=== PATIENT | female | born 1960 ===

== ENCOUNTER 2017-12-07 10:01 | Inpatient (IN) | payer MEDICARE, MEDICAID ==
[~2017-12-07 10:01] MED LIST: D5W IV ONE; HEPARIN IV ONE
--- NOTE | 2017-12-07 10:10 | C.PDOC ---
History Of Present Illness 57 y/o female with history of ESRD on dialysis brought to ED by EMS status post cardiac arrest. As per EMS patient was on the phone with daughter and told her to call 911because she did not feel well. When EMS arrived patient was unresponsive had 3 rounds of Epi and 1 bicarb and calcium. HPI limited secondary to patient's condition upon arrival pt bradycardic Time Seen by Provider: 12/07/17 10:06 Chief Complaint (Nursing): Cardiac Arrest History Per: Patient Reason For Code Blue: Unresponsive Circumstances: Brought To ED By EMS Arrest Witnessed By: Family, By-stander, Nurse Past Medical History Reviewed: Historical Data, Nursing Documentation, Vital Signs Vital Signs: Last Vital Signs Temp 97.9 F 12/09/17 18:00 Pulse 77 12/09/17 18:02 Resp 13 12/09/17 18:02 BP 146/63 12/09/17 18:30 Pulse Ox 99 12/09/17 18:02 - Medical History PMH: No Chronic Diseases Surgical History: No Surg Hx Family History: States: No Known Family Hx Review Of Systems Review Of Systems: ROS cannot be obtained secondary to pt's inabilty to answer questions. ED Course And Treatment - Laboratory Results Result Diagrams: 12/09/17 06:06 12/09/17 06:07 ECG: Interpreted By Me, Viewed By Me ECG Rhythm: Atrial Fibrillation Rate From EC (BPM) Medical Decision Making Medical Decision Making: s/p cardiac arrest with stemi on ems ekg. upon arrival ems ekg shows anterior stemi with reciprocal changes. pt philip in er. atropine given. code heart activated as per dr addison. transcutaneous pacing intiated. accepted hospitalist. all labs pending Disposition - Disposition Disposition: HOSPITALIZED Disposition Time: 04:00 Condition: CRITICAL - Clinical Impression Clinical Impression: Cardiac arrest, Bradycardia - Scribe Statement The provider has reviewed the documentation as recorded by the Mele Ramirez All medical record entries made by the Mele were at my direction and personally dictated by me. I have reviewed the chart and agree that the record accurately reflects my personal performance of the history, physical exam, medical decision making, and the department course for this patient. I have also personally directed, reviewed, and agree with the discharge instructions and disposition.
[2017-12-07] MEDS ORDERED: Heparin25000 units/250ml 1/2NS 25,000 UNITS/250 ML BAG IV ONE (10:20)
[2017-12-07] MEDS ORDERED: Lidocaine 2% MPF (5 ml) Inj ONE (10:26)
[2017-12-07] MEDS ORDERED: Propofol 10 mg/ml 1,000 MG/100 ML VIAL ONE (10:27)
[2017-12-07] MEDS: Propofol 10 mg/ml 1,000 MG/100 ML VIAL IV PRN (10:30)
[2017-12-07] MEDS ORDERED: Iodixanol 320 MG/ML 200 ML BOTTLE IV ONE (10:30)
[2017-12-07 10:39] LABS: BASO # 0.1 K/uL (0.0-0.2); BASO % 0.6 % (0.0-2.0); EOS # 0.2 K/uL (0.0-0.7); EOS % 1.2 % (0.0-4.0); HEMOGLOBIN 11.8 g/dL (11.0-16.0); LYMPH # 5.9 K/uL (1.0-4.3); LYMPH % 37.5 % (20.0-40.0); MEAN CELL VOLUME 93.6 fL (81.0-99.0); MEAN CORPUSCULAR HEMOGLOBIN 30.6 pg (27.0-31.0); MEAN CORPUSCULAR HGB CONC 32.7 g/dL (33.0-37.0); MEAN PLATELET VOLUME 8.2 fL (7.2-11.7); MONO # 0.8 K/uL (0.0-0.8); NEUT # 8.7 K/uL (1.8-7.0); NEUT % 55.7 % (50.0-75.0); RBC 3.84 Mil/uL (3.80-5.20); RED CELL DISTRIBUTION WIDTH 13.9 % (11.5-14.5); WHITE BLOOD COUNT 15.6 K/uL (4.8-10.8)
[2017-12-07] MEDS ORDERED: Phenylephrine 10 mg/ml Inj ONE (10:42)
--- NOTE | 2017-12-07 10:57 | RAD ---
Date of service: 12/07/2017 HISTORY: ng COMPARISON: Chest radiograph performed approximately 20 minutes prior. FINDINGS: LUNGS: No active pulmonary disease. PLEURA: No significant pleural effusion identified, no pneumothorax apparent. CARDIOVASCULAR: Atherosclerotic aortic calcifications. Cardiomediastinal silhouette stably enlarged. OSSEOUS STRUCTURES: Unchanged. VISUALIZED UPPER ABDOMEN: Normal. OTHER FINDINGS: New enteric tube with tip in the stomach Endotracheal tube, unchanged. Overlying pacer pads. IMPRESSION: New enteric tube in satisfactory position. No other significant interval change.
--- NOTE | 2017-12-07 10:58 | RAD ---
Date of service: 12/07/2017 PROCEDURE: CHEST RADIOGRAPH, 1 VIEW HISTORY: chest pain COMPARISON: None available. FINDINGS: LUNGS: Clear. PLEURA: No pneumothorax or pleural fluid seen. CARDIOVASCULAR: Atherosclerotic aortic calcifications. Cardiomediastinal silhouette stably enlarged. OSSEOUS STRUCTURES: Degenerative changes. VISUALIZED UPPER ABDOMEN: Normal. OTHER FINDINGS: Endotracheal tube with tip just above the clavicular heads. Overlying pacer pads. IMPRESSION: Endotracheal tube in satisfactory position. No focal consolidation, pleural effusion or demonstrated pneumothorax.
[2017-12-07 11:08] LABS: ACETAMINOPHEN < 10.0 ug/mL (10.0-30.0); SALICYLATE < 1.0 mg/dL 1
[2017-12-07 11:18] LABS: ALB/GLOB RATIO 1.4 (1.0-2.1); ALBUMIN 3.9 g/dL (3.5-5.0); ALT/SGPT 483 U/L (9-52); AST/SGOT 726 U/L (14-36); BLOOD UREA NITROGEN 63 mg/dL (7-17); CALCIUM 13.5 mg/dl (8.6-10.4); GFR AFRICAN-AMERICAN 6; GFR NON-AFRICAN AMERICAN 5; LIPASE 248 U/L (23-300)
[2017-12-07 11:39] LABS: B-TYPE NATRIURETIC PEPTIDE 56900 pg/mL (0-900)
[2017-12-07] MEDS ORDERED: Sodium Chloride 0.9% 1,000 ML IV SCH (12:00)
[2017-12-07] MEDS ORDERED: Heparin25000 units/250ml 1/2NS 25,000 UNITS/250 ML BAG IV PRN (12:57)
--- NOTE | 2017-12-07 13:05 | RAD ---
Date of service: 12/07/2017 HISTORY: resp distress COMPARISON: Chest radiograph performed approximately 2 hours prior. FINDINGS: LUNGS: Pulmonary vascular congestion. PLEURA: No significant pleural effusion identified, no pneumothorax apparent. CARDIOVASCULAR: Atherosclerotic aortic calcifications. Cardiomediastinal silhouette stably enlarged. OSSEOUS STRUCTURES: Unchanged. VISUALIZED UPPER ABDOMEN: Right upper quadrant surgical clips. OTHER FINDINGS: Endotracheal and enteric tubes, unchanged. Overlying pacer pads. IMPRESSION: Stable tubes and lines. No significant interval change.
[2017-12-07] MEDS ORDERED: (Novolin R) Insulin Human Regular 100 units/ml vial SC ONE (14:33)
[2017-12-07] MEDS ORDERED: Vancomycin 1 gm/NS 200 ml 1 GM/200 ML BAG IVPB STA (14:35)
--- NOTE | 2017-12-07 14:43 | CP.PCM.PN ---
<Jd Hardy - Last Filed: 12/07/17 13:51> Subjective - Date & Time of Evaluation Date of Evaluation: 12/07/17 Time of Evaluation: 10:20 - Subjective Subjective: House Doctor Note, Li Pascual called at 10:18AM. Patient is a 57 year old female with medical history significant for end stage renal disease on HD T//Mon, Diabetes, Hypertension, who was brought to the ED by ambulance as Li Pascual. As per patient's daughter, Malika who was present in the ED, she received a phone call from her younger sister saying that she had been on the phone with their mother who was not feeling well and then suddenly stopped talking. Daughter reports patient was alone at home. Daughter called 911, estimated time of call to 911 was 9:06AM. Per report, EMS found patient unresponsive, gave 3 rounds of Epi and 1 bicarb and calcium. Patient was intubated in the field and intra-osseous line was placed in left humerus. NG tube was placed in the ED and patient was given Atropine 1mg, aspirin 325mg, Brilinta 180mg, ativan 2mg. Heparin bolus 5000u given and heparin drip was started. Patient sedated with Propofol drip. Patient was brought to cardiac catheterization lab with Dr. Ríos. Dopamine drip was started in botany laboratory assistant. Patient had normal coronaries and normal ejection fraction. Patient likely with symptomatic bradycardia. Patient currently being paced at 100bpm. Patient in ICU for further care. Additional history provided by patient's daughter Malika Farrell who was present in the ED. Daughter reports patient had event in 09/2017 where she was weak, collapsed, and became unresponsive. Patient was treated at [facility] at that time and diagnosed with pneumonia. She was hospitalized for four days. PMHx: ESRD on HD T//Mon for the past 6 years, DM, HTN, legally blind, unspecified cancer 2 years ago, treated with chemotherapy, currently on remission OutPt Nephro: Dr. Askew Home Meds: [phone][facility] levemir 12-20 u BID Gabapentin 100mg BID nifedipine 60mg two tabs daily (not taken today 12/07/17) Diltiazem 180mg PO daily Combigan eye drops b/l daily PSHx: total hysterectomy, cholecystectomy, left arm AV fistula Fam Hx: brother and sister with diabetes, mother with heart failure. Social Hx: Denies tobacco, alcohol, drugs. Formerly worked at a [employer] business. Objective - Vital Signs/Intake and Output Vital Signs (last 24 hours): Temp Pulse Resp BP Pulse Ox 96.1 F L 70 14 121/64 100 12/07/17 10:30 12/07/17 10:55 12/07/17 10:55 12/07/17 10:55 12/07/17 10:55 - Medications Medications: Current Medications Albuterol/Ipratropium (Duoneb 3 Mg/0.5 Mg (3 Ml) Ud) 3 ml INH RQ4 [facility] Famotidine (Pepcid) 20 mg PO DAILY [facility] Heparin Sodium (Porcine) (Heparin) 5,000 units SC Q8 [facility] Sodium Chloride (Sodium Chloride 0.9%) 1,000 mls @ 50 mls/hr IV .Q20H [facility] Heparin Sodium/Sodium Chloride (Heparin 63721 Units/250ml 1/2 Normal Saline) 25 ,000 units in 250 mls @ 6.6 mls/hr IV .Q24H PRN; Protocol; 12 UNITS/KG/HR PRN Reason: PROTOCOL Last Admin: 12/07/17 10:23 Dose: 12 units/kg/hr, 6.6 mls/hr - Labs Labs: 12/07/17 10:33 12/07/17 10:33 <Henry Faith - Last Filed: 12/08/17 20:18> Objective - Vital Signs/Intake and Output Vital Signs (last 24 hours): Temp Pulse Resp BP Pulse Ox 99.4 F 82 19 106/55 L 98 12/08/17 18:05 12/08/17 19:04 12/08/17 19:04 12/08/17 19:40 12/08/17 19:04 Intake and Output: 12/08/17 12/09/17 18:59 06:59 Intake Total 2028.7 14.3 Output Total 50 50 Balance 1978.7 -35.7 - Medications Medications: Current Medications Acetaminophen (Tylenol 325mg Tab) 650 mg PO Q6 PRN PRN Reason: Fever >100.4 F Albuterol/Ipratropium (Duoneb 3 Mg/0.5 Mg (3 Ml) Ud) 3 ml INH RQ4 [facility] Last Admin: 12/08/17 19:44 Dose: 3 ml Aspirin (Aspirin Chewable) 81 mg PO DAILY [facility] Last Admin: 12/08/17 17:52 Dose: 81 mg Heparin Sodium (Porcine) (Heparin) 5,000 units SC Q8 [facility] Last Admin: 12/08/17 14:21 Dose: Not Given Propofol (Diprivan) 1,000 mg in 100 mls @ 1.65 mls/hr IV .Q24H PRN; Protocol; 5 MCG/KG/MIN PRN Reason: TITRATE PER MD ORDER Last Titration: 12/08/17 16:59 Dose: 20 mcg/kg/min, 6.6 mls/hr Piperacillin Sod/Tazobactam (Sod 2.25 gm/ Sodium Chloride) 100 mls @ 200 mls/ hr IVPB Q8H [facility] PRN Reason: Protocol Last Admin: 12/08/17 12:03 Dose: 200 mls/hr Norepinephrine Bitartrate 8 mg (/ Dextrose) 258 mls @ 7.74 mls/hr IV .Q24H PRN ; Protocol; 4 MCG/MIN PRN Reason: TITRATE PER MD ORDER Last Titration: 12/08/17 11:39 Dose: 4 mcg/min, 7.74 mls/hr Vancomycin/Sodium Chloride (Vancomycin 1 Gm/Ns 200 Ml) 1 gm in 200 mls @ 133.333 mls/hr IVPB ONCE ONE PRN Reason: Protocol Stop: 12/08/17 21:29 Insulin Glargine (Lantus) 10 unit SC DAILY [facility] Last Admin: 12/08/17 13:15 Dose: 10 u Insulin Human Regular (Novolin R) 0 unit SC Q6H [facility] PRN Reason: Protocol Last Admin: 12/08/17 17:53 Dose: 4 u Midodrine (Proamatine) 5 mg PO TID [facility] Last Admin: 12/08/17 17:52 Dose: 5 mg Pantoprazole Sodium (Protonix Inj) 40 mg IVP DAILY [facility] Last Admin: 12/08/17 09:30 Dose: 40 mg - Labs Labs: 12/08/17 06:32 12/08/17 06:32 PT 12.6 SECONDS (9.7-12.2) H 12/08/17 06:32 INR 1.2 12/08/17 06:32 APTT 29 SECONDS (21-34) 12/08/17 10:56 Attending/Attestation - Attestation I have personally seen and examined this patient.: No I have fully participated in the care of the patient.: No I have reviewed all pertinent clinical information, including history, physical exam and plan: No Notes (Text): 12/08/17 20:17 Please note that this patient was in the cardiac botany laboratory assistant at the time patient was placed under my service. She was then transferred to service of Dr. Stanley. I never saw this patient. Henry Faith D.O.
[2017-12-07] MEDS: DOPamine 400mg/250ml D5W 400 MG/250 ML BAG IV PRN (15:00)
[2017-12-07] MEDS ORDERED: Piperacillin/Tazobact 2.25 GM in Sodium Chloride 100 ML IVPB SCH (15:00)
[2017-12-07 15:32] LABS: ARTERIAL BLOOD GAS HCO3 20.5 mmol/L (21-28); ARTERIAL BLOOD GAS O2 SAT 99.1 % (95-98); ARTERIAL BLOOD GAS PCO2 43 mm/Hg (35-45); ARTERIAL BLOOD GAS PH 7.29 (7.35-7.45); ARTERIAL BLOOD GAS PO2 175 mm/Hg (80-100)
[2017-12-07 15:34] LABS: ARTERIAL BLOOD GAS FIO2 100 %
--- NOTE | 2017-12-07 15:50 | CP.PCM.CON ---
History of Present Illness - History of Present Illness History of Present Illness: Nephrology Consultation Note Assessment: critical Cardiac arrest, acute respi failure Hyperkalemia, lactic acidosis Diabetic chronic Kidney Disease (E11.22) Hypertensive Chronic Kidney Disease (I12.0) End stage renal disease (N18.6) dependence on hemodialysis (Z99.2) (TTS) via AVF Anemia (D64.9), Hyperphosphatemia (E83.39), Secondary Hyperparathyroidism (E21.1 ), HTN (I12.0) ? Hypercalcemia due to IV given during ACLS (outpt Ca 9.1 PTH 453 recently) Hx of ovarian cancer s/p chemo, in remission for last 2 years Plan: Will plan for next HD today per TTS schedule. Continue with Nephrovite 1 tab/ day. PRBC as needed for anemia. not on NEIDA with HD last Hb 11.6 check phos level. resume non-calcium binders such as renvela once pt on diet BP control Glycemic control, Dialysis consistent diet Further work up/management as per primary team Dose meds/antibiotics (if needed) for ESRD status. Avoid fleets enema/magnesium based laxatives. cardiology following Thanks for allowing me to participate in care of your patient. will follow with you. Please call if any Qs. had d/w family and team Dr Shahab Bunn Office: [phone] Chief Complaint; cardiac arrest reason for consult: ESRD HPI: Pt is a 57 F with hx of ESRD on hemodialysis (TTS) via AVF @ [facility] for last 7 years, chronic anemia, hyperphosphatemia, secondary hyperparathyroidism, Diabetes Mellitus, hypertension, ovarian cancer s/p chemo, in remission for last 2 years found to be unresponsive at home, pt s/p ACLS and intubated/sedated, now in ICU pt unable to provide much hx daughter bedside says pt was fine 1 day ago except mild cough. no other concerns or complaints reported. pt is non smoker/no etoh/no drugs. last HD monday ROS: intubated and sedated. unable to obtain any hx from pt Physical Examination: General Appearance: orally intubated and mechanically ventilated, not in distress Vitals reviewed and noted as below Head; Atraumatic, normocephalic ENT: deferred as pt intubated EYES: Rt pupil dilated and non-reacting. left eye blind Neck; supple no lymphadenopathy, no thyromegaly or bruit Lungs: normal respiratory rate/effort. Breath sounds bilateral clear anteriorly. has TV pacer Heart: Normal rate. s1s2 normal. No rub or gallop. Extremities: no edema. No varicose veins. Neurological: Patient is sedated Skin: Warm and dry. Normal turgor. No rash. Palpitation: Normal elasticity for age Abdomen: Abdomen is soft. Bowel sounds +. There is no abdominal tenderness, no guarding/rigidity or organomegaly Psych: deferred MSK: no joint tenderness or swelling. Digits and nails normal, no deformity : kidney or bladder not palpable Access: AVF Labs/imaging reviewed. Past medical history, past surgical history, family history, social history, allergy reviewed and noted as below Family Hx: no hx of CKD. Non contributory Past Patient History - Past Social History Smoking Status: Never Smoked - RENAL Hx Chronic Kidney Disease: Yes Hx Dialysis: Yes Type of Dialysis Access: LEFT LOWER ARM Date of Last Dialysis Treatment: 12/05/17 - ENDOCRINE/METABOLIC Hx Endocrine Disorders: Yes Hx Diabetes Mellitus Type 1: Yes - PSYCHIATRIC Hx Substance Use: No Meds Allergies/Adverse Reactions: Allergies Allergy/AdvReac Type Severity Reaction Status Date / Time No Known Allergies Allergy Verified 12/07/17 14:23 - Medications Medications: Current Medications Acetaminophen (Tylenol 325mg Tab) 650 mg PO Q6 PRN PRN Reason: Fever >100.4 F Albuterol/Ipratropium (Duoneb 3 Mg/0.5 Mg (3 Ml) Ud) 3 ml INH RQ4 [facility] Heparin Sodium (Porcine) (Heparin) 5,000 units SC Q8 [facility] Last Admin: 12/07/17 15:40 Dose: 5,000 units Propofol (Diprivan) 1,000 mg in 100 mls @ 1.65 mls/hr IV .Q24H PRN; Protocol; 5 MCG/KG/MIN PRN Reason: TITRATE PER MD ORDER Last Admin: 12/07/17 10:30 Dose: 5 mcg/kg/min, 1.65 mls/hr Dopamine HCl/Dextrose (Dopamine 400mg/250ml D5w) 400 mg in 250 mls @ 4.125 mls/ hr IV .Q24H PRN; Protocol; 2 MCG/KG/MIN PRN Reason: TITRATE PER MD ORDER Piperacillin Sod/Tazobactam (Sod 2.25 gm/ Sodium Chloride) 100 mls @ 200 mls/ hr IVPB Q8H [facility] PRN Reason: Protocol Vancomycin/Sodium Chloride (Vancomycin 1 Gm/Ns 200 Ml) 1 gm in 200 mls @ 133.333 mls/hr IVPB STAT STA PRN Reason: Protocol Stop: 12/07/17 16:04 Insulin Human Regular (Novolin R) 0 unit SC ACHS [facility] PRN Reason: Protocol Pantoprazole Sodium (Protonix Inj) 40 mg IVP DAILY [facility] Results - Vital Signs Recent Vital Signs: Last Vital Signs Temp 96.7 F L 12/07/17 12:32 Pulse 81 12/07/17 13:45 Resp 12 12/07/17 13:45 BP 111/49 L 12/07/17 13:45 Pulse Ox 100 12/07/17 10:55 - Labs Result Diagrams: 12/07/17 10:33 12/07/17 10:33 Labs: Laboratory Results - last 24 hr 12/07/17 12/07/17 12/07/17 10:07 10:10 10:33 WBC 15.6 H RBC 3.84 Hgb 11.8 Hct 36.0 MCV 93.6 MCH 30.6 MCHC 32.7 L RDW 13.9 Plt Count 167 MPV 8.2 Neut % (Auto) 55.7 Lymph % (Auto) 37.5 Creek % (Auto) 5.0 Eos % (Auto) 1.2 Baso % (Auto) 0.6 Neut # (Auto) 8.7 H Lymph # (Auto) 5.9 H Creek # (Auto) 0.8 Eos # (Auto) 0.2 Baso # (Auto) 0.1 Puncture Site A-line pCO2 43 pO2 175 H HCO3 20.5 L ABG pH 7.29 L ABG Total CO2 22.0 ABG O2 Saturation 99.1 H ABG Base Excess -5.7 L Mateo Test Na A-a O2 Difference 484.0 Respiratory Index 2.8 FiO2 100 Sodium Potassium Chloride Carbon Dioxide Anion Gap BUN Creatinine Est GFR ( Amer) Est GFR (Non-Af Amer) POC Glucose (mg/dL) 379 H Random Glucose Lactic Acid Calcium Total Bilirubin AST ALT Alkaline Phosphatase Total Creatine Kinase Troponin I NT-Pro-B Natriuret Pep Total Protein Albumin Globulin Albumin/Globulin Ratio Lipase TSH 3rd Generation Salicylates Acetaminophen Alcohol, Quantitative 12/07/17 12/07/17 12/07/17 10:33 10:33 11:20 WBC RBC Hgb Hct MCV MCH MCHC RDW Plt Count MPV Neut % (Auto) Lymph % (Auto) Creek % (Auto) Eos % (Auto) Baso % (Auto) Neut # (Auto) Lymph # (Auto) Creek # (Auto) Eos # (Auto) Baso # (Auto) Puncture Site pCO2 pO2 HCO3 ABG pH ABG Total CO2 ABG O2 Saturation ABG Base Excess Mateo Test A-a O2 Difference Respiratory Index FiO2 Sodium 142 Potassium 5.5 H Chloride 100 Carbon Dioxide 15 L Anion Gap 33 H BUN 63 H Creatinine 7.9 H* Est GFR ( Amer) 6 Est GFR (Non-Af Amer) 5 POC Glucose (mg/dL) Random Glucose 334 H Lactic Acid 7.6 H* Calcium 13.5 H* Total Bilirubin 0.9 AST 726 H ALT 483 H Alkaline Phosphatase 145 H Total Creatine Kinase 72 Troponin I 0.0190 NT-Pro-B Natriuret Pep 07614 H Total Protein 6.8 Albumin 3.9 Globulin 2.9 Albumin/Globulin Ratio 1.4 Lipase 248 TSH 3rd Generation Salicylates < 1.0 Acetaminophen < 10.0 L Alcohol, Quantitative < 10 12/07/17 12/07/17 11:31 13:34 WBC RBC Hgb Hct MCV MCH MCHC RDW Plt Count MPV Neut % (Auto) Lymph % (Auto) Creek % (Auto) Eos % (Auto) Baso % (Auto) Neut # (Auto) Lymph # (Auto) Creek # (Auto) Eos # (Auto) Baso # (Auto) Puncture Site pCO2 pO2 HCO3 ABG pH ABG Total CO2 ABG O2 Saturation ABG Base Excess Mateo Test A-a O2 Difference Respiratory Index FiO2 Sodium Potassium Chloride Carbon Dioxide Anion Gap BUN Creatinine Est GFR ( Amer) Est GFR (Non-Af Amer) POC Glucose (mg/dL) 358 H Random Glucose Lactic Acid Calcium Total Bilirubin AST ALT Alkaline Phosphatase Total Creatine Kinase Troponin I NT-Pro-B Natriuret Pep Total Protein Albumin Globulin Albumin/Globulin Ratio Lipase TSH 3rd Generation 4.97 H Salicylates Acetaminophen Alcohol, Quantitative
[2017-12-07] MEDS ORDERED: (Novolin R) Insulin Human Regular 100 units/ml vial SC SCH (16:30)
[2017-12-07 16:33] LABS: ABG ALLEN TEST POS; ARTERIAL BLOOD GAS HCO3 23.7 mmol/L (21-28); ARTERIAL BLOOD GAS O2 SAT 97.2 % (95-98); ARTERIAL BLOOD GAS PCO2 41 mm/Hg (35-45); ARTERIAL BLOOD GAS PH 7.37 (7.35-7.45); ARTERIAL BLOOD GAS PO2 88 mm/Hg (80-100)
[2017-12-07] MEDS: Albuterol-Ipratrop 3 mg / 0.5 (3 ml) UD INH SCH ×2 (16:45→19:45)
--- NOTE | 2017-12-07 17:17 | CT ---
Date of service: 12/07/2017 PROCEDURE: CT HEAD WITHOUT CONTRAST. HISTORY: r/o CVA COMPARISON: None available. TECHNIQUE: Axial computed tomography images were obtained through the head/brain without intravenous contrast. Radiation dose: Total exam DLP = 1088.6 mGy-cm. This CT exam was performed using one or more of the following dose reduction techniques: Automated exposure control, adjustment of the mA and/or kV according to patient size, and/or use of iterative reconstruction technique. FINDINGS: HEMORRHAGE: No intracranial hemorrhage. BRAIN: No mass effect or edema. No atrophy or chronic microvascular ischemic changes. VENTRICLES: Unremarkable. No hydrocephalus. CALVARIUM: Unremarkable. PARANASAL SINUSES: Mild pansinus mucosal thickening. MASTOID AIR CELLS: Unremarkable as visualized. No inflammatory changes. OTHER FINDINGS: None. IMPRESSION: No acute intracranial pathology. Mild pansinusitis.
--- NOTE | 2017-12-07 17:25 | CP.PCM.CON ---
<MoranLay - Last Filed: 12/07/17 19:06> History of Present Illness - History of Present Illness History of Present Illness: 57 yo F w/ PMHx DM, HTN, diabetic neuropathy, ESDR (HD T/Th/Sat) ovarian ca s/p surgical resection and chemo, brought to ED by EMT after pt became dysphasic on phone with daughter followed by a presumed LOC. EMT reported to ED nursing staff ACLS was protocol initiated and pt was in PEA at scene, 2 rounds of epi were administered before ROSC; however pt remained philip in the 30s. A third epi, 3g CaGluc, 1 amp bicarb were administered on scene with no change in HR. Left humoral IO started, and pt intubated before arrival to ED. ED course included NGT and crocker insertion, ASA, atropine 1mg, Brillinta 180mg, ativan 2mg , heparin 5000U IVP, heparin drip, and propofol drip. Code Heart was also called in ED. Pt taken to cardiac cath with Dr. Ríos where dopamine drip started and trans venous pacing @100 was initiated; cath was neg for any occlusion/obstruction per Dr. Ríos. Pt admitted to ICU for management of symptomatic bradycardia and leaukocytosis. ROS unobtainable as pt is intubated. Review of Systems - Review of Systems Systems not reviewed;Unavailable: Intubated Past Patient History - Past Social History Smoking Status: Never Smoked - RENAL Hx Chronic Kidney Disease: Yes Hx Dialysis: Yes Type of Dialysis Access: LEFT LOWER ARM Date of Last Dialysis Treatment: 12/05/17 - ENDOCRINE/METABOLIC Hx Endocrine Disorders: Yes Hx Diabetes Mellitus Type 1: Yes - PSYCHIATRIC Hx Substance Use: No Meds Allergies/Adverse Reactions: Allergies Allergy/AdvReac Type Severity Reaction Status Date / Time No Known Allergies Allergy Verified 12/07/17 14:23 - Medications Medications: Current Medications Acetaminophen (Tylenol 325mg Tab) 650 mg PO Q6 PRN PRN Reason: Fever >100.4 F Albuterol/Ipratropium (Duoneb 3 Mg/0.5 Mg (3 Ml) Ud) 3 ml INH RQ4 [facility] Heparin Sodium (Porcine) (Heparin) 5,000 units SC Q8 [facility] Last Admin: 12/07/17 15:40 Dose: 5,000 units Propofol (Diprivan) 1,000 mg in 100 mls @ 1.65 mls/hr IV .Q24H PRN; Protocol; 5 MCG/KG/MIN PRN Reason: TITRATE PER MD ORDER Last Admin: 12/07/17 10:30 Dose: 5 mcg/kg/min, 1.65 mls/hr Dopamine HCl/Dextrose (Dopamine 400mg/250ml D5w) 400 mg in 250 mls @ 4.125 mls/ hr IV .Q24H PRN; Protocol; 2 MCG/KG/MIN PRN Reason: TITRATE PER MD ORDER Piperacillin Sod/Tazobactam (Sod 2.25 gm/ Sodium Chloride) 100 mls @ 200 mls/ hr IVPB Q8H [facility] PRN Reason: Protocol Insulin Human Regular (Novolin R) 0 unit SC ACHS [facility] PRN Reason: Protocol Pantoprazole Sodium (Protonix Inj) 40 mg IVP DAILY [facility] Physical Exam - Constitutional Appears: Other (sedated) - Head Exam Head Exam: ATRAUMATIC, NORMAL INSPECTION, NORMOCEPHALIC - Respiratory Exam Respiratory Exam: Clear to Auscultation Bilateral (intubated). absent: Accessory Muscle Use - Cardiovascular Exam Cardiovascular Exam: REGULAR RHYTHM. absent: Bradycardia, Systolic Murmur - GI/Abdominal Exam GI & Abdominal Exam: Normal Bowel Sounds, Soft - Extremities Exam Extremities exam: Positive for: normal capillary refill. Negative for: pedal edema - Neurological Exam Neurological exam: Altered (sedated) Results - Vital Signs Recent Vital Signs: Last Vital Signs Temp 96.7 F L 12/07/17 12:32 Pulse 81 12/07/17 13:45 Resp 12 12/07/17 13:45 BP 111/49 L 12/07/17 13:45 Pulse Ox 100 12/07/17 10:55 - Labs Result Diagrams: 12/07/17 18:27 12/07/17 18:27 Labs: Laboratory Results - last 24 hr 12/07/17 12/07/17 12/07/17 10:07 10:10 10:33 WBC 15.6 H RBC 3.84 Hgb 11.8 Hct 36.0 MCV 93.6 MCH 30.6 MCHC 32.7 L RDW 13.9 Plt Count 167 MPV 8.2 Neut % (Auto) 55.7 Lymph % (Auto) 37.5 [place] % (Auto) 5.0 Eos % (Auto) 1.2 Baso % (Auto) 0.6 Neut # (Auto) 8.7 H Lymph # (Auto) 5.9 H [place] # (Auto) 0.8 Eos # (Auto) 0.2 Baso # (Auto) 0.1 Puncture Site A-line pCO2 43 pO2 175 H HCO3 20.5 L ABG pH 7.29 L ABG Total CO2 22.0 ABG O2 Saturation 99.1 H ABG Base Excess -5.7 L [place] Test Na A-a O2 Difference 484.0 Respiratory Index 2.8 FiO2 100 Sodium Potassium Chloride Carbon Dioxide Anion Gap BUN Creatinine Est GFR ( Amer) Est GFR (Non-Af Amer) POC Glucose (mg/dL) 379 H Random Glucose Lactic Acid Calcium Total Bilirubin AST ALT Alkaline Phosphatase Total Creatine Kinase Troponin I NT-Pro-B Natriuret Pep Total Protein Albumin Globulin Albumin/Globulin Ratio Lipase TSH 3rd Generation Salicylates Acetaminophen Alcohol, Quantitative 12/07/17 12/07/17 12/07/17 10:33 10:33 11:20 WBC RBC Hgb Hct MCV MCH MCHC RDW Plt Count MPV Neut % (Auto) Lymph % (Auto) [place] % (Auto) Eos % (Auto) Baso % (Auto) Neut # (Auto) Lymph # (Auto) [place] # (Auto) Eos # (Auto) Baso # (Auto) Puncture Site pCO2 pO2 HCO3 ABG pH ABG Total CO2 ABG O2 Saturation ABG Base Excess [place] Test A-a O2 Difference Respiratory Index FiO2 Sodium 142 Potassium 5.5 H Chloride 100 Carbon Dioxide 15 L Anion Gap 33 H BUN 63 H Creatinine 7.9 H* Est GFR ( Amer) 6 Est GFR (Non-Af Amer) 5 POC Glucose (mg/dL) Random Glucose 334 H Lactic Acid 7.6 H* Calcium 13.5 H* Total Bilirubin 0.9 AST 726 H ALT 483 H Alkaline Phosphatase 145 H Total Creatine Kinase 72 Troponin I 0.0190 NT-Pro-B Natriuret Pep 67018 H Total Protein 6.8 Albumin 3.9 Globulin 2.9 Albumin/Globulin Ratio 1.4 Lipase 248 TSH 3rd Generation Salicylates < 1.0 Acetaminophen < 10.0 L Alcohol, Quantitative < 10 12/07/17 12/07/17 11:31 13:34 WBC RBC Hgb Hct MCV MCH MCHC RDW Plt Count MPV Neut % (Auto) Lymph % (Auto) [place] % (Auto) Eos % (Auto) Baso % (Auto) Neut # (Auto) Lymph # (Auto) [place] # (Auto) Eos # (Auto) Baso # (Auto) Puncture Site pCO2 pO2 HCO3 ABG pH ABG Total CO2 ABG O2 Saturation ABG Base Excess [place] Test A-a O2 Difference Respiratory Index FiO2 Sodium Potassium Chloride Carbon Dioxide Anion Gap BUN Creatinine Est GFR ( Amer) Est GFR (Non-Af Amer) POC Glucose (mg/dL) 358 H Random Glucose Lactic Acid Calcium Total Bilirubin AST ALT Alkaline Phosphatase Total Creatine Kinase Troponin I NT-Pro-B Natriuret Pep Total Protein Albumin Globulin Albumin/Globulin Ratio Lipase TSH 3rd Generation 4.97 H Salicylates Acetaminophen Alcohol, Quantitative Assessment & Plan - Assessment and Plan (Free Text) Assessment: 57 yo F w/ PMHx DM, HTN, diabetic neuropathy, ESDR (HD T//Mon) ovarian ca s/p surgical resection and chemo, brought to ED by EMT after an unwitnessed LOC likely 2/2 to a presumed cardiac arrest vs. symptomatic bradycardia, w/ ACLS protocol initiated on field. 1. LOC 2/2 to symptomatic bradycardia vs. cardiac arrest vs. CVA -cardiac cath negative -TVP @ 100 -dopamine, w/ goal SBP >110 -low dose propofol -cardio consult Dr. Ríos, per cardio since cath was neg, no need to iniate DAPT or AC -head CT neg for acute pathology -EP consult Dr. Travis -hold home cardiac meds nifedipine ER 60mg BID and diltiazem ER 180mg likely cause of symptomatic bradycardia -f/u echo -f/u lipid panel, TSH free T4, UDS, A1C -GSC 4 -vent support until stable 2. Shock 2/2 sepsis vs cardiogenic -WBC 15.6 -lactate 7.6 -initial trop 0.019, trending up to 0.304, f/u RYANN -pBNP 56,900 -repeat ABG shock -Pt to receive vanc and zosyn post HD -f/u [place] cx -tylenol PRN fevers 3. ESRD on HD T//Mon -Bun/Cr upon admission 63/7.9 -pt to be dialyzed today via left UE fistula -nephro consult Dr. Bunn -renal med dosing 4. DM -ISS -accuchecks -hypoglycemic protocol Ppx -heparin 5000U sc -protonix 40mg <DimitryfLino M - Last Filed: 12/07/17 19:17> Meds - Medications Medications: Current Medications Acetaminophen (Tylenol 325mg Tab) 650 mg PO Q6 PRN PRN Reason: Fever >100.4 F Albuterol/Ipratropium (Duoneb 3 Mg/0.5 Mg (3 Ml) Ud) 3 ml INH RQ4 [facility] Heparin Sodium (Porcine) (Heparin) 5,000 units SC Q8 [facility] Last Admin: 12/07/17 15:40 Dose: 5,000 units Propofol (Diprivan) 1,000 mg in 100 mls @ 1.65 mls/hr IV .Q24H PRN; Protocol; 5 MCG/KG/MIN PRN Reason: TITRATE PER MD ORDER Last Titration: 12/07/17 14:00 Dose: 20 mcg/kg/min, 6.6 mls/hr Dopamine HCl/Dextrose (Dopamine 400mg/250ml D5w) 400 mg in 250 mls @ 4.125 mls/ hr IV .Q24H PRN; Protocol; 2 MCG/KG/MIN PRN Reason: TITRATE PER MD ORDER Last Titration: 12/07/17 18:00 Dose: 15 mcg/kg/min, 30.938 mls/hr Piperacillin Sod/Tazobactam (Sod 2.25 gm/ Sodium Chloride) 100 mls @ 200 mls/ hr IVPB Q8H [facility] PRN Reason: Protocol Insulin Human Regular (Novolin R) 0 unit SC ACHS [facility] PRN Reason: Protocol Last Admin: 12/07/17 19:02 Dose: 4 u Pantoprazole Sodium (Protonix Inj) 40 mg IVP DAILY [facility] Results - Vital Signs Recent Vital Signs: Last Vital Signs Temp 94.4 F L 12/07/17 18:10 Pulse 81 12/07/17 19:00 Resp 12 12/07/17 19:00 BP 106/54 L 12/07/17 19:10 Pulse Ox 97 12/07/17 18:10 - Labs Result Diagrams: 12/07/17 18:27 12/07/17 18:27 Labs: Laboratory Results - last 24 hr 12/07/17 12/07/17 12/07/17 10:07 10:10 10:33 WBC 15.6 H RBC 3.84 Hgb 11.8 Hct 36.0 MCV 93.6 MCH 30.6 MCHC 32.7 L RDW 13.9 Plt Count 167 MPV 8.2 Neut % (Auto) 55.7 Lymph % (Auto) 37.5 [place] % (Auto) 5.0 Eos % (Auto) 1.2 Baso % (Auto) 0.6 Neut # (Auto) 8.7 H Lymph # (Auto) 5.9 H [place] # (Auto) 0.8 Eos # (Auto) 0.2 Baso # (Auto) 0.1 Puncture Site A-line pCO2 43 pO2 175 H HCO3 20.5 L ABG pH 7.29 L ABG Total CO2 22.0 ABG O2 Saturation 99.1 H ABG Base Excess -5.7 L [place] Test Na ABG Potassium A-a O2 Difference 484.0 Respiratory Index 2.8 Glucose Lactate Vent Mode Mechanical Rate FiO2 100 Tidal Volume PEEP Crit Value Called To Crit Value Called By Crit Value Read Back Blood Gas Notified Time Sodium Potassium Chloride Carbon Dioxide Anion Gap BUN Creatinine Est GFR ( Amer) Est GFR (Non-Af Amer) POC Glucose (mg/dL) 379 H Random Glucose Lactic Acid Calcium Phosphorus Magnesium Total Bilirubin AST ALT Alkaline Phosphatase Total Creatine Kinase Troponin I NT-Pro-B Natriuret Pep Total Protein Albumin Globulin Albumin/Globulin Ratio Lipase TSH 3rd Generation Arterial Blood Potassium Salicylates Acetaminophen Alcohol, Quantitative 12/07/17 12/07/17 12/07/17 10:33 10:33 11:20 WBC RBC Hgb Hct MCV MCH MCHC RDW Plt Count MPV Neut % (Auto) Lymph % (Auto) [place] % (Auto) Eos % (Auto) Baso % (Auto) Neut # (Auto) Lymph # (Auto) [place] # (Auto) Eos # (Auto) Baso # (Auto) Puncture Site pCO2 pO2 HCO3 ABG pH ABG Total CO2 ABG O2 Saturation ABG Base Excess [place] Test ABG Potassium A-a O2 Difference Respiratory Index Glucose Lactate Vent Mode Mechanical Rate FiO2 Tidal Volume PEEP Crit Value Called To Crit Value Called By Crit Value Read Back Blood Gas Notified Time Sodium 142 Potassium 5.5 H Chloride 100 Carbon Dioxide 15 L Anion Gap 33 H BUN 63 H Creatinine 7.9 H* Est GFR ( Amer) 6 Est GFR (Non-Af Amer) 5 POC Glucose (mg/dL) Random Glucose 334 H Lactic Acid 7.6 H* Calcium 13.5 H* Phosphorus Magnesium Total Bilirubin 0.9 AST 726 H ALT 483 H Alkaline Phosphatase 145 H Total Creatine Kinase 72 Troponin I 0.0190 NT-Pro-B Natriuret Pep 54262 H Total Protein 6.8 Albumin 3.9 Globulin 2.9 Albumin/Globulin Ratio 1.4 Lipase 248 TSH 3rd Generation Arterial Blood Potassium Salicylates < 1.0 Acetaminophen < 10.0 L Alcohol, Quantitative < 10 12/07/17 12/07/17 12/07/17 11:31 13:34 16:25 WBC RBC Hgb Hct MCV MCH MCHC RDW Plt Count MPV Neut % (Auto) Lymph % (Auto) [place] % (Auto) Eos % (Auto) Baso % (Auto) Neut # (Auto) Lymph # (Auto) [place] # (Auto) Eos # (Auto) Baso # (Auto) Puncture Site R a pCO2 41 pO2 88 HCO3 23.7 ABG pH 7.37 ABG Total CO2 25.0 ABG O2 Saturation 97.2 ABG Base Excess -1.5 [place] Test Pos ABG Potassium 6.8 H* A-a O2 Difference 574.0 Respiratory Index 6.5 Glucose 447 H* Lactate 1.5 Vent Mode Prvc Mechanical Rate 12 FiO2 100.0 Tidal Volume 500 PEEP 5 Crit Value Called To Dr nam Crit Value Called By [facility] Crit Value Read Back Y Blood Gas Notified Time 1633 Sodium 133.0 Potassium Chloride 100.0 Carbon Dioxide Anion Gap BUN Creatinine Est GFR ( Amer) Est GFR (Non-Af Amer) POC Glucose (mg/dL) 358 H Random Glucose Lactic Acid Calcium Phosphorus Magnesium Total Bilirubin AST ALT Alkaline Phosphatase Total Creatine Kinase Troponin I NT-Pro-B Natriuret Pep Total Protein Albumin Globulin Albumin/Globulin Ratio Lipase TSH 3rd Generation 4.97 H Arterial Blood Potassium 6.8 H* Salicylates Acetaminophen Alcohol, Quantitative 12/07/17 12/07/17 12/07/17 16:38 18:27 18:27 WBC 18.4 H RBC 4.08 Hgb 12.2 Hct 36.7 MCV 89.9 D MCH 29.9 MCHC 33.2 RDW 14.2 Plt Count 223 MPV 8.1 Neut % (Auto) 82.5 H Lymph % (Auto) 8.4 L [place] % (Auto) 8.8 Eos % (Auto) 0.1 Baso % (Auto) 0.2 Neut # (Auto) 15.2 H Lymph # (Auto) 1.6 [place] # (Auto) 1.6 H Eos # (Auto) 0.0 Baso # (Auto) 0.0 Puncture Site pCO2 pO2 HCO3 ABG pH ABG Total CO2 ABG O2 Saturation ABG Base Excess [place] Test ABG Potassium A-a O2 Difference Respiratory Index Glucose Lactate Vent Mode Mechanical Rate FiO2 Tidal Volume PEEP Crit Value Called To Crit Value Called By Crit Value Read Back Blood Gas Notified Time Sodium 137 Potassium 6.4 H* Chloride 95 L Carbon Dioxide 25 Anion Gap 23 H BUN 77 H Creatinine 8.1 H* Est GFR ( Amer) 6 Est GFR (Non-Af Amer) 5 POC Glucose (mg/dL) Random Glucose 425 H* D Lactic Acid Calcium 12.4 H Phosphorus 7.0 H Magnesium 2.4 H Total Bilirubin 1.3 AST > 750 H ALT 695 H D Alkaline Phosphatase 204 H D Total Creatine Kinase Troponin I 0.3040 H* NT-Pro-B Natriuret Pep Total Protein 7.2 Albumin 4.2 Globulin 3.0 Albumin/Globulin Ratio 1.4 Lipase TSH 3rd Generation Arterial Blood Potassium Salicylates Acetaminophen Alcohol, Quantitative 12/07/17 18:35 WBC RBC Hgb Hct MCV MCH MCHC RDW Plt Count MPV Neut % (Auto) Lymph % (Auto) [place] % (Auto) Eos % (Auto) Baso % (Auto) Neut # (Auto) Lymph # (Auto) [place] # (Auto) Eos # (Auto) Baso # (Auto) Puncture Site pCO2 pO2 HCO3 ABG pH ABG Total CO2 ABG O2 Saturation ABG Base Excess [place] Test ABG Potassium A-a O2 Difference Respiratory Index Glucose Lactate Vent Mode Mechanical Rate FiO2 Tidal Volume PEEP Crit Value Called To Crit Value Called By Crit Value Read Back Blood Gas Notified Time Sodium Potassium Chloride Carbon Dioxide Anion Gap BUN Creatinine Est GFR ( Amer) Est GFR (Non-Af Amer) POC Glucose (mg/dL) 301 H Random Glucose Lactic Acid Calcium Phosphorus Magnesium Total Bilirubin AST ALT Alkaline Phosphatase Total Creatine Kinase Troponin I NT-Pro-B Natriuret Pep Total Protein Albumin Globulin Albumin/Globulin Ratio Lipase TSH 3rd Generation Arterial Blood Potassium Salicylates Acetaminophen Alcohol, Quantitative Attending/Attestation - Attestation I have personally seen and examined this patient.: Yes I have fully participated in the care of the patient.: Yes I have reviewed all pertinent clinical information: Yes Notes (Text): 12/07/17 19:17 Today: November The Patient was seen and examined at the bedside, Medical records reviewed, and management issues were discussed and formulated with the house staff. I have reviewed all the relevant clinical, laboratory, hemodynamic, radiographic data and medications Events reviewed Pain issues, skin care, head of the bed elevation, glycemic control were addressed. Agree with above resident's assessment and treatment plans of care as transcribed in Dr. Moran's note.
[2017-12-07 18:31] LABS: BASO % 0.2 % (0.0-2.0); EOS % 0.1 % (0.0-4.0); HEMOGLOBIN 12.2 g/dL (11.0-16.0); LYMPH # 1.6 K/uL (1.0-4.3); LYMPH % 8.4 % (20.0-40.0); MEAN CORPUSCULAR HEMOGLOBIN 29.9 pg (27.0-31.0); MEAN CORPUSCULAR HGB CONC 33.2 g/dL (33.0-37.0); MEAN PLATELET VOLUME 8.1 fL (7.2-11.7); MONO # 1.6 K/uL (0.0-0.8); MONO % 8.8 % (0.0-10.0); NEUT # 15.2 K/uL (1.8-7.0); NEUT % 82.5 % (50.0-75.0); PLATELET COUNT 223 K/uL (130-400); RBC 4.08 Mil/uL (3.80-5.20); RED CELL DISTRIBUTION WIDTH 14.2 % (11.5-14.5); WHITE BLOOD COUNT 18.4 K/uL (4.8-10.8)
[2017-12-07 18:33] LABS: MEAN CELL VOLUME 89.9 fL (81.0-99.0)
[2017-12-07 18:53] LABS: ALB/GLOB RATIO 1.4 (1.0-2.1); ALBUMIN 4.2 g/dL (3.5-5.0); ALT/SGPT 695 U/L (9-52); AST/SGOT > 750 U/L (14-36); BLOOD UREA NITROGEN 77 mg/dL (7-17); CALCIUM 12.4 mg/dl (8.6-10.4); GFR AFRICAN-AMERICAN 6; GFR NON-AFRICAN AMERICAN 5
[2017-12-07 20:45] LABS: LYMPHOCYTE 10 % (20-40); MONOCYTE 7 % (0-10); MYELOCYTE 1 % (0-0); NEUTROPHIL 82 % (50-75); PLATELET ESTIMATE NORMAL (NORMAL); TOTAL CELLS COUNTED 100
--- NOTE | 2017-12-07 23:52 | CP.PCM.CON ---
History of Present Illness - History of Present Illness History of Present Illness: Patient s/p Cardiac arrest and Cardiac Cath Normal coronaries and normal EF s/p TVP Sepsis? Hypotesion For PPM tomorrow Past Patient History - Past Medical History & Family History Past Medical History?: Yes - Past Social History Smoking Status: Never Smoked - CARDIAC Hx Hypertension: Yes - PULMONARY Hx Respiratory Disorders: No - NEUROLOGICAL Hx Neurological Disorder: No - HEENT Hx Blind: Yes - RENAL Hx Chronic Kidney Disease: Yes Hx Dialysis: Yes Type of Dialysis Access: LEFT LOWER ARM Date of Last Dialysis Treatment: 12/05/17 - ENDOCRINE/METABOLIC Hx Endocrine Disorders: Yes Hx Diabetes Mellitus Type 1: Yes - HEMATOLOGICAL/ONCOLOGICAL Hx Blood Disorders: No - INTEGUMENTARY Hx Dermatological Problems: No - MUSCULOSKELETAL/RHEUMATOLOGICAL Hx Falls: No - GASTROINTESTINAL Hx Gastrointestinal Disorders: No - GENITOURINARY/GYNECOLOGICAL Hx Ovarian Cancer: Yes - PSYCHIATRIC Hx Substance Use: No - SURGICAL HISTORY Hx Cataract Extraction: Yes Hx Hysterectomy: Yes - ANESTHESIA Hx Anesthesia: Yes Hx Anesthesia Reactions: No Meds Allergies/Adverse Reactions: Allergies Allergy/AdvReac Type Severity Reaction Status Date / Time No Known Allergies Allergy Verified 12/07/17 14:23 - Medications Medications: Current Medications Acetaminophen (Tylenol 325mg Tab) 650 mg PO Q6 PRN PRN Reason: Fever >100.4 F Albuterol/Ipratropium (Duoneb 3 Mg/0.5 Mg (3 Ml) Ud) 3 ml INH RQ4 [facility] Last Admin: 12/07/17 19:45 Dose: 3 ml Heparin Sodium (Porcine) (Heparin) 5,000 units SC Q8 [facility] Last Admin: 12/07/17 23:00 Dose: 5,000 units Propofol (Diprivan) 1,000 mg in 100 mls @ 1.65 mls/hr IV .Q24H PRN; Protocol; 5 MCG/KG/MIN PRN Reason: TITRATE PER MD ORDER Last Titration: 12/07/17 14:00 Dose: 20 mcg/kg/min, 6.6 mls/hr Dopamine HCl/Dextrose (Dopamine 400mg/250ml D5w) 400 mg in 250 mls @ 4.125 mls/ hr IV .Q24H PRN; Protocol; 2 MCG/KG/MIN PRN Reason: TITRATE PER MD ORDER Last Titration: 12/07/17 22:00 Dose: 12 mcg/kg/min, 24.75 mls/hr Piperacillin Sod/Tazobactam (Sod 2.25 gm/ Sodium Chloride) 100 mls @ 200 mls/ hr IVPB Q8H [facility] PRN Reason: Protocol Insulin Human Regular (Novolin R) 0 unit SC Q6H [facility] PRN Reason: Protocol Pantoprazole Sodium (Protonix Inj) 40 mg IVP DAILY [facility] Results - Vital Signs Recent Vital Signs: Last Vital Signs Temp 97.4 F L 12/07/17 21:10 Pulse 82 12/07/17 23:03 Resp 12 12/07/17 23:03 BP 107/48 L 12/07/17 23:03 Pulse Ox 100 12/07/17 23:03 - Labs Result Diagrams: 12/07/17 18:27 12/07/17 18:27 Labs: Laboratory Results - last 24 hr 12/07/17 12/07/17 12/07/17 10:07 10:10 10:33 WBC 15.6 H RBC 3.84 Hgb 11.8 Hct 36.0 MCV 93.6 MCH 30.6 MCHC 32.7 L RDW 13.9 Plt Count 167 MPV 8.2 Neut % (Auto) 55.7 Lymph % (Auto) 37.5 Kay % (Auto) 5.0 Eos % (Auto) 1.2 Baso % (Auto) 0.6 Neut # (Auto) 8.7 H Lymph # (Auto) 5.9 H Kay # (Auto) 0.8 Eos # (Auto) 0.2 Baso # (Auto) 0.1 Neutrophils % (Manual) Lymphocytes % (Manual) Monocytes % (Manual) Myelocytes % Platelet Estimate Puncture Site A-line pCO2 43 pO2 175 H HCO3 20.5 L ABG pH 7.29 L ABG Total CO2 22.0 ABG O2 Saturation 99.1 H ABG Base Excess -5.7 L [place] Test Na ABG Potassium A-a O2 Difference 484.0 Respiratory Index 2.8 Glucose Lactate Vent Mode Mechanical Rate FiO2 100 Tidal Volume PEEP Crit Value Called To Crit Value Called By Crit Value Read Back Blood Gas Notified Time Sodium Potassium Chloride Carbon Dioxide Anion Gap BUN Creatinine Est GFR ( Amer) Est GFR (Non-Af Amer) POC Glucose (mg/dL) 379 H Random Glucose Lactic Acid Calcium Phosphorus Magnesium Total Bilirubin AST ALT Alkaline Phosphatase Total Creatine Kinase Troponin I NT-Pro-B Natriuret Pep Total Protein Albumin Globulin Albumin/Globulin Ratio Lipase TSH 3rd Generation Arterial Blood Potassium Salicylates Acetaminophen Alcohol, Quantitative 12/07/17 12/07/17 12/07/17 10:33 10:33 11:20 WBC RBC Hgb Hct MCV MCH MCHC RDW Plt Count MPV Neut % (Auto) Lymph % (Auto) Kay % (Auto) Eos % (Auto) Baso % (Auto) Neut # (Auto) Lymph # (Auto) Kay # (Auto) Eos # (Auto) Baso # (Auto) Neutrophils % (Manual) Lymphocytes % (Manual) Monocytes % (Manual) Myelocytes % Platelet Estimate Puncture Site pCO2 pO2 HCO3 ABG pH ABG Total CO2 ABG O2 Saturation ABG Base Excess [place] Test ABG Potassium A-a O2 Difference Respiratory Index Glucose Lactate Vent Mode Mechanical Rate FiO2 Tidal Volume PEEP Crit Value Called To Crit Value Called By Crit Value Read Back Blood Gas Notified Time Sodium 142 Potassium 5.5 H Chloride 100 Carbon Dioxide 15 L Anion Gap 33 H BUN 63 H Creatinine 7.9 H* Est GFR ( Amer) 6 Est GFR (Non-Af Amer) 5 POC Glucose (mg/dL) Random Glucose 334 H Lactic Acid 7.6 H* Calcium 13.5 H* Phosphorus Magnesium Total Bilirubin 0.9 AST 726 H ALT 483 H Alkaline Phosphatase 145 H Total Creatine Kinase 72 Troponin I 0.0190 NT-Pro-B Natriuret Pep 94794 H Total Protein 6.8 Albumin 3.9 Globulin 2.9 Albumin/Globulin Ratio 1.4 Lipase 248 TSH 3rd Generation Arterial Blood Potassium Salicylates < 1.0 Acetaminophen < 10.0 L Alcohol, Quantitative < 10 12/07/17 12/07/17 12/07/17 11:31 13:34 16:25 WBC RBC Hgb Hct MCV MCH MCHC RDW Plt Count MPV Neut % (Auto) Lymph % (Auto) Kay % (Auto) Eos % (Auto) Baso % (Auto) Neut # (Auto) Lymph # (Auto) Kay # (Auto) Eos # (Auto) Baso # (Auto) Neutrophils % (Manual) Lymphocytes % (Manual) Monocytes % (Manual) Myelocytes % Platelet Estimate Puncture Site R a pCO2 41 pO2 88 HCO3 23.7 ABG pH 7.37 ABG Total CO2 25.0 ABG O2 Saturation 97.2 ABG Base Excess -1.5 [place] Test Pos ABG Potassium 6.8 H* A-a O2 Difference 574.0 Respiratory Index 6.5 Glucose 447 H* Lactate 1.5 Vent Mode Prvc Mechanical Rate 12 FiO2 100.0 Tidal Volume 500 PEEP 5 Crit Value Called To Dr nam Crit Value Called By [facility] Crit Value Read Back Y Blood Gas Notified Time 1633 Sodium 133.0 Potassium Chloride 100.0 Carbon Dioxide Anion Gap BUN Creatinine Est GFR ( Amer) Est GFR (Non-Af Amer) POC Glucose (mg/dL) 358 H Random Glucose Lactic Acid Calcium Phosphorus Magnesium Total Bilirubin AST ALT Alkaline Phosphatase Total Creatine Kinase Troponin I NT-Pro-B Natriuret Pep Total Protein Albumin Globulin Albumin/Globulin Ratio Lipase TSH 3rd Generation 4.97 H Arterial Blood Potassium 6.8 H* Salicylates Acetaminophen Alcohol, Quantitative 12/07/17 12/07/17 12/07/17 16:38 18:27 18:27 WBC 18.4 H RBC 4.08 Hgb 12.2 Hct 36.7 MCV 89.9 D MCH 29.9 MCHC 33.2 RDW 14.2 Plt Count 223 MPV 8.1 Neut % (Auto) 82.5 H Lymph % (Auto) 8.4 L Kay % (Auto) 8.8 Eos % (Auto) 0.1 Baso % (Auto) 0.2 Neut # (Auto) 15.2 H Lymph # (Auto) 1.6 Kay # (Auto) 1.6 H Eos # (Auto) 0.0 Baso # (Auto) 0.0 Neutrophils % (Manual) 82 H Lymphocytes % (Manual) 10 L Monocytes % (Manual) 7 Myelocytes % 1 H Platelet Estimate Normal Puncture Site pCO2 pO2 HCO3 ABG pH ABG Total CO2 ABG O2 Saturation ABG Base Excess [place] Test ABG Potassium A-a O2 Difference Respiratory Index Glucose Lactate Vent Mode Mechanical Rate FiO2 Tidal Volume PEEP Crit Value Called To Crit Value Called By Crit Value Read Back Blood Gas Notified Time Sodium 137 Potassium 6.4 H* Chloride 95 L Carbon Dioxide 25 Anion Gap 23 H BUN 77 H Creatinine 8.1 H* Est GFR ( Amer) 6 Est GFR (Non-Af Amer) 5 POC Glucose (mg/dL) Random Glucose 425 H* D Lactic Acid Calcium 12.4 H Phosphorus 7.0 H Magnesium 2.4 H Total Bilirubin 1.3 AST > 750 H ALT 695 H D Alkaline Phosphatase 204 H D Total Creatine Kinase Troponin I 0.3040 H* NT-Pro-B Natriuret Pep Total Protein 7.2 Albumin 4.2 Globulin 3.0 Albumin/Globulin Ratio 1.4 Lipase TSH 3rd Generation Arterial Blood Potassium Salicylates Acetaminophen Alcohol, Quantitative 12/07/17 12/07/17 18:35 23:34 WBC RBC Hgb Hct MCV MCH MCHC RDW Plt Count MPV Neut % (Auto) Lymph % (Auto) Kay % (Auto) Eos % (Auto) Baso % (Auto) Neut # (Auto) Lymph # (Auto) Kay # (Auto) Eos # (Auto) Baso # (Auto) Neutrophils % (Manual) Lymphocytes % (Manual) Monocytes % (Manual) Myelocytes % Platelet Estimate Puncture Site pCO2 pO2 HCO3 ABG pH ABG Total CO2 ABG O2 Saturation ABG Base Excess [place] Test ABG Potassium A-a O2 Difference Respiratory Index Glucose Lactate Vent Mode Mechanical Rate FiO2 Tidal Volume PEEP Crit Value Called To Crit Value Called By Crit Value Read Back Blood Gas Notified Time Sodium Potassium Chloride Carbon Dioxide Anion Gap BUN Creatinine Est GFR ( Amer) Est GFR (Non-Af Amer) POC Glucose (mg/dL) 301 H 136 H Random Glucose Lactic Acid Calcium Phosphorus Magnesium Total Bilirubin AST ALT Alkaline Phosphatase Total Creatine Kinase Troponin I NT-Pro-B Natriuret Pep Total Protein Albumin Globulin Albumin/Globulin Ratio Lipase TSH 3rd Generation Arterial Blood Potassium Salicylates Acetaminophen Alcohol, Quantitative
[2017-12-08] MEDS: Albuterol-Ipratrop 3 mg / 0.5 (3 ml) UD INH SCH ×6 (00:55→19:44)
[2017-12-08] MEDS: DOPamine 400mg/250ml D5W 400 MG/250 ML BAG IV PRN ×2 (03:05→15:40)
[2017-12-08] MEDS: Piperacillin/Tazobact 2.25 GM in Sodium Chloride 100 ML IVPB SCH ×3 (03:05→20:24)
[2017-12-08 05:50] LABS: ABG ALLEN TEST POS; ARTERIAL BLOOD GAS HCO3 30.2 mmol/L (21-28); ARTERIAL BLOOD GAS HEMOGLOBIN 11.5 g/dL (11.7-17.4); ARTERIAL BLOOD GAS O2 SAT 98.5 % (95-98); ARTERIAL BLOOD GAS PCO2 38 mm/Hg (35-45); ARTERIAL BLOOD GAS PH 7.51 (7.35-7.45); ARTERIAL BLOOD GAS PO2 247 mm/Hg (80-100); ARTERIAL BLOOD GAS TCO2 31.5 mmol/L (22-28)
[2017-12-08] MEDS: (Novolin R) Insulin Human Regular 100 units/ml vial SC SCH ×4 (06:20→17:53)
--- NOTE | 2017-12-08 06:39 | HP ---
HISTORY OF PRESENT ILLNESS: Ms. Fernandes is a 57-year-old female with history of renal failure, chief complaint cardiac arrest. The patient came to the ER, advised ICU. The patient is sedated. The patient is on ventilator. The patient has hypertension and has history of chronic renal failure, on dialysis. PHYSICAL EXAMINATION: GENERAL: The patient is sedated, on ventilator. VITAL SIGNS: Temperature 98, pulse is 100, blood pressure 110/70. HEENT: Within normal limits. NECK: Supple. CHEST: Symmetrical. HEART: Regular. ABDOMEN: Soft. EXTREMITIES: No edema. ASSESSMENT AND PLAN: The patient has a cardiac arrest. The patient support, ICU, monitoring, scheduled for Cardiac Catheterization. Kobi Stanley MD
[2017-12-08 06:40] LABS: BASO % 0.2 % (0.0-2.0); EOS % 0.1 % (0.0-4.0); HEMOGLOBIN 12.5 g/dL (11.0-16.0); LYMPH # 1.5 K/uL (1.0-4.3); LYMPH % 10.1 % (20.0-40.0); MEAN CELL VOLUME 89.4 fL (81.0-99.0); MEAN CORPUSCULAR HEMOGLOBIN 30.2 pg (27.0-31.0); MEAN CORPUSCULAR HGB CONC 33.8 g/dL (33.0-37.0); MEAN PLATELET VOLUME 7.8 fL (7.2-11.7); MONO # 1.2 K/uL (0.0-0.8); MONO % 8.1 % (0.0-10.0); NEUT # 11.9 K/uL (1.8-7.0); NEUT % 81.5 % (50.0-75.0); RBC 4.12 Mil/uL (3.80-5.20); RED CELL DISTRIBUTION WIDTH 14.3 % (11.5-14.5); WHITE BLOOD COUNT 14.6 K/uL (4.8-10.8)
[2017-12-08 06:47] LABS: INR 1.2; PROTHROMBIN TIME 12.6 SECONDS (9.7-12.2)
[2017-12-08 07:11] LABS: ALB/GLOB RATIO 1.5 (1.0-2.1); ALBUMIN 4.2 g/dL (3.5-5.0); CALCIUM 9.9 mg/dl (8.6-10.4)
--- NOTE | 2017-12-08 09:17 | CP.PCM.PCO ---
Assessment & Plan - Assessment and Plan (Free Text) Assessment: pt is a 57 yo f ho dm, htn, renal failure sp cardiac arrest/ pea with ROSC. Pt is currently on dopamine drip and receiving trans venous pacing. Pt received HD yesterday and is currently hyperkalemic. Please optimize electrolytes prior to surgical procedure. If emergent, will proceed with ppm. Otherwise, please document medical optimization. thank you .
[2017-12-08] MEDS: Propofol 10 mg/ml 1,000 MG/100 ML VIAL IV PRN ×2 (09:31)
--- NOTE | 2017-12-08 09:58 | RAD ---
Date of service: 12/08/2017 HISTORY: intubated COMPARISON: 12/07/2017. FINDINGS: Endotracheal tube terminates 1.7 cm proximal to the ifrah. The nasogastric tube terminates in the stomach. LUNGS: The lungs are well inflated and clear. There is interval significant improved aeration in both lungs. There is subsegmental atelectasis in the right lower lobe. PLEURA: No significant pleural effusion identified, no pneumothorax apparent. CARDIOVASCULAR: There is mild cardiomegaly. OSSEOUS STRUCTURES: No significant abnormalities. VISUALIZED UPPER ABDOMEN: Normal. OTHER FINDINGS: None. IMPRESSION: Interval improved aeration in both lungs with subsegmental atelectasis in the right lower lobe. Persistent cardiomegaly. Stable position of endotracheal tube.
[2017-12-08] MEDS ORDERED: Dextrose 50% SYRINGE Inj (50 ml) IV STA (10:00)
[2017-12-08] MEDS ORDERED: Sodium Chloride 0.9% 1,000 ML IV ONE (10:00)
[2017-12-08] MEDS ORDERED: Calcium Chloride 1000 mg/10 ml Syringe IV ONE ×2 (10:00→13:52)
--- NOTE | 2017-12-08 10:29 | PCM.PROC ---
Procedures Attestation:: I certify that I have explained the specified Operation(s) or Procedure(s), risks, benefits and reasonable alternatives to the Patient and/or other person responsible. The opportunity was given to ask questions and all questions answered - Arterial Line Right Radial Aseptic technique was employed throughout the procedure: Full sterile barriers ( mask, hair cover, sterile gown, sterile gloves), Chloraprep Antiseptic: 30 second prep for IJ or SC sites Time Out Performed: Yes Pt. placed on Pulse Ox Monitor: Yes Central Line Prep: Chlorhexidine-Alcohol Combination Ultrasound Used for Placement: No Gauge (Size): 20 gauge Technique Used: Direct Puncture Technique Secured by: Suture Post procedure dressing: Gauze, Clear vapor permeable, Chlorhexidine disc ( Biopatch) Patient Tolerated Procedure: well Immediate Complications: none Additional Comments: there was a medial peripheral line placed which was removed However despite 4 mites of bleeding peripheral line removal site continued bleeding, ptt pending
--- NOTE | 2017-12-08 11:48 | CARD ---
APPROVED REPORT Date of service: 12/07/2017 EKG Measurement Heart [id number] <Conclusion> Atrial fibrillation with slow ventricular response Left axis deviation Nonspecific ST and T wave abnormality Abnormal ECG
--- NOTE | 2017-12-08 11:48 | CARD ---
APPROVED REPORT Date of service: 12/07/2017 EKG Measurement Heart [id number] <Conclusion> Ventricular-paced rhythm Abnormal ECG
[2017-12-08] MEDS: (Lantus) Insulin Glargine, Recombinant SC SCH (13:15)
--- NOTE | 2017-12-08 13:38 | PCM.PROC ---
Procedures Attestation:: I certify that I have explained the specified Operation(s) or Procedure(s), risks, benefits and reasonable alternatives to the Patient and/or other person responsible. The opportunity was given to ask questions and all questions answered - Central Line Placement Left Internal Jugular Triple Lumen Catheter Aseptic technique was employed throughout the procedure: Hand Hygiene done prior to procedure, Full sterile barriers (mask, hair cover, sterile gown, sterile gloves), Full body sterile drape, Chloraprep Antiseptic: 30 second prep for IJ or SC sites Pt. Placed on Pulse Ox Monitor: Yes Central Line Prep: Chlorhexidine-Alcohol Combination Local Anesthesia Used: Lidocaine 1% Ultrasound Used for Placement: Yes Central Line Lumen Inserted: triple Post Procedure: Sutured in Place, Good Blood Return, All Ports Aspirated, Flushed, Capped, Sterile Dressing Applied Secured by: Suture Post procedure dressing: Clear vapor permeable, Chlorhexidine disc (Biopatch) Post Procedure X-Ray: Yes Patient Tolerated Procedure: Well, No Complications Immediate Complications: None
--- NOTE | 2017-12-08 13:51 | CP.CCUPN ---
<Lay Moran - Last Filed: 12/08/17 14:43> CCU Subjective - Physician Review Subjective (Free Text): 57 yo F w/ PMHx DM, HTN, diabetic neuropathy, ESDR (HD T/Th/Sat) ovarian ca s/p surgical resection and chemo, brought to ED by EMT for cardiac arrest, code heart called in ED. EMT reports patient was in PEA and ACLS protocol was initiated. ROSC was obtained, trans venous pacing at 100, patient to go for pacemaker today with Dr. Travis. Pt currently has a radial A line(12/08), and a L IJ TLC(12/08). HD scheduled for today after pacemaker placement. CCU Objective - Vital Signs / Intake & Output Vital Signs (Last 4 hours): Vital Signs Temp Pulse Resp BP Pulse Ox 12/08/17 13:04 82 13 139/67 97 12/08/17 13:00 82 13 98 12/08/17 12:48 82 15 120/74 100 12/08/17 12:45 83 11 L 99 12/08/17 12:33 82 12 137/69 99 12/08/17 12:30 82 13 99 12/08/17 12:18 82 14 130/67 99 12/08/17 12:15 82 14 98 12/08/17 12:03 82 15 110/68 100 12/08/17 12:00 99.8 F H 82 12 100 12/08/17 11:48 82 15 120/62 99 12/08/17 11:45 82 16 100 12/08/17 11:33 82 13 122/57 L 99 12/08/17 11:30 82 14 99 12/08/17 11:18 82 17 115/51 L 100 12/08/17 11:15 82 16 100 12/08/17 11:03 83 16 117/54 L 100 12/08/17 11:00 82 16 100 12/08/17 10:48 82 13 102/81 100 12/08/17 10:45 82 17 100 12/08/17 10:34 81 16 132/45 L 100 12/08/17 10:30 82 17 100 12/08/17 10:16 82 21 133/35 L 100 12/08/17 10:15 82 23 100 12/08/17 10:10 82 23 140/69 100 12/08/17 10:05 85 30 H 58/31 L 96 12/08/17 10:00 82 28 H 98 12/08/17 09:52 82 14 63/35 L 96 12/08/17 09:46 82 27 H 54/30 L 97 12/08/17 09:45 87 14 98 Intake and Output (Last 8hrs): Intake & Output 12/07/17 12/08/17 12/08/17 22:59 06:59 14:59 Intake Total 498.7 485.1 1451.0 Output Total 200 200 0 Balance 298.7 285.1 1451.0 Weight 121 lb 4.068 oz 119 lb 14.903 oz Intake: IV 160 240 193 Intake, IV Amount 338.7 245.1 1258.0 Left Shoulder 285.9 142.3 138.2 Intraosseous Right Hand 52.8 52.8 1119.8 Right Wrist 50 Oral 0 0 Output: Drainage 200 200 NGT 200 200 Urine 0 0 0 Urethral (Tucker) 0 0 0 Stool 0 Other: # Bowel Movements 0 - Physical Exam Physical Exam Limitations: Positive for: Altered Mental Status Head: Positive for: Atraumatic, Normocephalic Conjunctiva: Positive for: Normal (left opthal) Nose (Internal): Positive for: No Active Bleeding Neck: Positive for: Other (left IJ) Respiratory/Chest: Positive for: Good Air Exchange. Negative for: Respiratory Distress, Wheezes Cardiovascular: Positive for: Regular Rate and Rhythm. Negative for: Murmurs, Tachycardic, Bradycardic Abdomen: Positive for: Normal Bowel Sounds. Negative for: Distention Upper Extremity: Negative for: Cyanosis, Edema, NORMAL PULSES (pulses faint) Lower Extremity: Negative for: Edema, Erythema Neurological: Negative for: GCS=15 Skin: Positive for: Warm Psychiatric: Negative for: Alert - Medications Active Medications: Active Medications Generic Name Dose Route Start Last Admin Trade Name Freq PRN Reason Stop Dose Admin Acetaminophen 650 mg 12/07/17 13:40 Tylenol 325mg Tab PO Q6 PRN Fever >100.4 F Albuterol/Ipratropium 3 ml 12/07/17 16:00 12/08/17 12:52 Duoneb 3 Mg/0.5 Mg (3 Ml) Ud INH Not Given RQ4 ISACC Heparin Sodium (Porcine) 5,000 units 12/07/17 14:00 12/08/17 06:20 Heparin SC 5,000 units Q8 ISACC Administration Propofol 1,000 mg in 100 mls @ 1.65 mls/hr 12/07/17 14:30 12/08/17 09:31 Diprivan IV 0 mcg/kg/min .Q24H PRN 0 mls/hr TITRATE PER MD ORDER Titration Protocol 5 MCG/KG/MIN Dopamine HCl/Dextrose 400 mg in 250 mls @ 4.125 mls/hr 12/07/17 13:57 10:00 Dopamine 400mg/250ml D5w IV 20 mcg/kg/min .Q24H PRN 41.25 mls/hr TITRATE PER MD ORDER Titration Protocol 2 MCG/KG/MIN Piperacillin Sod/Tazobactam 100 mls @ 200 mls/hr 12/08/17 04:00 12/08/17 12: 03 Sod 2.25 gm/ Sodium Chloride IVPB 200 mls/hr Q8H ISACC Administration Protocol Norepinephrine Bitartrate 8 mg 258 mls @ 7.74 mls/hr 12/08/17 10:03 12/08/17 11:39 / Dextrose IV 4 mcg/min .Q24H PRN 7.74 mls/hr TITRATE PER MD ORDER Titration Protocol 4 MCG/MIN Insulin Glargine 10 unit 12/08/17 12:30 Lantus SC DAILY [facility] Insulin Human Regular 0 unit 12/08/17 00:00 12/08/17 12:00 Novolin R SC 3 u Q6H [facility] Administration Protocol Midodrine 5 mg 12/08/17 10:00 12/08/17 09:28 Proamatine PO Not Given TID [facility] Pantoprazole Sodium 40 mg 12/08/17 10:00 12/08/17 09:30 Protonix Inj IVP 40 mg DAILY [facility] Administration - Patient Studies Lab Studies: Microbiology Studies 12/07/17 Unknown Gram Stain - Final Sputum Lab Studies 12/08/17 12/08/17 12/08/17 Range/Units 11:48 10:56 10:02 WBC (4.8-10.8) K/uL RBC (3.80-5.20) Mil/uL Hgb (11.0-16.0) g/dL Hct (34.0-47.0) % MCV (81.0-99.0) fL MCH (27.0-31.0) pg MCHC (33.0-37.0) g/dL RDW (11.5-14.5) % Plt Count (130-400) K/uL MPV (7.2-11.7) fL Neut % (Auto) (50.0-75.0) % Lymph % (Auto) (20.0-40.0) % Mora % (Auto) (0.0-10.0) % Eos % (Auto) (0.0-4.0) % Baso % (Auto) (0.0-2.0) % Neut # (Auto) (1.8-7.0) K/uL Lymph # (Auto) (1.0-4.3) K/uL Mora # (Auto) (0.0-0.8) K/uL Eos # (Auto) (0.0-0.7) K/uL Baso # (Auto) (0.0-0.2) K/uL Neutrophils % (Manual) (50-75) % Lymphocytes % (Manual) (20-40) % Monocytes % (Manual) (0-10) % Myelocytes % (0-0) % Platelet Estimate (NORMAL) PT (9.7-12.2) SECONDS INR APTT 29 (21-34) SECONDS Puncture Site pCO2 (35-45) mm/Hg pO2 (80-100) mm/Hg HCO3 (21-28) mmol/L ABG pH (7.35-7.45) ABG Total CO2 (22-28) mmol/L ABG O2 Saturation (95-98) % ABG Base Excess (-2.0-3.0) mmol/L ABG Hemoglobin (11.7-17.4) g/dL ABG Carboxyhemoglobin (0.5-1.5) % POC ABG HHb (Measured) (0.0-5.0) % ABG Methemoglobin (0.0-3.0) % Mateo Test ABG Potassium (3.6-5.2) mmol/L A-a O2 Difference mm/Hg Respiratory Index Hgb O2 Saturation (95.0-98.0) % Sodium (132-148) mmol/l Chloride (98-107) mmol/L Glucose (65-105) mg/dl Lactate (0.7-2.1) mmol/L Vent Mode Mechanical Rate FiO2 % Tidal Volume PEEP Crit Value Called To Crit Value Called By Crit Value Read Back Blood Gas Notified Time Potassium (3.6-5.2) mmol/L Carbon Dioxide (22-30) mmol/L Anion Gap (10-20) BUN (7-17) mg/dL Creatinine (0.7-1.2) mg/dL Est GFR ( Amer) Est GFR (Non-Af Amer) POC Glucose (mg/dL) 298 H (65-110) mg/dL Random Glucose (65-105) mg/dL Hemoglobin A1c (4.2-6.5) % Calcium (8.6-10.4) mg/dl Phosphorus (2.5-4.5) mg/dL Magnesium (1.6-2.3) mg/dL Total Bilirubin (0.2-1.3) mg/dL AST (14-36) U/L ALT (9-52) U/L Alkaline Phosphatase (38-126) U/L Troponin I (0.00-0.120) ng/mL Total Protein (6.3-8.3) g/dL Albumin (3.5-5.0) g/dL Globulin (2.2-3.9) gm/dL Albumin/Globulin Ratio (1.0-2.1) Triglycerides (0-149) mg/dL Cholesterol (0-199) mg/dL LDL Cholesterol Direct (0-129) mg/dL HDL Cholesterol (30-70) mg/dL Free T4 (0.78-2.19) ng/dL Arterial Blood Potassium (3.6-5.2) mmol/L Random Vancomycin 6.2 ug/mL 12/08/17 12/08/17 12/08/17 Range/Units 06:32 06:32 06:32 WBC (4.8-10.8) K/uL RBC (3.80-5.20) Mil/uL Hgb (11.0-16.0) g/dL Hct (34.0-47.0) % MCV (81.0-99.0) fL MCH (27.0-31.0) pg MCHC (33.0-37.0) g/dL RDW (11.5-14.5) % Plt Count (130-400) K/uL MPV (7.2-11.7) fL Neut % (Auto) (50.0-75.0) % Lymph % (Auto) (20.0-40.0) % Mora % (Auto) (0.0-10.0) % Eos % (Auto) (0.0-4.0) % Baso % (Auto) (0.0-2.0) % Neut # (Auto) (1.8-7.0) K/uL Lymph # (Auto) (1.0-4.3) K/uL Mora # (Auto) (0.0-0.8) K/uL Eos # (Auto) (0.0-0.7) K/uL Baso # (Auto) (0.0-0.2) K/uL Neutrophils % (Manual) (50-75) % Lymphocytes % (Manual) (20-40) % Monocytes % (Manual) (0-10) % Myelocytes % (0-0) % Platelet Estimate (NORMAL) PT (9.7-12.2) SECONDS INR APTT (21-34) SECONDS Puncture Site pCO2 (35-45) mm/Hg pO2 (80-100) mm/Hg HCO3 (21-28) mmol/L ABG pH (7.35-7.45) ABG Total CO2 (22-28) mmol/L ABG O2 Saturation (95-98) % ABG Base Excess (-2.0-3.0) mmol/L ABG Hemoglobin (11.7-17.4) g/dL ABG Carboxyhemoglobin (0.5-1.5) % POC ABG HHb (Measured) (0.0-5.0) % ABG Methemoglobin (0.0-3.0) % Mateo Test ABG Potassium (3.6-5.2) mmol/L A-a O2 Difference mm/Hg Respiratory Index Hgb O2 Saturation (95.0-98.0) % Sodium 136 (132-148) mmol/l Chloride 92 L (98-107) mmol/L Glucose (65-105) mg/dl Lactate (0.7-2.1) mmol/L Vent Mode Mechanical Rate FiO2 % Tidal Volume PEEP Crit Value Called To Crit Value Called By Crit Value Read Back Blood Gas Notified Time Potassium 5.7 H (3.6-5.2) mmol/L Carbon Dioxide 29 (22-30) mmol/L Anion Gap 21 H (10-20) BUN 38 H (7-17) mg/dL Creatinine 4.7 H (0.7-1.2) mg/dL Est GFR ( Amer) 12 Est GFR (Non-Af Amer) 10 POC Glucose (mg/dL) (65-110) mg/dL Random Glucose 211 H (65-105) mg/dL Hemoglobin A1c 7.2 H (4.2-6.5) % Calcium 9.9 (8.6-10.4) mg/dl Phosphorus 4.0 (2.5-4.5) mg/dL Magnesium 1.9 (1.6-2.3) mg/dL Total Bilirubin 1.1 (0.2-1.3) mg/dL AST 461 H D (14-36) U/L ALT 552 H D (9-52) U/L Alkaline Phosphatase 168 H (38-126) U/L Troponin I (0.00-0.120) ng/mL Total Protein 7.2 (6.3-8.3) g/dL Albumin 4.2 (3.5-5.0) g/dL Globulin 2.9 (2.2-3.9) gm/dL Albumin/Globulin Ratio 1.5 (1.0-2.1) Triglycerides 679 H (0-149) mg/dL Cholesterol 125 (0-199) mg/dL LDL Cholesterol Direct 35 (0-129) mg/dL HDL Cholesterol 26 L (30-70) mg/dL Free T4 1.90 (0.78-2.19) ng/dL Arterial Blood Potassium (3.6-5.2) mmol/L Random Vancomycin ug/mL 12/08/17 12/08/17 12/08/17 Range/Units 06:32 06:32 06:18 WBC 14.6 H (4.8-10.8) K/uL RBC 4.12 (3.80-5.20) Mil/uL Hgb 12.5 (11.0-16.0) g/dL Hct 36.8 (34.0-47.0) % MCV 89.4 (81.0-99.0) fL MCH 30.2 (27.0-31.0) pg MCHC 33.8 (33.0-37.0) g/dL RDW 14.3 (11.5-14.5) % Plt Count 203 (130-400) K/uL MPV 7.8 (7.2-11.7) fL Neut % (Auto) 81.5 H (50.0-75.0) % Lymph % (Auto) 10.1 L (20.0-40.0) % Mora % (Auto) 8.1 (0.0-10.0) % Eos % (Auto) 0.1 (0.0-4.0) % Baso % (Auto) 0.2 (0.0-2.0) % Neut # (Auto) 11.9 H (1.8-7.0) K/uL Lymph # (Auto) 1.5 (1.0-4.3) K/uL Mora # (Auto) 1.2 H (0.0-0.8) K/uL Eos # (Auto) 0.0 (0.0-0.7) K/uL Baso # (Auto) 0.0 (0.0-0.2) K/uL Neutrophils % (Manual) (50-75) % Lymphocytes % (Manual) (20-40) % Monocytes % (Manual) (0-10) % Myelocytes % (0-0) % Platelet Estimate (NORMAL) PT 12.6 H (9.7-12.2) SECONDS INR 1.2 APTT 26 (21-34) SECONDS Puncture Site pCO2 (35-45) mm/Hg pO2 (80-100) mm/Hg HCO3 (21-28) mmol/L ABG pH (7.35-7.45) ABG Total CO2 (22-28) mmol/L ABG O2 Saturation (95-98) % ABG Base Excess (-2.0-3.0) mmol/L ABG Hemoglobin (11.7-17.4) g/dL ABG Carboxyhemoglobin (0.5-1.5) % POC ABG HHb (Measured) (0.0-5.0) % ABG Methemoglobin (0.0-3.0) % Mateo Test ABG Potassium (3.6-5.2) mmol/L A-a O2 Difference mm/Hg Respiratory Index Hgb O2 Saturation (95.0-98.0) % Sodium (132-148) mmol/l Chloride (98-107) mmol/L Glucose (65-105) mg/dl Lactate (0.7-2.1) mmol/L Vent Mode Mechanical Rate FiO2 % Tidal Volume PEEP Crit Value Called To Crit Value Called By Crit Value Read Back Blood Gas Notified Time Potassium (3.6-5.2) mmol/L Carbon Dioxide (22-30) mmol/L Anion Gap (10-20) BUN (7-17) mg/dL Creatinine (0.7-1.2) mg/dL Est GFR ( Amer) Est GFR (Non-Af Amer) POC Glucose (mg/dL) 225 H (65-110) mg/dL Random Glucose (65-105) mg/dL Hemoglobin A1c (4.2-6.5) % Calcium (8.6-10.4) mg/dl Phosphorus (2.5-4.5) mg/dL Magnesium (1.6-2.3) mg/dL Total Bilirubin (0.2-1.3) mg/dL AST (14-36) U/L ALT (9-52) U/L Alkaline Phosphatase (38-126) U/L Troponin I (0.00-0.120) ng/mL Total Protein (6.3-8.3) g/dL Albumin (3.5-5.0) g/dL Globulin (2.2-3.9) gm/dL Albumin/Globulin Ratio (1.0-2.1) Triglycerides (0-149) mg/dL Cholesterol (0-199) mg/dL LDL Cholesterol Direct (0-129) mg/dL HDL Cholesterol (30-70) mg/dL Free T4 (0.78-2.19) ng/dL Arterial Blood Potassium (3.6-5.2) mmol/L Random Vancomycin ug/mL 12/08/17 12/07/17 12/07/17 Range/Units 05:15 23:34 18:35 WBC (4.8-10.8) K/uL RBC (3.80-5.20) Mil/uL Hgb (11.0-16.0) g/dL Hct (34.0-47.0) % MCV (81.0-99.0) fL MCH (27.0-31.0) pg MCHC (33.0-37.0) g/dL RDW (11.5-14.5) % Plt Count (130-400) K/uL MPV (7.2-11.7) fL Neut % (Auto) (50.0-75.0) % Lymph % (Auto) (20.0-40.0) % Mora % (Auto) (0.0-10.0) % Eos % (Auto) (0.0-4.0) % Baso % (Auto) (0.0-2.0) % Neut # (Auto) (1.8-7.0) K/uL Lymph # (Auto) (1.0-4.3) K/uL Mora # (Auto) (0.0-0.8) K/uL Eos # (Auto) (0.0-0.7) K/uL Baso # (Auto) (0.0-0.2) K/uL Neutrophils % (Manual) (50-75) % Lymphocytes % (Manual) (20-40) % Monocytes % (Manual) (0-10) % Myelocytes % (0-0) % Platelet Estimate (NORMAL) PT (9.7-12.2) SECONDS INR APTT (21-34) SECONDS Puncture Site Rr pCO2 38 (35-45) mm/Hg pO2 247 H (80-100) mm/Hg HCO3 30.2 H (21-28) mmol/L ABG pH 7.51 H (7.35-7.45) ABG Total CO2 31.5 H (22-28) mmol/L ABG O2 Saturation 98.5 H (95-98) % ABG Base Excess 6.8 H (-2.0-3.0) mmol/L ABG Hemoglobin 11.5 L (11.7-17.4) g/dL ABG Carboxyhemoglobin 0.7 (0.5-1.5) % POC ABG HHb (Measured) 1.5 (0.0-5.0) % ABG Methemoglobin 0.9 (0.0-3.0) % Mateo Test Pos ABG Potassium (3.6-5.2) mmol/L A-a O2 Difference 419.0 mm/Hg Respiratory Index 1.7 Hgb O2 Saturation 97.0 (95.0-98.0) % Sodium (132-148) mmol/l Chloride (98-107) mmol/L Glucose (65-105) mg/dl Lactate (0.7-2.1) mmol/L Vent Mode Prvc Mechanical Rate 12 FiO2 100.0 % Tidal Volume 500 PEEP 5 Crit Value Called To Crit Value Called By Crit Value Read Back Blood Gas Notified Time Potassium (3.6-5.2) mmol/L Carbon Dioxide (22-30) mmol/L Anion Gap (10-20) BUN (7-17) mg/dL Creatinine (0.7-1.2) mg/dL Est GFR ( Amer) Est GFR (Non-Af Amer) POC Glucose (mg/dL) 136 H 301 H (65-110) mg/dL Random Glucose (65-105) mg/dL Hemoglobin A1c (4.2-6.5) % Calcium (8.6-10.4) mg/dl Phosphorus (2.5-4.5) mg/dL Magnesium (1.6-2.3) mg/dL Total Bilirubin (0.2-1.3) mg/dL AST (14-36) U/L ALT (9-52) U/L Alkaline Phosphatase (38-126) U/L Troponin I (0.00-0.120) ng/mL Total Protein (6.3-8.3) g/dL Albumin (3.5-5.0) g/dL Globulin (2.2-3.9) gm/dL Albumin/Globulin Ratio (1.0-2.1) Triglycerides (0-149) mg/dL Cholesterol (0-199) mg/dL LDL Cholesterol Direct (0-129) mg/dL HDL Cholesterol (30-70) mg/dL Free T4 (0.78-2.19) ng/dL Arterial Blood Potassium (3.6-5.2) mmol/L Random Vancomycin ug/mL 12/07/17 12/07/17 12/07/17 Range/Units 18:27 18:27 16:38 WBC 18.4 H (4.8-10.8) K/uL RBC 4.08 (3.80-5.20) Mil/uL Hgb 12.2 (11.0-16.0) g/dL Hct 36.7 (34.0-47.0) % MCV 89.9 D (81.0-99.0) fL MCH 29.9 (27.0-31.0) pg MCHC 33.2 (33.0-37.0) g/dL RDW 14.2 (11.5-14.5) % Plt Count 223 (130-400) K/uL MPV 8.1 (7.2-11.7) fL Neut % (Auto) 82.5 H (50.0-75.0) % Lymph % (Auto) 8.4 L (20.0-40.0) % Mora % (Auto) 8.8 (0.0-10.0) % Eos % (Auto) 0.1 (0.0-4.0) % Baso % (Auto) 0.2 (0.0-2.0) % Neut # (Auto) 15.2 H (1.8-7.0) K/uL Lymph # (Auto) 1.6 (1.0-4.3) K/uL Mora # (Auto) 1.6 H (0.0-0.8) K/uL Eos # (Auto) 0.0 (0.0-0.7) K/uL Baso # (Auto) 0.0 (0.0-0.2) K/uL Neutrophils % (Manual) 82 H (50-75) % Lymphocytes % (Manual) 10 L (20-40) % Monocytes % (Manual) 7 (0-10) % Myelocytes % 1 H (0-0) % Platelet Estimate Normal (NORMAL) PT (9.7-12.2) SECONDS INR APTT (21-34) SECONDS Puncture Site pCO2 (35-45) mm/Hg pO2 (80-100) mm/Hg HCO3 (21-28) mmol/L ABG pH (7.35-7.45) ABG Total CO2 (22-28) mmol/L ABG O2 Saturation (95-98) % ABG Base Excess (-2.0-3.0) mmol/L ABG Hemoglobin (11.7-17.4) g/dL ABG Carboxyhemoglobin (0.5-1.5) % POC ABG HHb (Measured) (0.0-5.0) % ABG Methemoglobin (0.0-3.0) % Mateo Test ABG Potassium (3.6-5.2) mmol/L A-a O2 Difference mm/Hg Respiratory Index Hgb O2 Saturation (95.0-98.0) % Sodium 137 (132-148) mmol/l Chloride 95 L (98-107) mmol/L Glucose (65-105) mg/dl Lactate (0.7-2.1) mmol/L Vent Mode Mechanical Rate FiO2 % Tidal Volume PEEP Crit Value Called To Crit Value Called By Crit Value Read Back Blood Gas Notified Time Potassium 6.4 H* (3.6-5.2) mmol/L Carbon Dioxide 25 (22-30) mmol/L Anion Gap 23 H (10-20) BUN 77 H (7-17) mg/dL Creatinine 8.1 H* (0.7-1.2) mg/dL Est GFR ( Amer) 6 Est GFR (Non-Af Amer) 5 POC Glucose (mg/dL) (65-110) mg/dL Random Glucose 425 H* D (65-105) mg/dL Hemoglobin A1c (4.2-6.5) % Calcium 12.4 H (8.6-10.4) mg/dl Phosphorus 7.0 H (2.5-4.5) mg/dL Magnesium 2.4 H (1.6-2.3) mg/dL Total Bilirubin 1.3 (0.2-1.3) mg/dL AST > 750 H (14-36) U/L ALT 695 H D (9-52) U/L Alkaline Phosphatase 204 H D (38-126) U/L Troponin I 0.3040 H* (0.00-0.120) ng/mL Total Protein 7.2 (6.3-8.3) g/dL Albumin 4.2 (3.5-5.0) g/dL Globulin 3.0 (2.2-3.9) gm/dL Albumin/Globulin Ratio 1.4 (1.0-2.1) Triglycerides (0-149) mg/dL Cholesterol (0-199) mg/dL LDL Cholesterol Direct (0-129) mg/dL HDL Cholesterol (30-70) mg/dL Free T4 (0.78-2.19) ng/dL Arterial Blood Potassium (3.6-5.2) mmol/L Random Vancomycin ug/mL 12/07/17 12/07/17 Range/Units 16:25 10:07 WBC (4.8-10.8) K/uL RBC (3.80-5.20) Mil/uL Hgb (11.0-16.0) g/dL Hct (34.0-47.0) % MCV (81.0-99.0) fL MCH (27.0-31.0) pg MCHC (33.0-37.0) g/dL RDW (11.5-14.5) % Plt Count (130-400) K/uL MPV (7.2-11.7) fL Neut % (Auto) (50.0-75.0) % Lymph % (Auto) (20.0-40.0) % Mora % (Auto) (0.0-10.0) % Eos % (Auto) (0.0-4.0) % Baso % (Auto) (0.0-2.0) % Neut # (Auto) (1.8-7.0) K/uL Lymph # (Auto) (1.0-4.3) K/uL Mora # (Auto) (0.0-0.8) K/uL Eos # (Auto) (0.0-0.7) K/uL Baso # (Auto) (0.0-0.2) K/uL Neutrophils % (Manual) (50-75) % Lymphocytes % (Manual) (20-40) % Monocytes % (Manual) (0-10) % Myelocytes % (0-0) % Platelet Estimate (NORMAL) PT (9.7-12.2) SECONDS INR APTT (21-34) SECONDS Puncture Site R a A-line pCO2 41 43 (35-45) mm/Hg pO2 88 175 H (80-100) mm/Hg HCO3 23.7 20.5 L (21-28) mmol/L ABG pH 7.37 7.29 L (7.35-7.45) ABG Total CO2 25.0 22.0 (22-28) mmol/L ABG O2 Saturation 97.2 99.1 H (95-98) % ABG Base Excess -1.5 -5.7 L (-2.0-3.0) mmol/L ABG Hemoglobin (11.7-17.4) g/dL ABG Carboxyhemoglobin (0.5-1.5) % POC ABG HHb (Measured) (0.0-5.0) % ABG Methemoglobin (0.0-3.0) % [place] Test Pos Na ABG Potassium 6.8 H* (3.6-5.2) mmol/L A-a O2 Difference 574.0 484.0 mm/Hg Respiratory Index 6.5 2.8 Hgb O2 Saturation (95.0-98.0) % Sodium 133.0 (132-148) mmol/l Chloride 100.0 (98-107) mmol/L Glucose 447 H* (65-105) mg/dl Lactate 1.5 (0.7-2.1) mmol/L Vent Mode Prvc Mechanical Rate 12 FiO2 100.0 100 % Tidal Volume 500 PEEP 5 Crit Value Called To Dr nam Crit Value Called By [facility] Crit Value Read Back Y Blood Gas Notified Time 1633 Potassium (3.6-5.2) mmol/L Carbon Dioxide (22-30) mmol/L Anion Gap (10-20) BUN (7-17) mg/dL Creatinine (0.7-1.2) mg/dL Est GFR ( Amer) Est GFR (Non-Af Amer) POC Glucose (mg/dL) (65-110) mg/dL Random Glucose (65-105) mg/dL Hemoglobin A1c (4.2-6.5) % Calcium (8.6-10.4) mg/dl Phosphorus (2.5-4.5) mg/dL Magnesium (1.6-2.3) mg/dL Total Bilirubin (0.2-1.3) mg/dL AST (14-36) U/L ALT (9-52) U/L Alkaline Phosphatase (38-126) U/L Troponin I (0.00-0.120) ng/mL Total Protein (6.3-8.3) g/dL Albumin (3.5-5.0) g/dL Globulin (2.2-3.9) gm/dL Albumin/Globulin Ratio (1.0-2.1) Triglycerides (0-149) mg/dL Cholesterol (0-199) mg/dL LDL Cholesterol Direct (0-129) mg/dL HDL Cholesterol (30-70) mg/dL Free T4 (0.78-2.19) ng/dL Arterial Blood Potassium 6.8 H* (3.6-5.2) mmol/L Random Vancomycin ug/mL Laboratory Results - last 24 hr 12/07/17 12/07/17 12/07/17 10:07 16:25 16:38 WBC RBC Hgb Hct MCV MCH MCHC RDW Plt Count MPV Neut % (Auto) Lymph % (Auto) [place] % (Auto) Eos % (Auto) Baso % (Auto) Neut # (Auto) Lymph # (Auto) Mora # (Auto) Eos # (Auto) Baso # (Auto) Neutrophils % (Manual) Lymphocytes % (Manual) Monocytes % (Manual) Myelocytes % Platelet Estimate PT INR APTT Puncture Site A-line R a pCO2 43 41 pO2 175 H 88 HCO3 20.5 L 23.7 ABG pH 7.29 L 7.37 ABG Total CO2 22.0 25.0 ABG O2 Saturation 99.1 H 97.2 ABG Base Excess -5.7 L -1.5 ABG Hemoglobin ABG Carboxyhemoglobin POC ABG HHb (Measured) ABG Methemoglobin [place] Test Na Pos ABG Potassium 6.8 H* A-a O2 Difference 484.0 574.0 Respiratory Index 2.8 6.5 Hgb O2 Saturation Sodium 133.0 Chloride 100.0 Glucose 447 H* Lactate 1.5 Vent Mode Prvc Mechanical Rate 12 FiO2 100 100.0 Tidal Volume 500 PEEP 5 Crit Value Called To Dr nam Crit Value Called By [facility] Crit Value Read Back Y Blood Gas Notified Time 1633 Potassium Carbon Dioxide Anion Gap BUN Creatinine Est GFR ( Amer) Est GFR (Non-Af Amer) POC Glucose (mg/dL) Random Glucose Hemoglobin A1c Calcium Phosphorus Magnesium Total Bilirubin AST ALT Alkaline Phosphatase Troponin I 0.3040 H* Total Protein Albumin Globulin Albumin/Globulin Ratio Triglycerides Cholesterol LDL Cholesterol Direct HDL Cholesterol Free T4 Arterial Blood Potassium 6.8 H* Random Vancomycin 12/07/17 12/07/17 12/07/17 18:27 18:27 18:35 WBC 18.4 H RBC 4.08 Hgb 12.2 Hct 36.7 MCV 89.9 D MCH 29.9 MCHC 33.2 RDW 14.2 Plt Count 223 MPV 8.1 Neut % (Auto) 82.5 H Lymph % (Auto) 8.4 L [place] % (Auto) 8.8 Eos % (Auto) 0.1 Baso % (Auto) 0.2 Neut # (Auto) 15.2 H Lymph # (Auto) 1.6 Mora # (Auto) 1.6 H Eos # (Auto) 0.0 Baso # (Auto) 0.0 Neutrophils % (Manual) 82 H Lymphocytes % (Manual) 10 L Monocytes % (Manual) 7 Myelocytes % 1 H Platelet Estimate Normal PT INR APTT Puncture Site pCO2 pO2 HCO3 ABG pH ABG Total CO2 ABG O2 Saturation ABG Base Excess ABG Hemoglobin ABG Carboxyhemoglobin POC ABG HHb (Measured) ABG Methemoglobin [place] Test ABG Potassium A-a O2 Difference Respiratory Index Hgb O2 Saturation Sodium 137 Chloride 95 L Glucose Lactate Vent Mode Mechanical Rate FiO2 Tidal Volume PEEP Crit Value Called To Crit Value Called By Crit Value Read Back Blood Gas Notified Time Potassium 6.4 H* Carbon Dioxide 25 Anion Gap 23 H BUN 77 H Creatinine 8.1 H* Est GFR ( Amer) 6 Est GFR (Non-Af Amer) 5 POC Glucose (mg/dL) 301 H Random Glucose 425 H* D Hemoglobin A1c Calcium 12.4 H Phosphorus 7.0 H Magnesium 2.4 H Total Bilirubin 1.3 AST > 750 H ALT 695 H D Alkaline Phosphatase 204 H D Troponin I Total Protein 7.2 Albumin 4.2 Globulin 3.0 Albumin/Globulin Ratio 1.4 Triglycerides Cholesterol LDL Cholesterol Direct HDL Cholesterol Free T4 Arterial Blood Potassium Random Vancomycin 12/07/17 12/08/17 12/08/17 23:34 05:15 06:18 WBC RBC Hgb Hct MCV MCH MCHC RDW Plt Count MPV Neut % (Auto) Lymph % (Auto) Mor[place] % (Auto) Eos % (Auto) Baso % (Auto) Neut # (Auto) Lymph # (Auto) [place] # (Auto) Eos # (Auto) Baso # (Auto) Neutrophils % (Manual) Lymphocytes % (Manual) Monocytes % (Manual) Myelocytes % Platelet Estimate PT INR APTT Puncture Site Rr pCO2 38 pO2 247 H HCO3 30.2 H ABG pH 7.51 H ABG Total CO2 31.5 H ABG O2 Saturation 98.5 H ABG Base Excess 6.8 H ABG Hemoglobin 11.5 L ABG Carboxyhemoglobin 0.7 POC ABG HHb (Measured) 1.5 ABG Methemoglobin 0.9 [place] Test Pos ABG Potassium A-a O2 Difference 419.0 Respiratory Index 1.7 Hgb O2 Saturation 97.0 Sodium Chloride Glucose Lactate Vent Mode Prvc Mechanical Rate 12 FiO2 100.0 Tidal Volume 500 PEEP 5 Crit Value Called To Crit Value Called By Crit Value Read Back Blood Gas Notified Time Potassium Carbon Dioxide Anion Gap BUN Creatinine Est GFR ( Amer) Est GFR (Non-Af Amer) POC Glucose (mg/dL) 136 H 225 H Random Glucose Hemoglobin A1c Calcium Phosphorus Magnesium Total Bilirubin AST ALT Alkaline Phosphatase Troponin I Total Protein Albumin Globulin Albumin/Globulin Ratio Triglycerides Cholesterol LDL Cholesterol Direct HDL Cholesterol Free T4 Arterial Blood Potassium Random Vancomycin 12/08/17 12/08/17 12/08/17 06:32 06:32 06:32 WBC 14.6 H RBC 4.12 Hgb 12.5 Hct 36.8 MCV 89.4 MCH 30.2 MCHC 33.8 RDW 14.3 Plt Count 203 MPV 7.8 Neut % (Auto) 81.5 H Lymph % (Auto) 10.1 L [place] % (Auto) 8.1 Eos % (Auto) 0.1 Baso % (Auto) 0.2 Neut # (Auto) 11.9 H Lymph # (Auto) 1.5 [place] # (Auto) 1.2 H Eos # (Auto) 0.0 Baso # (Auto) 0.0 Neutrophils % (Manual) Lymphocytes % (Manual) Monocytes % (Manual) Myelocytes % Platelet Estimate PT 12.6 H INR 1.2 APTT 26 Puncture Site pCO2 pO2 HCO3 ABG pH ABG Total CO2 ABG O2 Saturation ABG Base Excess ABG Hemoglobin ABG Carboxyhemoglobin POC ABG HHb (Measured) ABG Methemoglobin [place] Test ABG Potassium A-a O2 Difference Respiratory Index Hgb O2 Saturation Sodium 136 Chloride 92 L Glucose Lactate Vent Mode Mechanical Rate FiO2 Tidal Volume PEEP Crit Value Called To Crit Value Called By Crit Value Read Back Blood Gas Notified Time Potassium 5.7 H Carbon Dioxide 29 Anion Gap 21 H BUN 38 H Creatinine 4.7 H Est GFR ( Amer) 12 Est GFR (Non-Af Amer) 10 POC Glucose (mg/dL) Random Glucose 211 H Hemoglobin A1c Calcium 9.9 Phosphorus 4.0 Magnesium 1.9 Total Bilirubin 1.1 AST 461 H D ALT 552 H D Alkaline Phosphatase 168 H Troponin I Total Protein 7.2 Albumin 4.2 Globulin 2.9 Albumin/Globulin Ratio 1.5 Triglycerides 679 H Cholesterol 125 LDL Cholesterol Direct 35 HDL Cholesterol 26 L Free T4 Arterial Blood Potassium Random Vancomycin 12/08/17 12/08/17 12/08/17 06:32 06:32 10:02 WBC RBC Hgb Hct MCV MCH MCHC RDW Plt Count MPV Neut % (Auto) Lymph % (Auto) [place] % (Auto) Eos % (Auto) Baso % (Auto) Neut # (Auto) Lymph # (Auto) [place] # (Auto) Eos # (Auto) Baso # (Auto) Neutrophils % (Manual) Lymphocytes % (Manual) Monocytes % (Manual) Myelocytes % Platelet Estimate PT INR APTT Puncture Site pCO2 pO2 HCO3 ABG pH ABG Total CO2 ABG O2 Saturation ABG Base Excess ABG Hemoglobin ABG Carboxyhemoglobin POC ABG HHb (Measured) ABG Methemoglobin [place] Test ABG Potassium A-a O2 Difference Respiratory Index Hgb O2 Saturation Sodium Chloride Glucose Lactate Vent Mode Mechanical Rate FiO2 Tidal Volume PEEP Crit Value Called To Crit Value Called By Crit Value Read Back Blood Gas Notified Time Potassium Carbon Dioxide Anion Gap BUN Creatinine Est GFR ( Amer) Est GFR (Non-Af Amer) POC Glucose (mg/dL) Random Glucose Hemoglobin A1c 7.2 H Calcium Phosphorus Magnesium Total Bilirubin AST ALT Alkaline Phosphatase Troponin I Total Protein Albumin Globulin Albumin/Globulin Ratio Triglycerides Cholesterol LDL Cholesterol Direct HDL Cholesterol Free T4 1.90 Arterial Blood Potassium Random Vancomycin 6.2 12/08/17 12/08/17 10:56 11:48 WBC RBC Hgb Hct MCV MCH MCHC RDW Plt Count MPV Neut % (Auto) Lymph % (Auto) Mora % (Auto) Eos % (Auto) Baso % (Auto) Neut # (Auto) Lymph # (Auto) Mora # (Auto) Eos # (Auto) Baso # (Auto) Neutrophils % (Manual) Lymphocytes % (Manual) Monocytes % (Manual) Myelocytes % Platelet Estimate PT INR APTT 29 Puncture Site pCO2 pO2 HCO3 ABG pH ABG Total CO2 ABG O2 Saturation ABG Base Excess ABG Hemoglobin ABG Carboxyhemoglobin POC ABG HHb (Measured) ABG Methemoglobin [place] Test ABG Potassium A-a O2 Difference Respiratory Index Hgb O2 Saturation Sodium Chloride Glucose Lactate Vent Mode Mechanical Rate FiO2 Tidal Volume PEEP Crit Value Called To Crit Value Called By Crit Value Read Back Blood Gas Notified Time Potassium Carbon Dioxide Anion Gap BUN Creatinine Est GFR ( Amer) Est GFR (Non-Af Amer) POC Glucose (mg/dL) 298 H Random Glucose Hemoglobin A1c Calcium Phosphorus Magnesium Total Bilirubin AST ALT Alkaline Phosphatase Troponin I Total Protein Albumin Globulin Albumin/Globulin Ratio Triglycerides Cholesterol LDL Cholesterol Direct HDL Cholesterol Free T4 Arterial Blood Potassium Random Vancomycin EKG/Cardiology Studies: Cardiology / EKG Studies 12/07/17 16:00 ELECTROCARDIOGRAM Routine Comment: Mode Of Transportation: Reason For Exam: bradycardi Fingerstick Blood Sugar Results: 298 Review of Systems - Review of Systems Systems not reviewed;Unavailable: Intubated Assessment/Plan - Assessment and Plan (Free Text) Assessment: 57 yo F w/ PMHx DM, HTN, diabetic neuropathy, ESDR (HD T/Th/Sat) ovarian ca s/p surgical resection and chemo, brought to ED by EMT after an unwitnessed LOC likely 2/2 to a presumed cardiac arrest vs. symptomatic bradycardia, w/ ACLS protocol initiated on field. 1. LOC 2/2 to symptomatic bradycardia vs. cardiac arrest vs. CVA -cardiac cath negative -TVP @ 100, going for pacemaker today -dopamine, w/ goal SBP >110 -low dose propofol -cardio consult Dr. Ríos, per cardio since cath was neg, no need to iniate DAPT or AC -head CT neg for acute pathology neg -EP consult Dr. Travis -hold home cardiac meds nifedipine ER 60mg BID and diltiazem ER 180mg likely cause of symptomatic bradycardia -f/u echo -GSC 4 -vent support until stable 2. Shock 2/2 sepsis vs cardiogenic -WBC 14.6 -lactate 7.6-->1.5 -trops neg -pBNP 56,900 -Pt to receive vanc and zosyn post HD -f/u [place] cx -tylenol PRN fevers 3. ESRD on HD T/TH/Sat -Bun/Cr upon admission 63/7.9 -pt to be dialyzed today via left UE fistula -nephro consult Dr. Bunn -renal med dosing 4. DM -ISS -accuchecks -hypoglycemic protocol Ppx -heparin 5000U sc -protonix 40mg <Kelvin Faith M - Last Filed: 12/08/17 18:07> CCU Objective - Vital Signs / Intake & Output Vital Signs (Last 4 hours): Vital Signs Temp Pulse Resp BP BP Pulse Ox 12/08/17 16:18 82 16 139/71 98 12/08/17 16:15 82 12 98 12/08/17 16:03 82 19 139/70 99 12/08/17 16:00 98.2 F 82 21 139/70 100 12/08/17 15:48 82 15 144/71 98 12/08/17 15:45 82 12 98 12/08/17 15:40 82 12 142/72 98 12/08/17 15:33 82 12 142/72 98 12/08/17 15:30 82 12 98 12/08/17 15:18 82 17 144/76 98 12/08/17 15:15 82 14 98 12/08/17 15:03 82 16 150/70 98 12/08/17 15:00 82 16 145/79 98 12/08/17 14:48 82 15 152/78 H 98 12/08/17 14:45 82 14 98 12/08/17 14:33 82 14 146/74 98 12/08/17 14:30 82 14 98 12/08/17 14:18 82 15 151/75 H 98 12/08/17 14:15 82 13 98 12/08/17 14:03 82 15 148/67 98 12/08/17 14:00 82 14 134/74 98 Intake and Output (Last 8hrs): Intake & Output 12/08/17 12/08/17 12/08/17 06:59 14:59 22:59 Intake Total 485.1 1596.3 203.8 Output Total 200 0 0 Balance 285.1 1596.3 203.8 Weight 119 lb 14.903 oz Intake: IV 240 238 155 Intake, IV Amount 245.1 1358.3 48.8 Left Medial Port Internal 42.2 Jugular Left Proximal Port 6.6 Internal Jugular Left Shoulder 142.3 231.9 Intraosseous Right Hand 52.8 1126.4 Right Wrist 50 Oral 0 0 Output: Drainage 200 NGT 200 Urine 0 0 0 Urethral (Tucker) 0 0 0 Other: # Bowel Movements 0 0 - Medications Active Medications: Active Medications Generic Name Dose Route Start Last Admin Trade Name Freq PRN Reason Stop Dose Admin Acetaminophen 650 mg 12/07/17 13:40 Tylenol 325mg Tab PO Q6 PRN Fever >100.4 F Albuterol/Ipratropium 3 ml 12/07/17 16:00 12/08/17 16:30 Duoneb 3 Mg/0.5 Mg (3 Ml) Ud INH 3 ml RQ4 ISACC Administration Aspirin 81 mg 12/08/17 17:00 Aspirin Chewable PO DAILY ISACC Heparin Sodium (Porcine) 5,000 units 12/07/17 14:00 12/08/17 14:21 Heparin SC Not Given Q8 ISACC Propofol 1,000 mg in 100 mls @ 1.65 mls/hr 12/07/17 14:30 12/08/17 16:59 Diprivan IV 20 mcg/kg/min .Q24H PRN 6.6 mls/hr TITRATE PER MD ORDER Titration Protocol 5 MCG/KG/MIN Piperacillin Sod/Tazobactam 100 mls @ 200 mls/hr 12/08/17 04:00 12/08/17 12: 03 Sod 2.25 gm/ Sodium Chloride IVPB 200 mls/hr Q8H SIACC Administration Protocol Norepinephrine Bitartrate 8 mg 258 mls @ 7.74 mls/hr 12/08/17 10:03 12/08/17 11:39 / Dextrose IV 4 mcg/min .Q24H PRN 7.74 mls/hr TITRATE PER MD ORDER Titration Protocol 4 MCG/MIN Vancomycin/Sodium Chloride 1 gm in 200 mls @ 133.333 mls/hr 12/08/17 20:00 Vancomycin 1 Gm/Ns 200 Ml IVPB 12/08/17 21:29 ONCE ONE Protocol Insulin Glargine 10 unit 12/08/17 12:30 12/08/17 13:15 Lantus SC 10 u DAILY ISACC Administration Insulin Human Regular 0 unit 12/08/17 00:00 12/08/17 12:00 Novolin R SC 3 u Q6H ISACC Administration Protocol Midodrine 5 mg 12/08/17 10:00 12/08/17 14:01 Proamatine PO Not Given TID ISACC Pantoprazole Sodium 40 mg 12/08/17 10:00 12/08/17 09:30 Protonix Inj IVP 40 mg DAILY ISACC Administration - Patient Studies Lab Studies: Microbiology Studies 12/07/17 10:25 Blood Culture - Preliminary Blood NO GROWTH AFTER 24 HOURS 12/07/17 10:40 Blood Culture - Preliminary Blood NO GROWTH AFTER 24 HOURS 12/07/17 Unknown Gram Stain - Final Sputum Lab Studies 12/08/17 12/08/17 12/08/17 Range/Units 11:48 10:56 10:02 WBC (4.8-10.8) K/uL RBC (3.80-5.20) Mil/uL Hgb (11.0-16.0) g/dL Hct (34.0-47.0) % MCV (81.0-99.0) fL MCH (27.0-31.0) pg MCHC (33.0-37.0) g/dL RDW (11.5-14.5) % Plt Count (130-400) K/uL MPV (7.2-11.7) fL Neut % (Auto) (50.0-75.0) % Lymph % (Auto) (20.0-40.0) % Mora % (Auto) (0.0-10.0) % Eos % (Auto) (0.0-4.0) % Baso % (Auto) (0.0-2.0) % Neut # (Auto) (1.8-7.0) K/uL Lymph # (Auto) (1.0-4.3) K/uL Mora # (Auto) (0.0-0.8) K/uL Eos # (Auto) (0.0-0.7) K/uL Baso # (Auto) (0.0-0.2) K/uL Neutrophils % (Manual) (50-75) % Lymphocytes % (Manual) (20-40) % Monocytes % (Manual) (0-10) % Myelocytes % (0-0) % Platelet Estimate (NORMAL) PT (9.7-12.2) SECONDS INR APTT 29 (21-34) SECONDS Puncture Site pCO2 (35-45) mm/Hg pO2 (80-100) mm/Hg HCO3 (21-28) mmol/L ABG pH (7.35-7.45) ABG Total CO2 (22-28) mmol/L ABG O2 Saturation (95-98) % ABG Base Excess (-2.0-3.0) mmol/L ABG Hemoglobin (11.7-17.4) g/dL ABG Carboxyhemoglobin (0.5-1.5) % POC ABG HHb (Measured) (0.0-5.0) % ABG Methemoglobin (0.0-3.0) % [place] Test A-a O2 Difference mm/Hg Respiratory Index Hgb O2 Saturation (95.0-98.0) % Vent Mode Mechanical Rate FiO2 % Tidal Volume PEEP Sodium (132-148) mmol/L Potassium (3.6-5.2) mmol/L Chloride (98-107) mmol/L Carbon Dioxide (22-30) mmol/L Anion Gap (10-20) BUN (7-17) mg/dL Creatinine (0.7-1.2) mg/dL Est GFR ( Amer) Est GFR (Non-Af Amer) POC Glucose (mg/dL) 298 H (65-110) mg/dL Random Glucose (65-105) mg/dL Hemoglobin A1c (4.2-6.5) % Calcium (8.6-10.4) mg/dl Phosphorus (2.5-4.5) mg/dL Magnesium (1.6-2.3) mg/dL Total Bilirubin (0.2-1.3) mg/dL AST (14-36) U/L ALT (9-52) U/L Alkaline Phosphatase (38-126) U/L Total Protein (6.3-8.3) g/dL Albumin (3.5-5.0) g/dL Globulin (2.2-3.9) gm/dL Albumin/Globulin Ratio (1.0-2.1) Triglycerides (0-149) mg/dL Cholesterol (0-199) mg/dL LDL Cholesterol Direct (0-129) mg/dL HDL Cholesterol (30-70) mg/dL Free T4 (0.78-2.19) ng/dL Random Vancomycin 6.2 ug/mL 12/08/17 12/08/17 12/08/17 Range/Units 06:32 06:32 06:32 WBC (4.8-10.8) K/uL RBC (3.80-5.20) Mil/uL Hgb (11.0-16.0) g/dL Hct (34.0-47.0) % MCV (81.0-99.0) fL MCH (27.0-31.0) pg MCHC (33.0-37.0) g/dL RDW (11.5-14.5) % Plt Count (130-400) K/uL MPV (7.2-11.7) fL Neut % (Auto) (50.0-75.0) % Lymph % (Auto) (20.0-40.0) % Mora % (Auto) (0.0-10.0) % Eos % (Auto) (0.0-4.0) % Baso % (Auto) (0.0-2.0) % Neut # (Auto) (1.8-7.0) K/uL Lymph # (Auto) (1.0-4.3) K/uL Mora # (Auto) (0.0-0.8) K/uL Eos # (Auto) (0.0-0.7) K/uL Baso # (Auto) (0.0-0.2) K/uL Neutrophils % (Manual) (50-75) % Lymphocytes % (Manual) (20-40) % Monocytes % (Manual) (0-10) % Myelocytes % (0-0) % Platelet Estimate (NORMAL) PT (9.7-12.2) SECONDS INR APTT (21-34) SECONDS Puncture Site pCO2 (35-45) mm/Hg pO2 (80-100) mm/Hg HCO3 (21-28) mmol/L ABG pH (7.35-7.45) ABG Total CO2 (22-28) mmol/L ABG O2 Saturation (95-98) % ABG Base Excess (-2.0-3.0) mmol/L ABG Hemoglobin (11.7-17.4) g/dL ABG Carboxyhemoglobin (0.5-1.5) % POC ABG HHb (Measured) (0.0-5.0) % ABG Methemoglobin (0.0-3.0) % [place] Test A-a O2 Difference mm/Hg Respiratory Index Hgb O2 Saturation (95.0-98.0) % Vent Mode Mechanical Rate FiO2 % Tidal Volume PEEP Sodium 136 (132-148) mmol/L Potassium 5.7 H (3.6-5.2) mmol/L Chloride 92 L (98-107) mmol/L Carbon Dioxide 29 (22-30) mmol/L Anion Gap 21 H (10-20) BUN 38 H (7-17) mg/dL Creatinine 4.7 H (0.7-1.2) mg/dL Est GFR ( Amer) 12 Est GFR (Non-Af Amer) 10 POC Glucose (mg/dL) (65-110) mg/dL Random Glucose 211 H (65-105) mg/dL Hemoglobin A1c 7.2 H (4.2-6.5) % Calcium 9.9 (8.6-10.4) mg/dl Phosphorus 4.0 (2.5-4.5) mg/dL Magnesium 1.9 (1.6-2.3) mg/dL Total Bilirubin 1.1 (0.2-1.3) mg/dL AST 461 H D (14-36) U/L ALT 552 H D (9-52) U/L Alkaline Phosphatase 168 H (38-126) U/L Total Protein 7.2 (6.3-8.3) g/dL Albumin 4.2 (3.5-5.0) g/dL Globulin 2.9 (2.2-3.9) gm/dL Albumin/Globulin Ratio 1.5 (1.0-2.1) Triglycerides 679 H (0-149) mg/dL Cholesterol 125 (0-199) mg/dL LDL Cholesterol Direct 35 (0-129) mg/dL HDL Cholesterol 26 L (30-70) mg/dL Free T4 1.90 (0.78-2.19) ng/dL Random Vancomycin ug/mL 12/08/17 12/08/17 12/08/17 Range/Units 06:32 06:32 06:18 WBC 14.6 H (4.8-10.8) K/uL RBC 4.12 (3.80-5.20) Mil/uL Hgb 12.5 (11.0-16.0) g/dL Hct 36.8 (34.0-47.0) % MCV 89.4 (81.0-99.0) fL MCH 30.2 (27.0-31.0) pg MCHC 33.8 (33.0-37.0) g/dL RDW 14.3 (11.5-14.5) % Plt Count 203 (130-400) K/uL MPV 7.8 (7.2-11.7) fL Neut % (Auto) 81.5 H (50.0-75.0) % Lymph % (Auto) 10.1 L (20.0-40.0) % Mora % (Auto) 8.1 (0.0-10.0) % Eos % (Auto) 0.1 (0.0-4.0) % Baso % (Auto) 0.2 (0.0-2.0) % Neut # (Auto) 11.9 H (1.8-7.0) K/uL Lymph # (Auto) 1.5 (1.0-4.3) K/uL Mora # (Auto) 1.2 H (0.0-0.8) K/uL Eos # (Auto) 0.0 (0.0-0.7) K/uL Baso # (Auto) 0.0 (0.0-0.2) K/uL Neutrophils % (Manual) (50-75) % Lymphocytes % (Manual) (20-40) % Monocytes % (Manual) (0-10) % Myelocytes % (0-0) % Platelet Estimate (NORMAL) PT 12.6 H (9.7-12.2) SECONDS INR 1.2 APTT 26 (21-34) SECONDS Puncture Site pCO2 (35-45) mm/Hg pO2 (80-100) mm/Hg HCO3 (21-28) mmol/L ABG pH (7.35-7.45) ABG Total CO2 (22-28) mmol/L ABG O2 Saturation (95-98) % ABG Base Excess (-2.0-3.0) mmol/L ABG Hemoglobin (11.7-17.4) g/dL ABG Carboxyhemoglobin (0.5-1.5) % POC ABG HHb (Measured) (0.0-5.0) % ABG Methemoglobin (0.0-3.0) % [place] Test A-a O2 Difference mm/Hg Respiratory Index Hgb O2 Saturation (95.0-98.0) % Vent Mode Mechanical Rate FiO2 % Tidal Volume PEEP Sodium (132-148) mmol/L Potassium (3.6-5.2) mmol/L Chloride (98-107) mmol/L Carbon Dioxide (22-30) mmol/L Anion Gap (10-20) BUN (7-17) mg/dL Creatinine (0.7-1.2) mg/dL Est GFR ( Amer) Est GFR (Non-Af Amer) POC Glucose (mg/dL) 225 H (65-110) mg/dL Random Glucose (65-105) mg/dL Hemoglobin A1c (4.2-6.5) % Calcium (8.6-10.4) mg/dl Phosphorus (2.5-4.5) mg/dL Magnesium (1.6-2.3) mg/dL Total Bilirubin (0.2-1.3) mg/dL AST (14-36) U/L ALT (9-52) U/L Alkaline Phosphatase (38-126) U/L Total Protein (6.3-8.3) g/dL Albumin (3.5-5.0) g/dL Globulin (2.2-3.9) gm/dL Albumin/Globulin Ratio (1.0-2.1) Triglycerides (0-149) mg/dL Cholesterol (0-199) mg/dL LDL Cholesterol Direct (0-129) mg/dL HDL Cholesterol (30-70) mg/dL Free T4 (0.78-2.19) ng/dL Random Vancomycin ug/mL 12/08/17 12/07/17 12/07/17 Range/Units 05:15 23:34 18:35 WBC (4.8-10.8) K/uL RBC (3.80-5.20) Mil/uL Hgb (11.0-16.0) g/dL Hct (34.0-47.0) % MCV (81.0-99.0) fL MCH (27.0-31.0) pg MCHC (33.0-37.0) g/dL RDW (11.5-14.5) % Plt Count (130-400) K/uL MPV (7.2-11.7) fL Neut % (Auto) (50.0-75.0) % Lymph % (Auto) (20.0-40.0) % Mora % (Auto) (0.0-10.0) % Eos % (Auto) (0.0-4.0) % Baso % (Auto) (0.0-2.0) % Neut # (Auto) (1.8-7.0) K/uL Lymph # (Auto) (1.0-4.3) K/uL Mora # (Auto) (0.0-0.8) K/uL Eos # (Auto) (0.0-0.7) K/uL Baso # (Auto) (0.0-0.2) K/uL Neutrophils % (Manual) (50-75) % Lymphocytes % (Manual) (20-40) % Monocytes % (Manual) (0-10) % Myelocytes % (0-0) % Platelet Estimate (NORMAL) PT (9.7-12.2) SECONDS INR APTT (21-34) SECONDS Puncture Site Rr pCO2 38 (35-45) mm/Hg pO2 247 H (80-100) mm/Hg HCO3 30.2 H (21-28) mmol/L ABG pH 7.51 H (7.35-7.45) ABG Total CO2 31.5 H (22-28) mmol/L ABG O2 Saturation 98.5 H (95-98) % ABG Base Excess 6.8 H (-2.0-3.0) mmol/L ABG Hemoglobin 11.5 L (11.7-17.4) g/dL ABG Carboxyhemoglobin 0.7 (0.5-1.5) % POC ABG HHb (Measured) 1.5 (0.0-5.0) % ABG Methemoglobin 0.9 (0.0-3.0) % [place] Test Pos A-a O2 Difference 419.0 mm/Hg Respiratory Index 1.7 Hgb O2 Saturation 97.0 (95.0-98.0) % Vent Mode Prvc Mechanical Rate 12 FiO2 100.0 % Tidal Volume 500 PEEP 5 Sodium (132-148) mmol/L Potassium (3.6-5.2) mmol/L Chloride (98-107) mmol/L Carbon Dioxide (22-30) mmol/L Anion Gap (10-20) BUN (7-17) mg/dL Creatinine (0.7-1.2) mg/dL Est GFR ( Amer) Est GFR (Non-Af Amer) POC Glucose (mg/dL) 136 H 301 H (65-110) mg/dL Random Glucose (65-105) mg/dL Hemoglobin A1c (4.2-6.5) % Calcium (8.6-10.4) mg/dl Phosphorus (2.5-4.5) mg/dL Magnesium (1.6-2.3) mg/dL Total Bilirubin (0.2-1.3) mg/dL AST (14-36) U/L ALT (9-52) U/L Alkaline Phosphatase (38-126) U/L Total Protein (6.3-8.3) g/dL Albumin (3.5-5.0) g/dL Globulin (2.2-3.9) gm/dL Albumin/Globulin Ratio (1.0-2.1) Triglycerides (0-149) mg/dL Cholesterol (0-199) mg/dL LDL Cholesterol Direct (0-129) mg/dL HDL Cholesterol (30-70) mg/dL Free T4 (0.78-2.19) ng/dL Random Vancomycin ug/mL 12/07/17 12/07/17 Range/Units 18:27 18:27 WBC 18.4 H (4.8-10.8) K/uL RBC 4.08 (3.80-5.20) Mil/uL Hgb 12.2 (11.0-16.0) g/dL Hct 36.7 (34.0-47.0) % MCV 89.9 D (81.0-99.0) fL MCH 29.9 (27.0-31.0) pg MCHC 33.2 (33.0-37.0) g/dL RDW 14.2 (11.5-14.5) % Plt Count 223 (130-400) K/uL MPV 8.1 (7.2-11.7) fL Neut % (Auto) 82.5 H (50.0-75.0) % Lymph % (Auto) 8.4 L (20.0-40.0) % Mora % (Auto) 8.8 (0.0-10.0) % Eos % (Auto) 0.1 (0.0-4.0) % Baso % (Auto) 0.2 (0.0-2.0) % Neut # (Auto) 15.2 H (1.8-7.0) K/uL Lymph # (Auto) 1.6 (1.0-4.3) K/uL Mora # (Auto) 1.6 H (0.0-0.8) K/uL Eos # (Auto) 0.0 (0.0-0.7) K/uL Baso # (Auto) 0.0 (0.0-0.2) K/uL Neutrophils % (Manual) 82 H (50-75) % Lymphocytes % (Manual) 10 L (20-40) % Monocytes % (Manual) 7 (0-10) % Myelocytes % 1 H (0-0) % Platelet Estimate Normal (NORMAL) PT (9.7-12.2) SECONDS INR APTT (21-34) SECONDS Puncture Site pCO2 (35-45) mm/Hg pO2 (80-100) mm/Hg HCO3 (21-28) mmol/L ABG pH (7.35-7.45) ABG Total CO2 (22-28) mmol/L ABG O2 Saturation (95-98) % ABG Base Excess (-2.0-3.0) mmol/L ABG Hemoglobin (11.7-17.4) g/dL ABG Carboxyhemoglobin (0.5-1.5) % POC ABG HHb (Measured) (0.0-5.0) % ABG Methemoglobin (0.0-3.0) % [place] Test A-a O2 Difference mm/Hg Respiratory Index Hgb O2 Saturation (95.0-98.0) % Vent Mode Mechanical Rate FiO2 % Tidal Volume PEEP Sodium 137 (132-148) mmol/L Potassium 6.4 H* (3.6-5.2) mmol/L Chloride 95 L (98-107) mmol/L Carbon Dioxide 25 (22-30) mmol/L Anion Gap 23 H (10-20) BUN 77 H (7-17) mg/dL Creatinine 8.1 H* (0.7-1.2) mg/dL Est GFR ( Amer) 6 Est GFR (Non-Af Amer) 5 POC Glucose (mg/dL) (65-110) mg/dL Random Glucose 425 H* D (65-105) mg/dL Hemoglobin A1c (4.2-6.5) % Calcium 12.4 H (8.6-10.4) mg/dl Phosphorus 7.0 H (2.5-4.5) mg/dL Magnesium 2.4 H (1.6-2.3) mg/dL Total Bilirubin 1.3 (0.2-1.3) mg/dL AST > 750 H (14-36) U/L ALT 695 H D (9-52) U/L Alkaline Phosphatase 204 H D (38-126) U/L Total Protein 7.2 (6.3-8.3) g/dL Albumin 4.2 (3.5-5.0) g/dL Globulin 3.0 (2.2-3.9) gm/dL Albumin/Globulin Ratio 1.4 (1.0-2.1) Triglycerides (0-149) mg/dL Cholesterol (0-199) mg/dL LDL Cholesterol Direct (0-129) mg/dL HDL Cholesterol (30-70) mg/dL Free T4 (0.78-2.19) ng/dL Random Vancomycin ug/mL Laboratory Results - last 24 hr 12/07/17 12/07/17 12/07/17 18:27 18:27 18:35 WBC 18.4 H RBC 4.08 Hgb 12.2 Hct 36.7 MCV 89.9 D MCH 29.9 MCHC 33.2 RDW 14.2 Plt Count 223 MPV 8.1 Neut % (Auto) 82.5 H Lymph % (Auto) 8.4 L Mora % (Auto) 8.8 Eos % (Auto) 0.1 Baso % (Auto) 0.2 Neut # (Auto) 15.2 H Lymph # (Auto) 1.6 Mora # (Auto) 1.6 H Eos # (Auto) 0.0 Baso # (Auto) 0.0 Neutrophils % (Manual) 82 H Lymphocytes % (Manual) 10 L Monocytes % (Manual) 7 Myelocytes % 1 H Platelet Estimate Normal PT INR APTT Puncture Site pCO2 pO2 HCO3 ABG pH ABG Total CO2 ABG O2 Saturation ABG Base Excess ABG Hemoglobin ABG Carboxyhemoglobin POC ABG HHb (Measured) ABG Methemoglobin [place] Test A-a O2 Difference Respiratory Index Hgb O2 Saturation Vent Mode Mechanical Rate FiO2 Tidal Volume PEEP Sodium 137 Potassium 6.4 H* Chloride 95 L Carbon Dioxide 25 Anion Gap 23 H BUN 77 H Creatinine 8.1 H* Est GFR ( Amer) 6 Est GFR (Non-Af Amer) 5 POC Glucose (mg/dL) 301 H Random Glucose 425 H* D Hemoglobin A1c Calcium 12.4 H Phosphorus 7.0 H Magnesium 2.4 H Total Bilirubin 1.3 AST > 750 H ALT 695 H D Alkaline Phosphatase 204 H D Total Protein 7.2 Albumin 4.2 Globulin 3.0 Albumin/Globulin Ratio 1.4 Triglycerides Cholesterol LDL Cholesterol Direct HDL Cholesterol Free T4 Random Vancomycin 12/07/17 12/08/17 12/08/17 23:34 05:15 06:18 WBC RBC Hgb Hct MCV MCH MCHC RDW Plt Count MPV Neut % (Auto) Lymph % (Auto) Mora % (Auto) Eos % (Auto) Baso % (Auto) Neut # (Auto) Lymph # (Auto) [place]a # (Auto) Eos # (Auto) Baso # (Auto) Neutrophils % (Manual) Lymphocytes % (Manual) Monocytes % (Manual) Myelocytes % Platelet Estimate PT INR APTT Puncture Site Rr pCO2 38 pO2 247 H HCO3 30.2 H ABG pH 7.51 H ABG Total CO2 31.5 H ABG O2 Saturation 98.5 H ABG Base Excess 6.8 H ABG Hemoglobin 11.5 L ABG Carboxyhemoglobin 0.7 POC ABG HHb (Measured) 1.5 ABG Methemoglobin 0.9 [place] Test Pos A-a O2 Difference 419.0 Respiratory Index 1.7 Hgb O2 Saturation 97.0 Vent Mode Prvc Mechanical Rate 12 FiO2 100.0 Tidal Volume 500 PEEP 5 Sodium Potassium Chloride Carbon Dioxide Anion Gap BUN Creatinine Est GFR ( Amer) Est GFR (Non-Af Amer) POC Glucose (mg/dL) 136 H 225 H Random Glucose Hemoglobin A1c Calcium Phosphorus Magnesium Total Bilirubin AST ALT Alkaline Phosphatase Total Protein Albumin Globulin Albumin/Globulin Ratio Triglycerides Cholesterol LDL Cholesterol Direct HDL Cholesterol Free T4 Random Vancomycin 12/08/17 12/08/17 12/08/17 06:32 06:32 06:32 WBC 14.6 H RBC 4.12 Hgb 12.5 Hct 36.8 MCV 89.4 MCH 30.2 MCHC 33.8 RDW 14.3 Plt Count 203 MPV 7.8 Neut % (Auto) 81.5 H Lymph % (Auto) 10.1 L Mora % (Auto) 8.1 Eos % (Auto) 0.1 Baso % (Auto) 0.2 Neut # (Auto) 11.9 H Lymph # (Auto) 1.5 Mora # (Auto) 1.2 H Eos # (Auto) 0.0 Baso # (Auto) 0.0 Neutrophils % (Manual) Lymphocytes % (Manual) Monocytes % (Manual) Myelocytes % Platelet Estimate PT 12.6 H INR 1.2 APTT 26 Puncture Site pCO2 pO2 HCO3 ABG pH ABG Total CO2 ABG O2 Saturation ABG Base Excess ABG Hemoglobin ABG Carboxyhemoglobin POC ABG HHb (Measured) ABG Methemoglobin [place] Test A-a O2 Difference Respiratory Index Hgb O2 Saturation Vent Mode Mechanical Rate FiO2 Tidal Volume PEEP Sodium 136 Potassium 5.7 H Chloride 92 L Carbon Dioxide 29 Anion Gap 21 H BUN 38 H Creatinine 4.7 H Est GFR ( Amer) 12 Est GFR (Non-Af Amer) 10 POC Glucose (mg/dL) Random Glucose 211 H Hemoglobin A1c Calcium 9.9 Phosphorus 4.0 Magnesium 1.9 Total Bilirubin 1.1 AST 461 H D ALT 552 H D Alkaline Phosphatase 168 H Total Protein 7.2 Albumin 4.2 Globulin 2.9 Albumin/Globulin Ratio 1.5 Triglycerides 679 H Cholesterol 125 LDL Cholesterol Direct 35 HDL Cholesterol 26 L Free T4 Random Vancomycin 12/08/17 12/08/17 12/08/17 06:32 06:32 10:02 WBC RBC Hgb Hct MCV MCH MCHC RDW Plt Count MPV Neut % (Auto) Lymph % (Auto) Mora % (Auto) Eos % (Auto) Baso % (Auto) Neut # (Auto) Lymph # (Auto) Mora # (Auto) Eos # (Auto) Baso # (Auto) Neutrophils % (Manual) Lymphocytes % (Manual) Monocytes % (Manual) Myelocytes % Platelet Estimate PT INR APTT Puncture Site pCO2 pO2 HCO3 ABG pH ABG Total CO2 ABG O2 Saturation ABG Base Excess ABG Hemoglobin ABG Carboxyhemoglobin POC ABG HHb (Measured) ABG Methemoglobin [place] Test A-a O2 Difference Respiratory Index Hgb O2 Saturation Vent Mode Mechanical Rate FiO2 Tidal Volume PEEP Sodium Potassium Chloride Carbon Dioxide Anion Gap BUN Creatinine Est GFR ( Amer) Est GFR (Non-Af Amer) POC Glucose (mg/dL) Random Glucose Hemoglobin A1c 7.2 H Calcium Phosphorus Magnesium Total Bilirubin AST ALT Alkaline Phosphatase Total Protein Albumin Globulin Albumin/Globulin Ratio Triglycerides Cholesterol LDL Cholesterol Direct HDL Cholesterol Free T4 1.90 Random Vancomycin 6.2 12/08/17 12/08/17 10:56 11:48 WBC RBC Hgb Hct MCV MCH MCHC RDW Plt Count MPV Neut % (Auto) Lymph % (Auto) Mora % (Auto) Eos % (Auto) Baso % (Auto) Neut # (Auto) Lymph # (Auto) Mora # (Auto) Eos # (Auto) Baso # (Auto) Neutrophils % (Manual) Lymphocytes % (Manual) Monocytes % (Manual) Myelocytes % Platelet Estimate PT INR APTT 29 Puncture Site pCO2 pO2 HCO3 ABG pH ABG Total CO2 ABG O2 Saturation ABG Base Excess ABG Hemoglobin ABG Carboxyhemoglobin POC ABG HHb (Measured) ABG Methemoglobin [place] Test A-a O2 Difference Respiratory Index Hgb O2 Saturation Vent Mode Mechanical Rate FiO2 Tidal Volume PEEP Sodium Potassium Chloride Carbon Dioxide Anion Gap BUN Creatinine Est GFR ( Amer) Est GFR (Non-Af Amer) POC Glucose (mg/dL) 298 H Random Glucose Hemoglobin A1c Calcium Phosphorus Magnesium Total Bilirubin AST ALT Alkaline Phosphatase Total Protein Albumin Globulin Albumin/Globulin Ratio Triglycerides Cholesterol LDL Cholesterol Direct HDL Cholesterol Free T4 Random Vancomycin Assessment/Plan - Assessment and Plan (Free Text) Assessment: Patient admitted to ICU post cardiac arrest with A-sytole currently being supported with ventilator and temporary transcutaneous pcing wire. -Asystole: possible 2nd cardiac arrest (ischemic or hyperpotassemia), HD today, continue transvenous pacing -Shock: combination of septic and cardiogenic: continue pressors to keep MAP >65 , central line placed to change from dopamine to norepi, midodrine started -NSTEMI: (+)trop, will continue asa, no statin (incrase ast.alt), no av harriett lupillo currently being paced, continue pressors to keep MAP >65 -ESRD on HS:continue HD as per renal -sepsis: [place] culture, continue empirical abx, vanco/zosyn, serial lactic, vanco level low, replace with 1 gm vanco -hypoxic respiratory failure: continue ventilation to keep spo2 >92 and pH b/w 7.35-7.45 -Hyperpotassemia: no EKG changes, pushed calcium and glucose + insulin + oral kayexelate -Transministis: 2ns shock, avoid hepatotoxic drugs -contineu dvt/pud ppx - Date & Time Date: 12/08/17 Time: 18:07
--- NOTE | 2017-12-08 14:06 | RAD ---
Date of service: 12/08/2017 PROCEDURE: CHEST RADIOGRAPH, 1 VIEW HISTORY: Central line placement COMPARISON: 12/08/2017. FINDINGS: The endotracheal tube terminates 3.1 cm proximal to the ifrah. The nasogastric tube terminates in the stomach. The left IJV line terminates in the SVC. LUNGS: The lungs are well inflated. There is moderate pulmonary venous congestion. No focal consolidation PLEURA: No pneumothorax or pleural fluid seen. CARDIOVASCULAR: The heart is normal in size. OSSEOUS STRUCTURES: No significant abnormalities. VISUALIZED UPPER ABDOMEN: Normal. OTHER FINDINGS: None. IMPRESSION: No active pulmonary disease. The left IJV line terminates in the SVC.
--- NOTE | 2017-12-08 14:45 | CP.PCM.PN ---
Subjective - Date & Time of Evaluation Date of Evaluation: 12/08/17 Time of Evaluation: 14:43 - Subjective Subjective: Nephrology Consultation Note Assessment: critical Cardiac arrest, acute respi failure Hyperkalemia, lactic acidosis Diabetic chronic Kidney Disease (E11.22) Hypertensive Chronic Kidney Disease (I12.0) End stage renal disease (N18.6) dependence on hemodialysis (Z99.2) (TTS) via AVF Anemia (D64.9), Hyperphosphatemia (E83.39), Secondary Hyperparathyroidism (E21.1 ), HTN (I12.0) ? Hypercalcemia due to IV given during ACLS (outpt Ca 9.1 PTH 453 recently) Hx of ovarian cancer s/p chemo, in remission for last 2 years Plan: Extra HD today in view of hyperkalemia. d/w family about need for strict low K diet. pt on veltassa daily at home. Will plan for next HD tomorrow per TTS schedule. Continue with Nephrovite 1 tab/ day. PRBC as needed for anemia. not on NEIDA with HD last Hb 12.5 last phos level 4.0 resume non-calcium binders such as renvela once pt on diet BP control Glycemic control, Dialysis consistent diet Further work up/management as per primary team Dose meds/antibiotics (if needed) for ESRD status. Avoid fleets enema/magnesium based laxatives. cardiology following pt planned for PPM placement today Thanks for allowing me to participate in care of your patient. will follow with you. Please call if any Qs. had d/w family and team Dr Shahab Bunn Office: [phone] Chief Complaint; cardiac arrest reason for consult: ESRD HPI: Pt is a 57 F with hx of ESRD on hemodialysis (TTS) via AVF @ [facility] for last 7 years, chronic anemia, hyperphosphatemia, secondary hyperparathyroidism, Diabetes Mellitus, hypertension, ovarian cancer s/p chemo, in remission for last 2 years found to be unresponsive at home, pt s/p ACLS and intubated/sedated, now in ICU pt unable to provide much hx daughter bedside says pt was fine 1 day ago except mild cough. no other concerns or complaints reported. pt is non smoker/no etoh/no drugs. last HD monday ROS: intubated and sedated. unable to obtain any hx from pt Physical Examination: General Appearance: orally intubated and mechanically ventilated, not in distress Vitals reviewed and noted as below Head; Atraumatic, normocephalic ENT: deferred as pt intubated EYES: Rt pupil dilated and non-reacting. left eye blind Neck; supple no lymphadenopathy, no thyromegaly or bruit Lungs: normal respiratory rate/effort. Breath sounds bilateral clear anteriorly. has TV pacer Heart: Normal rate. s1s2 normal. No rub or gallop. Extremities: no edema. No varicose veins. Neurological: Patient is sedated Skin: Warm and dry. Normal turgor. No rash. Palpitation: Normal elasticity for age Abdomen: Abdomen is soft. Bowel sounds +. There is no abdominal tenderness, no guarding/rigidity or organomegaly Psych: deferred MSK: no joint tenderness or swelling. Digits and nails normal, no deformity : kidney or bladder not palpable Access: AVF Labs/imaging reviewed. Past medical history, past surgical history, family history, social history, allergy reviewed and noted as below Family Hx: no hx of CKD. Non contributory Objective - Vital Signs/Intake and Output Vital Signs (last 24 hours): Temp Pulse Resp BP Pulse Ox 99.8 F H 82 15 148/67 98 12/08/17 12:00 12/08/17 14:03 12/08/17 14:03 12/08/17 14:03 12/08/17 14:03 Intake and Output: 12/08/17 12/08/17 06:59 18:59 Intake Total 791.3 1590.0 Output Total 400 0 Balance 391.3 1590.0 - Medications Medications: Current Medications Acetaminophen (Tylenol 325mg Tab) 650 mg PO Q6 PRN PRN Reason: Fever >100.4 F Albuterol/Ipratropium (Duoneb 3 Mg/0.5 Mg (3 Ml) Ud) 3 ml INH RQ4 [facility] Last Admin: 12/08/17 12:52 Dose: Not Given Heparin Sodium (Porcine) (Heparin) 5,000 units SC Q8 [facility] Last Admin: 12/08/17 14:21 Dose: Not Given Propofol (Diprivan) 1,000 mg in 100 mls @ 1.65 mls/hr IV .Q24H PRN; Protocol; 5 MCG/KG/MIN PRN Reason: TITRATE PER MD ORDER Last Titration: 12/08/17 12:40 Dose: 10 mcg/kg/min, 3.3 mls/hr Dopamine HCl/Dextrose (Dopamine 400mg/250ml D5w) 400 mg in 250 mls @ 4.125 mls/ hr IV .Q24H PRN; Protocol; 2 MCG/KG/MIN PRN Reason: TITRATE PER MD ORDER Last Titration: 12/08/17 14:20 Dose: 14 mcg/kg/min, 28.875 mls/hr Piperacillin Sod/Tazobactam (Sod 2.25 gm/ Sodium Chloride) 100 mls @ 200 mls/ hr IVPB Q8H [facility] PRN Reason: Protocol Last Admin: 12/08/17 12:03 Dose: 200 mls/hr Norepinephrine Bitartrate 8 mg (/ Dextrose) 258 mls @ 7.74 mls/hr IV .Q24H PRN ; Protocol; 4 MCG/MIN PRN Reason: TITRATE PER MD ORDER Last Titration: 12/08/17 11:39 Dose: 4 mcg/min, 7.74 mls/hr Insulin Glargine (Lantus) 10 unit SC DAILY [facility] Last Admin: 12/08/17 13:15 Dose: 10 u Insulin Human Regular (Novolin R) 0 unit SC Q6H [facility] PRN Reason: Protocol Last Admin: 12/08/17 12:00 Dose: 3 u Midodrine (Proamatine) 5 mg PO TID [facility] Last Admin: 12/08/17 14:01 Dose: Not Given Pantoprazole Sodium (Protonix Inj) 40 mg IVP DAILY [facility] Last Admin: 12/08/17 09:30 Dose: 40 mg - Labs Labs: 12/08/17 06:32 12/08/17 06:32 PT 12.6 SECONDS (9.7-12.2) H 12/08/17 06:32 INR 1.2 12/08/17 06:32 APTT 29 SECONDS (21-34) 12/08/17 10:56
--- NOTE | 2017-12-08 14:45 | CP.PCM.PCO ---
Assessment & Plan - Assessment and Plan (Free Text) Assessment: Pt is a 57 yo f with multiple co-morbities recent code heart/ pea with ROSC. Pt is currently in ICU. This morning pt became unstable with hypotension + loss of pulse. Epi given and dopamine + levophed started. Dr. mcallister was notified. At this time, we will delay placement of PPM until patient is stable. ICU will continue tranvenous pacing.
--- NOTE | 2017-12-08 15:22 | CP.PCM.PN ---
<Judith Armendariz - Last Filed: 12/08/17 15:19> Subjective - Date & Time of Evaluation Date of Evaluation: 12/08/17 Time of Evaluation: 13:00 - Subjective Subjective: PGY2- Progress Note for Dr. Ríos Patient seen and examined at bedside. Patient is intubated and on transvenous pacing. Patient to get a pacemaker placed today with Dr. Travis. Objective - Vital Signs/Intake and Output Vital Signs (last 24 hours): Temp Pulse Resp BP Pulse Ox 99.8 F H 82 15 148/67 98 12/08/17 12:00 12/08/17 14:03 12/08/17 14:03 12/08/17 14:03 12/08/17 14:03 Intake and Output: 12/08/17 12/08/17 06:59 18:59 Intake Total 791.3 1630.0 Output Total 400 0 Balance 391.3 1630.0 - Medications Medications: Current Medications Acetaminophen (Tylenol 325mg Tab) 650 mg PO Q6 PRN PRN Reason: Fever >100.4 F Albuterol/Ipratropium (Duoneb 3 Mg/0.5 Mg (3 Ml) Ud) 3 ml INH RQ4 [facility] Last Admin: 12/08/17 12:52 Dose: Not Given Heparin Sodium (Porcine) (Heparin) 5,000 units SC Q8 [facility] Last Admin: 12/08/17 14:21 Dose: Not Given Propofol (Diprivan) 1,000 mg in 100 mls @ 1.65 mls/hr IV .Q24H PRN; Protocol; 5 MCG/KG/MIN PRN Reason: TITRATE PER MD ORDER Last Titration: 12/08/17 12:40 Dose: 10 mcg/kg/min, 3.3 mls/hr Dopamine HCl/Dextrose (Dopamine 400mg/250ml D5w) 400 mg in 250 mls @ 4.125 mls/ hr IV .Q24H PRN; Protocol; 2 MCG/KG/MIN PRN Reason: TITRATE PER MD ORDER Last Titration: 12/08/17 15:09 Dose: 10 mcg/kg/min, 20.625 mls/hr Piperacillin Sod/Tazobactam (Sod 2.25 gm/ Sodium Chloride) 100 mls @ 200 mls/ hr IVPB Q8H [facility] PRN Reason: Protocol Last Admin: 12/08/17 12:03 Dose: 200 mls/hr Norepinephrine Bitartrate 8 mg (/ Dextrose) 258 mls @ 7.74 mls/hr IV .Q24H PRN ; Protocol; 4 MCG/MIN PRN Reason: TITRATE PER MD ORDER Last Titration: 12/08/17 11:39 Dose: 4 mcg/min, 7.74 mls/hr Insulin Glargine (Lantus) 10 unit SC DAILY [facility] Last Admin: 12/08/17 13:15 Dose: 10 u Insulin Human Regular (Novolin R) 0 unit SC Q6H [facility] PRN Reason: Protocol Last Admin: 12/08/17 12:00 Dose: 3 u Midodrine (Proamatine) 5 mg PO TID [facility] Last Admin: 12/08/17 14:01 Dose: Not Given Pantoprazole Sodium (Protonix Inj) 40 mg IVP DAILY [facility] Last Admin: 12/08/17 09:30 Dose: 40 mg - Labs Labs: 12/08/17 06:32 12/08/17 06:32 PT 12.6 SECONDS (9.7-12.2) H 12/08/17 06:32 INR 1.2 12/08/17 06:32 APTT 29 SECONDS (21-34) 12/08/17 10:56 - Head Exam Head Exam: ATRAUMATIC, NORMOCEPHALIC - Neck Exam Additional comments: L IJ TLC - Respiratory Exam Additional comments: intubated - Cardiovascular Exam Cardiovascular Exam: REGULAR RHYTHM, RRR (transvenous pacing ), +S1, +S2 - GI/Abdominal Exam GI & Abdominal Exam: Soft, Normal Bowel Sounds. absent: Tenderness - Extremities Exam Extremities Exam: Normal Inspection. absent: Pedal Edema Additional comments: radial A line - Neurological Exam Neurological Exam: absent: Alert, Awake, Oriented x3 - Skin Skin Exam: Intact, Normal Color, Warm Assessment and Plan - Assessment and Plan (Free Text) Assessment: S/P Cardiac Arrest and Cardiac Cath Cardiac cath : normal coronaries and normal EF patient on TVP, to get pacemaker with Dr. Angy Hercules Norepi drip Dopamine drip ESRD for dialysis after pacemaker monitor K+ Discussed with Dr. Ríos <Robert Ríos - Last Filed: 12/09/17 00:33> Objective - Vital Signs/Intake and Output Vital Signs (last 24 hours): Temp Pulse Resp BP Pulse Ox 98.3 F 82 14 99/63 L 97 12/08/17 20:00 12/08/17 23:01 12/08/17 23:01 12/08/17 23:01 12/08/17 23:01 Intake and Output: 12/08/17 12/09/17 18:59 06:59 Intake Total 2028.7 467.4 Output Total 50 50 Balance 1978.7 417.4 - Medications Medications: Current Medications Acetaminophen (Tylenol 325mg Tab) 650 mg PO Q6 PRN PRN Reason: Fever >100.4 F Albuterol/Ipratropium (Duoneb 3 Mg/0.5 Mg (3 Ml) Ud) 3 ml INH RQ4 [facility] Last Admin: 12/08/17 19:44 Dose: 3 ml Aspirin (Aspirin Chewable) 81 mg PO DAILY [facility] Last Admin: 12/08/17 17:52 Dose: 81 mg Heparin Sodium (Porcine) (Heparin) 5,000 units SC Q8 [facility] Last Admin: 12/08/17 14:21 Dose: Not Given Propofol (Diprivan) 1,000 mg in 100 mls @ 1.65 mls/hr IV .Q24H PRN; Protocol; 5 MCG/KG/MIN PRN Reason: TITRATE PER MD ORDER Last Titration: 12/08/17 16:59 Dose: 20 mcg/kg/min, 6.6 mls/hr Piperacillin Sod/Tazobactam (Sod 2.25 gm/ Sodium Chloride) 100 mls @ 200 mls/ hr IVPB Q8H [facility] PRN Reason: Protocol Last Admin: 12/08/17 20:24 Dose: 200 mls/hr Norepinephrine Bitartrate 8 mg (/ Dextrose) 258 mls @ 7.74 mls/hr IV .Q24H PRN ; Protocol; 4 MCG/MIN PRN Reason: TITRATE PER MD ORDER Last Titration: 12/08/17 11:39 Dose: 4 mcg/min, 7.74 mls/hr Insulin Glargine (Lantus) 10 unit SC DAILY [facility] Last Admin: 12/08/17 13:15 Dose: 10 u Insulin Human Regular (Novolin R) 0 unit SC Q6H [facility] PRN Reason: Protocol Last Admin: 07/13/18 17:53 Dose: 4 u Midodrine (Proamatine) 5 mg PO TID [facility] Last Admin: 12/08/17 17:52 Dose: 5 mg Pantoprazole Sodium (Protonix Inj) 40 mg IVP DAILY [facility] Last Admin: 12/08/17 09:30 Dose: 40 mg - Labs Labs: 12/08/17 06:32 12/08/17 06:32 PT 12.6 SECONDS (9.7-12.2) H 12/08/17 06:32 INR 1.2 12/08/17 06:32 APTT 29 SECONDS (21-34) 12/08/17 10:56 Assessment and Plan - Assessment and Plan (Free Text) Assessment: Patient seen and evaluated personally by me Plan of care d/w the medical billing assistant and as documented
[2017-12-08] MEDS ORDERED: Sod Polystyrene Sulf 15 gm/60 ml Susp PO ONE (16:00)
[2017-12-08] MEDS ORDERED: Vancomycin 1 gm/NS 200 ml 1 GM/200 ML BAG IVPB ONE (20:00)
[2017-12-09] MEDS: (Novolin R) Insulin Human Regular 100 units/ml vial SC SCH ×4 (00:22→18:36)
[2017-12-09] MEDS: Albuterol-Ipratrop 3 mg / 0.5 (3 ml) UD INH SCH ×5 (00:57→16:27)
[2017-12-09] MEDS: Propofol 10 mg/ml 1,000 MG/100 ML VIAL IV PRN ×4 (01:14→23:30)
[2017-12-09] MEDS: Piperacillin/Tazobact 2.25 GM in Sodium Chloride 100 ML IVPB SCH ×2 (03:58→11:30)
[2017-12-09 05:54] LABS: ARTERIAL BLOOD GAS HCO3 30.2 mmol/L (21-28); ARTERIAL BLOOD GAS HEMOGLOBIN 9.6 g/dL (11.7-17.4); ARTERIAL BLOOD GAS O2 SAT 96.1 % (95-98); ARTERIAL BLOOD GAS PCO2 38 mm/Hg (35-45); ARTERIAL BLOOD GAS PH 7.51 (7.35-7.45); ARTERIAL BLOOD GAS PO2 70 mm/Hg (80-100); ARTERIAL BLOOD GAS TCO2 31.5 mmol/L (22-28)
[2017-12-09 06:16] LABS: BASO % 0.3 % (0.0-2.0); EOS % 0.4 % (0.0-4.0); LYMPH # 1.8 K/uL (1.0-4.3); LYMPH % 14.1 % (20.0-40.0); MEAN CELL VOLUME 89.3 fL (81.0-99.0); MEAN CORPUSCULAR HEMOGLOBIN 30.4 pg (27.0-31.0); MEAN CORPUSCULAR HGB CONC 34.1 g/dL (33.0-37.0); MEAN PLATELET VOLUME 8.2 fL (7.2-11.7); MONO # 1.1 K/uL (0.0-0.8); MONO % 8.8 % (0.0-10.0); NEUT # 9.6 K/uL (1.8-7.0); NEUT % 76.4 % (50.0-75.0); RBC 3.22 Mil/uL (3.80-5.20); RED CELL DISTRIBUTION WIDTH 14.3 % (11.5-14.5); WHITE BLOOD COUNT 12.6 K/uL (4.8-10.8)
[2017-12-09 06:26] LABS: HEMOGLOBIN 9.8 g/dL (11.0-16.0)
[2017-12-09 06:41] LABS: ALB/GLOB RATIO 1.1 (1.0-2.1); CALCIUM 8.1 mg/dl (8.6-10.4)
--- NOTE | 2017-12-09 09:56 | RAD ---
Chest x-ray single frontal view History: Intubated. Comparison: 12/08/2017 Findings: Lines and tubes in stable position. Moderate venous congestion. Right hilar prominence. Consolidative changes noted within the right infrahilar region extending to the right lower lung zone with a somewhat nodular configuration. Clinical correlation. Calcification at the aortic knob. Tortuous aorta. Mild cardiomegaly. Degenerative changes in the spine. Surgical clips in the right upper abdomen. Impression: Lines and tubes in stable position. Moderate venous congestion. Right hilar prominence. Consolidative changes noted within the right infrahilar region extending to the right lower lung zone with a somewhat nodular configuration. Clinical correlation. Calcification at the aortic knob. Tortuous aorta. Mild cardiomegaly. Degenerative changes in the spine. Surgical clips in the right upper abdomen.
[2017-12-09] MEDS: (Lantus) Insulin Glargine, Recombinant SC SCH (10:28)
[2017-12-09] MEDS ORDERED: Meropenem 1 GM in Sodium Chloride 0.9% 100 ML IVPB ONE (13:30)
--- NOTE | 2017-12-09 14:01 | CP.PCM.PN ---
Subjective - Date & Time of Evaluation Date of Evaluation: 12/09/17 Time of Evaluation: 13:53 - Subjective Subjective: EP consult/progress note Remains intubated Sedated Fevers Responds appropriately per nurse Spontaneous sinus rhythm Pacemaker site benign Telemetry reviewed Labs reviewed Bradyarrhythmic "cardiac arrest" with resolution; no obvious reversible trigger (vagal/electrolytes/hypoxemia); given underlying conduction abnormalities would assume an intrinsic conduction abnormality; There was no documentation or a setting for a ventricular tachyarrhythmia; a permanent pacemaker is a reasonable consideration; however would await stability and absence of fevers hemodynamic instability (now resolved) In the interim would discontinue pacing leads and sheath if rhythm remains stable x 24 hours Objective - Vital Signs/Intake and Output Vital Signs (last 24 hours): Temp Pulse Resp BP Pulse Ox 99.2 F 75 12 132/49 L 99 12/09/17 12:00 12/09/17 12:01 12/09/17 12:01 12/09/17 12:01 12/09/17 12:01 Intake and Output: 12/09/17 12/09/17 06:59 18:59 Intake Total 697.0 464.6 Output Total 50 Balance 647.0 464.6 - Medications Medications: Current Medications Acetaminophen (Tylenol 325mg Tab) 650 mg PO Q6 PRN PRN Reason: Fever >100.4 F Last Admin: 12/09/17 08:03 Dose: 650 mg Albuterol/Ipratropium (Duoneb 3 Mg/0.5 Mg (3 Ml) Ud) 3 ml INH RQ4 [facility] Last Admin: 12/09/17 03:35 Dose: 3 ml Aspirin (Aspirin Chewable) 81 mg PO DAILY [facility] Last Admin: 12/09/17 10:29 Dose: 81 mg Heparin Sodium (Porcine) (Heparin) 5,000 units SC Q8 [facility] Last Admin: 12/09/17 13:05 Dose: 5,000 units Propofol (Diprivan) 1,000 mg in 100 mls @ 1.65 mls/hr IV .Q24H PRN; Protocol; 5 MCG/KG/MIN PRN Reason: TITRATE PER MD ORDER Last Admin: 12/09/17 07:57 Dose: 20 mcg/kg/min, 6.6 mls/hr Meropenem 1 gm/ Sodium (Chloride) 100 mls @ 100 mls/hr IVPB ONCE ONE PRN Reason: Protocol Stop: 12/09/17 14:29 Last Admin: 12/09/17 13:51 Dose: 100 mls/hr Meropenem 500 mg/ Sodium (Chloride) 100 mls @ 100 mls/hr IVPB Q8H [facility] PRN Reason: Protocol Vancomycin/Sodium Chloride (Vancomycin 1 Gm/Ns 200 Ml) 1 gm in 200 mls @ 133.333 mls/hr IVPB ONCE ONE PRN Reason: Protocol Stop: 12/09/17 21:29 Insulin Glargine (Lantus) 10 unit SC DAILY [facility] Last Admin: 12/09/17 10:28 Dose: 10 u Insulin Human Regular (Novolin R) 0 unit SC Q6H [facility] PRN Reason: Protocol Last Admin: 12/09/17 12:50 Dose: 2 u Pantoprazole Sodium (Protonix Inj) 40 mg IVP DAILY [facility] Last Admin: 12/09/17 10:28 Dose: 40 mg - Labs Labs: 12/09/17 06:06 12/09/17 06:07 PT 12.6 SECONDS (9.7-12.2) H 12/08/17 06:32 INR 1.2 12/08/17 06:32 APTT 29 SECONDS (21-34) 12/08/17 10:56
[2017-12-09] MEDS ORDERED: Vancomycin 1 gm/NS 200 ml 1 GM/200 ML BAG IVPB ONE ×2 (14:30→20:00)
--- NOTE | 2017-12-09 18:46 | CP.PCM.PN ---
Subjective - Date & Time of Evaluation Date of Evaluation: 12/09/17 Time of Evaluation: 18:44 - Subjective Subjective: Nephrology Consultation Note Assessment: critical Cardiac arrest, acute respi failure Hyperkalemia, lactic acidosis Diabetic chronic Kidney Disease (E11.22) Hypertensive Chronic Kidney Disease (I12.0) End stage renal disease (N18.6) dependence on hemodialysis (Z99.2) (TTS) via AVF Anemia (D64.9), Hyperphosphatemia (E83.39), Secondary Hyperparathyroidism (E21.1 ), HTN (I12.0) ? Hypercalcemia due to IV given during ACLS (outpt Ca 9.1 PTH 453 recently) Hx of ovarian cancer s/p chemo, in remission for last 2 years hypokalemia Plan: continue HD TTS Continue with Nephrovite 1 tab/day. hgb stable Glycemic control, Dialysis consistent diet hd on 3.5 k bath today, asked rn to check bmp 1 hour post hd to make sure K stable Physical Examination: General Appearance: orally intubated and mechanically ventilated, not in distress Vitals reviewed and noted as below Head; Atraumatic, normocephalic ENT: deferred as pt intubated EYES: Rt pupil dilated and non-reacting. left eye blind Neck; supple no lymphadenopathy, no thyromegaly or bruit Lungs: normal respiratory rate/effort. Breath sounds bilateral clear anteriorly. has TV pacer Heart: Normal rate. s1s2 normal. No rub or gallop. Extremities: no edema. No varicose veins. Neurological: Patient is sedated Skin: Warm and dry. Normal turgor. No rash. Palpitation: Normal elasticity for age Abdomen: Abdomen is soft. Bowel sounds +. There is no abdominal tenderness, no guarding/rigidity or organomegaly Psych: deferred MSK: no joint tenderness or swelling. Digits and nails normal, no deformity : kidney or bladder not palpable Access: AVF Labs/imaging reviewed. Past medical history, past surgical history, family history, social history, allergy reviewed and noted as below Family Hx: no hx of CKD. Non contributory Objective - Vital Signs/Intake and Output Vital Signs (last 24 hours): Temp Pulse Resp BP Pulse Ox 97.9 F 77 13 146/63 99 12/09/17 18:00 12/09/17 18:02 12/09/17 18:02 12/09/17 18:30 12/09/17 18:02 Intake and Output: 12/09/17 12/09/17 06:59 18:59 Intake Total 697.0 1115.6 Output Total 50 Balance 647.0 1115.6 - Medications Medications: Current Medications Acetaminophen (Tylenol 325mg Tab) 650 mg PO Q6 PRN PRN Reason: Fever >100.4 F Last Admin: 12/09/17 08:03 Dose: 650 mg Albuterol/Ipratropium (Duoneb 3 Mg/0.5 Mg (3 Ml) Ud) 3 ml INH RQ4 [facility] Last Admin: 12/09/17 16:27 Dose: 3 ml Aspirin (Aspirin Chewable) 81 mg PO DAILY [facility] Last Admin: 12/09/17 10:29 Dose: 81 mg Heparin Sodium (Porcine) (Heparin) 5,000 units SC Q8 [facility] Last Admin: 12/09/17 13:05 Dose: 5,000 units Propofol (Diprivan) 1,000 mg in 100 mls @ 1.65 mls/hr IV .Q24H PRN; Protocol; 5 MCG/KG/MIN PRN Reason: TITRATE PER MD ORDER Last Admin: 12/09/17 18:37 Dose: 30 mcg/kg/min, 9.9 mls/hr Meropenem 500 mg/ Sodium (Chloride) 100 mls @ 100 mls/hr IVPB Q8H [facility] PRN Reason: Protocol Vancomycin/Sodium Chloride (Vancomycin 1 Gm/Ns 200 Ml) 1 gm in 200 mls @ 133.333 mls/hr IVPB ONCE ONE PRN Reason: Protocol Stop: 12/09/17 21:29 Insulin Glargine (Lantus) 10 unit SC DAILY [facility] Last Admin: 12/09/17 10:28 Dose: 10 u Insulin Human Regular (Novolin R) 0 unit SC Q6H [facility] PRN Reason: Protocol Last Admin: 12/09/17 18:36 Dose: 2 u Pantoprazole Sodium (Protonix Inj) 40 mg IVP DAILY [facility] Last Admin: 12/09/17 10:28 Dose: 40 mg - Labs Labs: 12/09/17 06:06 12/09/17 06:07 PT 12.6 SECONDS (9.7-12.2) H 12/08/17 06:32 INR 1.2 12/08/17 06:32 APTT 29 SECONDS (21-34) 12/08/17 10:56
[2017-12-09] MEDS: Meropenem 500 MG in Sodium Chloride 0.9% 100 ML IVPB SCH (21:22)
--- NOTE | 2017-12-09 22:15 | CP.CCUPN ---
CCU Subjective - Physician Review Events Since Last Encounter (Free Text): 12/09/17 22:14 Patient is morning the transcranial denies pacemaker was turned off. Patient heartbeat is currently having a regular sinus rhythm. Patient is awake and responding. Comfortable. On ventilator. Sedated Vital signs stable. Chest good air entry regular heart sound nontender abdomen Ration receiving currently dialysis. Labs nonspecific. Assessment and recommendation: 57-year-old female end-stage renal disease on dialysis admitted to the cardiac arrest. Complete heart block status. Improved. Currently on ventilator. Will plan to extubate tomorrow possibly CCU Objective - Vital Signs / Intake & Output Vital Signs (Last 4 hours): Vital Signs Temp Pulse Pulse Resp BP BP Pulse Ox 12/09/17 21:00 97.3 F L 70 15 146/63 100 12/09/17 20:30 160/67 H 12/09/17 20:00 152/62 H 12/09/17 19:30 164/67 H 12/09/17 19:18 71 12 155/64 H 100 12/09/17 19:01 72 12 150/66 100 12/09/17 19:00 72 14 172/67 H 100 12/09/17 18:46 73 10 L 144/50 L 100 12/09/17 18:45 144/50 L 12/09/17 18:32 74 12 146/63 100 12/09/17 18:30 146/63 12/09/17 18:16 74 12 159/67 H 99 12/09/17 18:15 159/67 H Intake and Output (Last 8hrs): Intake & Output 12/09/17 12/09/17 12/09/17 06:59 14:59 22:59 Intake Total 255.6 761.0 446.4 Output Total 0 Balance 255.6 761.0 446.4 Weight 117 lb 11.629 oz Intake: IV 40 150 66.9 Intake, IV Amount 115.6 266.0 149.5 Left Distal Port Internal 200 100 Jugular Left Medial Port Internal 18.8 Jugular Left Proximal Port 96.8 66.0 49.5 Internal Jugular Oral 160 60 Tube Feeding 100 185 170 Output: Urine 0 Urine, Voided 0 Stool 0 Other: # Voids Urine, Voided 0 0 # Bowel Movements 0 0 0 - Physical Exam Head: Positive for: Atraumatic, Normocephalic Conjunctiva: Positive for: Normal (left opthal) Nose (Internal): Positive for: No Active Bleeding Neck: Positive for: Other (left IJ) Respiratory/Chest: Positive for: Good Air Exchange. Negative for: Respiratory Distress, Wheezes Cardiovascular: Positive for: Regular Rate and Rhythm. Negative for: Murmurs, Tachycardic, Bradycardic Abdomen: Positive for: Normal Bowel Sounds. Negative for: Distention Upper Extremity: Negative for: Cyanosis, Edema, NORMAL PULSES (pulses faint) Lower Extremity: Negative for: Edema, Erythema Neurological: Negative for: GCS=15 Skin: Positive for: Warm Psychiatric: Negative for: Alert - Medications Active Medications: Active Medications Generic Name Dose Route Start Last Admin Trade Name Freq PRN Reason Stop Dose Admin Acetaminophen 650 mg 12/07/17 13:40 12/09/17 08:03 Tylenol 325mg Tab PO 650 mg Q6 PRN Administration Fever >100.4 F Albuterol/Ipratropium 3 ml 12/07/17 16:00 12/09/17 16:27 Duoneb 3 Mg/0.5 Mg (3 Ml) Ud INH 3 ml RQ4 ISACC Administration Aspirin 81 mg 12/08/17 17:00 12/09/17 10:29 Aspirin Chewable PO 81 mg DAILY [facility] Administration Heparin Sodium (Porcine) 5,000 units 12/07/17 14:00 12/09/17 21:25 Heparin SC 5,000 units Q8 ISACC Administration Propofol 1,000 mg in 100 mls @ 1.65 mls/hr 12/07/17 14:30 12/09/17 20:00 Diprivan IV 60 mcg/kg/min .Q24H PRN 19.8 mls/hr TITRATE PER MD ORDER Titration Protocol 5 MCG/KG/MIN Meropenem 500 mg/ Sodium 100 mls @ 100 mls/hr 12/09/17 22:00 12/09/17 21:22 Chloride IVPB 100 mls/hr Q8H ISACC Administration Protocol Insulin Glargine 10 unit 12/08/17 12:30 12/09/17 10:28 Lantus SC 10 u DAILY ISACC Administration Insulin Human Regular 0 unit 12/10/17 00:00 Novolin R SC Q6H ISACC Protocol Pantoprazole Sodium 40 mg 12/08/17 10:00 12/09/17 10:28 Protonix Inj IVP 40 mg DAILY [facility]ACC Administration - Patient Studies Lab Studies: Microbiology Studies 12/07/17 10:25 Blood Culture - Preliminary Blood NO GROWTH AFTER 48 HOURS 12/07/17 10:40 Blood Culture - Preliminary Blood NO GROWTH AFTER 48 HOURS 12/07/17 Unknown Gram Stain - Final Sputum Sputum Culture - Preliminary Gram Negative Rafael 12/07/17 18:27 MRSA Culture (Admit) - Final Naris MRSA NOT DETECTED Lab Studies 12/09/17 12/09/17 12/09/17 Range/Units 18:11 12:41 10:59 WBC (4.8-10.8) K/uL RBC (3.80-5.20) Mil/uL Hgb (11.0-16.0) g/dL Hct (34.0-47.0) % MCV (81.0-99.0) fL MCH (27.0-31.0) pg MCHC (33.0-37.0) g/dL RDW (11.5-14.5) % Plt Count (130-400) K/uL MPV (7.2-11.7) fL Neut % (Auto) (50.0-75.0) % Lymph % (Auto) (20.0-40.0) % [place] % (Auto) (0.0-10.0) % Eos % (Auto) (0.0-4.0) % Baso % (Auto) (0.0-2.0) % Neut # (Auto) (1.8-7.0) K/uL Lymph # (Auto) (1.0-4.3) K/uL [place] # (Auto) (0.0-0.8) K/uL Eos # (Auto) (0.0-0.7) K/uL Baso # (Auto) (0.0-0.2) K/uL Differential Comment Puncture Site pCO2 (35-45) mm/Hg pO2 (80-100) mm/Hg HCO3 (21-28) mmol/L ABG pH (7.35-7.45) ABG Total CO2 (22-28) mmol/L ABG O2 Saturation (95-98) % ABG Base Excess (-2.0-3.0) mmol/L ABG Hemoglobin (11.7-17.4) g/dL ABG Carboxyhemoglobin (0.5-1.5) % POC ABG HHb (Measured) (0.0-5.0) % ABG Methemoglobin (0.0-3.0) % [place] Test A-a O2 Difference mm/Hg Respiratory Index Hgb O2 Saturation (95.0-98.0) % Vent Mode Mechanical Rate FiO2 % Tidal Volume PEEP Sodium (132-148) mmol/L Potassium (3.6-5.2) mmol/L Chloride (98-107) mmol/L Carbon Dioxide (22-30) mmol/L Anion Gap (10-20) BUN (7-17) mg/dL Creatinine (0.7-1.2) mg/dL Est GFR ( Amer) Est GFR (Non-Af Amer) POC Glucose (mg/dL) 219 H 207 H (65-110) mg/dL Random Glucose (65-105) mg/dL Calcium (8.6-10.4) mg/dl Phosphorus (2.5-4.5) mg/dL Magnesium (1.6-2.3) mg/dL Total Bilirubin (0.2-1.3) mg/dL AST (14-36) U/L ALT (9-52) U/L Alkaline Phosphatase (38-126) U/L Total Protein (6.3-8.3) g/dL Albumin (3.5-5.0) g/dL Globulin (2.2-3.9) gm/dL Albumin/Globulin Ratio (1.0-2.1) Random Vancomycin 24.5 ug/mL 12/09/17 12/09/17 12/09/17 Range/Units 06:07 06:06 05:58 WBC 12.6 H (4.8-10.8) K/uL RBC 3.22 L (3.80-5.20) Mil/uL Hgb 9.8 L D (11.0-16.0) g/dL Hct 28.7 L (34.0-47.0) % MCV 89.3 (81.0-99.0) fL MCH 30.4 (27.0-31.0) pg MCHC 34.1 (33.0-37.0) g/dL RDW 14.3 (11.5-14.5) % Plt Count 128 L D (130-400) K/uL MPV 8.2 (7.2-11.7) fL Neut % (Auto) 76.4 H (50.0-75.0) % Lymph % (Auto) 14.1 L (20.0-40.0) % [place] % (Auto) 8.8 (0.0-10.0) % Eos % (Auto) 0.4 (0.0-4.0) % Baso % (Auto) 0.3 (0.0-2.0) % Neut # (Auto) 9.6 H (1.8-7.0) K/uL Lymph # (Auto) 1.8 (1.0-4.3) K/uL [place] # (Auto) 1.1 H (0.0-0.8) K/uL Eos # (Auto) 0.0 (0.0-0.7) K/uL Baso # (Auto) 0.0 (0.0-0.2) K/uL Differential Comment Puncture Site pCO2 (35-45) mm/Hg pO2 (80-100) mm/Hg HCO3 (21-28) mmol/L ABG pH (7.35-7.45) ABG Total CO2 (22-28) mmol/L ABG O2 Saturation (95-98) % ABG Base Excess (-2.0-3.0) mmol/L ABG Hemoglobin (11.7-17.4) g/dL ABG Carboxyhemoglobin (0.5-1.5) % POC ABG HHb (Measured) (0.0-5.0) % ABG Methemoglobin (0.0-3.0) % [place] Test A-a O2 Difference mm/Hg Respiratory Index Hgb O2 Saturation (95.0-98.0) % Vent Mode Mechanical Rate FiO2 % Tidal Volume PEEP Sodium 136 (132-148) mmol/L Potassium 2.9 L (3.6-5.2) mmol/L Chloride 95 L (98-107) mmol/L Carbon Dioxide 27 (22-30) mmol/L Anion Gap 17 (10-20) BUN 39 H (7-17) mg/dL Creatinine 4.6 H (0.7-1.2) mg/dL Est GFR ( Amer) 12 Est GFR (Non-Af Amer) 10 POC Glucose (mg/dL) 214 H (65-110) mg/dL Random Glucose 210 H (65-105) mg/dL Calcium 8.1 L (8.6-10.4) mg/dl Phosphorus 4.1 (2.5-4.5) mg/dL Magnesium 1.7 (1.6-2.3) mg/dL Total Bilirubin 0.6 (0.2-1.3) mg/dL AST 218 H D (14-36) U/L ALT 398 H D (9-52) U/L Alkaline Phosphatase 138 H (38-126) U/L Total Protein 5.8 L (6.3-8.3) g/dL Albumin 3.0 L D (3.5-5.0) g/dL Globulin 2.7 (2.2-3.9) gm/dL Albumin/Globulin Ratio 1.1 (1.0-2.1) Random Vancomycin ug/mL 12/09/17 12/08/17 12/08/17 Range/Units 05:29 23:32 17:33 WBC (4.8-10.8) K/uL RBC (3.80-5.20) Mil/uL Hgb (11.0-16.0) g/dL Hct (34.0-47.0) % MCV (81.0-99.0) fL MCH (27.0-31.0) pg MCHC (33.0-37.0) g/dL RDW (11.5-14.5) % Plt Count (130-400) K/uL MPV (7.2-11.7) fL Neut % (Auto) (50.0-75.0) % Lymph % (Auto) (20.0-40.0) % [place] % (Auto) (0.0-10.0) % Eos % (Auto) (0.0-4.0) % Baso % (Auto) (0.0-2.0) % Neut # (Auto) (1.8-7.0) K/uL Lymph # (Auto) (1.0-4.3) K/uL [place] # (Auto) (0.0-0.8) K/uL Eos # (Auto) (0.0-0.7) K/uL Baso # (Auto) (0.0-0.2) K/uL Differential Comment Puncture Site R bra pCO2 38 (35-45) mm/Hg pO2 70 L (80-100) mm/Hg HCO3 30.2 H (21-28) mmol/L ABG pH 7.51 H (7.35-7.45) ABG Total CO2 31.5 H (22-28) mmol/L ABG O2 Saturation 96.1 (95-98) % ABG Base Excess 6.8 H (-2.0-3.0) mmol/L ABG Hemoglobin 9.6 L (11.7-17.4) g/dL ABG Carboxyhemoglobin 1.2 (0.5-1.5) % POC ABG HHb (Measured) 3.8 (0.0-5.0) % ABG Methemoglobin 0.6 (0.0-3.0) % [place] Test Na A-a O2 Difference 239.0 mm/Hg Respiratory Index 3.4 Hgb O2 Saturation 94.5 L (95.0-98.0) % Vent Mode Prvc Mechanical Rate 12 FiO2 50.0 % Tidal Volume 500 PEEP 5 Sodium (132-148) mmol/L Potassium (3.6-5.2) mmol/L Chloride (98-107) mmol/L Carbon Dioxide (22-30) mmol/L Anion Gap (10-20) BUN (7-17) mg/dL Creatinine (0.7-1.2) mg/dL Est GFR ( Amer) Est GFR (Non-Af Amer) POC Glucose (mg/dL) 228 H 340 H (65-110) mg/dL Random Glucose (65-105) mg/dL Calcium (8.6-10.4) mg/dl Phosphorus (2.5-4.5) mg/dL Magnesium (1.6-2.3) mg/dL Total Bilirubin (0.2-1.3) mg/dL AST (14-36) U/L ALT (9-52) U/L Alkaline Phosphatase (38-126) U/L Total Protein (6.3-8.3) g/dL Albumin (3.5-5.0) g/dL Globulin (2.2-3.9) gm/dL Albumin/Globulin Ratio (1.0-2.1) Random Vancomycin ug/mL Laboratory Results - last 24 hr 12/08/17 12/08/17 12/09/17 17:33 23:32 05:29 WBC RBC Hgb Hct MCV MCH MCHC RDW Plt Count MPV Neut % (Auto) Lymph % (Auto) [place] % (Auto) Eos % (Auto) Baso % (Auto) Neut # (Auto) Lymph # (Auto) [place] # (Auto) Eos # (Auto) Baso # (Auto) Differential Comment Puncture Site R bra pCO2 38 pO2 70 L HCO3 30.2 H ABG pH 7.51 H ABG Total CO2 31.5 H ABG O2 Saturation 96.1 ABG Base Excess 6.8 H ABG Hemoglobin 9.6 L ABG Carboxyhemoglobin 1.2 POC ABG HHb (Measured) 3.8 ABG Methemoglobin 0.6 [place] Test Na A-a O2 Difference 239.0 Respiratory Index 3.4 Hgb O2 Saturation 94.5 L Vent Mode Prvc Mechanical Rate 12 FiO2 50.0 Tidal Volume 500 PEEP 5 Sodium Potassium Chloride Carbon Dioxide Anion Gap BUN Creatinine Est GFR ( Amer) Est GFR (Non-Af Amer) POC Glucose (mg/dL) 340 H 228 H Random Glucose Calcium Phosphorus Magnesium Total Bilirubin AST ALT Alkaline Phosphatase Total Protein Albumin Globulin Albumin/Globulin Ratio Random Vancomycin 12/09/17 12/09/17 12/09/17 05:58 06:06 06:07 WBC 12.6 H RBC 3.22 L Hgb 9.8 L D Hct 28.7 L MCV 89.3 MCH 30.4 MCHC 34.1 RDW 14.3 Plt Count 128 L D MPV 8.2 Neut % (Auto) 76.4 H Lymph % (Auto) 14.1 L [place] % (Auto) 8.8 Eos % (Auto) 0.4 Baso % (Auto) 0.3 Neut # (Auto) 9.6 H Lymph # (Auto) 1.8 [place] # (Auto) 1.1 H Eos # (Auto) 0.0 Baso # (Auto) 0.0 Differential Comment Puncture Site pCO2 pO2 HCO3 ABG pH ABG Total CO2 ABG O2 Saturation ABG Base Excess ABG Hemoglobin ABG Carboxyhemoglobin POC ABG HHb (Measured) ABG Methemoglobin [place] Test A-a O2 Difference Respiratory Index Hgb O2 Saturation Vent Mode Mechanical Rate FiO2 Tidal Volume PEEP Sodium 136 Potassium 2.9 L Chloride 95 L Carbon Dioxide 27 Anion Gap 17 BUN 39 H Creatinine 4.6 H Est GFR ( Amer) 12 Est GFR (Non-Af Amer) 10 POC Glucose (mg/dL) 214 H Random Glucose 210 H Calcium 8.1 L Phosphorus 4.1 Magnesium 1.7 Total Bilirubin 0.6 AST 218 H D ALT 398 H D Alkaline Phosphatase 138 H Total Protein 5.8 L Albumin 3.0 L D Globulin 2.7 Albumin/Globulin Ratio 1.1 Random Vancomycin 12/09/17 12/09/17 12/09/17 10:59 12:41 18:11 WBC RBC Hgb Hct MCV MCH MCHC RDW Plt Count MPV Neut % (Auto) Lymph % (Auto) [place] % (Auto) Eos % (Auto) Baso % (Auto) Neut # (Auto) Lymph # (Auto) [place] # (Auto) Eos # (Auto) Baso # (Auto) Differential Comment Puncture Site pCO2 pO2 HCO3 ABG pH ABG Total CO2 ABG O2 Saturation ABG Base Excess ABG Hemoglobin ABG Carboxyhemoglobin POC ABG HHb (Measured) ABG Methemoglobin [place] Test A-a O2 Difference Respiratory Index Hgb O2 Saturation Vent Mode Mechanical Rate FiO2 Tidal Volume PEEP Sodium Potassium Chloride Carbon Dioxide Anion Gap BUN Creatinine Est GFR ( Amer) Est GFR (Non-Af Amer) POC Glucose (mg/dL) 207 H 219 H Random Glucose Calcium Phosphorus Magnesium Total Bilirubin AST ALT Alkaline Phosphatase Total Protein Albumin Globulin Albumin/Globulin Ratio Random Vancomycin 24.5 EKG/Cardiology Studies: Cardiology / EKG Studies 12/09/17 06:50 ELECTROCARDIOGRAM Routine Comment: Mode Of Transportation: Reason For Exam: document block improve to sinus 12/09/17 06:51 EKG [ELECTROCARDIOGRAM] Stat Comment: Mode Of Transportation: BED Reason For Exam: sinus tvp off Fingerstick Blood Sugar Results: 219
[2017-12-09 22:19] LABS: CALCIUM 8.5 mg/dl (8.6-10.4)
[2017-12-10] MEDS: Albuterol-Ipratrop 3 mg / 0.5 (3 ml) UD INH SCH ×7 (00:34→23:57)
[2017-12-10] MEDS: (Novolin R) Insulin Human Regular 100 units/ml vial SC SCH ×4 (00:34→18:02)
[2017-12-10] MEDS: Propofol 10 mg/ml 1,000 MG/100 ML VIAL IV PRN ×3 (04:41→19:23)
[2017-12-10] MEDS: Meropenem 500 MG in Sodium Chloride 0.9% 100 ML IVPB SCH ×3 (05:52→21:43)
[2017-12-10 05:58] LABS: BASO # 0.1 K/uL (0.0-0.2); EOS # 0.1 K/uL (0.0-0.7); EOS % 0.5 % (0.0-4.0); HEMOGLOBIN 9.7 g/dL (11.0-16.0); LYMPH # 1.4 K/uL (1.0-4.3); LYMPH % 10.6 % (20.0-40.0); MEAN CELL VOLUME 89.2 fL (81.0-99.0); MEAN CORPUSCULAR HEMOGLOBIN 30.4 pg (27.0-31.0); MEAN CORPUSCULAR HGB CONC 34.1 g/dL (33.0-37.0); MEAN PLATELET VOLUME 8.6 fL (7.2-11.7); NEUT # 10.4 K/uL (1.8-7.0); NEUT % 79.9 % (50.0-75.0); RBC 3.21 Mil/uL (3.80-5.20); RED CELL DISTRIBUTION WIDTH 14.3 % (11.5-14.5)
[2017-12-10 06:21] LABS: ALB/GLOB RATIO 1.2 (1.0-2.1); ALBUMIN 3.2 g/dL (3.5-5.0)
[2017-12-10 06:43] LABS: ABG ALLEN TEST POS; ARTERIAL BLOOD GAS HCO3 29.9 mmol/L (21-28); ARTERIAL BLOOD GAS HEMOGLOBIN 10.5 g/dL (11.7-17.4); ARTERIAL BLOOD GAS O2 SAT 98.7 % (95-98); ARTERIAL BLOOD GAS PCO2 35 mm/Hg (35-45); ARTERIAL BLOOD GAS PH 7.53 (7.35-7.45); ARTERIAL BLOOD GAS PO2 142 mm/Hg (80-100); ARTERIAL BLOOD GAS TCO2 30.3 mmol/L (22-28)
--- NOTE | 2017-12-10 07:04 | CP.PCM.PN ---
Subjective - Date & Time of Evaluation Date of Evaluation: 12/09/17 Time of Evaluation: 12:05 - Subjective Subjective: Patient seen and evaluated Intubated and sedated Patient's resting HR 70s Not using TVP ICD eval by Dr. Ramila NUNES Physical Examination - Head Exam Head Exam: ATRAUMATIC, NORMOCEPHALIC - Neck Exam Additional comments: L IJ TLC - Respiratory Exam Additional comments: intubated - Cardiovascular Exam Cardiovascular Exam: REGULAR RHYTHM, RRR (transvenous pacing ), +S1, +S2 - GI/Abdominal Exam GI & Abdominal Exam: Soft, Normal Bowel Sounds. absent: Tenderness - Extremities Exam Extremities Exam: Normal Inspection. absent: Pedal Edema Additional comments: radial A line - Neurological Exam Neurological Exam: absent: Alert, Awake, Oriented x3 - Skin Skin Exam: Intact, Normal Color, Warm Objective - Vital Signs/Intake and Output Vital Signs (last 24 hours): Temp Pulse Resp BP Pulse Ox 100.6 F H 78 12 169/71 H 100 12/10/17 04:30 12/10/17 03:00 12/10/17 03:00 12/10/17 03:00 12/10/17 03:00 Intake and Output: 12/10/17 12/10/17 06:59 18:59 Intake Total 785.7 Balance 785.7 - Medications Medications: Current Medications Acetaminophen (Tylenol 325mg Tab) 650 mg PO Q6 PRN PRN Reason: Fever >100.4 F Last Admin: 12/10/17 04:30 Dose: 650 mg Albuterol/Ipratropium (Duoneb 3 Mg/0.5 Mg (3 Ml) Ud) 3 ml INH RQ4 ISACC Last Admin: 12/10/17 00:34 Dose: 3 ml Amlodipine Besylate (Norvasc) 10 mg PO DAILY [facility] Aspirin (Aspirin Chewable) 81 mg PO DAILY [facility] Last Admin: 12/09/17 10:29 Dose: 81 mg Heparin Sodium (Porcine) (Heparin) 5,000 units SC Q8 ISACC Last Admin: 12/10/17 05:56 Dose: 5,000 units Propofol (Diprivan) 1,000 mg in 100 mls @ 1.65 mls/hr IV .Q24H PRN; Protocol; 5 MCG/KG/MIN PRN Reason: TITRATE PER MD ORDER Last Admin: 12/10/17 04:41 Dose: 60 mcg/kg/min, 19.8 mls/hr Meropenem 500 mg/ Sodium (Chloride) 100 mls @ 100 mls/hr IVPB Q8H ISACC PRN Reason: Protocol Last Admin: 12/10/17 05:52 Dose: 100 mls/hr Insulin Glargine (Lantus) 10 unit SC DAILY [facility] Last Admin: 12/09/17 10:28 Dose: 10 u Insulin Human Regular (Novolin R) 0 unit SC Q6H ISACC PRN Reason: Protocol Last Admin: 12/10/17 05:56 Dose: 3 units Losartan Potassium (Cozaar) 25 mg PO DAILY [facility]ACC Pantoprazole Sodium (Protonix Inj) 40 mg IVP DAILY [facility] Last Admin: 12/09/17 10:28 Dose: 40 mg - Labs Labs: 12/10/17 05:53 12/10/17 05:54 PT 12.6 SECONDS (9.7-12.2) H 12/08/17 06:32 INR 1.2 12/08/17 06:32 APTT 29 SECONDS (21-34) 12/08/17 10:56 Assessment and Plan - Assessment and Plan (Free Text) Assessment: S/P Cardiac Arrest and Cardiac Cath Cardiac cath : normal coronaries and normal EF patient on TVP, PPM eval by Dr. Mcgrath ESRD On HD monitor K+
--- NOTE | 2017-12-10 08:31 | RAD ---
Chest x-ray single frontal view History: Intubated. Comparison: 12/09/2017 Findings: Lines and tubes in stable position. Mild venous congestion. Consolidative changes in the left mid to lower lung zone and right lung base. Right hilar prominence. Trace left pleural effusion. Bibasilar breast and nipple shadows. Surgical clips in the right upper abdomen. Mild cardiomegaly. Degenerative changes in the spine and shoulders. Impression: Lines and tubes in stable position. Mild venous congestion. Consolidative changes in the left mid to lower lung zone and right lung base. Right hilar prominence. Trace left pleural effusion. Bibasilar breast and nipple shadows. Surgical clips in the right upper abdomen. Mild cardiomegaly.
[2017-12-10] MEDS: (Lantus) Insulin Glargine, Recombinant SC SCH (10:15)
[2017-12-10] MEDS ORDERED: Potassium Chloride 20 mEq/15 ml LIQ UD PO ONE (10:30)
--- NOTE | 2017-12-10 11:11 | CP.PCM.PN ---
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 Hypercalcemia due to IV given during ACLS (outpt Ca 9.1 PTH 453 recently) Hx of ovarian cancer s/p chemo, in remission for last 2 years hypokalemia Plan: continue HD TTS Continue with Nephrovite 1 tab/day. hgb relatively stable monitor h and h, transfusions per primary team Glycemic control, Dialysis consistent diet ordered 20 meq k today Physical Examination: General Appearance: orally intubated and mechanically ventilated, not in distress Vitals reviewed and noted as below Head; Atraumatic, normocephalic ENT: deferred as pt intubated EYES: Rt pupil dilated and non-reacting. left eye blind Neck; supple no lymphadenopathy, no thyromegaly or bruit Lungs: normal respiratory rate/effort. Breath sounds bilateral clear anteriorly. has TV pacer Heart: Normal rate. s1s2 normal. No rub or gallop. Extremities: no edema. No varicose veins. Neurological: Patient is sedated Skin: Warm and dry. Normal turgor. No rash. Palpitation: Normal elasticity for age Abdomen: Abdomen is soft. Bowel sounds +. There is no abdominal tenderness, no guarding/rigidity or organomegaly Psych: deferred MSK: no joint tenderness or swelling. Digits and nails normal, no deformity : kidney or bladder not palpable Access: AVF Labs/imaging reviewed. Past medical history, past surgical history, family history, social history, allergy reviewed and noted as below Family Hx: no hx of CKD. Non contributory Objective - Vital Signs/Intake and Output Vital Signs (last 24 hours): Temp Pulse Resp BP Pulse Ox 100 F H 86 20 165/73 H 98 12/10/17 08:00 12/10/17 10:30 12/10/17 10:30 12/10/17 10:14 12/10/17 10:30 Intake and Output: 12/10/17 12/10/17 06:59 18:59 Intake Total 1350.1 244.7 Output Total 0 0 Balance 1350.1 244.7 - Medications Medications: Current Medications Acetaminophen (Tylenol 325mg Tab) 650 mg PO Q6 PRN PRN Reason: Fever >100.4 F Last Admin: 12/10/17 04:30 Dose: 650 mg Albuterol/Ipratropium (Duoneb 3 Mg/0.5 Mg (3 Ml) Ud) 3 ml INH RQ4 ISACC Last Admin: 12/10/17 07:45 Dose: 3 ml Amlodipine Besylate (Norvasc) 10 mg PO DAILY [facility] Last Admin: 12/10/17 10:15 Dose: 10 mg Aspirin (Aspirin Chewable) 81 mg PO DAILY [facility] Last Admin: 12/10/17 10:15 Dose: 81 mg Heparin Sodium (Porcine) (Heparin) 5,000 units SC Q8 [facility] Last Admin: 12/10/17 05:56 Dose: 5,000 units Propofol (Diprivan) 1,000 mg in 100 mls @ 1.65 mls/hr IV .Q24H PRN; Protocol; 5 MCG/KG/MIN PRN Reason: TITRATE PER MD ORDER Last Titration: 12/10/17 10:00 Dose: 0 mcg/kg/min, 0 mls/hr Meropenem 500 mg/ Sodium (Chloride) 100 mls @ 100 mls/hr IVPB Q8H [facility]ACC PRN Reason: Protocol Last Admin: 12/10/17 05:52 Dose: 100 mls/hr Insulin Glargine (Lantus) 10 unit SC DAILY [facility] Last Admin: 12/10/17 10:15 Dose: 10 u Insulin Human Regular (Novolin R) 0 unit SC Q6H [facility]ACC PRN Reason: Protocol Last Admin: 12/10/17 05:56 Dose: 3 units Losartan Potassium (Cozaar) 25 mg PO DAILY [facility] Last Admin: 12/10/17 10:15 Dose: 25 mg Pantoprazole Sodium (Protonix Inj) 40 mg IVP DAILY [facility] Last Admin: 12/10/17 10:14 Dose: 40 mg - Labs Labs: 12/10/17 05:53 12/10/17 05:54 PT 12.6 SECONDS (9.7-12.2) H 12/08/17 06:32 INR 1.2 12/08/17 06:32 APTT 29 SECONDS (21-34) 12/08/17 10:56
[2017-12-10] MEDS: MethylPREDNISolone 40 mg Vial IVP SCH ×3 (13:53→21:43)
--- NOTE | 2017-12-10 14:06 | CP.PCM.CON ---
History of Present Illness - History of Present Illness History of Present Illness: 57 yo F w/ PMHx DM, HTN, diabetic neuropathy, ESDR (HD T/Th/Mon) ovarian ca s/p surgical resection and chemo, admitted to ICU after cardiac arrest at home- was found in [place] by EMS and intubated in the field [facility] was also called in ED. Pt taken to cardiac cath with Dr. Ríos where dopamine drip started and trans venous pacing @100 was initiated; cath was neg for any occlusion/obstruction per Dr. Ríos. Pt admitted to ICU for management of symptomatic bradycardia and leaukocytosis. Referred for ID eval of possible sepsis and pneumonia IV antibiotics in progress ROS unobtainable PMHx DM, HTN, diabetic neuropathy, ESDR (HD T/Th/Mon) ovarian ca s/p surgical resection and chemo SH - unobtainable FH - DM HTN NKDA Review of Systems - Review of Systems All systems: reviewed and no additional remarkable complaints except - Constitutional Constitutional: As Per HPI - EENT Eyes: absent: As Per HPI, Blind Spots, Blurred Vision, Change in Vision, Decreased Night Vision, Diplopia, Discharge, Dry Eye, Exophthalmos, Floaters, Irritation, Itchy Eyes, Loss of Peripheral Vision, Pain, Photophobia, Requires Corrective Lenses, Sees Flashes, Spots in Vision, Tunnel Vision, Other Visual Disturbances, Loss of Vision, Other Ears: absent: As Per HPI, Decreased Hearing, Ear Discharge, Ear Pain, Tinnitus, Abnormal Hearing, Disequilibrium, Dizziness, Other Nose/Mouth/Throat: absent: As Per HPI, Epistaxis, Nasal Congestion, Nasal Discharge, Nasal Obstruction, Nasal Trauma, Nose Pain, Post Nasal Drip, Sinus Pain, Sinus Pressure, Bleeding Gums, Change in Voice, Dental Pain, Dry Mouth, Dysphagia, Halitosis, Hoarsness, Lip Swelling, Mouth Lesions, Mouth Pain, Odynophagia, Sore Throat, Throat Swelling, Tongue Swelling, Facial Pain, Neck Pain, Neck Mass, Other - Breasts Breasts: absent: As Per HPI, Change in Shape, Mass, Pain, Nipple Discharge, Nipple Inversion, Skin Changes, Swelling, Other - Cardiovascular Cardiovascular: As Per HPI - Respiratory Respiratory: As Per HPI - Gastrointestinal Gastrointestinal: absent: As Per HPI, Abdominal Pain, Belching, Bloating, Change in Bowel Habits, Change in Stool Character, Coffee Ground Emesis, Constipation, Cramping, Diarrhea, Dyspepsia, Dysphagia, Early Satiety, Excessive Flatus, Fecal Incontinence, Heartburn, Hematemesis, Hematochezia, Loose Stools, Melena, Nausea, Odynophagia, Temesmus, Vomiting, Other - Genitourinary Genitourinary: As Per HPI - Reproductive: Female Reproductive:Female: As Per HPI - Menstruation Menstruation: absent: As Per HPI, Amenorrhea, Amenorrhea/ Control, Currently Menstual, Cycle <21 Days, Cycle >35 Days, Cycle Variable, Menses 1-7 Days, Menses >/= 8 Days, Menses Variable, Cycle > 4 Weeks Between, No Menses for 6 Months, Heavy Menses, Light Menses, Normal Menses, Spotting Between Cycles , S/P Hysterectomy, Menopausal, Post Menopausal, Premenarche, Abnormal Vaginal Bleeding, Dysmenorrhea, Other - Musculoskeletal Musculoskeletal: absent: As Per HPI, Abnormal Gait, Arthralgias, Atrophy, Back Pain, Deformity, Joint Swelling, Limited Range of Motion, Loss of Height, Muscle Cramps, Muscle Weakness, Myalgias, Neck Pain, Numbness, Radiating Pain into Limb, Stiffness, Tingling, Other - Integumentary Integumentary: absent: As Per HPI, Acne, Alopecia, Bleeding Lesions, Change in Hair, Change in Nails, Change in Pigmentation, Changing Lesions, Dry Skin, Erythema, Furuncle, Hirsutism, Lesions, New Lesions, Non-Healing Lesions, Photosensitivity, Pruritus, Rash, Skin Pain, Skin Ulcer, Sores, Striae, Swelling , Unusual Bruising, Wounds, Jaundice, Other - Neurological Neurological: As Per HPI - Psychiatric Psychiatric: absent: As Per HPI, Abnormal Sleep Pattern, Anhedonia, Anxiety, Auditory Hallucinations, Behavioral Changes, Change in Appetite, Change in Libido, Confusion, Depression, Difficulty Concentrating, Hallucinations, Homicidal Ideation, Hopelessness, Irritability, Memory Loss, Mood Swings, Panic Attacks, Paranoia, Suicidal Ideation, Visual Hallucinations, Tactile Hallucinations, Other - Endocrine Endocrine: absent: As Per HPI, Change in Body Appearance, Change in Libido, Cold Intolorance, Deepening of Voice, Excessive Sweating, Fatigue, Flushing, Heat Intolorance, Increase in Ring/Shoe/Hat Size, Palpitations, Polydipsia, Polyphagia, Polyuria, Other - Hematologic/Lymphatic Hematologic: absent: As Per HPI, Easy Bleeding, Easy Bruising, Lymphadenopathy, Other Past Patient History - Past Medical History & Family History Past Medical History?: Yes - Past Social History Smoking Status: Never Smoked - CARDIAC Hx Hypertension: Yes - PULMONARY Hx Respiratory Disorders: No - NEUROLOGICAL Hx Neurological Disorder: No - HEENT Hx Blind: Yes - RENAL Hx Chronic Kidney Disease: Yes Hx Dialysis: Yes Type of Dialysis Access: LEFT LOWER ARM Date of Last Dialysis Treatment: 12/05/17 - ENDOCRINE/METABOLIC Hx Endocrine Disorders: Yes Hx Diabetes Mellitus Type 1: Yes - HEMATOLOGICAL/ONCOLOGICAL Hx Blood Disorders: No - INTEGUMENTARY Hx Dermatological Problems: No - MUSCULOSKELETAL/RHEUMATOLOGICAL Hx Falls: No - GASTROINTESTINAL Hx Gastrointestinal Disorders: No - GENITOURINARY/GYNECOLOGICAL Hx Ovarian Cancer: Yes - PSYCHIATRIC Hx Substance Use: No - SURGICAL HISTORY Hx Cataract Extraction: Yes Hx Hysterectomy: Yes - ANESTHESIA Hx Anesthesia: Yes Hx Anesthesia Reactions: No Meds Allergies/Adverse Reactions: Allergies Allergy/AdvReac Type Severity Reaction Status Date / Time No Known Allergies Allergy Verified 12/07/17 14:23 - Medications Medications: Current Medications Acetaminophen (Tylenol 325mg Tab) 650 mg PO Q6 PRN PRN Reason: Fever >100.4 F Last Admin: 12/10/17 04:30 Dose: 650 mg Albuterol/Ipratropium (Duoneb 3 Mg/0.5 Mg (3 Ml) Ud) 3 ml INH RQ4 [facility] Last Admin: 12/10/17 12:05 Dose: 3 ml Amlodipine Besylate (Norvasc) 10 mg PO DAILY [facility] Last Admin: 12/10/17 10:15 Dose: 10 mg Aspirin (Aspirin Chewable) 81 mg PO DAILY [facility] Last Admin: 12/10/17 10:15 Dose: 81 mg Propofol (Diprivan) 1,000 mg in 100 mls @ 1.65 mls/hr IV .Q24H PRN; Protocol; 5 MCG/KG/MIN PRN Reason: TITRATE PER MD ORDER Last Titration: 12/10/17 13:00 Dose: 40 mcg/kg/min, 13.2 mls/hr Meropenem 500 mg/ Sodium (Chloride) 100 mls @ 100 mls/hr IVPB Q8H [facility] PRN Reason: Protocol Last Admin: 12/10/17 13:53 Dose: 100 mls/hr Insulin Glargine (Lantus) 10 unit SC DAILY [facility] Last Admin: 12/10/17 10:15 Dose: 10 u Insulin Human Regular (Novolin R) 0 unit SC Q6H [facility] PRN Reason: Protocol Last Admin: 12/10/17 13:55 Dose: 2 units Losartan Potassium (Cozaar) 25 mg PO DAILY [facility] Last Admin: 12/10/17 10:15 Dose: 25 mg Methylprednisolone (Solu-Medrol) 40 mg IVP Q8 [facility] Stop: 12/11/17 06:01 Last Admin: 12/10/17 13:53 Dose: 40 mg Pantoprazole Sodium (Protonix Inj) 40 mg IVP DAILY [facility] Last Admin: 12/10/17 10:14 Dose: 40 mg Physical Exam - Constitutional Appears: Non-toxic, Chronically Ill - Head Exam Head Exam: ATRAUMATIC, NORMAL INSPECTION, NORMOCEPHALIC - Eye Exam Eye Exam: PERRL. absent: Scleral icterus - ENT Exam ENT Exam: Mucous Membranes Dry, Normal External Ear Exam - Neck Exam Neck exam: Negative for: Lymphadenopathy - Respiratory Exam Respiratory Exam: Decreased Breath Sounds, Rhonchi - Cardiovascular Exam Cardiovascular Exam: REGULAR RHYTHM, +S1, +S2 - GI/Abdominal Exam GI & Abdominal Exam: Diminished Bowel Sounds, Soft. absent: Tenderness - Rectal Exam Rectal Exam: Deferred - Exam Exam: NORMAL INSPECTION - Extremities Exam Extremities exam: Positive for: pedal pulses present. Negative for: calf tenderness, pedal edema, tenderness - Back Exam Back exam: absent: CVA tenderness (L), CVA tenderness (R) - Neurological Exam Neurological exam: Altered - Psychiatric Exam Psychiatric exam: Depressed - Skin Skin Exam: Dry Results - Vital Signs Recent Vital Signs: Last Vital Signs Temp 99.5 F 12/10/17 12:00 Pulse 88 12/10/17 13:30 Resp 12 12/10/17 13:30 BP 173/74 H 12/10/17 13:14 Pulse Ox 100 12/10/17 13:30 - Labs Result Diagrams: 12/10/17 05:53 12/10/17 05:54 Labs: Laboratory Results - last 24 hr 12/09/17 12/09/17 12/09/17 18:11 21:51 23:57 WBC RBC Hgb Hct MCV MCH MCHC RDW Plt Count MPV Neut % (Auto) Lymph % (Auto) [place] % (Auto) Eos % (Auto) Baso % (Auto) Neut # (Auto) Lymph # (Auto) [place] # (Auto) Eos # (Auto) Baso # (Auto) Puncture Site pCO2 pO2 HCO3 ABG pH ABG Total CO2 ABG O2 Saturation ABG Base Excess ABG Hemoglobin ABG Carboxyhemoglobin POC ABG HHb (Measured) ABG Methemoglobin [place] Test A-a O2 Difference Respiratory Index Hgb O2 Saturation Vent Mode Mechanical Rate FiO2 Tidal Volume PEEP Sodium 138 Potassium 3.2 L Chloride 97 L Carbon Dioxide 30 Anion Gap 15 BUN 17 Creatinine 2.4 H Est GFR ( Amer) 25 Est GFR (Non-Af Amer) 21 POC Glucose (mg/dL) 219 H 213 H Random Glucose 156 H Calcium 8.5 L Phosphorus Magnesium Total Bilirubin AST ALT Alkaline Phosphatase Total Protein Albumin Globulin Albumin/Globulin Ratio 12/10/17 12/10/17 12/10/17 05:42 05:53 05:54 WBC 13.0 H RBC 3.21 L Hgb 9.7 L Hct 28.6 L MCV 89.2 MCH 30.4 MCHC 34.1 RDW 14.3 Plt Count 113 L MPV 8.6 Neut % (Auto) 79.9 H Lymph % (Auto) 10.[address] [place] % (Auto) 8.0 Eos % (Auto) 0.5 Baso % (Auto) 1.0 Neut # (Auto) 10.4 H Lymph # (Auto) 1.4 [place] # (Auto) 1.0 H Eos # (Auto) 0.1 Baso # (Auto) 0.1 Puncture Site pCO2 pO2 HCO3 ABG pH ABG Total CO2 ABG O2 Saturation ABG Base Excess ABG Hemoglobin ABG Carboxyhemoglobin POC ABG HHb (Measured) ABG Methemoglobin [place] Test A-a O2 Difference Respiratory Index Hgb O2 Saturation Vent Mode Mechanical Rate FiO2 Tidal Volume PEEP Sodium 137 Potassium 3.2 L Chloride 97 L Carbon Dioxide 30 Anion Gap 14 BUN 26 H Creatinine 3.4 H Est GFR ( Amer) 17 Est GFR (Non-Af Amer) 14 POC Glucose (mg/dL) 256 H Random Glucose 228 H Calcium 8.0 L Phosphorus 2.5 Magnesium 1.8 Total Bilirubin 0.7 AST 210 H ALT 395 H Alkaline Phosphatase 169 H D Total Protein 6.0 L Albumin 3.2 L Globulin 2.7 Albumin/Globulin Ratio 1.2 12/10/17 12/10/17 06:20 11:51 WBC RBC Hgb Hct MCV MCH MCHC RDW Plt Count MPV Neut % (Auto) Lymph % (Auto) [place] % (Auto) Eos % (Auto) Baso % (Auto) Neut # (Auto) Lymph # (Auto) [place] # (Auto) Eos # (Auto) Baso # (Auto) Puncture Site Rradial pCO2 35 pO2 142 H HCO3 29.9 H ABG pH 7.53 H ABG Total CO2 30.3 H ABG O2 Saturation 98.7 H ABG Base Excess 6.3 H ABG Hemoglobin 10.5 L ABG Carboxyhemoglobin 1.0 POC ABG HHb (Measured) 1.3 ABG Methemoglobin 0.8 [place] Test Pos A-a O2 Difference 171.0 Respiratory Index 1.2 Hgb O2 Saturation 97.0 Vent Mode Prvc Mechanical Rate 12 FiO2 50.0 Tidal Volume 500 PEEP 5 Sodium Potassium Chloride Carbon Dioxide Anion Gap BUN Creatinine Est GFR ( Amer) Est GFR (Non-Af Amer) POC Glucose (mg/dL) 203 H Random Glucose Calcium Phosphorus Magnesium Total Bilirubin AST ALT Alkaline Phosphatase Total Protein Albumin Globulin Albumin/Globulin Ratio Assessment & Plan (1) CKD (chronic kidney disease) requiring chronic dialysis Status: Acute (2) Bradycardia Status: Acute (3) Cardiac arrest Status: Acute (4) Pneumonia Status: Acute (5) Respiratory failure requiring intubation Status: Acute - Assessment and Plan (Free Text) Assessment: await ER cultures cont iv antibiotics
[2017-12-10] MEDS ORDERED: Moxifloxacin IV 400mg/250ml NS 400 MG/250 ML BAG IVPB SCH (14:15)
--- NOTE | 2017-12-10 15:39 | CARD ---
APPROVED REPORT Date of service: 12/07/2017 EXAM: Two-dimensional and M-mode echocardiogram with Doppler and color Doppler. Other Information Quality : GoodRhythm : INDICATION Infection:Rule out subacute bacterial endocarditis Status/Post NM Cardiac Arrest 2D DIMENSIONS IVSd1.2 (0.7-1.1cm)LVDd3.4 (3.9-5.9cm) PWd1.4 (0.7-1.1cm)LVDs2.7 (2.5-4.0cm) FS (%) 21.2 %LVEF (%)55.0 (>50%) M-Mode DIMENSIONS Left Atrium (MM)4.65 (2.5-4.0cm)IVSd1.48 (0.7-1.1cm) Aortic Root2.80 (2.2-3.7cm)LVDd3.64 (4.0-5.6cm) Aortic Cusp Exc.1.82 (1.5-2.0cm)PWd1.28 (0.7-1.1cm) FS (%) 17 %LVDs3.03 (2.0-3.8cm) LVEF (%)55 (>50%) Mitral Valve MV E Vyndhxns649.7cm/sMV A Msorxfwj76.1cm/sE/A ratio2.2 TDI E/Lateral E'0.0E/Medial E'0.0 Tricuspid Valve TR Peak [id number]/sTR Peak Gr.[id number] LEFT VENTRICLE The left ventricle is normal size. There is moderate concentric left ventricular hypertrophy. The Ejection Fraction is 50-55%. There is a flattened septum consistent with right ventricle pressure overload. Transmitral Doppler flow pattern is Grade II-pseudonormal filling dynamics. The left atrial pressure is moderately elevated. RIGHT VENTRICLE The right ventricle is normal size. The right ventricle is mildly hypertrophied. The right ventricular systolic function is normal. ATRIA The left atrium is moderately dilated. The right atrium size is normal. The interatrial septum is intact with no evidence for an atrial septal defect. AORTIC VALVE The aortic valve is trileaflet. The aortic valve is mildly sclerotic. No aortic regurgitation is present. MITRAL VALVE Mitral annular calcification is moderate. Mitral regurgitation is mild to moderate. TRICUSPID VALVE The tricuspid valve is normal in structure. There is mild to moderate tricuspid regurgitation. Right ventricular systolic pressure is estimated at 48 mmHg. There is moderate pulmonary hypertension. PULMONIC VALVE The pulmonary valve is normal in structure. There is trace pulmonic valvular regurgitation. GREAT VESSELS The aortic root is normal size. The aortic root displays moderate sclerocalcific changes of the aortic root. ivc is normal size.linear density seen in ivc & ? rv,catheter artifact. PERICARDIAL EFFUSION There is no pericardial effusion. <Conclusion> The left ventricle is normal size. There is moderate concentric left ventricular hypertrophy. The Ejection Fraction is 50-55%. There is a flattened septum consistent with right ventricle pressure overload. Transmitral Doppler flow pattern is Grade II-pseudonormal filling dynamics. The left atrial pressure is moderately elevated. The right ventricle is mildly hypertrophied. The left atrium is moderately dilated. Mitral annular calcification is moderate. Mitral regurgitation is mild to moderate. There is mild to moderate tricuspid regurgitation. Right ventricular systolic pressure is estimated at 48 mmHg. There is moderate pulmonary hypertension. The aortic root is normal size. The aortic root displays moderate sclerocalcific changes of the aortic root. ivc is normal size.linear density seen in ivc & ? rv,catheter artifact. There is no pericardial effusion.
--- NOTE | 2017-12-10 18:37 | CP.CCUPN ---
CCU Subjective - Physician Review Events Since Last Encounter (Free Text): 12/10/17 18:36 Patient today doing well. He she was awake and responding this morning. Attempt at CPAP trial. We are able to extubate, but there was no tracheal cough leak noted. Extubation was on hold. Started on Solu-Medrol. Will continue the at least 4 doses of Solu-Medrol before exhibition tomorrow. She will received hemodialysis tomorrow. Will follow the patient CCU Objective - Vital Signs / Intake & Output Vital Signs (Last 4 hours): Vital Signs Temp Pulse Resp BP Pulse Ox 12/10/17 18:30 76 16 100 12/10/17 18:14 79 16 145/53 L 100 12/10/17 18:00 85 16 100 12/10/17 17:30 82 15 100 12/10/17 17:14 78 12 148/52 L 100 12/10/17 17:00 78 12 100 12/10/17 16:30 80 12 100 12/10/17 16:14 81 12 136/55 L 100 12/10/17 16:00 99.5 F 81 12 100 12/10/17 15:30 78 12 100 12/10/17 15:14 77 12 138/50 L 100 12/10/17 15:00 77 12 100 Intake and Output (Last 8hrs): Intake & Output 12/10/17 12/10/17 12/10/17 06:59 14:59 22:59 Intake Total 781.5 422.9 52.8 Output Total 0 0 Balance 781.5 422.9 52.8 Weight 118 lb 3.2 oz Intake: IV 183.1 110 Intake, IV Amount 258.4 42.9 52.8 Left Distal Port Internal 100 Jugular Left Proximal Port 158.4 42.9 52.8 Internal Jugular Tube Feeding 280 210 Other 60 60 Output: Urine 0 0 Urine, Voided 0 0 Other: # Bowel Movements 1 1 - Physical Exam Head: Positive for: Atraumatic, Normocephalic Conjunctiva: Positive for: Normal (left opthal) Nose (Internal): Positive for: No Active Bleeding Neck: Positive for: Other (left IJ) Respiratory/Chest: Positive for: Good Air Exchange. Negative for: Respiratory Distress, Wheezes Cardiovascular: Positive for: Regular Rate and Rhythm. Negative for: Murmurs, Tachycardic, Bradycardic Abdomen: Positive for: Normal Bowel Sounds. Negative for: Distention Upper Extremity: Negative for: Cyanosis, Edema, NORMAL PULSES (pulses faint) Lower Extremity: Negative for: Edema, Erythema Neurological: Negative for: GCS=15 Skin: Positive for: Warm Psychiatric: Negative for: Alert - Medications Active Medications: Active Medications Generic Name Dose Route Start Last Admin Trade Name Freq PRN Reason Stop Dose Admin Acetaminophen 650 mg 12/07/17 13:40 12/10/17 04:30 Tylenol 325mg Tab PO 650 mg Q6 PRN Administration Fever >100.4 F Albuterol/Ipratropium 3 ml 12/07/17 16:00 12/10/17 16:55 Duoneb 3 Mg/0.5 Mg (3 Ml) Ud INH 3 ml RQ4 [facility] Administration Amlodipine Besylate 10 mg 12/10/17 10:00 12/10/17 10:15 Norvasc PO 10 mg DAILY [facility] Administration Aspirin 81 mg 12/08/17 17:00 12/10/17 10:15 Aspirin Chewable PO 81 mg DAILY [facility] Administration Propofol 1,000 mg in 100 mls @ 1.65 mls/hr 12/07/17 14:30 12/10/17 13:00 Diprivan IV 40 mcg/kg/min .Q24H PRN 13.2 mls/hr TITRATE PER MD ORDER Titration Protocol 5 MCG/KG/MIN Meropenem 500 mg/ Sodium 100 mls @ 100 mls/hr 12/09/17 22:00 12/10/17 13:53 Chloride IVPB 100 mls/hr Q8H [facility] Administration Protocol Vancomycin/Sodium Chloride 1 gm in 200 mls @ 133.333 mls/hr 12/11/17 12:00 Vancomycin 1 Gm/Ns 200 Ml IVPB 12/16/17 12:01 MWF [facility] Protocol Insulin Glargine 10 unit 12/08/17 12:30 12/10/17 10:15 Lantus SC 10 u DAILY [facility] Administration Insulin Human Regular 0 unit 12/10/17 00:00 12/10/17 18:02 Novolin R SC 1 units Q6H [facility] Administration Protocol Losartan Potassium 25 mg 12/10/17 10:00 12/10/17 10:15 Cozaar PO 25 mg DAILY [facility] Administration Methylprednisolone 40 mg 12/10/17 13:15 12/10/17 14:31 Solu-Medrol IVP 12/11/17 06:01 Not Given Q8 [facility] Moxifloxacin HCl 400 mg 12/10/17 16:00 12/10/17 16:59 Avelox PO 400 mg Q24H [facility] Administration Pantoprazole Sodium 40 mg 12/08/17 10:00 12/10/17 10:14 Protonix Inj IVP 40 mg DAILY [facility] Administration - Patient Studies Lab Studies: Microbiology Studies 12/07/17 10:25 Blood Culture - Preliminary Blood NO GROWTH AFTER 3 DAYS 12/07/17 10:40 Blood Culture - Preliminary Blood NO GROWTH AFTER 3 DAYS 12/07/17 Unknown Gram Stain - Final Sputum Sputum Culture - Final Enterobacter Cloacae Ssp Cloac Lab Studies 12/10/17 12/10/17 12/10/17 Range/Units 17:30 11:51 06:20 WBC (4.8-10.8) K/uL RBC (3.80-5.20) Mil/uL Hgb (11.0-16.0) g/dL Hct (34.0-47.0) % MCV (81.0-99.0) fL MCH (27.0-31.0) pg MCHC (33.0-37.0) g/dL RDW (11.5-14.5) % Plt Count (130-400) K/uL MPV (7.2-11.7) fL Neut % (Auto) (50.0-75.0) % Lymph % (Auto) (20.0-40.0) % Orange % (Auto) (0.0-10.0) % Eos % (Auto) (0.0-4.0) % Baso % (Auto) (0.0-2.0) % Neut # (Auto) (1.8-7.0) K/uL Lymph # (Auto) (1.0-4.3) K/uL Orange # (Auto) (0.0-0.8) K/uL Eos # (Auto) (0.0-0.7) K/uL Baso # (Auto) (0.0-0.2) K/uL Puncture Site Rradial pCO2 35 (35-45) mm/Hg pO2 142 H (80-100) mm/Hg HCO3 29.9 H (21-28) mmol/L ABG pH 7.53 H (7.35-7.45) ABG Total CO2 30.3 H (22-28) mmol/L ABG O2 Saturation 98.7 H (95-98) % ABG Base Excess 6.3 H (-2.0-3.0) mmol/L ABG Hemoglobin 10.5 L (11.7-17.4) g/dL ABG Carboxyhemoglobin 1.0 (0.5-1.5) % POC ABG HHb (Measured) 1.3 (0.0-5.0) % ABG Methemoglobin 0.8 (0.0-3.0) % Mateo Test Pos A-a O2 Difference 171.0 mm/Hg Respiratory Index 1.2 Hgb O2 Saturation 97.0 (95.0-98.0) % Vent Mode Prvc Mechanical Rate 12 FiO2 50.0 % Tidal Volume 500 PEEP 5 Sodium (132-148) mmol/L Potassium (3.6-5.2) mmol/L Chloride (98-107) mmol/L Carbon Dioxide (22-30) mmol/L Anion Gap (10-20) BUN (7-17) mg/dL Creatinine (0.7-1.2) mg/dL Est GFR ( Amer) Est GFR (Non-Af Amer) POC Glucose (mg/dL) 185 H 203 H (65-110) mg/dL Random Glucose (65-105) mg/dL Calcium (8.6-10.4) mg/dl Phosphorus (2.5-4.5) mg/dL Magnesium (1.6-2.3) mg/dL Total Bilirubin (0.2-1.3) mg/dL AST (14-36) U/L ALT (9-52) U/L Alkaline Phosphatase (38-126) U/L Total Protein (6.3-8.3) g/dL Albumin (3.5-5.0) g/dL Globulin (2.2-3.9) gm/dL Albumin/Globulin Ratio (1.0-2.1) 12/10/17 12/10/17 12/10/17 Range/Units 05:54 05:53 05:42 WBC 13.0 H (4.8-10.8) K/uL RBC 3.21 L (3.80-5.20) Mil/uL Hgb 9.7 L (11.0-16.0) g/dL Hct 28.6 L (34.0-47.0) % MCV 89.2 (81.0-99.0) fL MCH 30.4 (27.0-31.0) pg MCHC 34.1 (33.0-37.0) g/dL RDW 14.3 (11.5-14.5) % Plt Count 113 L (130-400) K/uL MPV 8.6 (7.2-11.7) fL Neut % (Auto) 79.9 H (50.0-75.0) % Lymph % (Auto) 10.6 L (20.0-40.0) % Orange % (Auto) 8.0 (0.0-10.0) % Eos % (Auto) 0.5 (0.0-4.0) % Baso % (Auto) 1.0 (0.0-2.0) % Neut # (Auto) 10.4 H (1.8-7.0) K/uL Lymph # (Auto) 1.4 (1.0-4.3) K/uL Orange # (Auto) 1.0 H (0.0-0.8) K/uL Eos # (Auto) 0.1 (0.0-0.7) K/uL Baso # (Auto) 0.1 (0.0-0.2) K/uL Puncture Site pCO2 (35-45) mm/Hg pO2 (80-100) mm/Hg HCO3 (21-28) mmol/L ABG pH (7.35-7.45) ABG Total CO2 (22-28) mmol/L ABG O2 Saturation (95-98) % ABG Base Excess (-2.0-3.0) mmol/L ABG Hemoglobin (11.7-17.4) g/dL ABG Carboxyhemoglobin (0.5-1.5) % POC ABG HHb (Measured) (0.0-5.0) % ABG Methemoglobin (0.0-3.0) % Mateo Test A-a O2 Difference mm/Hg Respiratory Index Hgb O2 Saturation (95.0-98.0) % Vent Mode Mechanical Rate FiO2 % Tidal Volume PEEP Sodium 137 (132-148) mmol/L Potassium 3.2 L (3.6-5.2) mmol/L Chloride 97 L (98-107) mmol/L Carbon Dioxide 30 (22-30) mmol/L Anion Gap 14 (10-20) BUN 26 H (7-17) mg/dL Creatinine 3.4 H (0.7-1.2) mg/dL Est GFR ( Amer) 17 Est GFR (Non-Af Amer) 14 POC Glucose (mg/dL) 256 H (65-110) mg/dL Random Glucose 228 H (65-105) mg/dL Calcium 8.0 L (8.6-10.4) mg/dl Phosphorus 2.5 (2.5-4.5) mg/dL Magnesium 1.8 (1.6-2.3) mg/dL Total Bilirubin 0.7 (0.2-1.3) mg/dL AST 210 H (14-36) U/L ALT 395 H (9-52) U/L Alkaline Phosphatase 169 H D (38-126) U/L Total Protein 6.0 L (6.3-8.3) g/dL Albumin 3.2 L (3.5-5.0) g/dL Globulin 2.7 (2.2-3.9) gm/dL Albumin/Globulin Ratio 1.2 (1.0-2.1) 12/09/17 12/09/17 Range/Units 23:57 21:51 WBC (4.8-10.8) K/uL RBC (3.80-5.20) Mil/uL Hgb (11.0-16.0) g/dL Hct (34.0-47.0) % MCV (81.0-99.0) fL MCH (27.0-31.0) pg MCHC (33.0-37.0) g/dL RDW (11.5-14.5) % Plt Count (130-400) K/uL MPV (7.2-11.7) fL Neut % (Auto) (50.0-75.0) % Lymph % (Auto) (20.0-40.0) % Orange % (Auto) (0.0-10.0) % Eos % (Auto) (0.0-4.0) % Baso % (Auto) (0.0-2.0) % Neut # (Auto) (1.8-7.0) K/uL Lymph # (Auto) (1.0-4.3) K/uL Orange # (Auto) (0.0-0.8) K/uL Eos # (Auto) (0.0-0.7) K/uL Baso # (Auto) (0.0-0.2) K/uL Puncture Site pCO2 (35-45) mm/Hg pO2 (80-100) mm/Hg HCO3 (21-28) mmol/L ABG pH (7.35-7.45) ABG Total CO2 (22-28) mmol/L ABG O2 Saturation (95-98) % ABG Base Excess (-2.0-3.0) mmol/L ABG Hemoglobin (11.7-17.4) g/dL ABG Carboxyhemoglobin (0.5-1.5) % POC ABG HHb (Measured) (0.0-5.0) % ABG Methemoglobin (0.0-3.0) % Mateo Test A-a O2 Difference mm/Hg Respiratory Index Hgb O2 Saturation (95.0-98.0) % Vent Mode Mechanical Rate FiO2 % Tidal Volume PEEP Sodium 138 (132-148) mmol/L Potassium 3.2 L (3.6-5.2) mmol/L Chloride 97 L (98-107) mmol/L Carbon Dioxide 30 (22-30) mmol/L Anion Gap 15 (10-20) BUN 17 (7-17) mg/dL Creatinine 2.4 H (0.7-1.2) mg/dL Est GFR ( Amer) 25 Est GFR (Non-Af Amer) 21 POC Glucose (mg/dL) 213 H (65-110) mg/dL Random Glucose 156 H (65-105) mg/dL Calcium 8.5 L (8.6-10.4) mg/dl Phosphorus (2.5-4.5) mg/dL Magnesium (1.6-2.3) mg/dL Total Bilirubin (0.2-1.3) mg/dL AST (14-36) U/L ALT (9-52) U/L Alkaline Phosphatase (38-126) U/L Total Protein (6.3-8.3) g/dL Albumin (3.5-5.0) g/dL Globulin (2.2-3.9) gm/dL Albumin/Globulin Ratio (1.0-2.1) Laboratory Results - last 24 hr 12/09/17 12/09/17 12/10/17 21:51 23:57 05:42 WBC RBC Hgb Hct MCV MCH MCHC RDW Plt Count MPV Neut % (Auto) Lymph % (Auto) Orange % (Auto) Eos % (Auto) Baso % (Auto) Neut # (Auto) Lymph # (Auto) Orange # (Auto) Eos # (Auto) Baso # (Auto) Puncture Site pCO2 pO2 HCO3 ABG pH ABG Total CO2 ABG O2 Saturation ABG Base Excess ABG Hemoglobin ABG Carboxyhemoglobin POC ABG HHb (Measured) ABG Methemoglobin Mateo Test A-a O2 Difference Respiratory Index Hgb O2 Saturation Vent Mode Mechanical Rate FiO2 Tidal Volume PEEP Sodium 138 Potassium 3.2 L Chloride 97 L Carbon Dioxide 30 Anion Gap 15 BUN 17 Creatinine 2.4 H Est GFR ( Amer) 25 Est GFR (Non-Af Amer) 21 POC Glucose (mg/dL) 213 H 256 H Random Glucose 156 H Calcium 8.5 L Phosphorus Magnesium Total Bilirubin AST ALT Alkaline Phosphatase Total Protein Albumin Globulin Albumin/Globulin Ratio 12/10/17 12/10/17 12/10/17 05:53 05:54 06:20 WBC 13.0 H RBC 3.21 L Hgb 9.7 L Hct 28.6 L MCV 89.2 MCH 30.4 MCHC 34.1 RDW 14.3 Plt Count 113 L MPV 8.6 Neut % (Auto) 79.9 H Lymph % (Auto) 10.6 L Orange % (Auto) 8.0 Eos % (Auto) 0.5 Baso % (Auto) 1.0 Neut # (Auto) 10.4 H Lymph # (Auto) 1.4 Orange # (Auto) 1.0 H Eos # (Auto) 0.1 Baso # (Auto) 0.1 Puncture Site Rradial pCO2 35 pO2 142 H HCO3 29.9 H ABG pH 7.53 H ABG Total CO2 30.3 H ABG O2 Saturation 98.7 H ABG Base Excess 6.3 H ABG Hemoglobin 10.5 L ABG Carboxyhemoglobin 1.0 POC ABG HHb (Measured) 1.3 ABG Methemoglobin 0.8 Mateo Test Pos A-a O2 Difference 171.0 Respiratory Index 1.2 Hgb O2 Saturation 97.0 Vent Mode Prvc Mechanical Rate 12 FiO2 50.0 Tidal Volume 500 PEEP 5 Sodium 137 Potassium 3.2 L Chloride 97 L Carbon Dioxide 30 Anion Gap 14 BUN 26 H Creatinine 3.4 H Est GFR ( Amer) 17 Est GFR (Non-Af Amer) 14 POC Glucose (mg/dL) Random Glucose 228 H Calcium 8.0 L Phosphorus 2.5 Magnesium 1.8 Total Bilirubin 0.7 AST 210 H ALT 395 H Alkaline Phosphatase 169 H D Total Protein 6.0 L Albumin 3.2 L Globulin 2.7 Albumin/Globulin Ratio 1.2 12/10/17 12/10/17 11:51 17:30 WBC RBC Hgb Hct MCV MCH MCHC RDW Plt Count MPV Neut % (Auto) Lymph % (Auto) Orange % (Auto) Eos % (Auto) Baso % (Auto) Neut # (Auto) Lymph # (Auto) Orange # (Auto) Eos # (Auto) Baso # (Auto) Puncture Site pCO2 pO2 HCO3 ABG pH ABG Total CO2 ABG O2 Saturation ABG Base Excess ABG Hemoglobin ABG Carboxyhemoglobin POC ABG HHb (Measured) ABG Methemoglobin Mateo Test A-a O2 Difference Respiratory Index Hgb O2 Saturation Vent Mode Mechanical Rate FiO2 Tidal Volume PEEP Sodium Potassium Chloride Carbon Dioxide Anion Gap BUN Creatinine Est GFR ( Amer) Est GFR (Non-Af Amer) POC Glucose (mg/dL) 203 H 185 H Random Glucose Calcium Phosphorus Magnesium Total Bilirubin AST ALT Alkaline Phosphatase Total Protein Albumin Globulin Albumin/Globulin Ratio Fingerstick Blood Sugar Results: 185
--- NOTE | 2017-12-10 23:07 | CP.PCM.PN ---
Subjective - Date & Time of Evaluation Date of Evaluation: 12/10/17 Time of Evaluation: 12:10 - Subjective Subjective: Patient seen and evaluated On Mechanical ventilation No cardiac events noted Stable hemodynamics Objective - Vital Signs/Intake and Output Vital Signs (last 24 hours): Temp Pulse Resp BP Pulse Ox 99.5 F 71 16 142/55 L 100 12/10/17 16:00 12/10/17 22:02 12/10/17 22:02 12/10/17 22:02 12/10/17 22:02 Intake and Output: 12/10/17 12/11/17 18:59 06:59 Intake Total 575.7 337.8 Output Total 0 Balance 575.7 337.8 - Medications Medications: Current Medications Acetaminophen (Tylenol 325mg Tab) 650 mg PO Q6 PRN PRN Reason: Fever >100.4 F Last Admin: 12/10/17 04:30 Dose: 650 mg Albuterol/Ipratropium (Duoneb 3 Mg/0.5 Mg (3 Ml) Ud) 3 ml INH RQ4 [facility] Last Admin: 12/10/17 20:52 Dose: 3 ml Amlodipine Besylate (Norvasc) 10 mg PO DAILY [facility] Last Admin: 12/10/17 10:15 Dose: 10 mg Aspirin (Aspirin Chewable) 81 mg PO DAILY [facility] Last Admin: 12/10/17 10:15 Dose: 81 mg Propofol (Diprivan) 1,000 mg in 100 mls @ 1.65 mls/hr IV .Q24H PRN; Protocol; 5 MCG/KG/MIN PRN Reason: TITRATE PER MD ORDER Last Admin: 12/10/17 19:23 Dose: 40 mcg/kg/min, 13.2 mls/hr Meropenem 500 mg/ Sodium (Chloride) 100 mls @ 100 mls/hr IVPB Q8H [facility] PRN Reason: Protocol Last Admin: 12/10/17 21:43 Dose: 100 mls/hr Vancomycin/Sodium Chloride (Vancomycin 1 Gm/Ns 200 Ml) 1 gm in 200 mls @ 133.333 mls/hr IVPB MWF [facility] PRN Reason: Protocol Stop: 12/16/17 12:01 Insulin Glargine (Lantus) 10 unit SC DAILY [facility] Last Admin: 12/10/17 10:15 Dose: 10 u Insulin Human Regular (Novolin R) 0 unit SC Q6H [facility] PRN Reason: Protocol Last Admin: 12/10/17 18:02 Dose: 1 units Losartan Potassium (Cozaar) 25 mg PO DAILY [facility] Last Admin: 12/10/17 10:15 Dose: 25 mg Methylprednisolone (Solu-Medrol) 40 mg IVP Q8 [facility] Stop: 12/11/17 06:01 Last Admin: 12/10/17 21:43 Dose: 40 mg Moxifloxacin HCl (Avelox) 400 mg PO Q24H [facility] Last Admin: 12/10/17 16:59 Dose: 400 mg Pantoprazole Sodium (Protonix Inj) 40 mg IVP DAILY [facility] Last Admin: 12/10/17 10:14 Dose: 40 mg - Labs Labs: 12/10/17 05:53 12/10/17 05:54 PT 12.6 SECONDS (9.7-12.2) H 12/08/17 06:32 INR 1.2 12/08/17 06:32 APTT 29 SECONDS (21-34) 12/08/17 10:56
--- NOTE | 2017-12-11 00:01 | CARDCATH ---
PROCEDURE DATE: 12/07/2017 PROCEDURES: 1. Left heart catheterization. 2. Coronary angiogram. 3. Transvenous pacemaker placement. REFERRING PHYSICIAN: Kobi Stanley MD PERFORMING PHYSICIAN: Robert Ríos MD CLINICAL INDICATIONS: 1. Cardiac arrest. 2. Bradycardia. 3. Cardiogenic shock and hypotension. 4. Chronic renal failure, on hemodialysis. 5. Respiratory failure. BRIEF CLINICAL HISTORY: Pricila Fernandes is a 57-year-old female with history of renal failure, on hemodialysis, was found unresponsive at home. When the EMS arrived, the patient was severely bradycardic and hypotensive. The patient was in pulseless electrical activity. The patient was given 2 doses of epi, intubated and was brought the patient to [facility] Emergency Room. Due to earlier EKG changes suggestive of acute myocardial infarction, code heart was activated. The patient was rushed to cardiac catheterization lab. After informed consent from the family member, the daughter, the patient was prepped and draped in the usual sterile fashion. Lidocaine 2% was given in the right groin for local anesthesia. The patient was given anticoagulation for cardiac arrest. Due to severe bradycardia, heart rate was in 20s. Emergency transvenous pacemaker placed. A 6-[place] access taken in the right common femoral artery. Left coronary angiogram was done using JL4 6-[place] diagnostic catheter. Right coronary angiogram was done using JR4 6-[place] diagnostic catheter. LV angiogram was done using pigtail catheter. FINDINGS: 1. Left main coronary artery is patent. 2. LAD and diagonal branches are patent. 3. Circumflex and obtuse marginal branches are patent. 4. Right coronary artery is dominant artery, patent. 5. LV ejection fraction is approximately 60%. No wall motion abnormality is noted. EDP is 30. No gradient across the aortic valve. IMPRESSION: 1. Normal coronaries. 2. Normal LV systolic function. 3. The patient presented with severe hypotension and bradycardia. Transvenous pacemaker placed. The patient will be transferred to intensive care unit for further management. Robert Ríos MD
[2017-12-11] MEDS: Propofol 10 mg/ml 1,000 MG/100 ML VIAL IV PRN ×3 (00:37→11:15)
[2017-12-11] MEDS: (Novolin R) Insulin Human Regular 100 units/ml vial SC SCH ×5 (00:37→23:45)
[2017-12-11] MEDS: Albuterol-Ipratrop 3 mg / 0.5 (3 ml) UD INH SCH ×5 (03:24→20:03)
[2017-12-11 04:31] LABS: ARTERIAL BLOOD GAS HCO3 26.9 mmol/L (21-28); ARTERIAL BLOOD GAS O2 SAT 98.6 % (95-98); ARTERIAL BLOOD GAS PCO2 37 mm/Hg (35-45); ARTERIAL BLOOD GAS PH 7.46 (7.35-7.45); ARTERIAL BLOOD GAS PO2 155 mm/Hg (80-100); ARTERIAL BLOOD GAS TCO2 27.4 mmol/L (22-28)
[2017-12-11] MEDS: Meropenem 500 MG in Sodium Chloride 0.9% 100 ML IVPB SCH ×3 (05:12→22:00)
[2017-12-11] MEDS: MethylPREDNISolone 40 mg Vial IVP SCH (05:13)
[2017-12-11 06:35] LABS: BASO % 0.2 % (0.0-2.0); HEMOGLOBIN 9.8 g/dL (11.0-16.0); LYMPH # 0.9 K/uL (1.0-4.3); LYMPH % 8.4 % (20.0-40.0); MEAN CELL VOLUME 90.7 fL (81.0-99.0); MEAN CORPUSCULAR HEMOGLOBIN 30.9 pg (27.0-31.0); MEAN CORPUSCULAR HGB CONC 34.1 g/dL (33.0-37.0); MEAN PLATELET VOLUME 8.9 fL (7.2-11.7); MONO # 0.3 K/uL (0.0-0.8); MONO % 2.7 % (0.0-10.0); NEUT # 9.6 K/uL (1.8-7.0); NEUT % 88.7 % (50.0-75.0); NRBC % 0.1 % (0.0-2.0); PLATELET COUNT 130 K/uL (130-400); RBC 3.18 Mil/uL (3.80-5.20); RED CELL DISTRIBUTION WIDTH 14.4 % (11.5-14.5); WHITE BLOOD COUNT 10.8 K/uL (4.8-10.8)
[2017-12-11 06:45] LABS: ALB/GLOB RATIO 1.2 (1.0-2.1); ALBUMIN 3.7 g/dL (3.5-5.0); CALCIUM 8.3 mg/dl (8.6-10.4)
--- NOTE | 2017-12-11 06:59 | PN ---
DATE: 12/08/2017 SUBJECTIVE: The patient on a ventilator, supportive care, consult cardiology. Kobi Stanley MD
--- NOTE | 2017-12-11 07:00 | PN ---
DATE: 12/10/2017 The patient is on ventilator, supportive care. No change in condition. Continue treatment. Kobi Stanley MD
--- NOTE | 2017-12-11 07:01 | PN ---
DATE: 12/10/2017 The patient is improving. Supportive care as per Cardiology. Kobi Stanley MD
[2017-12-11 08:15] LABS: LYMPHOCYTE 9 % (20-40); MONOCYTE 2 % (0-10); NEUTROPHIL 89 % (50-75); PLATELET ESTIMATE NORMAL (NORMAL); TOTAL CELLS COUNTED 100
[2017-12-11 08:16] LABS: BURR CELLS SLIGHT
[2017-12-11] MEDS: (Lantus) Insulin Glargine, Recombinant SC SCH (09:29)
[2017-12-11] MEDS ORDERED: Epoetin Alfa Dialysis 40000 UNIT/ml Inj IV SCH (10:40)
--- NOTE | 2017-12-11 11:32 | CP.PCM.PN ---
Subjective - Date & Time of Evaluation Date of Evaluation: 12/11/17 Time of Evaluation: 11:26 - Subjective Subjective: Nephrology Consultation Note Assessment: critical Cardiac arrest, acute respi failure Hyperkalemia, lactic acidosis, hypokalemia Diabetic chronic Kidney Disease (E11.22) Hypertensive Chronic Kidney Disease (I12.0) End stage renal disease (N18.6) dependence on hemodialysis (Z99.2) (TTS) via AVF Anemia (D64.9), Hyperphosphatemia (E83.39), Secondary Hyperparathyroidism (E21.1 ), HTN (I12.0) Hypercalcemia likely due to IV given during ACLS (outpt Ca 9.1 PTH 453 recently) Hx of ovarian cancer s/p chemo, in remission for last 2 years RV pressure overload and moderate pulmonary HTN Plan: HAd d/w family about need for strict low K diet. pt on veltassa daily at home. d /c losartan as pt has tendency for hyperkalemia as outpt Will plan for next HD tomorrow per TTS schedule. Continue with Nephrovite 1 tab/ day. PRBC as needed for anemia. started NEIDA with HD last Hb 9.8 last phos level 5.7 resume phos binders once pt on diet BP control Glycemic control, Dialysis consistent diet Further work up/management as per primary team Dose meds/antibiotics (if needed) for ESRD status. Avoid fleets enema/magnesium based laxatives. cardiology following pt planned for PPM placement once stable Thanks for allowing me to participate in care of your patient. will follow with you. Please call if any Qs. had d/w family and team Dr Shahab Bunn Office: [phone] Chief Complaint; cardiac arrest reason for consult: ESRD HPI: Pt is a 57 F with hx of ESRD on hemodialysis (TTS) via AVF @ [facility] for last 7 years, chronic anemia, hyperphosphatemia, secondary hyperparathyroidism, Diabetes Mellitus, hypertension, ovarian cancer s/p chemo, in remission for last 2 years found to be unresponsive at home, pt s/p ACLS and intubated/sedated, now in ICU pt unable to provide much hx daughter bedside says pt was fine 1 day ago except mild cough. no other concerns or complaints reported. pt is non smoker/no etoh/no drugs. last HD monday ROS: intubated and sedated. unable to obtain any hx from pt Physical Examination: General Appearance: orally intubated and mechanically ventilated, not in distress Vitals reviewed and noted as below Head; Atraumatic, normocephalic ENT: deferred as pt intubated EYES: left eye blind Neck; supple no lymphadenopathy, no thyromegaly or bruit Lungs: normal respiratory rate/effort. Breath sounds bilateral clear anteriorly. has TV pacer Heart: Normal rate. s1s2 normal. No rub or gallop. Extremities: no edema. No varicose veins. Neurological: Patient is sedated Skin: Warm and dry. Normal turgor. No rash. Palpitation: Normal elasticity for age Abdomen: Abdomen is soft. Bowel sounds +. There is no abdominal tenderness, no guarding/rigidity or organomegaly Psych: deferred MSK: no joint tenderness or swelling. Digits and nails normal, no deformity : kidney or bladder not palpable Access: AVF Labs/imaging reviewed. Past medical history, past surgical history, family history, social history, allergy reviewed and noted as below Family Hx: no hx of CKD. Non contributory Objective - Vital Signs/Intake and Output Vital Signs (last 24 hours): Temp Pulse Resp BP Pulse Ox 98.4 F 75 20 153/68 H 99 12/11/17 07:55 12/11/17 08:02 12/11/17 08:02 12/11/17 08:02 12/11/17 08:02 Intake and Output: 12/11/17 12/11/17 06:59 18:59 Intake Total 831.6 109.6 Balance 831.6 109.6 - Medications Medications: Current Medications Acetaminophen (Tylenol 325mg Tab) 650 mg PO Q6 PRN PRN Reason: Fever >100.4 F Last Admin: 12/10/17 04:30 Dose: 650 mg Albuterol/Ipratropium (Duoneb 3 Mg/0.5 Mg (3 Ml) Ud) 3 ml INH RQ4 [facility] Last Admin: 12/11/17 07:30 Dose: 3 ml Amlodipine Besylate (Norvasc) 10 mg PO DAILY [facility] Last Admin: 12/11/17 09:29 Dose: 10 mg Aspirin (Aspirin Chewable) 81 mg PO DAILY [facility] Last Admin: 07/16/18 09:29 Dose: 81 mg Epoetin Kasi (Procrit) 4,000 unit IV TTS [facility] Propofol (Diprivan) 1,000 mg in 100 mls @ 1.65 mls/hr IV .Q24H PRN; Protocol; 5 MCG/KG/MIN PRN Reason: TITRATE PER MD ORDER Last Admin: 12/11/17 06:10 Dose: 60 mcg/kg/min, 19.8 mls/hr Meropenem 500 mg/ Sodium (Chloride) 100 mls @ 100 mls/hr IVPB Q8H [facility] PRN Reason: Protocol Last Admin: 12/11/17 05:12 Dose: 100 mls/hr Vancomycin/Sodium Chloride (Vancomycin 1 Gm/Ns 200 Ml) 1 gm in 200 mls @ 133.333 mls/hr IVPB MWF [facility] PRN Reason: Protocol Stop: 12/16/17 12:01 Insulin Glargine (Lantus) 10 unit SC DAILY [facility] Last Admin: 12/11/17 09:29 Dose: 10 u Insulin Human Regular (Novolin R) 0 unit SC Q6H [facility] PRN Reason: Protocol Last Admin: 12/11/17 05:14 Dose: 5 units Moxifloxacin HCl (Avelox) 400 mg PO Q24H [facility] Last Admin: 12/10/17 16:59 Dose: 400 mg Pantoprazole Sodium (Protonix Inj) 40 mg IVP DAILY [facility] Last Admin: 12/11/17 09:29 Dose: 40 mg - Labs Labs: 12/11/17 06:24 12/11/17 06:24 PT 12.6 SECONDS (9.7-12.2) H 12/08/17 06:32 INR 1.2 12/08/17 06:32 APTT 29 SECONDS (21-34) 12/08/17 10:56
--- NOTE | 2017-12-11 11:36 | CP.PCM.PN ---
Subjective - Date & Time of Evaluation Date of Evaluation: 12/11/17 Time of Evaluation: 08:00 - Subjective Subjective: events noted iv rx renewed remains intubated Objective - Vital Signs/Intake and Output Vital Signs (last 24 hours): Temp Pulse Resp BP Pulse Ox 98.4 F 75 20 153/68 H 99 12/11/17 07:55 12/11/17 08:02 12/11/17 08:02 12/11/17 08:02 12/11/17 08:02 Intake and Output: 12/11/17 12/11/17 06:59 18:59 Intake Total 831.6 109.6 Balance 831.6 109.6 - Medications Medications: Current Medications Acetaminophen (Tylenol 325mg Tab) 650 mg PO Q6 PRN PRN Reason: Fever >100.4 F Last Admin: 12/10/17 04:30 Dose: 650 mg Albuterol/Ipratropium (Duoneb 3 Mg/0.5 Mg (3 Ml) Ud) 3 ml INH RQ4 [facility] Last Admin: 12/11/17 07:30 Dose: 3 ml Amlodipine Besylate (Norvasc) 10 mg PO DAILY [facility] Last Admin: 12/11/17 09:29 Dose: 10 mg Aspirin (Aspirin Chewable) 81 mg PO DAILY [facility] Last Admin: 12/11/17 09:29 Dose: 81 mg Epoetin Kasi (Procrit) 4,000 unit IV TTS [facility] Propofol (Diprivan) 1,000 mg in 100 mls @ 1.65 mls/hr IV .Q24H PRN; Protocol; 5 MCG/KG/MIN PRN Reason: TITRATE PER MD ORDER Last Admin: 12/11/17 06:10 Dose: 60 mcg/kg/min, 19.8 mls/hr Meropenem 500 mg/ Sodium (Chloride) 100 mls @ 100 mls/hr IVPB Q8H [facility] PRN Reason: Protocol Last Admin: 12/11/17 05:12 Dose: 100 mls/hr Vancomycin/Sodium Chloride (Vancomycin 1 Gm/Ns 200 Ml) 1 gm in 200 mls @ 133.333 mls/hr IVPB MWF [facility] PRN Reason: Protocol Stop: 12/16/17 12:01 Insulin Glargine (Lantus) 10 unit SC DAILY [facility] Last Admin: 12/11/17 09:29 Dose: 10 u Insulin Human Regular (Novolin R) 0 unit SC Q6H [facility] PRN Reason: Protocol Last Admin: 12/11/17 05:14 Dose: 5 units Moxifloxacin HCl (Avelox) 400 mg PO Q24H [facility] Last Admin: 12/10/17 16:59 Dose: 400 mg Pantoprazole Sodium (Protonix Inj) 40 mg IVP DAILY [facility] Last Admin: 12/11/17 09:29 Dose: 40 mg - Labs Labs: 12/11/17 06:24 12/11/17 06:24 PT 12.6 SECONDS (9.7-12.2) H 12/08/17 06:32 INR 1.2 12/08/17 06:32 APTT 29 SECONDS (21-34) 12/08/17 10:56 - Constitutional Appears: Confused, Chronically Ill - Head Exam Head Exam: NORMOCEPHALIC - Eye Exam Eye Exam: PERRL - ENT Exam ENT Exam: Mucous Membranes Dry - Neck Exam Neck Exam: absent: Lymphadenopathy, Thyromegaly - Respiratory Exam Respiratory Exam: Decreased Breath Sounds - Cardiovascular Exam Cardiovascular Exam: REGULAR RHYTHM - GI/Abdominal Exam GI & Abdominal Exam: Distended - Rectal Exam Rectal Exam: Deferred - Exam Exam: NORMAL INSPECTION - Extremities Exam Extremities Exam: absent: Pedal Edema - Back Exam Back Exam: absent: CVA tenderness (L), CVA tenderness (R) - Neurological Exam Neurological Exam: Altered Assessment and Plan (1) CKD (chronic kidney disease) requiring chronic dialysis Status: Acute (2) Bradycardia Status: Acute (3) Cardiac arrest Status: Acute (4) Pneumonia Status: Acute (5) Respiratory failure requiring intubation Status: Acute - Assessment and Plan (Free Text) Assessment: cultures reviewed antibiotics reordered
[2017-12-11] MEDS ORDERED: Vancomycin 1 gm/NS 200 ml 1 GM/200 ML BAG IVPB SCH (12:00)
[2017-12-11] MEDS ORDERED: (Novolin R) Insulin Human Regular 100 units/ml vial SC SCH (12:11)
--- NOTE | 2017-12-11 12:59 | RAD ---
Date of service: 12/11/2017 HISTORY: intubated COMPARISON: Chest radiograph dated 12/10/2017. FINDINGS: LUNGS: Pulmonary vascular congestion. Patchy left basilar atelectasis versus infiltrate. PLEURA: No significant pleural effusion identified, no pneumothorax apparent. CARDIOVASCULAR: Atherosclerotic aortic calcifications. Cardiomediastinal silhouette stably enlarged. OSSEOUS STRUCTURES: Unchanged. VISUALIZED UPPER ABDOMEN: Normal. OTHER FINDINGS: Endotracheal and enteric tubes, unchanged. Left internal jugular access central venous catheter, unchanged. IMPRESSION: Stable tubes and lines. Patchy left basilar atelectasis versus infiltrate.
[2017-12-11] MEDS ORDERED: MethylPREDNISolone 40 mg Vial IVP STA (13:36)
[2017-12-11] MEDS ORDERED: Racepinephrine 2.25% Inhal Soln 0.5 ML UD INH ONE (13:36)
--- NOTE | 2017-12-11 14:11 | CP.PCM.PN ---
<Judith Armendariz - Last Filed: 12/11/17 15:27> Subjective - Date & Time of Evaluation Date of Evaluation: 12/11/17 Time of Evaluation: 13:00 - Subjective Subjective: PGY2- Progress Note for Dr. Ríos Patient seen and examined at bedside. Patient is intubated and ROS unobtainable. Patient to be extubated today. Objective - Vital Signs/Intake and Output Vital Signs (last 24 hours): Temp Pulse Resp BP Pulse Ox 98.4 F 100 H 12 152/61 H 98 12/11/17 12:00 12/11/17 11:02 12/11/17 11:02 12/11/17 11:02 12/11/17 11:00 Intake and Output: 12/11/17 12/11/17 06:59 18:59 Intake Total 831.6 374.0 Balance 831.6 374.0 - Medications Medications: Current Medications Acetaminophen (Tylenol 325mg Tab) 650 mg PO Q6 PRN PRN Reason: Fever >100.4 F Last Admin: 12/10/17 04:30 Dose: 650 mg Albuterol/Ipratropium (Duoneb 3 Mg/0.5 Mg (3 Ml) Ud) 3 ml INH RQ4 [facility] Last Admin: 12/11/17 07:30 Dose: 3 ml Amlodipine Besylate (Norvasc) 10 mg PO DAILY [facility] Last Admin: 12/11/17 09:29 Dose: 10 mg Aspirin (Aspirin Chewable) 81 mg PO DAILY [facility] Last Admin: 12/11/17 09:29 Dose: 81 mg Epoetin Kasi (Procrit) 4,000 unit IV TTS [facility] Propofol (Diprivan) 1,000 mg in 100 mls @ 1.65 mls/hr IV .Q24H PRN; Protocol; 5 MCG/KG/MIN PRN Reason: TITRATE PER MD ORDER Last Admin: 12/11/17 11:15 Dose: 60 mcg/kg/min, 19.8 mls/hr Meropenem 500 mg/ Sodium (Chloride) 100 mls @ 100 mls/hr IVPB Q8H [facility] PRN Reason: Protocol Last Admin: 12/11/17 13:00 Dose: 100 mls/hr Vancomycin/Sodium Chloride (Vancomycin 1 Gm/Ns 200 Ml) 1 gm in 200 mls @ 133.333 mls/hr IVPB MWF [facility] PRN Reason: Protocol Stop: 12/16/17 12:01 Last Admin: 12/11/17 11:00 Dose: 133.333 mls/hr Insulin Glargine (Lantus) 10 unit SC DAILY [facility] Last Admin: 12/11/17 09:29 Dose: 10 u Insulin Human Regular (Novolin R) 0 unit SC Q6H [facility] PRN Reason: Protocol Moxifloxacin HCl (Avelox) 400 mg PO Q24H [facility] Last Admin: 12/10/17 16:59 Dose: 400 mg Pantoprazole Sodium (Protonix Inj) 40 mg IVP DAILY [facility] Last Admin: 12/11/17 09:29 Dose: 40 mg - Labs Labs: 12/11/17 06:24 12/11/17 06:24 PT 12.6 SECONDS (9.7-12.2) H 12/08/17 06:32 INR 1.2 12/08/17 06:32 APTT 29 SECONDS (21-34) 12/08/17 10:56 - Constitutional Appears: Non-toxic, No Acute Distress - Head Exam Head Exam: ATRAUMATIC, NORMAL INSPECTION, NORMOCEPHALIC - ENT Exam ENT Exam: Mucous Membranes Moist - Respiratory Exam Respiratory Exam: absent: Rales, Rhonchi, Wheezes Additional comments: intubated - Cardiovascular Exam Cardiovascular Exam: REGULAR RHYTHM, RRR, +S1, +S2 - GI/Abdominal Exam GI & Abdominal Exam: Soft, Normal Bowel Sounds. absent: Tenderness - Extremities Exam Extremities Exam: Normal Inspection - Neurological Exam Neurological Exam: Awake. absent: Alert, Oriented x3 Assessment and Plan - Assessment and Plan (Free Text) Assessment: S/P Cardiac Arrest and Cardiac Cath Cardiac cath : normal coronaries and normal EF patient no longer being paced, in NSR as per Dr. Mcgrath, may need pacemaker placed as an outpatient when stable Respiratory Failure intubated, to be extubated today ESRD continue dialysis monitor electrolyte abnormalities Sepsis 2/[address] Hernandez consulted Avelwalt Vanco Discussed with Dr. Ríos <Robert Ríos - Last Filed: 12/12/17 22:52> Objective - Vital Signs/Intake and Output Vital Signs (last 24 hours): Temp Pulse Resp BP Pulse Ox 98.5 F 84 26 H 159/58 H 96 12/12/17 20:00 07/17/18 22:07 12/12/17 22:07 12/12/17 22:07 12/12/17 22:07 Intake and Output: 12/12/17 12/13/17 18:59 06:59 Intake Total 720 0 Output Total 3300 Balance -2580 0 - Medications Medications: Current Medications Acetaminophen (Tylenol 325mg Tab) 650 mg PO Q6 PRN PRN Reason: Fever >100.4 F Last Admin: 12/12/17 19:16 Dose: 650 mg Albuterol/Ipratropium (Duoneb 3 Mg/0.5 Mg (3 Ml) Ud) 3 ml INH RQ4 [facility] Last Admin: 12/12/17 19:49 Dose: 3 ml Amlodipine Besylate (Norvasc) 10 mg PO DAILY [facility] Last Admin: 12/12/17 10:35 Dose: 10 mg Aspirin (Aspirin Chewable) 81 mg PO DAILY [facility] Last Admin: 12/12/17 09:21 Dose: 81 mg Epoetin Kasi (Procrit) 4,000 unit IV TTS [facility] Last Admin: 12/12/17 11:40 Dose: 4,000 unit Hydralazine HCl (Apresoline) 50 mg PO BID [facility] Last Admin: 12/12/17 17:50 Dose: Not Given Vancomycin/Sodium Chloride (Vancomycin 1 Gm/Ns 200 Ml) 1 gm in 200 mls @ 133.333 mls/hr IVPB TTS [facility] PRN Reason: Protocol Stop: 12/17/17 14:01 Last Admin: 12/12/17 14:27 Dose: 133.333 mls/hr Insulin Glargine (Lantus) 10 unit SC DAILY [facility] Last Admin: 12/12/17 10:36 Dose: 10 u Insulin Human Regular (Novolin R) 0 unit SC ACHS [facility] PRN Reason: Protocol Last Admin: 12/12/17 21:45 Dose: Not Given Moxifloxacin HCl (Avelox) 400 mg PO Q24H [facility] Last Admin: 12/12/17 16:17 Dose: 400 mg Pantoprazole Sodium (Protonix Ec Tab) 40 mg PO DAILY [facility] Sevelamer Carbonate (Renvela) 1,600 mg PO TIDCC [facility] Last Admin: 12/12/17 17:21 Dose: 1,600 mg Vitamin B Complex/Vit C/Folic Acid (Nephro-Perry) 1 tab PO 0800 [facility] Zolpidem Tartrate (Ambien) 5 mg PO HS ONE Stop: 12/12/17 22:51 - Labs Labs: 12/12/17 06:17 12/12/17 06:16 PT 12.6 SECONDS (9.7-12.2) H 12/08/17 06:32 INR 1.2 12/08/17 06:32 APTT 29 SECONDS (21-34) 12/08/17 10:56 Assessment and Plan - Assessment and Plan (Free Text) Assessment: Patient seen and evaluated personally by sc Plan of care d/w the medical surgical tech and as documented
--- NOTE | 2017-12-11 17:47 | CP.CCUPN ---
CCU Subjective - Physician Review Subjective (Free Text): 57 yo F w/ PMHx DM, HTN, diabetic neuropathy, ESDR (HD T/Th/Sat) ovarian ca s/p surgical resection and chemo, brought to ED by EMT for cardiac arrest, code heart called in ED. EMT reports patient was in PEA and ACLS protocol was initiated. Pt no longer requiring pacing. Pt extubated (12/11) with no complications. Radial A-line and Right femoral line removed (12/11) 12/11/17 17:42 CCU Objective - Vital Signs / Intake & Output Vital Signs (Last 4 hours): Vital Signs Pulse Resp BP Pulse Ox 12/11/17 15:10 83 18 147/56 L 96 12/11/17 15:02 83 27 H 157/66 H 98 12/11/17 15:00 82 17 98 12/11/17 14:35 80 19 156/60 H 100 12/11/17 14:00 75 15 99 Intake and Output (Last 8hrs): Intake & Output 12/11/17 12/11/17 12/11/17 06:59 14:59 22:59 Intake Total 493.8 583.8 0 Balance 493.8 583.8 0 Intake: IV 200 155 Intake, IV Amount 118.8 218.8 Left Distal Port Internal 100 Jugular Left Proximal Port 118.8 118.8 Internal Jugular Tube Feeding 175 210 0 - Physical Exam Physical Exam Limitations: Positive for: Altered Mental Status Head: Positive for: Atraumatic, Normocephalic Conjunctiva: Positive for: Normal (left opthal) Nose (Internal): Positive for: No Active Bleeding Neck: Positive for: Other (left IJ) Respiratory/Chest: Positive for: Good Air Exchange. Negative for: Respiratory Distress, Wheezes Cardiovascular: Positive for: Regular Rate and Rhythm. Negative for: Murmurs, Tachycardic, Bradycardic Abdomen: Positive for: Normal Bowel Sounds. Negative for: Distention Upper Extremity: Positive for: Normal Inspection, NORMAL PULSES. Negative for: Cyanosis, Edema Lower Extremity: Negative for: Edema, Erythema Neurological: Negative for: GCS=15 Skin: Positive for: Warm - Medications Active Medications: Active Medications Generic Name Dose Route Start Last Admin Trade Name Freq PRN Reason Stop Dose Admin Acetaminophen 650 mg 12/07/17 13:40 12/10/17 04:30 Tylenol 325mg Tab PO 650 mg Q6 PRN Administration Fever >100.4 F Albuterol/Ipratropium 3 ml 12/07/17 16:00 12/11/17 16:39 Duoneb 3 Mg/0.5 Mg (3 Ml) Ud INH 3 ml RQ4 [facility] Administration Amlodipine Besylate 10 mg 12/10/17 10:00 12/11/17 09:29 Norvasc PO 10 mg DAILY [facility] Administration Aspirin 81 mg 12/08/17 17:00 12/11/17 09:29 Aspirin Chewable PO 81 mg DAILY [facility] Administration Epoetin Kasi 4,000 unit 12/12/17 10:00 Procrit IV TTS [facility] Meropenem 500 mg/ Sodium 100 mls @ 100 mls/hr 12/09/17 22:00 12/11/17 13:00 Chloride IVPB 100 mls/hr Q8H [facility] Administration Protocol Vancomycin/Sodium Chloride 1 gm in 200 mls @ 133.333 mls/hr 12/11/17 12:00 11:00 Vancomycin 1 Gm/Ns 200 Ml IVPB 12/16/17 12:01 133.333 mls/hr F [facility] Administration Protocol Insulin Glargine 10 unit 12/08/17 12:30 12/11/17 09:29 Lantus SC 10 u DAILY [facility] Administration Insulin Human Regular 0 unit 12/11/17 18:00 Novolin R SC Q6H [facility] Protocol Moxifloxacin HCl 400 mg 12/10/17 16:00 12/11/17 15:14 Avelox PO Not Given Q24H [facility] Pantoprazole Sodium 40 mg 12/08/17 10:00 12/11/17 09:29 Protonix Inj IVP 40 mg DAILY [facility] Administration - Patient Studies Lab Studies: Microbiology Studies 12/07/17 10:25 Blood Culture - Preliminary Blood NO GROWTH AFTER 4 DAYS 12/07/17 10:40 Blood Culture - Preliminary Blood NO GROWTH AFTER 4 DAYS 12/07/17 Unknown Gram Stain - Final Sputum Sputum Culture - Final Enterobacter Cloacae Ssp Cloac Lab Studies 12/11/17 12/11/17 12/11/17 Range/Units 11:29 06:24 06:24 WBC 10.8 (4.8-10.8) K/uL RBC 3.18 L (3.80-5.20) Mil/uL Hgb 9.8 L (11.0-16.0) g/dL Hct 28.8 L (34.0-47.0) % MCV 90.7 (81.0-99.0) fL MCH 30.9 (27.0-31.0) pg MCHC 34.1 (33.0-37.0) g/dL RDW 14.4 (11.5-14.5) % Plt Count 130 (130-400) K/uL MPV 8.9 (7.2-11.7) fL Neut % (Auto) 88.7 H (50.0-75.0) % Lymph % (Auto) 8.4 L (20.0-40.0) % Alexander % (Auto) 2.7 (0.0-10.0) % Eos % (Auto) 0.0 (0.0-4.0) % Baso % (Auto) 0.2 (0.0-2.0) % Neut # (Auto) 9.6 H (1.8-7.0) K/uL Lymph # (Auto) 0.9 L (1.0-4.3) K/uL Alexander # (Auto) 0.3 (0.0-0.8) K/uL Eos # (Auto) 0.0 (0.0-0.7) K/uL Baso # (Auto) 0.0 (0.0-0.2) K/uL Neutrophils % (Manual) 89 H (50-75) % Lymphocytes % (Manual) 9 L (20-40) % Monocytes % (Manual) 2 (0-10) % Platelet Estimate Normal (NORMAL) [place] Cells Slight Puncture Site pCO2 (35-45) mm/Hg pO2 (80-100) mm/Hg HCO3 (21-28) mmol/L ABG pH (7.35-7.45) ABG Total CO2 (22-28) mmol/L ABG O2 Saturation (95-98) % ABG Base Excess (-2.0-3.0) mmol/L Mateo Test ABG Potassium (3.6-5.2) mmol/L A-a O2 Difference mm/Hg Respiratory Index Sodium 140 (132-148) mmol/l Chloride 98 (98-107) mmol/L Glucose (65-105) mg/dl Lactate (0.7-2.1) mmol/L Vent Mode Mechanical Rate FiO2 % Tidal Volume PEEP Potassium 3.9 (3.6-5.2) mmol/L Carbon Dioxide 26 (22-30) mmol/L Anion Gap 20 (10-20) BUN 52 H (7-17) mg/dL Creatinine 5.2 H (0.7-1.2) mg/dL Est GFR ( Amer) 10 Est GFR (Non-Af Amer) 8 POC Glucose (mg/dL) 450 H* (65-110) mg/dL Random Glucose 343 H (65-105) mg/dL Calcium 8.3 L (8.6-10.4) mg/dl Phosphorus 5.7 H (2.5-4.5) mg/dL Magnesium 2.2 (1.6-2.3) mg/dL Total Bilirubin 0.5 (0.2-1.3) mg/dL AST 128 H D (14-36) U/L ALT 369 H (9-52) U/L Alkaline Phosphatase 203 H D (38-126) U/L Total Protein 6.6 (6.3-8.3) g/dL Albumin 3.7 (3.5-5.0) g/dL Globulin 2.9 (2.2-3.9) gm/dL Albumin/Globulin Ratio 1.2 (1.0-2.1) Arterial Blood Potassium (3.6-5.2) mmol/L 12/11/17 12/11/17 12/10/17 Range/Units 05:04 04:25 23:33 WBC (4.8-10.8) K/uL RBC (3.80-5.20) Mil/uL Hgb (11.0-16.0) g/dL Hct (34.0-47.0) % MCV (81.0-99.0) fL MCH (27.0-31.0) pg MCHC (33.0-37.0) g/dL RDW (11.5-14.5) % Plt Count (130-400) K/uL MPV (7.2-11.7) fL Neut % (Auto) (50.0-75.0) % Lymph % (Auto) (20.0-40.0) % Alexander % (Auto) (0.0-10.0) % Eos % (Auto) (0.0-4.0) % Baso % (Auto) (0.0-2.0) % Neut # (Auto) (1.8-7.0) K/uL Lymph # (Auto) (1.0-4.3) K/uL Alexander # (Auto) (0.0-0.8) K/uL Eos # (Auto) (0.0-0.7) K/uL Baso # (Auto) (0.0-0.2) K/uL Neutrophils % (Manual) (50-75) % Lymphocytes % (Manual) (20-40) % Monocytes % (Manual) (0-10) % Platelet Estimate (NORMAL) [place] Cells Puncture Site Zoey pCO2 37 (35-45) mm/Hg pO2 155 H (80-100) mm/Hg HCO3 26.9 (21-28) mmol/L ABG pH 7.46 H (7.35-7.45) ABG Total CO2 27.4 (22-28) mmol/L ABG O2 Saturation 98.6 H (95-98) % ABG Base Excess 2.5 (-2.0-3.0) mmol/L Mateo Test Na ABG Potassium 3.5 L (3.6-5.2) mmol/L A-a O2 Difference 155.0 mm/Hg Respiratory Index 1.0 Sodium 138.0 (132-148) mmol/l Chloride 102.0 (98-107) mmol/L Glucose 351 H (65-105) mg/dl Lactate 1.1 (0.7-2.1) mmol/L Vent Mode Prvc Mechanical Rate 12 FiO2 50.0 % Tidal Volume 500 PEEP 5 Potassium (3.6-5.2) mmol/L Carbon Dioxide (22-30) mmol/L Anion Gap (10-20) BUN (7-17) mg/dL Creatinine (0.7-1.2) mg/dL Est GFR ( Amer) Est GFR (Non-Af Amer) POC Glucose (mg/dL) 351 H 320 H (65-110) mg/dL Random Glucose (65-105) mg/dL Calcium (8.6-10.4) mg/dl Phosphorus (2.5-4.5) mg/dL Magnesium (1.6-2.3) mg/dL Total Bilirubin (0.2-1.3) mg/dL AST (14-36) U/L ALT (9-52) U/L Alkaline Phosphatase (38-126) U/L Total Protein (6.3-8.3) g/dL Albumin (3.5-5.0) g/dL Globulin (2.2-3.9) gm/dL Albumin/Globulin Ratio (1.0-2.1) Arterial Blood Potassium 3.5 L (3.6-5.2) mmol/L Laboratory Results - last 24 hr 12/10/17 12/11/17 12/11/17 23:33 04:25 05:04 WBC RBC Hgb Hct MCV MCH MCHC RDW Plt Count MPV Neut % (Auto) Lymph % (Auto) Alexander % (Auto) Eos % (Auto) Baso % (Auto) Neut # (Auto) Lymph # (Auto) Alexander # (Auto) Eos # (Auto) Baso # (Auto) Neutrophils % (Manual) Lymphocytes % (Manual) Monocytes % (Manual) Platelet Estimate Aniya Cells Puncture Site Zoey pCO2 37 pO2 155 H HCO3 26.9 ABG pH 7.46 H ABG Total CO2 27.4 ABG O2 Saturation 98.6 H ABG Base Excess 2.5 Mateo Test Na ABG Potassium 3.5 L A-a O2 Difference 155.0 Respiratory Index 1.0 Sodium 138.0 Chloride 102.0 Glucose 351 H Lactate 1.1 Vent Mode Prvc Mechanical Rate 12 FiO2 50.0 Tidal Volume 500 PEEP 5 Potassium Carbon Dioxide Anion Gap BUN Creatinine Est GFR ( Amer) Est GFR (Non-Af Amer) POC Glucose (mg/dL) 320 H 351 H Random Glucose Calcium Phosphorus Magnesium Total Bilirubin AST ALT Alkaline Phosphatase Total Protein Albumin Globulin Albumin/Globulin Ratio Arterial Blood Potassium 3.5 L 12/11/17 12/11/17 12/11/17 06:24 06:24 11:29 WBC 10.8 RBC 3.18 L Hgb 9.8 L Hct 28.8 L MCV 90.7 MCH 30.9 MCHC 34.1 RDW 14.4 Plt Count 130 MPV 8.9 Neut % (Auto) 88.7 H Lymph % (Auto) 8.4 L Alexander % (Auto) 2.7 Eos % (Auto) 0.0 Baso % (Auto) 0.2 Neut # (Auto) 9.6 H Lymph # (Auto) 0.9 L Alexander # (Auto) 0.3 Eos # (Auto) 0.0 Baso # (Auto) 0.0 Neutrophils % (Manual) 89 H Lymphocytes % (Manual) 9 L Monocytes % (Manual) 2 Platelet Estimate Normal [place] Cells Slight Puncture Site pCO2 pO2 HCO3 ABG pH ABG Total CO2 ABG O2 Saturation ABG Base Excess Mateo Test ABG Potassium A-a O2 Difference Respiratory Index Sodium 140 Chloride 98 Glucose Lactate Vent Mode Mechanical Rate FiO2 Tidal Volume PEEP Potassium 3.9 Carbon Dioxide 26 Anion Gap 20 BUN 52 H Creatinine 5.2 H Est GFR ( Amer) 10 Est GFR (Non-Af Amer) 8 POC Glucose (mg/dL) 450 H* Random Glucose 343 H Calcium 8.3 L Phosphorus 5.7 H Magnesium 2.2 Total Bilirubin 0.5 AST 128 H D ALT 369 H Alkaline Phosphatase 203 H D Total Protein 6.6 Albumin 3.7 Globulin 2.9 Albumin/Globulin Ratio 1.2 Arterial Blood Potassium Fingerstick Blood Sugar Results: 185 Review of Systems - Review of Systems Systems not reviewed;Unavailable: Acuity of Condition Assessment/Plan - Assessment and Plan (Free Text) Assessment: 57 yo F admitted to ICU s/p cardiac arrest 1. s/p cardiac arrest -cardiac cath negative -TVP no longer needed -dopamine, w/ goal SBP >110 -low dose propofol -cardio consult Dr. Ríos -head CT neg for acute pathology -EP consult Dr. Mcgrath -hold home cardiac meds nifedipine ER 60mg BID and diltiazem ER 180mg likely cause of symptomatic bradycardia -f/u echo -extubated (12/11) 2. Shock 2/2 sepsis vs cardiogenic -WBC 10.8 -trops neg -pBNP 56,900 on admission -Merrem, moxifloxacin, vanco -f/u [place] cx, sputum + enterobacter clocae -tylenol PRN fevers 3. ESRD on HD T//Mon -Bun/Cr 52/5.2 -pt to be dialyzed today via left UE fistula -nephro consult Dr. Bunn -renal med dosing 4. DM2 -ISS moderate -accuchecks -Lantus 10U -hypoglycemic protocol Ppx -heparin 5000U sc -protonix 40mg
[2017-12-11 19:19] LABS: ABG ALLEN TEST POS; ARTERIAL BLOOD GAS HCO3 25.6 mmol/L (21-28); ARTERIAL BLOOD GAS HEMOGLOBIN 9.7 g/dL (11.7-17.4); ARTERIAL BLOOD GAS PCO2 38 mm/Hg (35-45); ARTERIAL BLOOD GAS PH 7.43 (7.35-7.45); ARTERIAL BLOOD GAS PO2 78 mm/Hg (80-100); ARTERIAL BLOOD GAS TCO2 26.4 mmol/L (22-28)
[2017-12-12] MEDS: Albuterol-Ipratrop 3 mg / 0.5 (3 ml) UD INH SCH ×6 (00:11→19:49)
[2017-12-12] MEDS: Meropenem 500 MG in Sodium Chloride 0.9% 100 ML IVPB SCH (05:05)
[2017-12-12] MEDS: (Novolin R) Insulin Human Regular 100 units/ml vial SC SCH ×4 (05:20→21:45)
[2017-12-12 06:27] LABS: BASO % 0.1 % (0.0-2.0); HEMOGLOBIN 9.1 g/dL (11.0-16.0); LYMPH # 0.9 K/uL (1.0-4.3); LYMPH % 6.3 % (20.0-40.0); MEAN CELL VOLUME 90.5 fL (81.0-99.0); MEAN CORPUSCULAR HEMOGLOBIN 30.5 pg (27.0-31.0); MEAN CORPUSCULAR HGB CONC 33.7 g/dL (33.0-37.0); MEAN PLATELET VOLUME 8.4 fL (7.2-11.7); MONO # 0.8 K/uL (0.0-0.8); MONO % 5.7 % (0.0-10.0); NEUT # 11.9 K/uL (1.8-7.0); NEUT % 87.9 % (50.0-75.0); PLATELET COUNT 148 K/uL (130-400); RBC 2.98 Mil/uL (3.80-5.20); RED CELL DISTRIBUTION WIDTH 14.2 % (11.5-14.5); WHITE BLOOD COUNT 13.6 K/uL (4.8-10.8)
[2017-12-12 06:44] LABS: ALB/GLOB RATIO 1.3 (1.0-2.1); ALBUMIN 3.9 g/dL (3.5-5.0); CALCIUM 8.2 mg/dl (8.6-10.4)
--- NOTE | 2017-12-12 06:54 | CP.CCUPN ---
<MoranLay - Last Filed: 12/12/17 11:43> CCU Subjective - Physician Review Subjective (Free Text): 57 yo F w/ PMHx DM, HTN, diabetic neuropathy, ESDR (HD T/Th/Sat) ovarian ca s/p surgical resection and chemo, brought to ED by EMT for cardiac arrest, ACLS protocol and code heart called. Pt no longer requiring pacing. Pt extubated (12/11) with no complications. Radial A-line and Right femoral line removed (12/11) Pt seen and examined at bedside. Complains of SOB, left anterior chest pain tender, pain with left arm movement. Pt denies headache, diziness, abdominal pain, nausea, diarrhea and has not been able to urinate since crocker removed. 12/11/17 17:42 12/12/17 06:42 CCU Objective - Vital Signs / Intake & Output Vital Signs (Last 4 hours): Vital Signs Temp Pulse Resp BP Pulse Ox 12/12/17 06:06 160/75 H 12/12/17 06:00 84 21 100 12/12/17 05:00 82 23 158/66 H 97 12/12/17 04:01 86 25 H 155/64 H 98 12/12/17 04:00 97.5 F L 12/12/17 03:00 85 22 152/66 H 95 Intake and Output (Last 8hrs): Intake & Output 12/11/17 12/11/17 12/12/17 14:59 22:59 06:59 Intake Total 783.8 160 160 Output Total 0 Balance 783.8 160 160 Weight 119 lb 0.794 oz Intake: IV 155 Intake, IV Amount 418.8 100 100 Left Distal Port Internal 300 Jugular Left Proximal Port 118.8 100 100 Internal Jugular Oral 60 60 Tube Feeding 210 0 Output: Urine 0 Urine, Voided 0 - Physical Exam Head: Positive for: Atraumatic, Normocephalic Conjunctiva: Positive for: Normal (left opthal) Nose (Internal): Positive for: No Active Bleeding Neck: Positive for: Other (left IJ) Respiratory/Chest: Positive for: Good Air Exchange. Negative for: Respiratory Distress, Wheezes Cardiovascular: Positive for: Regular Rate and Rhythm. Negative for: Murmurs, Tachycardic, Bradycardic Abdomen: Positive for: Normal Bowel Sounds. Negative for: Distention Upper Extremity: Positive for: Normal Inspection, NORMAL PULSES. Negative for: Cyanosis, Edema Lower Extremity: Negative for: Edema, Erythema Neurological: Negative for: GCS=15 Skin: Positive for: Warm Psychiatric: Negative for: Alert - Medications Active Medications: Active Medications Generic Name Dose Route Start Last Admin Trade Name Freq PRN Reason Stop Dose Admin Acetaminophen 650 mg 12/07/17 13:40 12/10/17 04:30 Tylenol 325mg Tab PO 650 mg Q6 PRN Administration Fever >100.4 F Albuterol/Ipratropium 3 ml 12/07/17 16:00 12/12/17 03:12 Duoneb 3 Mg/0.5 Mg (3 Ml) Ud INH Not Given RQ4 ISACC Amlodipine Besylate 10 mg 12/10/17 10:00 12/11/17 09:29 Norvasc PO 10 mg DAILY ISACC Administration Aspirin 81 mg 12/08/17 17:00 12/11/17 09:29 Aspirin Chewable PO 81 mg DAILY ISACC Administration Epoetin Kasi 4,000 unit 12/12/17 10:00 Procrit IV TTS ISACC Meropenem 500 mg/ Sodium 100 mls @ 100 mls/hr 12/09/17 22:00 12/12/17 05:05 Chloride IVPB 100 mls/hr Q8H ISACC Administration Protocol Vancomycin/Sodium Chloride 1 gm in 200 mls @ 133.333 mls/hr 12/11/17 12:00 11:00 Vancomycin 1 Gm/Ns 200 Ml IVPB 12/16/17 12:01 133.333 mls/hr MWF ISACC Administration Protocol Insulin Glargine 10 unit 12/08/17 12:30 12/11/17 09:29 Lantus SC 10 u DAILY ISACC Administration Insulin Human Regular 0 unit 12/11/17 18:00 12/12/17 05:20 Novolin R SC 4 u Q6H ISACC Administration Protocol Moxifloxacin HCl 400 mg 12/10/17 16:00 12/11/17 15:14 Avelox PO Not Given Q24H ISACC Pantoprazole Sodium 40 mg 12/08/17 10:00 12/11/17 09:29 Protonix Inj IVP 40 mg DAILY ISACC Administration - Patient Studies Lab Studies: Microbiology Studies 12/07/17 10:25 Blood Culture - Preliminary Blood NO GROWTH AFTER 4 DAYS 12/07/17 10:40 Blood Culture - Preliminary Blood NO GROWTH AFTER 4 DAYS Lab Studies 12/12/17 12/12/17 12/11/17 Range/Units 06:17 05:14 23:29 WBC 13.6 H (4.8-10.8) K/uL RBC 2.98 L (3.80-5.20) Mil/uL Hgb 9.1 L (11.0-16.0) g/dL Hct 27.0 L (34.0-47.0) % MCV 90.5 (81.0-99.0) fL MCH 30.5 (27.0-31.0) pg MCHC 33.7 (33.0-37.0) g/dL RDW 14.2 (11.5-14.5) % Plt Count 148 (130-400) K/uL MPV 8.4 (7.2-11.7) fL Neut % (Auto) 87.9 H (50.0-75.0) % Lymph % (Auto) 6.3 L (20.0-40.0) % Whitley % (Auto) 5.7 (0.0-10.0) % Eos % (Auto) 0.0 (0.0-4.0) % Baso % (Auto) 0.1 (0.0-2.0) % Neut # (Auto) 11.9 H (1.8-7.0) K/uL Lymph # (Auto) 0.9 L (1.0-4.3) K/uL Whitley # (Auto) 0.8 (0.0-0.8) K/uL Eos # (Auto) 0.0 (0.0-0.7) K/uL Baso # (Auto) 0.0 (0.0-0.2) K/uL Neutrophils % (Manual) (50-75) % Lymphocytes % (Manual) (20-40) % Monocytes % (Manual) (0-10) % Platelet Estimate (NORMAL) Aniya Cells Puncture Site pCO2 (35-45) mm/Hg pO2 (80-100) mm/Hg HCO3 (21-28) mmol/L ABG pH (7.35-7.45) ABG Total CO2 (22-28) mmol/L ABG O2 Saturation (95-98) % ABG Base Excess (-2.0-3.0) mmol/L ABG Hemoglobin (11.7-17.4) g/dL ABG Carboxyhemoglobin (0.5-1.5) % POC ABG HHb (Measured) (0.0-5.0) % ABG Methemoglobin (0.0-3.0) % Mateo Test A-a O2 Difference mm/Hg Respiratory Index Hgb O2 Saturation (95.0-98.0) % Liter Flow FiO2 % Sodium (132-148) mmol/L Potassium (3.6-5.2) mmol/L Chloride (98-107) mmol/L Carbon Dioxide (22-30) mmol/L Anion Gap (10-20) BUN (7-17) mg/dL Creatinine (0.7-1.2) mg/dL Est GFR ( Amer) Est GFR (Non-Af Amer) POC Glucose (mg/dL) 284 H 380 H (65-110) mg/dL Random Glucose (65-105) mg/dL Calcium (8.6-10.4) mg/dl Phosphorus (2.5-4.5) mg/dL Magnesium (1.6-2.3) mg/dL Total Bilirubin (0.2-1.3) mg/dL AST (14-36) U/L ALT (9-52) U/L Alkaline Phosphatase (38-126) U/L Total Protein (6.3-8.3) g/dL Albumin (3.5-5.0) g/dL Globulin (2.2-3.9) gm/dL Albumin/Globulin Ratio (1.0-2.1) 12/11/17 12/11/17 12/11/17 Range/Units 19:15 18:01 11:29 WBC (4.8-10.8) K/uL RBC (3.80-5.20) Mil/uL Hgb (11.0-16.0) g/dL Hct (34.0-47.0) % MCV (81.0-99.0) fL MCH (27.0-31.0) pg MCHC (33.0-37.0) g/dL RDW (11.5-14.5) % Plt Count (130-400) K/uL MPV (7.2-11.7) fL Neut % (Auto) (50.0-75.0) % Lymph % (Auto) (20.0-40.0) % Whitley % (Auto) (0.0-10.0) % Eos % (Auto) (0.0-4.0) % Baso % (Auto) (0.0-2.0) % Neut # (Auto) (1.8-7.0) K/uL Lymph # (Auto) (1.0-4.3) K/uL Whitley # (Auto) (0.0-0.8) K/uL Eos # (Auto) (0.0-0.7) K/uL Baso # (Auto) (0.0-0.2) K/uL Neutrophils % (Manual) (50-75) % Lymphocytes % (Manual) (20-40) % Monocytes % (Manual) (0-10) % Platelet Estimate (NORMAL) Aniya Cells Puncture Site Ra pCO2 38 (35-45) mm/Hg pO2 78 L (80-100) mm/Hg HCO3 25.6 (21-28) mmol/L ABG pH 7.43 (7.35-7.45) ABG Total CO2 26.4 (22-28) mmol/L ABG O2 Saturation 97.0 (95-98) % ABG Base Excess 0.9 (-2.0-3.0) mmol/L ABG Hemoglobin 9.7 L (11.7-17.4) g/dL ABG Carboxyhemoglobin 1.1 (0.5-1.5) % POC ABG HHb (Measured) 2.9 (0.0-5.0) % ABG Methemoglobin 1.1 (0.0-3.0) % Mateo Test Pos A-a O2 Difference 160.0 mm/Hg Respiratory Index 2.1 Hgb O2 Saturation 94.9 L (95.0-98.0) % Liter Flow 5.0 FiO2 40.0 % Sodium (132-148) mmol/L Potassium (3.6-5.2) mmol/L Chloride (98-107) mmol/L Carbon Dioxide (22-30) mmol/L Anion Gap (10-20) BUN (7-17) mg/dL Creatinine (0.7-1.2) mg/dL Est GFR ( Amer) Est GFR (Non-Af Amer) POC Glucose (mg/dL) 349 H 450 H* (65-110) mg/dL Random Glucose (65-105) mg/dL Calcium (8.6-10.4) mg/dl Phosphorus (2.5-4.5) mg/dL Magnesium (1.6-2.3) mg/dL Total Bilirubin (0.2-1.3) mg/dL AST (14-36) U/L ALT (9-52) U/L Alkaline Phosphatase (38-126) U/L Total Protein (6.3-8.3) g/dL Albumin (3.5-5.0) g/dL Globulin (2.2-3.9) gm/dL Albumin/Globulin Ratio (1.0-2.1) 12/11/17 12/11/17 Range/Units 06:24 06:24 WBC (4.8-10.8) K/uL RBC (3.80-5.20) Mil/uL Hgb (11.0-16.0) g/dL Hct (34.0-47.0) % MCV (81.0-99.0) fL MCH (27.0-31.0) pg MCHC (33.0-37.0) g/dL RDW (11.5-14.5) % Plt Count (130-400) K/uL MPV (7.2-11.7) fL Neut % (Auto) (50.0-75.0) % Lymph % (Auto) (20.0-40.0) % Whitley % (Auto) (0.0-10.0) % Eos % (Auto) (0.0-4.0) % Baso % (Auto) (0.0-2.0) % Neut # (Auto) (1.8-7.0) K/uL Lymph # (Auto) (1.0-4.3) K/uL Whitley # (Auto) (0.0-0.8) K/uL Eos # (Auto) (0.0-0.7) K/uL Baso # (Auto) (0.0-0.2) K/uL Neutrophils % (Manual) 89 H (50-75) % Lymphocytes % (Manual) 9 L (20-40) % Monocytes % (Manual) 2 (0-10) % Platelet Estimate Normal (NORMAL) Aniya Cells Slight Puncture Site pCO2 (35-45) mm/Hg pO2 (80-100) mm/Hg HCO3 (21-28) mmol/L ABG pH (7.35-7.45) ABG Total CO2 (22-28) mmol/L ABG O2 Saturation (95-98) % ABG Base Excess (-2.0-3.0) mmol/L ABG Hemoglobin (11.7-17.4) g/dL ABG Carboxyhemoglobin (0.5-1.5) % POC ABG HHb (Measured) (0.0-5.0) % ABG Methemoglobin (0.0-3.0) % Mateo Test A-a O2 Difference mm/Hg Respiratory Index Hgb O2 Saturation (95.0-98.0) % Liter Flow FiO2 % Sodium 140 (132-148) mmol/L Potassium 3.9 (3.6-5.2) mmol/L Chloride 98 (98-107) mmol/L Carbon Dioxide 26 (22-30) mmol/L Anion Gap 20 (10-20) BUN 52 H (7-17) mg/dL Creatinine 5.2 H (0.7-1.2) mg/dL Est GFR ( Amer) 10 Est GFR (Non-Af Amer) 8 POC Glucose (mg/dL) (65-110) mg/dL Random Glucose 343 H (65-105) mg/dL Calcium 8.3 L (8.6-10.4) mg/dl Phosphorus 5.7 H (2.5-4.5) mg/dL Magnesium 2.2 (1.6-2.3) mg/dL Total Bilirubin 0.5 (0.2-1.3) mg/dL AST 128 H D (14-36) U/L ALT 369 H (9-52) U/L Alkaline Phosphatase 203 H D (38-126) U/L Total Protein 6.6 (6.3-8.3) g/dL Albumin 3.7 (3.5-5.0) g/dL Globulin 2.9 (2.2-3.9) gm/dL Albumin/Globulin Ratio 1.2 (1.0-2.1) Laboratory Results - last 24 hr 12/11/17 12/11/17 12/11/17 06:24 06:24 11:29 WBC RBC Hgb Hct MCV MCH MCHC RDW Plt Count MPV Neut % (Auto) Lymph % (Auto) Whitley % (Auto) Eos % (Auto) Baso % (Auto) Neut # (Auto) Lymph # (Auto) Whitley # (Auto) Eos # (Auto) Baso # (Auto) Neutrophils % (Manual) 89 H Lymphocytes % (Manual) 9 L Monocytes % (Manual) 2 Platelet Estimate Normal Aniya Cells Slight Puncture Site pCO2 pO2 HCO3 ABG pH ABG Total CO2 ABG O2 Saturation ABG Base Excess ABG Hemoglobin ABG Carboxyhemoglobin POC ABG HHb (Measured) ABG Methemoglobin Mateo Test A-a O2 Difference Respiratory Index Hgb O2 Saturation Liter Flow FiO2 Sodium 140 Potassium 3.9 Chloride 98 Carbon Dioxide 26 Anion Gap 20 BUN 52 H Creatinine 5.2 H Est GFR ( Amer) 10 Est GFR (Non-Af Amer) 8 POC Glucose (mg/dL) 450 H* Random Glucose 343 H Calcium 8.3 L Phosphorus 5.7 H Magnesium 2.2 Total Bilirubin 0.5 AST 128 H D ALT 369 H Alkaline Phosphatase 203 H D Total Protein 6.6 Albumin 3.7 Globulin 2.9 Albumin/Globulin Ratio 1.2 12/11/17 12/11/17 12/11/17 18:01 19:15 23:29 WBC RBC Hgb Hct MCV MCH MCHC RDW Plt Count MPV Neut % (Auto) Lymph % (Auto) Whitley % (Auto) Eos % (Auto) Baso % (Auto) Neut # (Auto) Lymph # (Auto) Whitley # (Auto) Eos # (Auto) Baso # (Auto) Neutrophils % (Manual) Lymphocytes % (Manual) Monocytes % (Manual) Platelet Estimate Aniya Cells Puncture Site Ra pCO2 38 pO2 78 L HCO3 25.6 ABG pH 7.43 ABG Total CO2 26.4 ABG O2 Saturation 97.0 ABG Base Excess 0.9 ABG Hemoglobin 9.7 L ABG Carboxyhemoglobin 1.1 POC ABG HHb (Measured) 2.9 ABG Methemoglobin 1.1 Mateo Test Pos A-a O2 Difference 160.0 Respiratory Index 2.1 Hgb O2 Saturation 94.9 L Liter Flow 5.0 FiO2 40.0 Sodium Potassium Chloride Carbon Dioxide Anion Gap BUN Creatinine Est GFR ( Amer) Est GFR (Non-Af Amer) POC Glucose (mg/dL) 349 H 380 H Random Glucose Calcium Phosphorus Magnesium Total Bilirubin AST ALT Alkaline Phosphatase Total Protein Albumin Globulin Albumin/Globulin Ratio 12/12/17 12/12/17 05:14 06:17 WBC 13.6 H RBC 2.98 L Hgb 9.1 L Hct 27.0 L MCV 90.5 MCH 30.5 MCHC 33.7 RDW 14.2 Plt Count 148 MPV 8.4 Neut % (Auto) 87.9 H Lymph % (Auto) 6.3 L Whitley % (Auto) 5.7 Eos % (Auto) 0.0 Baso % (Auto) 0.1 Neut # (Auto) 11.9 H Lymph # (Auto) 0.9 L Whitley # (Auto) 0.8 Eos # (Auto) 0.0 Baso # (Auto) 0.0 Neutrophils % (Manual) Lymphocytes % (Manual) Monocytes % (Manual) Platelet Estimate Aniya Cells Puncture Site pCO2 pO2 HCO3 ABG pH ABG Total CO2 ABG O2 Saturation ABG Base Excess ABG Hemoglobin ABG Carboxyhemoglobin POC ABG HHb (Measured) ABG Methemoglobin Mateo Test A-a O2 Difference Respiratory Index Hgb O2 Saturation Liter Flow FiO2 Sodium Potassium Chloride Carbon Dioxide Anion Gap BUN Creatinine Est GFR ( Amer) Est GFR (Non-Af Amer) POC Glucose (mg/dL) 284 H Random Glucose Calcium Phosphorus Magnesium Total Bilirubin AST ALT Alkaline Phosphatase Total Protein Albumin Globulin Albumin/Globulin Ratio Fingerstick Blood Sugar Results: 284 Assessment/Plan - Assessment and Plan (Free Text) Assessment: 57 yo F admitted to ICU s/p cardiac arrest 1. s/p cardiac arrest -cardiac cath negative -TVP no longer needed -cardio consult Dr. Ríos -head CT neg for acute pathology -EP consult Dr. Mcgrath -hold home cardiac meds nifedipine ER 60mg BID and diltiazem ER 180mg likely cause of symptomatic bradycardia -extubated (12/11) 2. Shock 2/2 sepsis vs cardiogenic -WBC 13.6 -trops neg -pBNP 56,900 on admission -Merrem, moxifloxacin, vanco -f/u [place] cx, sputum + enterobacter clocae -tylenol PRN fevers 3. ESRD on HD T//Mon -Bun/Cr 90/6.6 -pt to be dialyzed today via left UE fistula -nephro consult Dr. Bunn -Renvela 1600 mg TID, hydralazine 50mg BID, procrit 4000U TTS per Dr. Bunn -renal med dosing 4. DM2 -ISS moderate -accuchecks -Lantus 10U -hypoglycemic protocol Ppx -protonix 40mg <Garrison Santana S - Last Filed: 12/12/17 17:04> CCU Objective - Vital Signs / Intake & Output Vital Signs (Last 4 hours): Vital Signs Temp Pulse Resp BP Pulse Ox 12/12/17 16:00 97.8 F 82 18 100 12/12/17 15:48 83 25 H 141/39 L 100 12/12/17 15:15 84 14 145/43 L 100 12/12/17 15:00 87 20 99 12/12/17 14:00 90 24 100 12/12/17 13:47 91 H 20 161/89 H 100 Intake and Output (Last 8hrs): Intake & Output 12/12/17 12/12/17 12/12/17 06:59 14:59 22:59 Intake Total 160 473 67 Output Total 0 3300 Balance 160 -2827 67 Weight 119 lb 0.794 oz Intake: Intake, IV Amount 100 133 67 Left Proximal Port 100 133 67 Internal Jugular Oral 60 340 Output: Urine 0 Urine, Voided 0 Other 3300 - Medications Active Medications: Active Medications Generic Name Dose Route Start Last Admin Trade Name Freq PRN Reason Stop Dose Admin Acetaminophen 650 mg 12/07/17 13:40 12/10/17 04:30 Tylenol 325mg Tab PO 650 mg Q6 PRN Administration Fever >100.4 F Albuterol/Ipratropium 3 ml 12/07/17 16:00 12/12/17 11:51 Duoneb 3 Mg/0.5 Mg (3 Ml) Ud INH 3 ml RQ4 ISACC Administration Amlodipine Besylate 10 mg 12/10/17 10:00 12/12/17 10:35 Norvasc PO 10 mg DAILY ISACC Administration Aspirin 81 mg 12/08/17 17:00 12/12/17 09:21 Aspirin Chewable PO 81 mg DAILY ISACC Administration Epoetin Kasi 4,000 unit 12/12/17 10:00 12/12/17 11:40 Procrit IV 4,000 unit TTS ISACC Administration Hydralazine HCl 50 mg 12/12/17 11:00 12/12/17 12:45 Apresoline PO 50 mg BID ISACC Administration Vancomycin/Sodium Chloride 1 gm in 200 mls @ 133.333 mls/hr 12/12/17 14:00 14:27 Vancomycin 1 Gm/Ns 200 Ml IVPB 12/17/17 14:01 133.333 mls/hr TTS ISACC Administration Protocol Insulin Glargine 10 unit 12/08/17 12:30 12/12/17 10:36 Lantus SC 10 u DAILY ISACC Administration Insulin Human Regular 0 unit 12/12/17 16:30 12/12/17 16:30 Novolin R SC 4 u ACHS ISACC Administration Protocol Moxifloxacin HCl 400 mg 12/10/17 16:00 12/12/17 16:17 Avelox PO 400 mg Q24H ISACC Administration Pantoprazole Sodium 40 mg 12/13/17 10:00 Protonix Ec Tab PO DAILY ISACC Sevelamer Carbonate 1,600 mg 12/12/17 12:00 12/12/17 12:45 Renvela PO 1,600 mg TIDCC ISACC Administration Vitamin B Complex/Vit C/Folic Acid 1 tab 12/13/17 08:00 Nephro-Perry PO 0800 [facility] - Patient Studies Lab Studies: Microbiology Studies 12/07/17 10:25 Blood Culture - Final Blood NO GROWTH AFTER 5 DAYS 12/07/17 10:40 Blood Culture - Final Blood NO GROWTH AFTER 5 DAYS Gram Stain - Final TEST NOT PERFORMED Lab Studies 12/12/17 12/12/17 12/12/17 Range/Units 16:26 11:31 06:17 WBC 13.6 H (4.8-10.8) K/uL RBC 2.98 L (3.80-5.20) Mil/uL Hgb 9.1 L (11.0-16.0) g/dL Hct 27.0 L (34.0-47.0) % MCV 90.5 (81.0-99.0) fL MCH 30.5 (27.0-31.0) pg MCHC 33.7 (33.0-37.0) g/dL RDW 14.2 (11.5-14.5) % Plt Count 148 (130-400) K/uL MPV 8.4 (7.2-11.7) fL Neut % (Auto) 87.9 H (50.0-75.0) % Lymph % (Auto) 6.3 L (20.0-40.0) % Whitley % (Auto) 5.7 (0.0-10.0) % Eos % (Auto) 0.0 (0.0-4.0) % Baso % (Auto) 0.1 (0.0-2.0) % Neut # (Auto) 11.9 H (1.8-7.0) K/uL Lymph # (Auto) 0.9 L (1.0-4.3) K/uL Whitley # (Auto) 0.8 (0.0-0.8) K/uL Eos # (Auto) 0.0 (0.0-0.7) K/uL Baso # (Auto) 0.0 (0.0-0.2) K/uL Neutrophils % (Manual) 90 H (50-75) % Band Neutrophils % 1 (0-2) % Lymphocytes % (Manual) 6 L (20-40) % Monocytes % (Manual) 3 (0-10) % Platelet Estimate Normal (NORMAL) Plt Clumps, EDTA Giant Platelets Present RBC Morphology Normal Puncture Site pCO2 (35-45) mm/Hg pO2 (80-100) mm/Hg HCO3 (21-28) mmol/L ABG pH (7.35-7.45) ABG Total CO2 (22-28) mmol/L ABG O2 Saturation (95-98) % ABG Base Excess (-2.0-3.0) mmol/L ABG Hemoglobin (11.7-17.4) g/dL ABG Carboxyhemoglobin (0.5-1.5) % POC ABG HHb (Measured) (0.0-5.0) % ABG Methemoglobin (0.0-3.0) % Mateo Test A-a O2 Difference mm/Hg Respiratory Index Hgb O2 Saturation (95.0-98.0) % Liter Flow FiO2 % Sodium (132-148) mmol/L Potassium (3.6-5.2) mmol/L Chloride (98-107) mmol/L Carbon Dioxide (22-30) mmol/L Anion Gap (10-20) BUN (7-17) mg/dL Creatinine (0.7-1.2) mg/dL Est GFR ( Amer) Est GFR (Non-Af Amer) POC Glucose (mg/dL) 285 H 185 H (65-110) mg/dL Random Glucose (65-105) mg/dL Calcium (8.6-10.4) mg/dl Phosphorus (2.5-4.5) mg/dL Magnesium (1.6-2.3) mg/dL Total Bilirubin (0.2-1.3) mg/dL AST (14-36) U/L ALT (9-52) U/L Alkaline Phosphatase (38-126) U/L Total Protein (6.3-8.3) g/dL Albumin (3.5-5.0) g/dL Globulin (2.2-3.9) gm/dL Albumin/Globulin Ratio (1.0-2.1) 12/12/17 12/12/17 12/11/17 Range/Units 06:16 05:14 23:29 WBC (4.8-10.8) K/uL RBC (3.80-5.20) Mil/uL Hgb (11.0-16.0) g/dL Hct (34.0-47.0) % MCV (81.0-99.0) fL MCH (27.0-31.0) pg MCHC (33.0-37.0) g/dL RDW (11.5-14.5) % Plt Count (130-400) K/uL MPV (7.2-11.7) fL Neut % (Auto) (50.0-75.0) % Lymph % (Auto) (20.0-40.0) % Whitley % (Auto) (0.0-10.0) % Eos % (Auto) (0.0-4.0) % Baso % (Auto) (0.0-2.0) % Neut # (Auto) (1.8-7.0) K/uL Lymph # (Auto) (1.0-4.3) K/uL Whitley # (Auto) (0.0-0.8) K/uL Eos # (Auto) (0.0-0.7) K/uL Baso # (Auto) (0.0-0.2) K/uL Neutrophils % (Manual) (50-75) % Band Neutrophils % (0-2) % Lymphocytes % (Manual) (20-40) % Monocytes % (Manual) (0-10) % Platelet Estimate (NORMAL) Plt Clumps, EDTA Giant Platelets RBC Morphology Puncture Site pCO2 (35-45) mm/Hg pO2 (80-100) mm/Hg HCO3 (21-28) mmol/L ABG pH (7.35-7.45) ABG Total CO2 (22-28) mmol/L ABG O2 Saturation (95-98) % ABG Base Excess (-2.0-3.0) mmol/L ABG Hemoglobin (11.7-17.4) g/dL ABG Carboxyhemoglobin (0.5-1.5) % POC ABG HHb (Measured) (0.0-5.0) % ABG Methemoglobin (0.0-3.0) % Mateo Test A-a O2 Difference mm/Hg Respiratory Index Hgb O2 Saturation (95.0-98.0) % Liter Flow FiO2 % Sodium 143 (132-148) mmol/L Potassium 4.5 (3.6-5.2) mmol/L Chloride 95 L (98-107) mmol/L Carbon Dioxide 24 (22-30) mmol/L Anion Gap 27 H (10-20) BUN 90 H (7-17) mg/dL Creatinine 6.6 H (0.7-1.2) mg/dL Est GFR ( Amer) 8 Est GFR (Non-Af Amer) 6 POC Glucose (mg/dL) 284 H 380 H (65-110) mg/dL Random Glucose 255 H (65-105) mg/dL Calcium 8.2 L (8.6-10.4) mg/dl Phosphorus 8.0 H (2.5-4.5) mg/dL Magnesium 2.4 H (1.6-2.3) mg/dL Total Bilirubin 0.5 (0.2-1.3) mg/dL AST 59 H D (14-36) U/L ALT 272 H D (9-52) U/L Alkaline Phosphatase 148 H D (38-126) U/L Total Protein 6.8 (6.3-8.3) g/dL Albumin 3.9 (3.5-5.0) g/dL Globulin 2.9 (2.2-3.9) gm/dL Albumin/Globulin Ratio 1.3 (1.0-2.1) 12/11/17 12/11/17 Range/Units 19:15 18:01 WBC (4.8-10.8) K/uL RBC (3.80-5.20) Mil/uL Hgb (11.0-16.0) g/dL Hct (34.0-47.0) % MCV (81.0-99.0) fL MCH (27.0-31.0) pg MCHC (33.0-37.0) g/dL RDW (11.5-14.5) % Plt Count (130-400) K/uL MPV (7.2-11.7) fL Neut % (Auto) (50.0-75.0) % Lymph % (Auto) (20.0-40.0) % Whitley % (Auto) (0.0-10.0) % Eos % (Auto) (0.0-4.0) % Baso % (Auto) (0.0-2.0) % Neut # (Auto) (1.8-7.0) K/uL Lymph # (Auto) (1.0-4.3) K/uL Whitley # (Auto) (0.0-0.8) K/uL Eos # (Auto) (0.0-0.7) K/uL Baso # (Auto) (0.0-0.2) K/uL Neutrophils % (Manual) (50-75) % Band Neutrophils % (0-2) % Lymphocytes % (Manual) (20-40) % Monocytes % (Manual) (0-10) % Platelet Estimate (NORMAL) Plt Clumps, EDTA Giant Platelets RBC Morphology Puncture Site Ra pCO2 38 (35-45) mm/Hg pO2 78 L (80-100) mm/Hg HCO3 25.6 (21-28) mmol/L ABG pH 7.43 (7.35-7.45) ABG Total CO2 26.4 (22-28) mmol/L ABG O2 Saturation 97.0 (95-98) % ABG Base Excess 0.9 (-2.0-3.0) mmol/L ABG Hemoglobin 9.7 L (11.7-17.4) g/dL ABG Carboxyhemoglobin 1.1 (0.5-1.5) % POC ABG HHb (Measured) 2.9 (0.0-5.0) % ABG Methemoglobin 1.1 (0.0-3.0) % [place] Test Pos A-a O2 Difference 160.0 mm/Hg Respiratory Index 2.1 Hgb O2 Saturation 94.9 L (95.0-98.0) % Liter Flow 5.0 FiO2 40.0 % Sodium (132-148) mmol/L Potassium (3.6-5.2) mmol/L Chloride (98-107) mmol/L Carbon Dioxide (22-30) mmol/L Anion Gap (10-20) BUN (7-17) mg/dL Creatinine (0.7-1.2) mg/dL Est GFR ( Amer) Est GFR (Non-Af Amer) POC Glucose (mg/dL) 349 H (65-110) mg/dL Random Glucose (65-105) mg/dL Calcium (8.6-10.4) mg/dl Phosphorus (2.5-4.5) mg/dL Magnesium (1.6-2.3) mg/dL Total Bilirubin (0.2-1.3) mg/dL AST (14-36) U/L ALT (9-52) U/L Alkaline Phosphatase (38-126) U/L Total Protein (6.3-8.3) g/dL Albumin (3.5-5.0) g/dL Globulin (2.2-3.9) gm/dL Albumin/Globulin Ratio (1.0-2.1) Laboratory Results - last 24 hr 12/11/17 12/11/17 12/11/17 18:01 19:15 23:29 WBC RBC Hgb Hct MCV MCH MCHC RDW Plt Count MPV Neut % (Auto) Lymph % (Auto) Whitley % (Auto) Eos % (Auto) Baso % (Auto) Neut # (Auto) Lymph # (Auto) Whitley # (Auto) Eos # (Auto) Baso # (Auto) Neutrophils % (Manual) Band Neutrophils % Lymphocytes % (Manual) Monocytes % (Manual) Platelet Estimate Plt Clumps, EDTA Giant Platelets RBC Morphology Puncture Site Ra pCO2 38 pO2 78 L HCO3 25.6 ABG pH 7.43 ABG Total CO2 26.4 ABG O2 Saturation 97.0 ABG Base Excess 0.9 ABG Hemoglobin 9.7 L ABG Carboxyhemoglobin 1.1 POC ABG HHb (Measured) 2.9 ABG Methemoglobin 1.1 [place] Test Pos A-a O2 Difference 160.0 Respiratory Index 2.1 Hgb O2 Saturation 94.9 L Liter Flow 5.0 FiO2 40.0 Sodium Potassium Chloride Carbon Dioxide Anion Gap BUN Creatinine Est GFR ( Amer) Est GFR (Non-Af Amer) POC Glucose (mg/dL) 349 H 380 H Random Glucose Calcium Phosphorus Magnesium Total Bilirubin AST ALT Alkaline Phosphatase Total Protein Albumin Globulin Albumin/Globulin Ratio 12/12/17 12/12/17 12/12/17 05:14 06:16 06:17 WBC 13.6 H RBC 2.98 L Hgb 9.1 L Hct 27.0 L MCV 90.5 MCH 30.5 MCHC 33.7 RDW 14.2 Plt Count 148 MPV 8.4 Neut % (Auto) 87.9 H Lymph % (Auto) 6.3 L Whitley % (Auto) 5.7 Eos % (Auto) 0.0 Baso % (Auto) 0.1 Neut # (Auto) 11.9 H Lymph # (Auto) 0.9 L Whitley # (Auto) 0.8 Eos # (Auto) 0.0 Baso # (Auto) 0.0 Neutrophils % (Manual) 90 H Band Neutrophils % 1 Lymphocytes % (Manual) 6 L Monocytes % (Manual) 3 Platelet Estimate Normal Plt Clumps, EDTA Giant Platelets Present RBC Morphology Normal Puncture Site pCO2 pO2 HCO3 ABG pH ABG Total CO2 ABG O2 Saturation ABG Base Excess ABG Hemoglobin ABG Carboxyhemoglobin POC ABG HHb (Measured) ABG Methemoglobin [place] Test A-a O2 Difference Respiratory Index Hgb O2 Saturation Liter Flow FiO2 Sodium 143 Potassium 4.5 Chloride 95 L Carbon Dioxide 24 Anion Gap 27 H BUN 90 H Creatinine 6.6 H Est GFR ( Amer) 8 Est GFR (Non-Af Amer) 6 POC Glucose (mg/dL) 284 H Random Glucose 255 H Calcium 8.2 L Phosphorus 8.0 H Magnesium 2.4 H Total Bilirubin 0.5 AST 59 H D ALT 272 H D Alkaline Phosphatase 148 H D Total Protein 6.8 Albumin 3.9 Globulin 2.9 Albumin/Globulin Ratio 1.3 12/12/17 12/12/17 11:31 16:26 WBC RBC Hgb Hct MCV MCH MCHC RDW Plt Count MPV Neut % (Auto) Lymph % (Auto) Whitley % (Auto) Eos % (Auto) Baso % (Auto) Neut # (Auto) Lymph # (Auto) Whitley # (Auto) Eos # (Auto) Baso # (Auto) Neutrophils % (Manual) Band Neutrophils % Lymphocytes % (Manual) Monocytes % (Manual) Platelet Estimate Plt Clumps, EDTA Giant Platelets RBC Morphology Puncture Site pCO2 pO2 HCO3 ABG pH ABG Total CO2 ABG O2 Saturation ABG Base Excess ABG Hemoglobin ABG Carboxyhemoglobin POC ABG HHb (Measured) ABG Methemoglobin [place] Test A-a O2 Difference Respiratory Index Hgb O2 Saturation Liter Flow FiO2 Sodium Potassium Chloride Carbon Dioxide Anion Gap BUN Creatinine Est GFR ( Amer) Est GFR (Non-Af Amer) POC Glucose (mg/dL) 185 H 285 H Random Glucose Calcium Phosphorus Magnesium Total Bilirubin AST ALT Alkaline Phosphatase Total Protein Albumin Globulin Albumin/Globulin Ratio Critical Care Progress Note - Nutrition Nutrition: Nutrition Category Date Time Status Mechanically altered [Dysphagia/Modified Consistency Diets 12/12/17 Breakfast Active Diet] [DIET] Attending/Attestation - Attestation I have personally seen and examined this patient.: Yes I have fully participated in the care of the patient.: Yes I have reviewed all pertinent clinical information: Yes Notes (Text): 12/12/17 17:02 patient seen and examined in the intensive care unit. Patient extubated yesterday and in no respiratory distress Seen during hemodialysis Started on diet Continue antibiotics Status post cardiac cath Discontinue transvenous pacemaker
--- NOTE | 2017-12-12 07:38 | PN ---
DATE: 12/11/2017 SUBJECTIVE: The patient on the ventilator, sedated. ASSESSMENT AND PLAN: Discussed with the fabrication supervisor regarding cardiac test. Dr. Mcgrath will wait until the sepsis is controlled for further pacemaker. Continue ICU management. Kobi Stanley MD
--- NOTE | 2017-12-12 07:46 | PN ---
DATE: 12/11/2017 SUBJECTIVE: The patient on ventilator, supportive care. Discussed with thermal technician. Current cardiac test, rule out . Kobi Stanley MD
[2017-12-12 08:17] LABS: BANDS 1 % (0-2); LYMPHOCYTE 6 % (20-40); MONOCYTE 3 % (0-10); NEUTROPHIL 90 % (50-75); PLATELET ESTIMATE NORMAL (NORMAL); TOTAL CELLS COUNTED 100
[2017-12-12 08:19] LABS: GIANT PLATELETS PRESENT
[2017-12-12] MEDS ORDERED: Morphine 4 MG/ML VIAL IV ONE (09:43)
--- NOTE | 2017-12-12 10:19 | RAD ---
Date of service: 12/12/2017 HISTORY: extubated COMPARISON: 12/11/2017 FINDINGS: LUNGS: Shallow lung volumes more in now than before. Prior patchy infiltrate left lung base re-expanded. PLEURA: No significant pleural effusion identified, no pneumothorax apparent. CARDIOVASCULAR: Cardiomegaly-similar. Central pulmonary vasculature probably similar allowing for the crowding of current pulmonary vasculature due to shallow lung volumes. OSSEOUS STRUCTURES: No significant abnormalities. VISUALIZED UPPER ABDOMEN: Normal. OTHER FINDINGS: Endotracheal and enteric tubes, removed. Left internal jugular access central venous catheter -similar IMPRESSION: Interval improvement/ interval improved aeration left lung base. Support lines removed as above.
[2017-12-12] MEDS: (Lantus) Insulin Glargine, Recombinant SC SCH (10:36)
[2017-12-12] MEDS: EPOETIN ALFA 4,000 UNIT/ML ML Dialysis IV SCH (11:40)
--- NOTE | 2017-12-12 11:42 | CARD ---
APPROVED REPORT Date of service: 12/09/2017 EKG Measurement Heart [id number] <Conclusion> Normal sinus rhythm Left axis deviation Nonspecific T wave abnormality Abnormal ECG
--- NOTE | 2017-12-12 12:09 | CP.PCM.PN ---
Subjective - Date & Time of Evaluation Date of Evaluation: 12/12/17 Time of Evaluation: 08:00 - Subjective Subjective: 57 yo F w/ PMHx DM, HTN, diabetic neuropathy, ESDR (HD T/Th/Sat) ovarian ca s/p surgical resection and chemo, brought to ED by EMT for cardiac arrest, ACLS protocol and code heart called. currently awake and alert on HD in NAD Objective - Vital Signs/Intake and Output Vital Signs (last 24 hours): Temp Pulse Resp BP Pulse Ox 98.2 F 79 24 185/66 H 100 12/12/17 09:15 12/12/17 11:06 12/12/17 11:06 12/12/17 11:45 12/12/17 11:06 Intake and Output: 12/12/17 12/12/17 06:59 18:59 Intake Total 320 100 Output Total 0 Balance 320 100 - Medications Medications: Current Medications Acetaminophen (Tylenol 325mg Tab) 650 mg PO Q6 PRN PRN Reason: Fever >100.4 F Last Admin: 12/10/17 04:30 Dose: 650 mg Albuterol/Ipratropium (Duoneb 3 Mg/0.5 Mg (3 Ml) Ud) 3 ml INH RQ4 [facility] Last Admin: 12/12/17 11:51 Dose: 3 ml Amlodipine Besylate (Norvasc) 10 mg PO DAILY [facility] Last Admin: 12/12/17 10:35 Dose: 10 mg Aspirin (Aspirin Chewable) 81 mg PO DAILY [facility] Last Admin: 12/12/17 09:21 Dose: 81 mg Epoetin Kasi (Procrit) 4,000 unit IV TTS [facility] Last Admin: 12/12/17 11:40 Dose: 4,000 unit Hydralazine HCl (Apresoline) 50 mg PO BID [facility] Meropenem 500 mg/ Sodium (Chloride) 100 mls @ 100 mls/hr IVPB Q8H [facility] PRN Reason: Protocol Last Admin: 12/12/17 05:05 Dose: 100 mls/hr Vancomycin/Sodium Chloride (Vancomycin 1 Gm/Ns 200 Ml) 1 gm in 200 mls @ 133.333 mls/hr IVPB TTS [facility] PRN Reason: Protocol Stop: 12/17/17 14:01 Insulin Glargine (Lantus) 10 unit SC DAILY [facility] Last Admin: 12/12/17 10:36 Dose: 10 u Insulin Human Regular (Novolin R) 0 unit SC Q6H [facility] PRN Reason: Protocol Last Admin: 12/12/17 05:20 Dose: 4 u Moxifloxacin HCl (Avelox) 400 mg PO Q24H [facility] Last Admin: 12/11/17 15:14 Dose: Not Given Pantoprazole Sodium (Protonix Ec Tab) 40 mg PO DAILY [facility] Sevelamer Carbonate (Renvela) 1,600 mg PO TIDCC [facility] Vitamin B Complex/Vit C/Folic Acid (Nephro-Perry) 1 tab PO 0800 [facility] - Labs Labs: 12/12/17 06:17 12/12/17 06:16 PT 12.6 SECONDS (9.7-12.2) H 12/08/17 06:32 INR 1.2 12/08/17 06:32 APTT 29 SECONDS (21-34) 12/08/17 10:56 - Constitutional Appears: Non-toxic, Chronically Ill - Head Exam Head Exam: NORMOCEPHALIC - Eye Exam Eye Exam: absent: Scleral icterus - ENT Exam ENT Exam: Mucous Membranes Dry - Neck Exam Neck Exam: absent: Lymphadenopathy - Respiratory Exam Respiratory Exam: Decreased Breath Sounds - Cardiovascular Exam Cardiovascular Exam: REGULAR RHYTHM - GI/Abdominal Exam GI & Abdominal Exam: Distended, Soft - Rectal Exam Rectal Exam: Deferred - Exam Exam: NORMAL INSPECTION - Extremities Exam Extremities Exam: absent: Pedal Edema - Back Exam Back Exam: absent: CVA tenderness (L), CVA tenderness (R) - Neurological Exam Neurological Exam: Alert, Awake, CN II-XII Intact, Oriented x3 Neuro motor strength exam: Left Upper Extremity: 3, Right Upper Extremity: 3, Left Lower Extremity: 3, Right Lower Extremity: 3 - Psychiatric Exam Psychiatric exam: Depressed - Skin Skin Exam: Dry Assessment and Plan (1) CKD (chronic kidney disease) requiring chronic dialysis Status: Acute (2) Bradycardia Status: Acute (3) Cardiac arrest Status: Acute (4) Pneumonia Status: Acute (5) Respiratory failure requiring intubation Status: Acute - Assessment and Plan (Free Text) Assessment: cont iv antibiotics chest PT
--- NOTE | 2017-12-12 12:13 | CP.PCM.PN ---
Subjective - Date & Time of Evaluation Date of Evaluation: 12/12/17 Time of Evaluation: 12:09 - Subjective Subjective: Nephrology Consultation Note Assessment: stable Cardiac arrest, acute respi failure Hyperkalemia, lactic acidosis, hypokalemia Diabetic chronic Kidney Disease (E11.22) Hypertensive Chronic Kidney Disease (I12.0) End stage renal disease (N18.6) dependence on hemodialysis (Z99.2) (TTS) via AVF Anemia (D64.9), Hyperphosphatemia (E83.39), Secondary Hyperparathyroidism (E21.1 ), HTN (I12.0) Hypercalcemia likely due to IV given during ACLS (outpt Ca 9.1 PTH 453 recently) Hx of ovarian cancer s/p chemo, in remission for last 2 years RV pressure overload and moderate pulmonary HTN Plan: Had d/w family about need for strict low K diet. pt on veltassa daily at home. d /c losartan as pt has tendency for hyperkalemia as outpt Plan for next HD today per TTS schedule. Continue with Nephrovite 1 tab/day. PRBC as needed for anemia. started NEIDA with HD last Hb 9.8 last phos level 8 started phos binders BP control on norvasc. added hydralazine. Glycemic control, Dialysis consistent diet Further work up/management as per primary team Dose meds/antibiotics (if needed) for ESRD status. Avoid fleets enema/magnesium based laxatives. cardiology following Thanks for allowing me to participate in care of your patient. will follow with you. Please call if any Qs. had d/w family and team Dr Shahab Bunn Office: [phone] Chief Complaint; cardiac arrest reason for consult: ESRD HPI: Pt is a 57 F with hx of ESRD on hemodialysis (TTS) via AVF @ [facility] for last 7 years, chronic anemia, hyperphosphatemia, secondary hyperparathyroidism, Diabetes Mellitus, hypertension, ovarian cancer s/p chemo, in remission for last 2 years found to be unresponsive at home, pt s/p ACLS and intubated/sedated, now in ICU pt unable to provide much hx daughter bedside says pt was fine 1 day ago except mild cough. no other concerns or complaints reported. pt is non smoker/no etoh/no drugs. last HD monday ROS: extubated 12/11/17. pt feels better. denies CP/SOB Physical Examination: seen on HD General Appearance: comfortable, not in acute distress Vitals reviewed and noted as below Head; Atraumatic, normocephalic ENT: noral EYES: left eye blind Neck; supple no lymphadenopathy, no thyromegaly or bruit Lungs: normal respiratory rate/effort. Breath sounds bilateral clear anteriorly Heart: Normal rate. s1s2 normal. No rub or gallop. Extremities: no edema. No varicose veins. Neurological: Patient is awake alert follows commands. Skin: Warm and dry. Normal turgor. No rash. Palpitation: Normal elasticity for age Abdomen: Abdomen is soft. Bowel sounds +. There is no abdominal tenderness, no guarding/rigidity or organomegaly Psych: deferred MSK: no joint tenderness or swelling. Digits and nails normal, no deformity : kidney or bladder not palpable Access: AVF Labs/imaging reviewed. Past medical history, past surgical history, family history, social history, allergy reviewed and noted as below Family Hx: no hx of CKD. Non contributory Objective - Vital Signs/Intake and Output Vital Signs (last 24 hours): Temp Pulse Resp BP Pulse Ox 98.2 F 79 24 190/67 H 100 12/12/17 09:15 12/12/17 11:06 12/12/17 11:06 12/12/17 12:00 12/12/17 11:06 Intake and Output: 12/12/17 12/12/17 06:59 18:59 Intake Total 320 100 Output Total 0 Balance 320 100 - Medications Medications: Current Medications Acetaminophen (Tylenol 325mg Tab) 650 mg PO Q6 PRN PRN Reason: Fever >100.4 F Last Admin: 12/10/17 04:30 Dose: 650 mg Albuterol/Ipratropium (Duoneb 3 Mg/0.5 Mg (3 Ml) Ud) 3 ml INH RQ4 [facility] Last Admin: 12/12/17 11:51 Dose: 3 ml Amlodipine Besylate (Norvasc) 10 mg PO DAILY [facility] Last Admin: 12/12/17 10:35 Dose: 10 mg Aspirin (Aspirin Chewable) 81 mg PO DAILY [facility] Last Admin: 12/12/17 09:21 Dose: 81 mg Epoetin Kasi (Procrit) 4,000 unit IV TTS [facility] Last Admin: 12/12/17 11:40 Dose: 4,000 unit Hydralazine HCl (Apresoline) 50 mg PO BID [facility] Meropenem 500 mg/ Sodium (Chloride) 100 mls @ 100 mls/hr IVPB Q8H [facility] PRN Reason: Protocol Last Admin: 12/12/17 05:05 Dose: 100 mls/hr Vancomycin/Sodium Chloride (Vancomycin 1 Gm/Ns 200 Ml) 1 gm in 200 mls @ 133.333 mls/hr IVPB TTS [facility] PRN Reason: Protocol Stop: 12/17/17 14:01 Insulin Glargine (Lantus) 10 unit SC DAILY [facility] Last Admin: 12/12/17 10:36 Dose: 10 u Insulin Human Regular (Novolin R) 0 unit SC Q6H [facility] PRN Reason: Protocol Last Admin: 12/12/17 05:20 Dose: 4 u Moxifloxacin HCl (Avelox) 400 mg PO Q24H [facility] Last Admin: 12/11/17 15:14 Dose: Not Given Pantoprazole Sodium (Protonix Ec Tab) 40 mg PO DAILY [facility] Sevelamer Carbonate (Renvela) 1,600 mg PO TIDCC [facility] Vitamin B Complex/Vit C/Folic Acid (Nephro-Perry) 1 tab PO 0800 [facility] - Labs Labs: 12/12/17 06:17 12/12/17 06:16 PT 12.6 SECONDS (9.7-12.2) H 12/08/17 06:32 INR 1.2 12/08/17 06:32 APTT 29 SECONDS (21-34) 12/08/17 10:56
[2017-12-12] MEDS: Vancomycin 1 gm/NS 200 ml 1 GM/200 ML BAG IVPB SCH (14:27)
--- NOTE | 2017-12-12 22:53 | CP.PCM.PN ---
Subjective - Date & Time of Evaluation Date of Evaluation: 12/12/17 Time of Evaluation: 17:05 - Subjective Subjective: Patient seen and evaluated Comfortable Denies chest pain and dyspnea Plan for PPM by Dr. Mcgrath Objective - Vital Signs/Intake and Output Vital Signs (last 24 hours): Temp Pulse Resp BP Pulse Ox 98.5 F 84 26 H 159/58 H 96 12/12/17 20:00 12/12/17 22:07 12/12/17 22:07 12/12/17 22:07 12/12/17 22:07 Intake and Output: 12/12/17 12/13/17 18:59 06:59 Intake Total 720 0 Output Total 3300 Balance -2580 0 - Medications Medications: Current Medications Acetaminophen (Tylenol 325mg Tab) 650 mg PO Q6 PRN PRN Reason: Fever >100.4 F Last Admin: 12/12/17 19:16 Dose: 650 mg Albuterol/Ipratropium (Duoneb 3 Mg/0.5 Mg (3 Ml) Ud) 3 ml INH RQ4 [facility] Last Admin: 12/12/17 19:49 Dose: 3 ml Amlodipine Besylate (Norvasc) 10 mg PO DAILY [facility] Last Admin: 12/12/17 10:35 Dose: 10 mg Aspirin (Aspirin Chewable) 81 mg PO DAILY [facility] Last Admin: 12/12/17 09:21 Dose: 81 mg Epoetin Kasi (Procrit) 4,000 unit IV TTS [facility] Last Admin: 12/12/17 11:40 Dose: 4,000 unit Hydralazine HCl (Apresoline) 50 mg PO BID [facility] Last Admin: 12/12/17 17:50 Dose: Not Given Vancomycin/Sodium Chloride (Vancomycin 1 Gm/Ns 200 Ml) 1 gm in 200 mls @ 133.333 mls/hr IVPB TTS [facility] PRN Reason: Protocol Stop: 12/17/17 14:01 Last Admin: 12/12/17 14:27 Dose: 133.333 mls/hr Insulin Glargine (Lantus) 10 unit SC DAILY [facility] Last Admin: 12/12/17 10:36 Dose: 10 u Insulin Human Regular (Novolin R) 0 unit SC ACHS [facility] PRN Reason: Protocol Last Admin: 12/12/17 21:45 Dose: Not Given Moxifloxacin HCl (Avelox) 400 mg PO Q24H [facility] Last Admin: 12/12/17 16:17 Dose: 400 mg Pantoprazole Sodium (Protonix Ec Tab) 40 mg PO DAILY [facility] Sevelamer Carbonate (Renvela) 1,600 mg PO TIDCC [facility] Last Admin: 12/12/17 17:21 Dose: 1,600 mg Vitamin B Complex/Vit C/Folic Acid (Nephro-Perry) 1 tab PO 0800 [facility] - Labs Labs: 12/12/17 06:17 12/12/17 06:16 PT 12.6 SECONDS (9.7-12.2) H 12/08/17 06:32 INR 1.2 12/08/17 06:32 APTT 29 SECONDS (21-34) 12/08/17 10:56
[2017-12-13] MEDS: Albuterol-Ipratrop 3 mg / 0.5 (3 ml) UD INH SCH ×7 (00:07→23:48)
[2017-12-13 06:22] LABS: EOS # 0.2 K/uL (0.0-0.7); HEMOGLOBIN 10.3 g/dL (11.0-16.0); LYMPH # 2.2 K/uL (1.0-4.3); RBC 3.38 Mil/uL (3.80-5.20)
[2017-12-13 06:24] LABS: BASO % 0.3 % (0.0-2.0); EOS % 1.6 % (0.0-4.0); LYMPH % 17.1 % (20.0-40.0); MEAN CELL VOLUME 90.5 fL (81.0-99.0); MEAN CORPUSCULAR HEMOGLOBIN 30.3 pg (27.0-31.0); MEAN CORPUSCULAR HGB CONC 33.5 g/dL (33.0-37.0); MONO # 1.5 K/uL (0.0-0.8); MONO % 11.6 % (0.0-10.0); NEUT # 9.1 K/uL (1.8-7.0); NEUT % 69.4 % (50.0-75.0); RED CELL DISTRIBUTION WIDTH 14.1 % (11.5-14.5); WHITE BLOOD COUNT 13.1 K/uL (4.8-10.8)
[2017-12-13 06:31] LABS: ALB/GLOB RATIO 1.2 (1.0-2.1); ALBUMIN 3.7 g/dL (3.5-5.0); CALCIUM 8.4 mg/dl (8.6-10.4)
--- NOTE | 2017-12-13 07:05 | PN ---
DATE: 12/12/2017 SUBJECTIVE: The patient is improving, extubated, supportive care, cardiology follow up. Kobi Stanley MD
[2017-12-13] MEDS: (Novolin R) Insulin Human Regular 100 units/ml vial SC SCH ×4 (07:51→22:13)
[2017-12-13] MEDS: Multivitamin Vitamin B Complex (Nephro-Vite) Tab PO SCH (07:51)
[2017-12-13] MEDS: Pantoprazole 40 mg EC Tab PO SCH (09:23)
[2017-12-13] MEDS: (Lantus) Insulin Glargine, Recombinant SC SCH (09:25)
--- NOTE | 2017-12-13 10:32 | CP.PCM.PN ---
<Judith Armendariz - Last Filed: 12/13/17 13:04> Subjective - Date & Time of Evaluation Date of Evaluation: 12/13/17 Time of Evaluation: 10:00 - Subjective Subjective: PGY2- Progress Note for Dr. Ríos Patient seen and examined sitting up in chair. Patient has generalized aches and pains throughout her body. Patient has chest wall and shoulder pain from having had compressions and an IO. Patient denies any shortness of breath, abdominal pain, nausea, vomiting, constipation, or diarrhea. Objective - Vital Signs/Intake and Output Vital Signs (last 24 hours): Temp Pulse Resp BP Pulse Ox 98.2 F 83 23 166/64 H 97 12/13/17 08:00 12/13/17 10:07 12/13/17 10:07 12/13/17 10:07 12/13/17 10:07 Intake and Output: 12/13/17 12/13/17 06:59 18:59 Intake Total 200 120 Balance 200 120 - Medications Medications: Current Medications Acetaminophen (Tylenol 325mg Tab) 650 mg PO Q6 PRN PRN Reason: Fever >100.4 F Last Admin: 12/12/17 19:16 Dose: 650 mg Albuterol/Ipratropium (Duoneb 3 Mg/0.5 Mg (3 Ml) Ud) 3 ml INH RQ4 [facility] Last Admin: 12/13/17 08:04 Dose: 3 ml Amlodipine Besylate (Norvasc) 10 mg PO DAILY [facility] Last Admin: 12/13/17 09:23 Dose: 10 mg Aspirin (Aspirin Chewable) 81 mg PO DAILY [facility] Last Admin: 12/13/17 09:23 Dose: 81 mg Epoetin Kasi (Procrit) 4,000 unit IV TTS [facility] Last Admin: 12/12/17 11:40 Dose: 4,000 unit Heparin Sodium (Porcine) (Heparin) 5,000 units SC Q8 [facility] Last Admin: 12/13/17 09:28 Dose: 5,000 units Hydralazine HCl (Apresoline) 50 mg PO BID [facility] Last Admin: 12/13/17 09:24 Dose: 50 mg Vancomycin/Sodium Chloride (Vancomycin 1 Gm/Ns 200 Ml) 1 gm in 200 mls @ 133.333 mls/hr IVPB TTS [facility] PRN Reason: Protocol Stop: 12/17/17 14:01 Last Admin: 12/12/17 14:27 Dose: 133.333 mls/hr Insulin Glargine (Lantus) 10 unit SC DAILY [facility] Last Admin: 12/13/17 09:25 Dose: 10 u Insulin Human Regular (Novolin R) 0 unit SC ACHS [facility] PRN Reason: Protocol Last Admin: 12/13/17 07:51 Dose: 4 u Moxifloxacin HCl (Avelox) 400 mg PO Q24H [facility] Last Admin: 12/12/17 16:17 Dose: 400 mg Pantoprazole Sodium (Protonix Ec Tab) 40 mg PO DAILY [facility] Last Admin: 12/13/17 09:23 Dose: 40 mg Sevelamer Carbonate (Renvela) 1,600 mg PO TIDCC [facility] Last Admin: 12/13/17 07:51 Dose: 1,600 mg Vitamin B Complex/Vit C/Folic Acid (Nephro-Perry) 1 tab PO 0800 [facility] Last Admin: 12/13/17 07:51 Dose: 1 tab - Labs Labs: 12/13/17 06:10 12/13/17 06:10 PT 12.6 SECONDS (9.7-12.2) H 12/08/17 06:32 INR 1.2 12/08/17 06:32 APTT 29 SECONDS (21-34) 12/08/17 10:56 - Constitutional Appears: Non-toxic, No Acute Distress - Head Exam Head Exam: ATRAUMATIC, NORMAL INSPECTION, NORMOCEPHALIC - Eye Exam Eye Exam: EOMI - ENT Exam ENT Exam: Mucous Membranes Dry - Respiratory Exam Respiratory Exam: Decreased Breath Sounds, Clear to Ausculation Bilateral Additional comments: on nasal cannula - Cardiovascular Exam Cardiovascular Exam: REGULAR RHYTHM, RRR, +S1, +S2 Additional comments: chest wall tenderness to palpation - GI/Abdominal Exam GI & Abdominal Exam: Soft, Normal Bowel Sounds. absent: Tenderness - Extremities Exam Extremities Exam: Full ROM, Normal Inspection. absent: Pedal Edema, Tenderness - Neurological Exam Neurological Exam: Alert, Awake, Oriented x3 - Psychiatric Exam Psychiatric exam: Normal Affect, Normal Mood - Skin Skin Exam: Intact, Warm Additional comments: ecchymosis on chest wall Assessment and Plan - Assessment and Plan (Free Text) Assessment: S/P Cardiac Arrest and Cardiac Cath Cardiac cath : normal coronaries and normal EF patient no longer being paced, in NSR will need pacemaker once more stable ASA 81mg po daily Respiratory Failure extubated on 12/11/17 on nasal cannula HTN Norvasc 10mg po daily Hydralazine 50mg po BID ESRD continue dialysis monitor electrolyte abnormalities Pneumonia sputum culture: enterobacter cloacae WBC: 13.1 Dr. Hernandez consulted Avelox Vanco Case discussed with Dr. Ríos <Robert Ríos - Last Filed: 12/13/17 21:16> Objective - Vital Signs/Intake and Output Vital Signs (last 24 hours): Temp Pulse Resp BP Pulse Ox 98.5 F 83 16 132/102 H 97 12/13/17 16:00 12/13/17 18:25 12/13/17 18:25 12/13/17 18:25 12/13/17 18:25 Intake and Output: 12/13/17 12/14/17 18:59 06:59 Intake Total 840 Balance 840 - Medications Medications: Current Medications Acetaminophen (Tylenol 325mg Tab) 650 mg PO Q6 PRN PRN Reason: Fever >100.4 F Last Admin: 12/12/17 19:16 Dose: 650 mg Albuterol/Ipratropium (Duoneb 3 Mg/0.5 Mg (3 Ml) Ud) 3 ml INH RQ4 [facility] Last Admin: 12/13/17 20:08 Dose: Not Given Amlodipine Besylate (Norvasc) 10 mg PO DAILY [facility] Last Admin: 12/13/17 09:23 Dose: 10 mg Aspirin (Aspirin Chewable) 81 mg PO DAILY [facility] Last Admin: 12/13/17 09:23 Dose: 81 mg Epoetin Kasi (Procrit) 4,000 unit IV TTS [facility] Last Admin: 12/12/17 11:40 Dose: 4,000 unit Heparin Sodium (Porcine) (Heparin) 5,000 units SC Q8 [facility] Last Admin: 12/13/17 14:10 Dose: 5,000 units Hydralazine HCl (Apresoline) 50 mg PO BID [facility] Last Admin: 12/13/17 17:08 Dose: 50 mg Vancomycin/Sodium Chloride (Vancomycin 1 Gm/Ns 200 Ml) 1 gm in 200 mls @ 133.333 mls/hr IVPB TTS [facility] PRN Reason: Protocol Stop: 12/17/17 14:01 Last Admin: 12/12/17 14:27 Dose: 133.333 mls/hr Insulin Glargine (Lantus) 10 unit SC DAILY [facility] Last Admin: 12/13/17 09:25 Dose: 10 u Insulin Human Regular (Novolin R) 0 unit SC ACHS [facility] PRN Reason: Protocol Last Admin: 12/13/17 16:37 Dose: Not Given Morphine Sulfate (Morphine) 1 mg IVP Q6H PRN PRN Reason: Pain, severe (8-10) Moxifloxacin HCl (Avelox) 400 mg PO Q24H [facility] Last Admin: 12/13/17 16:38 Dose: 400 mg Pantoprazole Sodium (Protonix Ec Tab) 40 mg PO DAILY [facility] Last Admin: 12/13/17 09:23 Dose: 40 mg Sevelamer Carbonate (Renvela) 1,600 mg PO TIDCC [facility] Last Admin: 12/13/17 16:38 Dose: 1,600 mg Vitamin B Complex/Vit C/Folic Acid (Nephro-Perry) 1 tab PO 0800 [facility] Last Admin: 12/13/17 07:51 Dose: 1 tab - Labs Labs: 12/13/17 06:10 12/13/17 06:10 PT 12.6 SECONDS (9.7-12.2) H 12/08/17 06:32 INR 1.2 12/08/17 06:32 APTT 30 SECONDS (21-34) 12/13/17 10:17 Assessment and Plan - Assessment and Plan (Free Text) Assessment: Patient seen and evaluated personally by ri Plan of care d/w the resident and as documented
--- NOTE | 2017-12-13 11:25 | RAD ---
Date of service: 12/13/2017 HISTORY: infiltrate COMPARISON: 12/12/2017 FINDINGS: LUNGS: No active pulmonary disease. PLEURA: No significant pleural effusion identified, no pneumothorax apparent. CARDIOVASCULAR: Mild cardiomegaly. Left IJ multi lumen central venous catheter. OSSEOUS STRUCTURES: No significant abnormalities. VISUALIZED UPPER ABDOMEN: Normal. OTHER FINDINGS: None. IMPRESSION: No active disease.
--- NOTE | 2017-12-13 14:59 | CP.PCM.PN ---
Subjective - Date & Time of Evaluation Date of Evaluation: 12/13/17 Time of Evaluation: 14:58 - Subjective Subjective: Nephrology Consultation Note Assessment: stable Cardiac arrest, acute respi failure Hyperkalemia, lactic acidosis, hypokalemia Diabetic chronic Kidney Disease (E11.22) Hypertensive Chronic Kidney Disease (I12.0) End stage renal disease (N18.6) dependence on hemodialysis (Z99.2) (TTS) via AVF Anemia (D64.9), Hyperphosphatemia (E83.39), Secondary Hyperparathyroidism (E21.1 ), HTN (I12.0) Hypercalcemia likely due to IV given during ACLS (outpt Ca 9.1 PTH 453 recently) Hx of ovarian cancer s/p chemo, in remission for last 2 years RV pressure overload and moderate pulmonary HTN Plan: Had d/w family about need for strict low K diet. pt on veltassa daily at home. d /c losartan as pt has tendency for hyperkalemia as outpt Plan for next HD tomorrow per TTS schedule. Continue with Nephrovite 1 tab/day. PRBC as needed for anemia. started NEIDA with HD last Hb 10.3 last phos level 8 started phos binders BP control on norvasc. added hydralazine. Glycemic control, Dialysis consistent diet Further work up/management as per primary team Dose meds/antibiotics (if needed) for ESRD status. Avoid fleets enema/magnesium based laxatives. cardiology following Thanks for allowing me to participate in care of your patient. will follow with you. Please call if any Qs. had d/w family and team Dr Shahab Bunn Office: [phone] reason for consult: ESRD HPI: Pt is a 57 F with hx of ESRD on hemodialysis (TTS) via AVF @ [facility] for last 7 years, chronic anemia, hyperphosphatemia, secondary hyperparathyroidism, Diabetes Mellitus, hypertension, ovarian cancer s/p chemo, in remission for last 2 years found to be unresponsive at home, pt s/p ACLS and intubated/sedated, now in ICU pt unable to provide much hx daughter bedside says pt was fine 1 day ago except mild cough. no other concerns or complaints reported. pt is non smoker/no etoh/no drugs. last HD monday ROS: extubated 12/11/17. pt feels better. denies CP/SOB. Physical Examination: General Appearance: comfortable, not in acute distress, confused Vitals reviewed and noted as below Head; Atraumatic, normocephalic ENT: normal EYES: left eye blind Neck; supple no lymphadenopathy, no thyromegaly or bruit Lungs: normal respiratory rate/effort. Breath sounds bilateral clear anteriorly Heart: Normal rate. s1s2 normal. No rub or gallop. Extremities: no edema. No varicose veins. Neurological: Patient is awake alert follows commands. confused Skin: Warm and dry. Normal turgor. No rash. Palpitation: Normal elasticity for age Abdomen: Abdomen is soft. Bowel sounds +. There is no abdominal tenderness, no guarding/rigidity or organomegaly Psych: deferred MSK: no joint tenderness or swelling. Digits and nails normal, no deformity : kidney or bladder not palpable Access: AVF Labs/imaging reviewed. Past medical history, past surgical history, family history, social history, allergy reviewed and noted as below Family Hx: no hx of CKD. Non contributory Objective - Vital Signs/Intake and Output Vital Signs (last 24 hours): Temp Pulse Resp BP Pulse Ox 98.4 F 83 28 H 137/56 L 99 12/13/17 12:00 12/13/17 14:07 12/13/17 14:07 12/13/17 14:07 12/13/17 14:07 Intake and Output: 12/13/17 12/13/17 06:59 18:59 Intake Total 200 600 Balance 200 600 - Medications Medications: Current Medications Acetaminophen (Tylenol 325mg Tab) 650 mg PO Q6 PRN PRN Reason: Fever >100.4 F Last Admin: 12/12/17 19:16 Dose: 650 mg Albuterol/Ipratropium (Duoneb 3 Mg/0.5 Mg (3 Ml) Ud) 3 ml INH RQ4 [facility] Last Admin: 12/13/17 11:41 Dose: 3 ml Amlodipine Besylate (Norvasc) 10 mg PO DAILY [facility] Last Admin: 12/13/17 09:23 Dose: 10 mg Aspirin (Aspirin Chewable) 81 mg PO DAILY [facility] Last Admin: 12/13/17 09:23 Dose: 81 mg Epoetin Kasi (Procrit) 4,000 unit IV TTS [facility] Last Admin: 12/12/17 11:40 Dose: 4,000 unit Heparin Sodium (Porcine) (Heparin) 5,000 units SC Q8 [facility] Last Admin: 12/13/17 09:28 Dose: 5,000 units Hydralazine HCl (Apresoline) 50 mg PO BID [facility] Last Admin: 12/13/17 09:24 Dose: 50 mg Vancomycin/Sodium Chloride (Vancomycin 1 Gm/Ns 200 Ml) 1 gm in 200 mls @ 133.333 mls/hr IVPB TTS [facility] PRN Reason: Protocol Stop: 12/17/17 14:01 Last Admin: 12/12/17 14:27 Dose: 133.333 mls/hr Insulin Glargine (Lantus) 10 unit SC DAILY [facility] Last Admin: 12/13/17 09:25 Dose: 10 u Insulin Human Regular (Novolin R) 0 unit SC ACHS [facility] PRN Reason: Protocol Last Admin: 12/13/17 12:10 Dose: 2 u Morphine Sulfate (Morphine) 1 mg IVP Q6H PRN PRN Reason: Pain, severe (8-10) Moxifloxacin HCl (Avelox) 400 mg PO Q24H [facility] Last Admin: 12/12/17 16:17 Dose: 400 mg Pantoprazole Sodium (Protonix Ec Tab) 40 mg PO DAILY [facility] Last Admin: 12/13/17 09:23 Dose: 40 mg Sevelamer Carbonate (Renvela) 1,600 mg PO TIDCC [facility] Last Admin: 12/13/17 12:10 Dose: 1,600 mg Vitamin B Complex/Vit C/Folic Acid (Nephro-Perry) 1 tab PO 0800 [facility] Last Admin: 12/13/17 07:51 Dose: 1 tab - Labs Labs: 12/13/17 06:10 12/13/17 06:10 PT 12.6 SECONDS (9.7-12.2) H 12/08/17 06:32 INR 1.2 12/08/17 06:32 APTT 30 SECONDS (21-34) 12/13/17 10:17
--- NOTE | 2017-12-13 15:14 | CP.CCUPN ---
<Lay Moran - Last Filed: 12/13/17 15:12> CCU Subjective - Physician Review Subjective (Free Text): 57 yo F w/ PMHx DM, HTN, diabetic neuropathy, ESDR (HD T/Th/Sat) ovarian ca s/p surgical resection and chemo, brought to ED by EMT for cardiac arrest, ACLS protocol and code heart called. Pt no longer requiring pacing. Pt extubated (12/11) with no complications. Pt seen and examined at bedside. Complains of SOB, left anterior chest pain tender, pain with left arm movement. Pt denies headache, diziness, abdominal pain, nausea, diarrhea 12/13/17 15:12 CCU Objective - Vital Signs / Intake & Output Vital Signs (Last 4 hours): Vital Signs Temp Pulse Resp BP Pulse Ox 12/13/17 14:07 83 28 H 137/56 L 99 12/13/17 13:07 85 25 H 143/56 L 98 12/13/17 13:03 87 100 12/13/17 12:07 84 24 150/61 98 12/13/17 12:00 98.4 F 12/13/17 11:37 80 26 H 175/64 H 97 Intake and Output (Last 8hrs): Intake & Output 12/13/17 12/13/17 12/13/17 06:59 14:59 22:59 Intake Total 200 600 Balance 200 600 Weight 115 lb 4.828 oz Intake: Oral 200 600 - Physical Exam Head: Positive for: Atraumatic, Normocephalic Pupils: Positive for: PERRL Extroacular Muscles: Positive for: EOMI Conjunctiva: Positive for: Normal Mouth: Positive for: Moist Mucous Membranes, Other (intubated) Nose (Internal): Positive for: No Active Bleeding Neck: Positive for: Normal Range of Motion Respiratory/Chest: Positive for: Clear to Auscultation, Good Air Exchange. Negative for: Respiratory Distress, Accessory Muscle Use Cardiovascular: Positive for: Normal S1, S2, Other (philip). Negative for: Murmurs Abdomen: Negative for: Tenderness, Distention, Peritoneal Signs, Rebound, Guarding Back: Positive for: Normal Inspection Upper Extremity: Positive for: Normal Inspection. Negative for: Cyanosis, Edema Lower Extremity: Positive for: Normal Inspection. Negative for: Edema Neurological: Positive for: Other (inbuated, making purposeful movements, (+) corneal reflex) Skin: Positive for: Warm, Dry, Normal Color. Negative for: Rashes Psychiatric: Positive for: Alert, Oriented x 3, Normal Insight, Normal Concentration - Medications Active Medications: Active Medications Generic Name Dose Route Start Last Admin Trade Name Freq PRN Reason Stop Dose Admin Acetaminophen 650 mg 12/07/17 13:40 12/12/17 19:16 Tylenol 325mg Tab PO 650 mg Q6 PRN Administration Fever >100.4 F Albuterol/Ipratropium 3 ml 12/07/17 16:00 12/13/17 11:41 Duoneb 3 Mg/0.5 Mg (3 Ml) Ud INH 3 ml RQ4 [facility] Administration Amlodipine Besylate 10 mg 12/10/17 10:00 12/13/17 09:23 Norvasc PO 10 mg DAILY [facility] Administration Aspirin 81 mg 12/08/17 17:00 12/13/17 09:23 Aspirin Chewable PO 81 mg DAILY [facility] Administration Epoetin Kasi 4,000 unit 12/12/17 10:00 12/12/17 11:40 Procrit IV 4,000 unit TTS [facility] Administration Heparin Sodium (Porcine) 5,000 units 12/13/17 09:30 12/13/17 09:28 Heparin SC 5,000 units Q8 [facility] Administration Hydralazine HCl 50 mg 12/12/17 11:00 12/13/17 09:24 Apresoline PO 50 mg BID [facility] Administration Vancomycin/Sodium Chloride 1 gm in 200 mls @ 133.333 mls/hr 12/12/17 14:00 14:27 Vancomycin 1 Gm/Ns 200 Ml IVPB 12/17/17 14:01 133.333 mls/hr TTS [facility] Administration Protocol Insulin Glargine 10 unit 12/08/17 12:30 12/13/17 09:25 Lantus SC 10 u DAILY [facility] Administration Insulin Human Regular 0 unit 12/12/17 16:30 12/13/17 12:10 Novolin R SC 2 u ACHS [facility] Administration Protocol Morphine Sulfate 1 mg 12/13/17 10:56 Morphine IVP Q6H PRN Pain, severe (8-10) Moxifloxacin HCl 400 mg 12/10/17 16:00 12/12/17 16:17 Avelox PO 400 mg Q24H [facility] Administration Pantoprazole Sodium 40 mg 12/13/17 10:00 12/13/17 09:23 Protonix Ec Tab PO 40 mg DAILY [facility] Administration Sevelamer Carbonate 1,600 mg 12/12/17 12:00 12/13/17 12:10 Renvela PO 1,600 mg TIDCC [facility] Administration Vitamin B Complex/Vit C/Folic Acid 1 tab 12/13/17 08:00 12/13/17 07:51 Nephro-Perry PO 1 tab 0800 [facility] Administration - Patient Studies Lab Studies: Microbiology Studies 12/07/17 10:25 Blood Culture - Final Blood NO GROWTH AFTER 5 DAYS 12/07/17 10:40 Blood Culture - Final Blood NO GROWTH AFTER 5 DAYS Gram Stain - Final TEST NOT PERFORMED Lab Studies 12/13/17 12/13/17 12/13/17 Range/Units 10:17 06:10 06:10 WBC 13.1 H (4.8-10.8) K/uL RBC 3.38 L (3.80-5.20) Mil/uL Hgb 10.3 L (11.0-16.0) g/dL Hct 30.6 L (34.0-47.0) % MCV 90.5 (81.0-99.0) fL MCH 30.3 (27.0-31.0) pg MCHC 33.5 (33.0-37.0) g/dL RDW 14.1 (11.5-14.5) % Plt Count 176 (130-400) K/uL MPV 8.0 (7.2-11.7) fL Neut % (Auto) 69.4 (50.0-75.0) % Lymph % (Auto) 17.1 L (20.0-40.0) % Adams % (Auto) 11.6 H (0.0-10.0) % Eos % (Auto) 1.6 (0.0-4.0) % Baso % (Auto) 0.3 (0.0-2.0) % Neut # (Auto) 9.1 H (1.8-7.0) K/uL Lymph # (Auto) 2.2 (1.0-4.3) K/uL Adams # (Auto) 1.5 H (0.0-0.8) K/uL Eos # (Auto) 0.2 (0.0-0.7) K/uL Baso # (Auto) 0.0 (0.0-0.2) K/uL APTT 30 (21-34) SECONDS Sodium 138 (132-148) mmol/L Potassium 4.1 (3.6-5.2) mmol/L Chloride 95 L (98-107) mmol/L Carbon Dioxide 26 (22-30) mmol/L Anion Gap 21 H (10-20) BUN 53 H (7-17) mg/dL Creatinine 4.3 H (0.7-1.2) mg/dL Est GFR ( Amer) 13 Est GFR (Non-Af Amer) 11 POC Glucose (mg/dL) (65-110) mg/dL Random Glucose 259 H (65-105) mg/dL Calcium 8.4 L (8.6-10.4) mg/dl Phosphorus 4.9 H (2.5-4.5) mg/dL Magnesium 2.1 (1.6-2.3) mg/dL Total Bilirubin 0.7 (0.2-1.3) mg/dL AST 47 H D (14-36) U/L ALT 201 H D (9-52) U/L Alkaline Phosphatase 137 H (38-126) U/L Total Protein 6.7 (6.3-8.3) g/dL Albumin 3.7 (3.5-5.0) g/dL Globulin 3.0 (2.2-3.9) gm/dL Albumin/Globulin Ratio 1.2 (1.0-2.1) //18 Range/Units 16:26 WBC (4.8-10.8) K/uL RBC (3.80-5.20) Mil/uL Hgb (11.0-16.0) g/dL Hct (34.0-47.0) % MCV (81.0-99.0) fL MCH (27.0-31.0) pg MCHC (33.0-37.0) g/dL RDW (11.5-14.5) % Plt Count (130-400) K/uL MPV (7.2-11.7) fL Neut % (Auto) (50.0-75.0) % Lymph % (Auto) (20.0-40.0) % Adams % (Auto) (0.0-10.0) % Eos % (Auto) (0.0-4.0) % Baso % (Auto) (0.0-2.0) % Neut # (Auto) (1.8-7.0) K/uL Lymph # (Auto) (1.0-4.3) K/uL Adams # (Auto) (0.0-0.8) K/uL Eos # (Auto) (0.0-0.7) K/uL Baso # (Auto) (0.0-0.2) K/uL APTT (21-34) SECONDS Sodium (132-148) mmol/L Potassium (3.6-5.2) mmol/L Chloride (98-107) mmol/L Carbon Dioxide (22-30) mmol/L Anion Gap (10-20) BUN (7-17) mg/dL Creatinine (0.7-1.2) mg/dL Est GFR ( Amer) Est GFR (Non-Af Amer) POC Glucose (mg/dL) 285 H (65-110) mg/dL Random Glucose (65-105) mg/dL Calcium (8.6-10.4) mg/dl Phosphorus (2.5-4.5) mg/dL Magnesium (1.6-2.3) mg/dL Total Bilirubin (0.2-1.3) mg/dL AST (14-36) U/L ALT (9-52) U/L Alkaline Phosphatase (38-126) U/L Total Protein (6.3-8.3) g/dL Albumin (3.5-5.0) g/dL Globulin (2.2-3.9) gm/dL Albumin/Globulin Ratio (1.0-2.1) Laboratory Results - last 24 hr 12/12/17 12/13/17 12/13/17 16:26 06:10 06:10 WBC 13.1 H RBC 3.38 L Hgb 10.3 L Hct 30.6 L MCV 90.5 MCH 30.3 MCHC 33.5 RDW 14.1 Plt Count 176 MPV 8.0 Neut % (Auto) 69.4 Lymph % (Auto) 17.1 L Adams % (Auto) 11.6 H Eos % (Auto) 1.6 Baso % (Auto) 0.3 Neut # (Auto) 9.1 H Lymph # (Auto) 2.2 Adams # (Auto) 1.5 H Eos # (Auto) 0.2 Baso # (Auto) 0.0 APTT Sodium 138 Potassium 4.1 Chloride 95 L Carbon Dioxide 26 Anion Gap 21 H BUN 53 H Creatinine 4.3 H Est GFR ( Amer) 13 Est GFR (Non-Af Amer) 11 POC Glucose (mg/dL) 285 H Random Glucose 259 H Calcium 8.4 L Phosphorus 4.9 H Magnesium 2.1 Total Bilirubin 0.7 AST 47 H D ALT 201 H D Alkaline Phosphatase 137 H Total Protein 6.7 Albumin 3.7 Globulin 3.0 Albumin/Globulin Ratio 1.2 12/13/17 10:17 WBC RBC Hgb Hct MCV MCH MCHC RDW Plt Count MPV Neut % (Auto) Lymph % (Auto) Adams % (Auto) Eos % (Auto) Baso % (Auto) Neut # (Auto) Lymph # (Auto) Adams # (Auto) Eos # (Auto) Baso # (Auto) APTT 30 Sodium Potassium Chloride Carbon Dioxide Anion Gap BUN Creatinine Est GFR ( Amer) Est GFR (Non-Af Amer) POC Glucose (mg/dL) Random Glucose Calcium Phosphorus Magnesium Total Bilirubin AST ALT Alkaline Phosphatase Total Protein Albumin Globulin Albumin/Globulin Ratio Fingerstick Blood Sugar Results: 188 Review of Systems - Constitutional Constitutional: absent: Fever, Chills - Cardiovascular Cardiovascular: absent: Chest Pain, Palpitations - Respiratory Respiratory: absent: Cough, Pain on Inspiration - Gastrointestinal Gastrointestinal: absent: Abdominal Pain, Diarrhea, Nausea - Musculoskeletal Musculoskeletal: Limited Range of Motion (left arm), Myalgias (muscle pain left chest) Critical Care Progress Note - Nutrition Nutrition: Nutrition Category Date Time Status Mechanically altered [Dysphagia/Modified Consistency Diets 12/12/17 Breakfast Active Diet] [DIET] Assessment/Plan - Assessment and Plan (Free Text) Assessment: 57 yo F admitted to ICU s/p cardiac arrest 1. s/p cardiac arrest -cardiac cath negative -TVP no longer needed -cardio consult Dr. Ríos -head CT neg for acute pathology -EP consult Dr. Mcgrath -hold home cardiac meds nifedipine ER 60mg BID and diltiazem ER 180mg likely cause of symptomatic bradycardia -extubated (12/11) 2. Shock 2/2 sepsis vs cardiogenic -WBC 13.1 -trops neg -pBNP 56,900 on admission -Merrem, moxifloxacin, vanco -f/u [place] cx, sputum + enterobacter clocae -tylenol PRN fevers 3. ESRD on HD T//Mon -Bun/Cr 53/4.3 -pt to be dialyzed today via left UE fistula -nephro consult Dr. Bunn -Renvela 1600 mg TID, hydralazine 50mg BID, procrit 4000U TTS per Dr. Bunn -renal med dosing 4. DM2 -ISS moderate -accuchecks -Lantus 10U -hypoglycemic protocol Ppx -protonix 40mg - Date & Time Date: 12/13/17 Time: 15:18 <Garrison Santana - Last Filed: 12/13/17 17:39> CCU Objective - Vital Signs / Intake & Output Vital Signs (Last 4 hours): Vital Signs Temp Pulse Resp BP Pulse Ox 12/13/17 16:00 98.5 F 80 25 H 100 12/13/17 14:07 83 28 H 137/56 L 99 Intake and Output (Last 8hrs): Intake & Output 12/13/17 12/13/17 12/13/17 06:59 14:59 22:59 Intake Total 200 600 Balance 200 600 Weight 115 lb 4.828 oz Intake: Oral 200 600 - Medications Active Medications: Active Medications Generic Name Dose Route Start Last Admin Trade Name Freq PRN Reason Stop Dose Admin Acetaminophen 650 mg 12/07/17 13:40 12/12/17 19:16 Tylenol 325mg Tab PO 650 mg Q6 PRN Administration Fever >100.4 F Albuterol/Ipratropium 3 ml 12/07/17 16:00 12/13/17 15:59 Duoneb 3 Mg/0.5 Mg (3 Ml) Ud INH 3 ml RQ4 [facility] Administration Amlodipine Besylate 10 mg 12/10/17 10:00 12/13/17 09:23 Norvasc PO 10 mg DAILY [facility] Administration Aspirin 81 mg 12/08/17 17:00 12/13/17 09:23 Aspirin Chewable PO 81 mg DAILY [facility] Administration Epoetin Kasi 4,000 unit 12/12/17 10:00 12/12/17 11:40 Procrit IV 4,000 unit TTS [facility] Administration Heparin Sodium (Porcine) 5,000 units 12/13/17 09:30 12/13/17 09:28 Heparin SC 5,000 units Q8 [facility] Administration Hydralazine HCl 50 mg 12/12/17 11:00 12/13/17 17:08 Apresoline PO 50 mg BID [facility] Administration Vancomycin/Sodium Chloride 1 gm in 200 mls @ 133.333 mls/hr 12/12/17 14:00 14:27 Vancomycin 1 Gm/Ns 200 Ml IVPB 12/17/17 14:01 133.333 mls/hr TTS [facility] Administration Protocol Insulin Glargine 10 unit 12/08/17 12:30 12/13/17 09:25 Lantus SC 10 u DAILY [facility] Administration Insulin Human Regular 0 unit 12/12/17 16:30 12/13/17 16:37 Novolin R SC Not Given ACHS [facility] Protocol Morphine Sulfate 1 mg 12/13/17 10:56 Morphine IVP Q6H PRN Pain, severe (8-10) Moxifloxacin HCl 400 mg 12/10/17 16:00 12/13/17 16:38 Avelox PO 400 mg Q24H [facility] Administration Pantoprazole Sodium 40 mg 12/13/17 10:00 12/13/17 09:23 Protonix Ec Tab PO 40 mg DAILY [facility] Administration Sevelamer Carbonate 1,600 mg 12/12/17 12:00 12/13/17 16:38 Renvela PO 1,600 mg TIDCC [facility] Administration Vitamin B Complex/Vit C/Folic Acid 1 tab 12/13/17 08:00 12/13/17 07:51 Nephro-Perry PO 1 tab 0800 [facility] Administration - Patient Studies Lab Studies: Microbiology Studies 12/07/17 10:25 Blood Culture - Final Blood NO GROWTH AFTER 5 DAYS 12/07/17 10:40 Blood Culture - Final Blood NO GROWTH AFTER 5 DAYS Gram Stain - Final TEST NOT PERFORMED Lab Studies 12/13/17 12/13/17 12/13/17 Range/Units 10:17 06:10 06:10 WBC 13.1 H (4.8-10.8) K/uL RBC 3.38 L (3.80-5.20) Mil/uL Hgb 10.3 L (11.0-16.0) g/dL Hct 30.6 L (34.0-47.0) % MCV 90.5 (81.0-99.0) fL MCH 30.3 (27.0-31.0) pg MCHC 33.5 (33.0-37.0) g/dL RDW 14.1 (11.5-14.5) % Plt Count 176 (130-400) K/uL MPV 8.0 (7.2-11.7) fL Neut % (Auto) 69.4 (50.0-75.0) % Lymph % (Auto) 17.1 L (20.0-40.0) % Adams % (Auto) 11.6 H (0.0-10.0) % Eos % (Auto) 1.6 (0.0-4.0) % Baso % (Auto) 0.3 (0.0-2.0) % Neut # (Auto) 9.1 H (1.8-7.0) K/uL Lymph # (Auto) 2.2 (1.0-4.3) K/uL Adams # (Auto) 1.5 H (0.0-0.8) K/uL Eos # (Auto) 0.2 (0.0-0.7) K/uL Baso # (Auto) 0.0 (0.0-0.2) K/uL APTT 30 (21-34) SECONDS Sodium 138 (132-148) mmol/L Potassium 4.1 (3.6-5.2) mmol/L Chloride 95 L (98-107) mmol/L Carbon Dioxide 26 (22-30) mmol/L Anion Gap 21 H (10-20) BUN 53 H (7-17) mg/dL Creatinine 4.3 H (0.7-1.2) mg/dL Est GFR ( Amer) 13 Est GFR (Non-Af Amer) 11 Random Glucose 259 H (65-105) mg/dL Calcium 8.4 L (8.6-10.4) mg/dl Phosphorus 4.9 H (2.5-4.5) mg/dL Magnesium 2.1 (1.6-2.3) mg/dL Total Bilirubin 0.7 (0.2-1.3) mg/dL AST 47 H D (14-36) U/L ALT 201 H D (9-52) U/L Alkaline Phosphatase 137 H (38-126) U/L Total Protein 6.7 (6.3-8.3) g/dL Albumin 3.7 (3.5-5.0) g/dL Globulin 3.0 (2.2-3.9) gm/dL Albumin/Globulin Ratio 1.2 (1.0-2.1) Laboratory Results - last 24 hr 12/13/17 12/13/17 12/13/17 06:10 06:10 10:17 WBC 13.1 H RBC 3.38 L Hgb 10.3 L Hct 30.6 L MCV 90.5 MCH 30.3 MCHC 33.5 RDW 14.1 Plt Count 176 MPV 8.0 Neut % (Auto) 69.4 Lymph % (Auto) 17.1 L Adams % (Auto) 11.6 H Eos % (Auto) 1.6 Baso % (Auto) 0.3 Neut # (Auto) 9.1 H Lymph # (Auto) 2.2 Adams # (Auto) 1.5 H Eos # (Auto) 0.2 Baso # (Auto) 0.0 APTT 30 Sodium 138 Potassium 4.1 Chloride 95 L Carbon Dioxide 26 Anion Gap 21 H BUN 53 H Creatinine 4.3 H Est GFR ( Amer) 13 Est GFR (Non-Af Amer) 11 Random Glucose 259 H Calcium 8.4 L Phosphorus 4.9 H Magnesium 2.1 Total Bilirubin 0.7 AST 47 H D ALT 201 H D Alkaline Phosphatase 137 H Total Protein 6.7 Albumin 3.7 Globulin 3.0 Albumin/Globulin Ratio 1.2 Critical Care Progress Note - Nutrition Nutrition: Nutrition Category Date Time Status Mechanically altered [Dysphagia/Modified Consistency Diets 12/12/17 Breakfast Active Diet] [DIET] Attending/Attestation - Attestation I have personally seen and examined this patient.: Yes I have fully participated in the care of the patient.: Yes I have reviewed all pertinent clinical information: Yes Notes (Text): 12/13/17 17:39 patient seen and examined in the intensive care unit. Stable for transfer to floor Neurology evaluation Continue present treatment for now
--- NOTE | 2017-12-13 16:26 | CP.PCM.PN ---
Subjective - Date & Time of Evaluation Date of Evaluation: 12/13/17 Time of Evaluation: 08:00 - Subjective Subjective: discussed on rounds no need for PICC line can give Vanco with HD and avelox PO Objective - Vital Signs/Intake and Output Vital Signs (last 24 hours): Temp Pulse Resp BP Pulse Ox 98.5 F 80 25 H 137/56 L 100 12/13/17 16:00 12/13/17 16:00 12/13/17 16:00 12/13/17 14:07 12/13/17 16:00 Intake and Output: 12/13/17 12/13/17 06:59 18:59 Intake Total 200 600 Balance 200 600 - Medications Medications: Current Medications Acetaminophen (Tylenol 325mg Tab) 650 mg PO Q6 PRN PRN Reason: Fever >100.4 F Last Admin: 12/12/17 19:16 Dose: 650 mg Albuterol/Ipratropium (Duoneb 3 Mg/0.5 Mg (3 Ml) Ud) 3 ml INH RQ4 [facility] Last Admin: 12/13/17 15:59 Dose: 3 ml Amlodipine Besylate (Norvasc) 10 mg PO DAILY [facility] Last Admin: 12/13/17 09:23 Dose: 10 mg Aspirin (Aspirin Chewable) 81 mg PO DAILY [facility] Last Admin: 12/13/17 09:23 Dose: 81 mg Epoetin Kasi (Procrit) 4,000 unit IV TTS [facility] Last Admin: 12/12/17 11:40 Dose: 4,000 unit Heparin Sodium (Porcine) (Heparin) 5,000 units SC Q8 [facility] Last Admin: 12/13/17 09:28 Dose: 5,000 units Hydralazine HCl (Apresoline) 50 mg PO BID [facility] Last Admin: 12/13/17 09:24 Dose: 50 mg Vancomycin/Sodium Chloride (Vancomycin 1 Gm/Ns 200 Ml) 1 gm in 200 mls @ 133.333 mls/hr IVPB TTS [facility] PRN Reason: Protocol Stop: 12/17/17 14:01 Last Admin: 12/12/17 14:27 Dose: 133.333 mls/hr Insulin Glargine (Lantus) 10 unit SC DAILY [facility] Last Admin: 12/13/17 09:25 Dose: 10 u Insulin Human Regular (Novolin R) 0 unit SC ACHS [facility] PRN Reason: Protocol Last Admin: 12/13/17 12:10 Dose: 2 u Morphine Sulfate (Morphine) 1 mg IVP Q6H PRN PRN Reason: Pain, severe (8-10) Moxifloxacin HCl (Avelox) 400 mg PO Q24H [facility] Last Admin: 12/12/17 16:17 Dose: 400 mg Pantoprazole Sodium (Protonix Ec Tab) 40 mg PO DAILY [facility] Last Admin: 12/13/17 09:23 Dose: 40 mg Sevelamer Carbonate (Renvela) 1,600 mg PO TIDCC [facility] Last Admin: 12/13/17 12:10 Dose: 1,600 mg Vitamin B Complex/Vit C/Folic Acid (Nephro-Perry) 1 tab PO 0800 [facility] Last Admin: 12/13/17 07:51 Dose: 1 tab - Labs Labs: 12/13/17 06:10 12/13/17 06:10 PT 12.6 SECONDS (9.7-12.2) H 12/08/17 06:32 INR 1.2 12/08/17 06:32 APTT 30 SECONDS (21-34) 12/13/17 10:17 - Constitutional Appears: Chronically Ill - Head Exam Head Exam: NORMOCEPHALIC - Eye Exam Eye Exam: absent: Scleral icterus - ENT Exam ENT Exam: Mucous Membranes Dry - Neck Exam Neck Exam: absent: Lymphadenopathy - Respiratory Exam Respiratory Exam: Decreased Breath Sounds - Cardiovascular Exam Cardiovascular Exam: REGULAR RHYTHM - GI/Abdominal Exam GI & Abdominal Exam: Distended, Soft Assessment and Plan (1) CKD (chronic kidney disease) requiring chronic dialysis Status: Acute (2) Bradycardia Status: Acute (3) Cardiac arrest Status: Acute (4) Pneumonia Status: Acute (5) Respiratory failure requiring intubation Status: Acute - Assessment and Plan (Free Text) Assessment: discussed on rounds no need for PICC line can give Vanco with HD and avelox PO
--- NOTE | 2017-12-13 18:46 | CP.PCM.CON ---
History of Present Illness - History of Present Illness History of Present Illness: Neurology Consultation Note: Mrs. Fernandes is a 57-year-old woman with a past medical history of DM, HTN, diabetic neuropathy, ESRD, ovarian ca s/p surgical resection and chemo, who is s /p cardiac arrest on 12/07 and was extubated two days ago. Since she has been extubated, she continues to have confusion, memory deficits and exhibits abnormal behavior. She has staring episodes and does not know where she is, what year it is or why she is in the hospital. At baseline, she is independent. Review of Systems - Review of Systems All systems: reviewed and no additional remarkable complaints except Past Patient History - Past Medical History & Family History Past Medical History?: Yes - Past Social History Smoking Status: Never Smoked - CARDIAC Hx Cardiac Disorders: Yes Hx Hypertension: Yes - PULMONARY Hx Respiratory Disorders: No - NEUROLOGICAL Hx Neurological Disorder: No - HEENT Hx Blind: Yes - RENAL Hx Chronic Kidney Disease: Yes Hx Dialysis: Yes Type of Dialysis Access: LEFT LOWER ARM Date of Last Dialysis Treatment: 12/05/17 - ENDOCRINE/METABOLIC Hx Diabetes Mellitus Type 2: Yes - HEMATOLOGICAL/ONCOLOGICAL Hx Blood Disorders: No - INTEGUMENTARY Hx Dermatological Problems: No - MUSCULOSKELETAL/RHEUMATOLOGICAL Hx Falls: No - GASTROINTESTINAL Hx Gastrointestinal Disorders: No - GENITOURINARY/GYNECOLOGICAL Hx Ovarian Cancer: Yes - PSYCHIATRIC Hx Substance Use: No - SURGICAL HISTORY Hx Cataract Extraction: Yes Hx Hysterectomy: Yes - ANESTHESIA Hx Anesthesia: Yes Hx Anesthesia Reactions: No Meds Allergies/Adverse Reactions: Allergies Allergy/AdvReac Type Severity Reaction Status Date / Time No Known Allergies Allergy Verified 12/07/17 14:23 - Medications Medications: Current Medications Acetaminophen (Tylenol 325mg Tab) 650 mg PO Q6 PRN PRN Reason: Fever >100.4 F Last Admin: 12/12/17 19:16 Dose: 650 mg Albuterol/Ipratropium (Duoneb 3 Mg/0.5 Mg (3 Ml) Ud) 3 ml INH RQ4 [facility] Last Admin: 12/13/17 15:59 Dose: 3 ml Amlodipine Besylate (Norvasc) 10 mg PO DAILY [facility] Last Admin: 12/13/17 09:23 Dose: 10 mg Aspirin (Aspirin Chewable) 81 mg PO DAILY [facility] Last Admin: 12/13/17 09:23 Dose: 81 mg Epoetin Kasi (Procrit) 4,000 unit IV TTS [facility] Last Admin: 12/12/17 11:40 Dose: 4,000 unit Heparin Sodium (Porcine) (Heparin) 5,000 units SC Q8 [facility] Last Admin: 12/13/17 14:10 Dose: 5,000 units Hydralazine HCl (Apresoline) 50 mg PO BID [facility] Last Admin: 12/13/17 17:08 Dose: 50 mg Vancomycin/Sodium Chloride (Vancomycin 1 Gm/Ns 200 Ml) 1 gm in 200 mls @ 133.333 mls/hr IVPB TTS [facility] PRN Reason: Protocol Stop: 12/17/17 14:01 Last Admin: 12/12/17 14:27 Dose: 133.333 mls/hr Insulin Glargine (Lantus) 10 unit SC DAILY [facility] Last Admin: 12/13/17 09:25 Dose: 10 u Insulin Human Regular (Novolin R) 0 unit SC ACHS [facility] PRN Reason: Protocol Last Admin: 12/13/17 16:37 Dose: Not Given Morphine Sulfate (Morphine) 1 mg IVP Q6H PRN PRN Reason: Pain, severe (8-10) Moxifloxacin HCl (Avelox) 400 mg PO Q24H [facility] Last Admin: 12/13/17 16:38 Dose: 400 mg Pantoprazole Sodium (Protonix Ec Tab) 40 mg PO DAILY [facility] Last Admin: 12/13/17 09:23 Dose: 40 mg Sevelamer Carbonate (Renvela) 1,600 mg PO TIDCC [facility] Last Admin: 12/13/17 16:38 Dose: 1,600 mg Vitamin B Complex/Vit C/Folic Acid (Nephro-Perry) 1 tab PO 0800 [facility] Last Admin: 12/13/17 07:51 Dose: 1 tab Physical Exam - Psychiatric Exam Psychiatric exam: Flat Affect Additional comments: Confused about date/time/place, oriented to person, but not age. Awake/alert, CN 2-12 intact, follows simple commands, strength is symmetrical, sensation is intact, reflexes are normal, gait not assessed, Romberg not assessed. Results - Vital Signs Recent Vital Signs: Last Vital Signs Temp 98.5 F 12/13/17 16:00 Pulse 83 12/13/17 18:00 Resp 19 12/13/17 18:00 BP 140/68 12/13/17 17:04 Pulse Ox 97 12/13/17 18:00 - Labs Result Diagrams: 12/13/17 06:10 12/13/17 06:10 Labs: Laboratory Results - last 24 hr 12/13/17 12/13/17 12/13/17 06:10 06:10 10:17 WBC 13.1 H RBC 3.38 L Hgb 10.3 L Hct 30.6 L MCV 90.5 MCH 30.3 MCHC 33.5 RDW 14.1 Plt Count 176 MPV 8.0 Neut % (Auto) 69.4 Lymph % (Auto) 17.1 L [place] % (Auto) 11.6 H Eos % (Auto) 1.6 Baso % (Auto) 0.3 Neut # (Auto) 9.1 H Lymph # (Auto) 2.2 [place] # (Auto) 1.5 H Eos # (Auto) 0.2 Baso # (Auto) 0.0 APTT 30 Sodium 138 Potassium 4.1 Chloride 95 L Carbon Dioxide 26 Anion Gap 21 H BUN 53 H Creatinine 4.3 H Est GFR ( Amer) 13 Est GFR (Non-Af Amer) 11 Random Glucose 259 H Calcium 8.4 L Phosphorus 4.9 H Magnesium 2.1 Total Bilirubin 0.7 AST 47 H D ALT 201 H D Alkaline Phosphatase 137 H Total Protein 6.7 Albumin 3.7 Globulin 3.0 Albumin/Globulin Ratio 1.2 Assessment & Plan (1) Anoxic brain injury Assessment and Plan: The patient exhibits evidence of hippocampal injury likely due to anoxia during cardiac arrest. However, complex partial seizures are a possibility. I recommend the followin. MRI of the brain without contrast. 2. EEG awake and drowsy for 30 minutes 3. Cognitive therapy 4. PT/OT eval and treatment 5. Psych eval 6. Case management consult Thank you for this consultation. Status: Acute Priority: High
--- NOTE | 2017-12-13 23:08 | CP.PCM.PN ---
Subjective - Date & Time of Evaluation Date of Evaluation: 12/13/17 Time of Evaluation: 23:05 - Subjective Subjective: Chart and events reviewed Successfully extubated with period s of confusion No recurrence of bradycardia Reviewed telemetry: no significant arrhythmias The flores of the index bradyarrhythmic event remains elusive; as alluded earlier there were no obvious reversible trigger (vagal/electrolytes/hypoxemia) ; given underlying conduction abnormalities would assume an intrinsic conduction abnormality; There was no documentation or a setting for a ventricular tachyarrhythmia; a permanent pacemaker remains a reasonable consideration; however would await stability and absence of fevers Alternatively a loop recorder could be placed with continued clinical surveillance Objective - Vital Signs/Intake and Output Vital Signs (last 24 hours): Temp Pulse Resp BP Pulse Ox 98.2 F 82 19 132/102 H 99 12/13/17 20:00 12/13/17 20:00 12/13/17 20:00 12/13/17 20:00 12/13/17 20:00 Intake and Output: 12/13/17 12/14/17 18:59 06:59 Intake Total 840 0 Balance 840 0 - Medications Medications: Current Medications Acetaminophen (Tylenol 325mg Tab) 650 mg PO Q6 PRN PRN Reason: Fever >100.4 F Last Admin: 12/12/17 19:16 Dose: 650 mg Albuterol/Ipratropium (Duoneb 3 Mg/0.5 Mg (3 Ml) Ud) 3 ml INH RQ4 [facility] Last Admin: 12/13/17 20:08 Dose: Not Given Amlodipine Besylate (Norvasc) 10 mg PO DAILY [facility] Last Admin: 12/13/17 09:23 Dose: 10 mg Aspirin (Aspirin Chewable) 81 mg PO DAILY [facility] Last Admin: 12/13/17 09:23 Dose: 81 mg Epoetin Kasi (Procrit) 4,000 unit IV TTS [facility] Last Admin: 12/12/17 11:40 Dose: 4,000 unit Heparin Sodium (Porcine) (Heparin) 5,000 units SC Q8 [facility] Last Admin: 12/13/17 22:25 Dose: 5,000 units Hydralazine HCl (Apresoline) 50 mg PO BID [facility] Last Admin: 12/13/17 17:08 Dose: 50 mg Vancomycin/Sodium Chloride (Vancomycin 1 Gm/Ns 200 Ml) 1 gm in 200 mls @ 133.333 mls/hr IVPB TTS [facility] PRN Reason: Protocol Stop: 12/17/17 14:01 Last Admin: 12/12/17 14:27 Dose: 133.333 mls/hr Insulin Glargine (Lantus) 10 unit SC DAILY [facility] Last Admin: 12/13/17 09:25 Dose: 10 u Insulin Human Regular (Novolin R) 0 unit SC ACHS [facility] PRN Reason: Protocol Last Admin: 12/13/17 22:13 Dose: Not Given Morphine Sulfate (Morphine) 1 mg IVP Q6H PRN PRN Reason: Pain, severe (8-10) Moxifloxacin HCl (Avelox) 400 mg PO Q24H [facility] Last Admin: 12/13/17 16:38 Dose: 400 mg Pantoprazole Sodium (Protonix Ec Tab) 40 mg PO DAILY [facility] Last Admin: 12/13/17 09:23 Dose: 40 mg Sevelamer Carbonate (Renvela) 1,600 mg PO TIDCC [facility] Last Admin: 12/13/17 16:38 Dose: 1,600 mg Vitamin B Complex/Vit C/Folic Acid (Nephro-Perry) 1 tab PO 0800 [facility] Last Admin: 12/13/17 07:51 Dose: 1 tab - Labs Labs: 12/13/17 06:10 12/13/17 06:10 PT 12.6 SECONDS (9.7-12.2) H 12/08/17 06:32 INR 1.2 12/08/17 06:32 APTT 30 SECONDS (21-34) 12/13/17 10:17
[2017-12-14] MEDS: Albuterol-Ipratrop 3 mg / 0.5 (3 ml) UD INH SCH ×6 (04:39→23:51)
[2017-12-14 06:39] LABS: BASO # 0.1 K/uL (0.0-0.2); BASO % 0.6 % (0.0-2.0); EOS # 0.4 K/uL (0.0-0.7); EOS % 3.2 % (0.0-4.0); HEMOGLOBIN 10.8 g/dL (11.0-16.0); LYMPH # 2.4 K/uL (1.0-4.3); LYMPH % 19.8 % (20.0-40.0); MEAN CELL VOLUME 89.8 fL (81.0-99.0); MEAN CORPUSCULAR HEMOGLOBIN 30.7 pg (27.0-31.0); MEAN CORPUSCULAR HGB CONC 34.2 g/dL (33.0-37.0); MEAN PLATELET VOLUME 8.1 fL (7.2-11.7); MONO # 1.2 K/uL (0.0-0.8); MONO % 10.1 % (0.0-10.0); NEUT % 66.3 % (50.0-75.0); NRBC % 0.1 % (0.0-2.0); RBC 3.5 Mil/uL (3.80-5.20); RED CELL DISTRIBUTION WIDTH 13.7 % (11.5-14.5); WHITE BLOOD COUNT 12.1 K/uL (4.8-10.8)
[2017-12-14 06:47] LABS: ALB/GLOB RATIO 1.2 (1.0-2.1); ALBUMIN 3.5 g/dL (3.5-5.0); CALCIUM 8.4 mg/dl (8.6-10.4)
--- NOTE | 2017-12-14 06:52 | CP.PCM.PN ---
Subjective - Date & Time of Evaluation Date of Evaluation: 12/14/17 Time of Evaluation: 06:49 - Subjective Subjective: Ms. Fernandes was seen and examined at the bedside in ICU. She is awake, but with episode of confusion and attention span is very short. She does not maintain eye contact. She does recognize her daughter, but unable to state place , time or other person.She was able to followed one simple commands like raising her upper extremities. She does reposition herself in her bed independently. Objective - Vital Signs/Intake and Output Vital Signs (last 24 hours): Temp Pulse Resp BP Pulse Ox 98.8 F 77 18 142/63 96 12/14/17 04:00 12/14/17 04:00 12/14/17 04:00 12/14/17 04:00 12/14/17 04:00 Intake and Output: 12/13/17 12/14/17 18:59 06:59 Intake Total 840 0 Balance 840 0 - Medications Medications: Current Medications Acetaminophen (Tylenol 325mg Tab) 650 mg PO Q6 PRN PRN Reason: Fever >100.4 F Last Admin: 12/12/17 19:16 Dose: 650 mg Albuterol/Ipratropium (Duoneb 3 Mg/0.5 Mg (3 Ml) Ud) 3 ml INH RQ4 [facility] Last Admin: 12/14/17 04:39 Dose: Not Given Amlodipine Besylate (Norvasc) 10 mg PO DAILY [facility] Last Admin: 12/13/17 09:23 Dose: 10 mg Aspirin (Aspirin Chewable) 81 mg PO DAILY [facility] Last Admin: 12/13/17 09:23 Dose: 81 mg Epoetin Kasi (Procrit) 4,000 unit IV TTS [facility] Last Admin: 12/12/17 11:40 Dose: 4,000 unit Heparin Sodium (Porcine) (Heparin) 5,000 units SC Q8 [facility] Last Admin: 12/14/17 05:11 Dose: 5,000 units Hydralazine HCl (Apresoline) 50 mg PO BID [facility] Last Admin: 12/13/17 17:08 Dose: 50 mg Vancomycin/Sodium Chloride (Vancomycin 1 Gm/Ns 200 Ml) 1 gm in 200 mls @ 133.333 mls/hr IVPB TTS [facility] PRN Reason: Protocol Stop: 12/17/17 14:01 Last Admin: 12/12/17 14:27 Dose: 133.333 mls/hr Insulin Glargine (Lantus) 10 unit SC DAILY [facility] Last Admin: 12/13/17 09:25 Dose: 10 u Insulin Human Regular (Novolin R) 0 unit SC ACHS [facility] PRN Reason: Protocol Last Admin: 12/13/17 22:13 Dose: Not Given Morphine Sulfate (Morphine) 1 mg IVP Q6H PRN PRN Reason: Pain, severe (8-10) Moxifloxacin HCl (Avelox) 400 mg PO Q24H [facility] Last Admin: 12/13/17 16:38 Dose: 400 mg Pantoprazole Sodium (Protonix Ec Tab) 40 mg PO DAILY [facility] Last Admin: 12/13/17 09:23 Dose: 40 mg Sevelamer Carbonate (Renvela) 1,600 mg PO TIDCC [facility] Last Admin: 12/13/17 16:38 Dose: 1,600 mg Vitamin B Complex/Vit C/Folic Acid (Nephro-Perry) 1 tab PO 0800 [facility] Last Admin: 12/13/17 07:51 Dose: 1 tab - Labs Labs: 12/14/17 06:24 12/14/17 06:22 PT 12.6 SECONDS (9.7-12.2) H 12/08/17 06:32 INR 1.2 12/08/17 06:32 APTT 30 SECONDS (21-34) 12/13/17 10:17 - Constitutional Appears: No Acute Distress - Head Exam Head Exam: NORMAL INSPECTION - Neurological Exam Neurological Exam: Awake Neuro motor strength exam: Left Upper Extremity: 4, Right Upper Extremity: 4, Left Lower Extremity: 3, Right Lower Extremity: 3 Additional comments: awake, with episode of confusion, able to follow one simple command, sensation is intact. Assessment and Plan (1) Anoxic brain injury Assessment & Plan: Case discussed with Dr. Rae, continue all current medical regimen. Recommend EEG and MRI of the brain without contrast to further evaluate altered mental status.Recommend to treat any electrolyte abnormalities including WBC abnormality, keep head of the bed elevated at least 30 degrees, normothermia. Status: Acute
--- NOTE | 2017-12-14 07:52 | CP.PCM.PN ---
Subjective - Date & Time of Evaluation Date of Evaluation: 12/14/17 Time of Evaluation: 07:40 - Subjective Subjective: PGY-[address] Stanley's service Pt seen and examined at bedside. Nursing reports patient afebrile overnight, with no acute events transpiring. She is found in bed 6 in ICU, awake but confused. She is found only oriented to self, not person/place/or time. Pt denied acute complaints. Nursing reports patient voiding, and tolerating diet without difficulty. Pt for MRI of brain this AM. Objective - Vital Signs/Intake and Output Vital Signs (last 24 hours): Temp Pulse Resp BP Pulse Ox 98.8 F 77 18 142/63 96 12/14/17 04:00 12/14/17 04:00 12/14/17 04:00 12/14/17 04:00 12/14/17 04:00 Intake and Output: 12/14/17 12/14/17 06:59 18:59 Intake Total 0 Balance 0 - Medications Medications: Current Medications Acetaminophen (Tylenol 325mg Tab) 650 mg PO Q6 PRN PRN Reason: Fever >100.4 F Last Admin: 12/12/17 19:16 Dose: 650 mg Albuterol/Ipratropium (Duoneb 3 Mg/0.5 Mg (3 Ml) Ud) 3 ml INH RQ4 [facility] Last Admin: 12/14/17 04:39 Dose: Not Given Amlodipine Besylate (Norvasc) 10 mg PO DAILY [facility] Last Admin: 12/13/17 09:23 Dose: 10 mg Aspirin (Aspirin Chewable) 81 mg PO DAILY [facility] Last Admin: 12/13/17 09:23 Dose: 81 mg Epoetin Kasi (Procrit) 4,000 unit IV TTS [facility] Last Admin: 12/12/17 11:40 Dose: 4,000 unit Heparin Sodium (Porcine) (Heparin) 5,000 units SC Q8 [facility] Last Admin: 12/14/17 05:11 Dose: 5,000 units Hydralazine HCl (Apresoline) 50 mg PO BID [facility] Last Admin: 12/13/17 17:08 Dose: 50 mg Vancomycin/Sodium Chloride (Vancomycin 1 Gm/Ns 200 Ml) 1 gm in 200 mls @ 133.333 mls/hr IVPB TTS [facility] PRN Reason: Protocol Stop: 12/17/17 14:01 Last Admin: 12/12/17 14:27 Dose: 133.333 mls/hr Insulin Glargine (Lantus) 10 unit SC DAILY [facility] Last Admin: 12/13/17 09:25 Dose: 10 u Insulin Human Regular (Novolin R) 0 unit SC ACHS [facility] PRN Reason: Protocol Last Admin: 12/13/17 22:13 Dose: Not Given Morphine Sulfate (Morphine) 1 mg IVP Q6H PRN PRN Reason: Pain, severe (8-10) Moxifloxacin HCl (Avelox) 400 mg PO Q24H [facility] Last Admin: 12/13/17 16:38 Dose: 400 mg Pantoprazole Sodium (Protonix Ec Tab) 40 mg PO DAILY [facility] Last Admin: 12/13/17 09:23 Dose: 40 mg Sevelamer Carbonate (Renvela) 1,600 mg PO TIDCC [facility] Last Admin: 12/13/17 16:38 Dose: 1,600 mg Vitamin B Complex/Vit C/Folic Acid (Nephro-Perry) 1 tab PO 0800 [facility] Last Admin: 12/13/17 07:51 Dose: 1 tab - Labs Labs: 12/14/17 06:24 12/14/17 06:22 PT 12.6 SECONDS (9.7-12.2) H 12/08/17 06:32 INR 1.2 12/08/17 06:32 APTT 30 SECONDS (21-34) 12/13/17 10:17 - Constitutional Appears: Non-toxic, No Acute Distress - Head Exam Head Exam: ATRAUMATIC, NORMAL INSPECTION - Eye Exam Eye Exam: EOMI Pupil Exam: PERRL - ENT Exam ENT Exam: Mucous Membranes Moist - Respiratory Exam Respiratory Exam: Clear to Ausculation Bilateral, NORMAL BREATHING PATTERN - Cardiovascular Exam Cardiovascular Exam: REGULAR RHYTHM, +S1, +S2. absent: Tachycardia - GI/Abdominal Exam GI & Abdominal Exam: Soft, Normal Bowel Sounds. absent: Tenderness - Extremities Exam Extremities Exam: Normal Inspection, Pedal Edema - Back Exam Back Exam: absent: CVA tenderness (L), CVA tenderness (R) - Neurological Exam Neurological Exam: Alert, Awake, Oriented x3 - Psychiatric Exam Psychiatric exam: Normal Affect - Skin Skin Exam: Normal Color, Warm Assessment and Plan - Assessment and Plan (Free Text) Plan: 57 yo F admitted to ICU s/p cardiac arrest s/p cardiac arrest Cardiac cath : normal coronaries and normal EF TVP no longer needed cardio consult Dr. Ríos head CT neg for acute pathology EP consult Dr. Mcgrath hold home cardiac meds nifedipine ER 60mg BID and diltiazem ER 180mg likely cause of symptomatic bradycardia extubated (12/11) ASA 81mg PO Daily Morphine 1mg IV Q6H PRN Shock 2/2 sepsis vs cardiogenic Afebrile since 12/10; WBC downtrending Trops neg pBNP 56,[address] Hernandez, [place] licensed tax consultant, help appreciated -no need for PICC line -Vanco with HD and Avelox PO Sputum Culture (12/07/17): + enterobacter clocae Blood cultures (12/07/17): No growth Naris MRSA culture (): Not detected Tylenol 650mg PO Q6H PRN Moxifloxacin 400mg PO Daily (started 12/10/17, Day 5) Vancomycin 1gm IV TThS (started 12/12, Dose 1) Bradyarrythmia Dr. Mcgrath, EP, help appreciated permanent pacemaker vs loop recorder Transaminitis (Elevated ALT) 2/2 to shock; Downtrending - AST has normalized AMS Etiology: Likely anoxic brain injury Abnormal behavior since extubation Dr. Rae, Neuro licensed tax consultant, help appreciated MRI brain w/o (12/14/17): No acute intracranial abnormality. Mild chronic angiopathic changes and mild age-related global parenchymal volume loss. f/u EEG ESRD on HD T//Mon Nephro consult Dr. Bunn Renvela 1600 mg TID, hydralazine 50mg BID, procrit 4000U TTS per Dr. Bunn renal med dosing DM2 ISS moderate accuchecks Lantus increased to 13U ISS hypoglycemic protocol DM Neuropathy Monitor Anemia of Chronic Disease Hgb Stable procrit 4000U TTS HTN Labile over course Norvasc 10mg PO Daily Hydralazine 50mg PO BID Hx of ovarian CA; s/p resection in remission for last 2 years Ppx Protonix 40mg Heparin 5000u SC Q8H [facility] PT/OT Hugo Murch PGY2 All management per Lizeth
[2017-12-14] MEDS: Multivitamin Vitamin B Complex (Nephro-Vite) Tab PO SCH (08:50)
[2017-12-14] MEDS: (Novolin R) Insulin Human Regular 100 units/ml vial SC SCH ×4 (08:50→22:00)
[2017-12-14] MEDS: Pantoprazole 40 mg EC Tab PO SCH (09:46)
[2017-12-14] MEDS: (Lantus) Insulin Glargine, Recombinant SC SCH (10:02)
--- NOTE | 2017-12-14 12:04 | MRI ---
Date of service: 12/14/2017 PROCEDURE: MRI BRAIN WITHOUT CONTRAST HISTORY: s/p cardiac arrest, anoxic brain injury COMPARISON: Noncontrast head CT from 12/07/2017. TECHNIQUE: Multiplanar, multisequence MR images of the brain were obtained without intravenous contrast enhancement. FINDINGS: HEMORRHAGE: None DWI: No evidence of an acute or early subacute infarction. BRAIN PARENCHYMA: There are mild chronic microangiopathic changes. There is no mass, mass effect or abnormal extra-axial fluid collection. There is no territorial infarction. The midline sagittal structures are normal. VENTRICLES: There is mild age-related global parenchymal volume loss and proportionate enlargement of the ventricles and cortical sulci. CRANIUM: There is normal bone marrow signal pattern. ORBITS: Grossly unremarkable. PARANASAL SINUSES/MASTOIDS: There is mild mucosal thickening in the paranasal sinuses worse in the left posterior ethmoid air cells and sphenoid sinus with aerosolized secretions. There are bilateral mastoid effusions. VASCULAR SYSTEM: There are normal signal voids in the larger intracranial arteries. OTHER FINDINGS: None. IMPRESSION: 1. No acute intracranial abnormality. 2. Mild chronic microangiopathic changes and mild age-related global parenchymal volume loss.
[2017-12-14] MEDS: EPOETIN ALFA 4,000 UNIT/ML ML Dialysis IV SCH (15:38)
--- NOTE | 2017-12-14 18:48 | CP.PCM.PN ---
Subjective - Date & Time of Evaluation Date of Evaluation: 12/14/17 Time of Evaluation: 18:47 - Subjective Subjective: Nephrology Consultation Note Assessment: stable Cardiac arrest, acute respi failure, pneumonia Hyperkalemia, lactic acidosis, hypokalemia Diabetic chronic Kidney Disease (E11.22) Hypertensive Chronic Kidney Disease (I12.0) End stage renal disease (N18.6) dependence on hemodialysis (Z99.2) (TTS) via AVF Anemia (D64.9), Hyperphosphatemia (E83.39), Secondary Hyperparathyroidism (E21.1 ), HTN (I12.0) Hypercalcemia likely due to IV given during ACLS (outpt Ca 9.1 PTH 453 recently) Hx of ovarian cancer s/p chemo, in remission for last 2 years RV pressure overload and moderate pulmonary HTN Plan: Had d/w family about need for strict low K diet. pt on veltassa daily at home. d /c losartan as pt has tendency for hyperkalemia as outpt Plan for next HD today per TTS schedule. Continue with Nephrovite 1 tab/day. PRBC as needed for anemia. started NEIDA with HD last Hb 10.3 last phos level 8 started phos binders BP control on norvasc. decreased hydralazine as BP low side. Glycemic control, Dialysis consistent diet Further work up/management as per primary team Dose meds/antibiotics (if needed) for ESRD status. Avoid fleets enema/magnesium based laxatives. cardiology and neuro following Thanks for allowing me to participate in care of your patient. will follow with you. Please call if any Qs. had d/w family and team Dr Shahab Bunn Office: [phone] reason for consult: ESRD HPI: Pt is a 57 F with hx of ESRD on hemodialysis (TTS) via AVF @ [facility] for last 7 years, chronic anemia, hyperphosphatemia, secondary hyperparathyroidism, Diabetes Mellitus, hypertension, ovarian cancer s/p chemo, in remission for last 2 years found to be unresponsive at home, pt s/p ACLS and intubated/sedated, now in ICU pt unable to provide much hx daughter bedside says pt was fine 1 day ago except mild cough. no other concerns or complaints reported. pt is non smoker/no etoh/no drugs. last HD monday ROS: extubated 12/11/17. pt feels better. denies CP/SOB. confused, unable to provide reliable hx. noted overnight events Physical Examination: General Appearance: comfortable, not in acute distress, confused Vitals reviewed and noted as below Head; Atraumatic, normocephalic ENT: normal EYES: left eye blind Neck; supple no lymphadenopathy, no thyromegaly or bruit Lungs: normal respiratory rate/effort. Breath sounds bilateral clear anteriorly Heart: Normal rate. s1s2 normal. No rub or gallop. Extremities: no edema. No varicose veins. Neurological: Patient is awake alert follows commands. confused Skin: Warm and dry. Normal turgor. No rash. Palpitation: Normal elasticity for age Abdomen: Abdomen is soft. Bowel sounds +. There is no abdominal tenderness, no guarding/rigidity or organomegaly Psych: deferred MSK: no joint tenderness or swelling. Digits and nails normal, no deformity : kidney or bladder not palpable Access: AVF Labs/imaging reviewed. Past medical history, past surgical history, family history, social history, allergy reviewed and noted as below Family Hx: no hx of CKD. Non contributory Objective - Vital Signs/Intake and Output Vital Signs (last 24 hours): Temp Pulse Resp BP Pulse Ox 97.8 F 77 19 97/51 L 100 12/14/17 17:25 12/14/17 17:25 12/14/17 17:25 12/14/17 17:25 12/14/17 17:25 Intake and Output: 12/14/17 12/14/17 06:59 18:59 Intake Total 0 0 Balance 0 0 - Medications Medications: Current Medications Acetaminophen (Tylenol 325mg Tab) 650 mg PO Q6 PRN PRN Reason: Fever >100.4 F Last Admin: 12/12/17 19:16 Dose: 650 mg Albuterol/Ipratropium (Duoneb 3 Mg/0.5 Mg (3 Ml) Ud) 3 ml INH RQ4 [facility] Last Admin: 12/14/17 16:42 Dose: Not Given Amlodipine Besylate (Norvasc) 10 mg PO DAILY [facility] Last Admin: 12/14/17 09:41 Dose: 10 mg Aspirin (Aspirin Chewable) 81 mg PO DAILY [facility] Last Admin: 12/14/17 09:10 Dose: 81 mg Epoetin Kasi (Procrit) 4,000 unit IV TTS [facility] Last Admin: 12/14/17 15:38 Dose: 4,000 unit Heparin Sodium (Porcine) (Heparin) 5,000 units SC Q8 [facility] Last Admin: 12/14/17 13:08 Dose: 5,000 units Vancomycin/Sodium Chloride (Vancomycin 1 Gm/Ns 200 Ml) 1 gm in 200 mls @ 133.333 mls/hr IVPB TTS [facility] PRN Reason: Protocol Stop: 12/17/17 14:01 Last Admin: 12/12/17 14:27 Dose: 133.333 mls/hr Insulin Glargine (Lantus) 13 unit SC DAILY [facility] Last Admin: 12/14/17 10:02 Dose: 13 units Insulin Human Regular (Novolin R) 0 unit SC ACHS [facility] PRN Reason: Protocol Last Admin: 12/14/17 12:09 Dose: 4 u Morphine Sulfate (Morphine) 1 mg IVP Q6H PRN PRN Reason: Pain, severe (8-10) Moxifloxacin HCl (Avelox) 400 mg PO Q24H [facility] Last Admin: 12/13/17 16:38 Dose: 400 mg Pantoprazole Sodium (Protonix Ec Tab) 40 mg PO DAILY [facility] Last Admin: 12/14/17 09:46 Dose: 40 mg Sevelamer Carbonate (Renvela) 1,600 mg PO TIDCC [facility] Last Admin: 12/14/17 12:10 Dose: 1,600 mg Vitamin B Complex/Vit C/Folic Acid (Nephro-Perry) 1 tab PO 0800 [facility] Last Admin: 12/14/17 08:50 Dose: 1 tab - Labs Labs: 12/14/17 06:24 12/14/17 06:22 PT 12.6 SECONDS (9.7-12.2) H 12/08/17 06:32 INR 1.2 12/08/17 06:32 APTT 30 SECONDS (21-34) 12/13/17 10:17
[2017-12-14] MEDS: Vancomycin 1 gm/NS 200 ml 1 GM/200 ML BAG IVPB SCH (19:02)
--- NOTE | 2017-12-14 19:40 | CP.PCM.PN ---
Subjective - Date & Time of Evaluation Date of Evaluation: 12/14/17 Time of Evaluation: 08:00 - Subjective Subjective: awake alert nad Objective - Vital Signs/Intake and Output Vital Signs (last 24 hours): Temp Pulse Resp BP Pulse Ox 97.8 F 77 19 97/51 L 100 12/14/17 17:25 12/14/17 17:25 12/14/17 17:25 12/14/17 17:25 12/14/17 17:25 Intake and Output: 12/14/17 12/15/17 18:59 06:59 Intake Total 0 Balance 0 - Medications Medications: Current Medications Acetaminophen (Tylenol 325mg Tab) 650 mg PO Q6 PRN PRN Reason: Fever >100.4 F Last Admin: 12/12/17 19:16 Dose: 650 mg Albuterol/Ipratropium (Duoneb 3 Mg/0.5 Mg (3 Ml) Ud) 3 ml INH RQ4 [facility] Last Admin: 12/14/17 16:42 Dose: Not Given Amlodipine Besylate (Norvasc) 10 mg PO DAILY [facility] Last Admin: 12/14/17 09:41 Dose: 10 mg Aspirin (Aspirin Chewable) 81 mg PO DAILY [facility] Last Admin: 12/14/17 09:10 Dose: 81 mg Epoetin Kasi (Procrit) 4,000 unit IV TTS [facility] Last Admin: 12/14/17 15:38 Dose: 4,000 unit Heparin Sodium (Porcine) (Heparin) 5,000 units SC Q8 [facility] Last Admin: 12/14/17 13:08 Dose: 5,000 units Hydralazine HCl (Apresoline) 25 mg PO BID [facility] Vancomycin/Sodium Chloride (Vancomycin 1 Gm/Ns 200 Ml) 1 gm in 200 mls @ 133.333 mls/hr IVPB TTS [facility] PRN Reason: Protocol Stop: 12/17/17 14:01 Last Admin: 12/14/17 19:02 Dose: 133.333 mls/hr Insulin Glargine (Lantus) 13 unit SC DAILY [facility] Last Admin: 12/14/17 10:02 Dose: 13 units Insulin Human Regular (Novolin R) 0 unit SC ACHS [facility] PRN Reason: Protocol Last Admin: 12/14/17 16:30 Dose: Not Given Morphine Sulfate (Morphine) 1 mg IVP Q6H PRN PRN Reason: Pain, severe (8-10) Moxifloxacin HCl (Avelox) 400 mg PO Q24H [facility] Last Admin: 12/14/17 18:00 Dose: 400 mg Pantoprazole Sodium (Protonix Ec Tab) 40 mg PO DAILY [facility] Last Admin: 12/14/17 09:46 Dose: 40 mg Sevelamer Carbonate (Renvela) 1,600 mg PO TIDCC [facility] Last Admin: 12/14/17 18:00 Dose: 1,600 mg Vitamin B Complex/Vit C/Folic Acid (Nephro-Perry) 1 tab PO 0800 [facility] Last Admin: 12/14/17 08:50 Dose: 1 tab - Labs Labs: 12/14/17 06:24 12/14/17 06:22 PT 12.6 SECONDS (9.7-12.2) H 12/08/17 06:32 INR 1.2 12/08/17 06:32 APTT 30 SECONDS (21-34) 12/13/17 10:17 - Constitutional Appears: Non-toxic, Chronically Ill - Head Exam Head Exam: NORMOCEPHALIC - Eye Exam Eye Exam: PERRL - ENT Exam ENT Exam: Mucous Membranes Dry - Neck Exam Neck Exam: absent: Lymphadenopathy - Respiratory Exam Respiratory Exam: Decreased Breath Sounds - Cardiovascular Exam Cardiovascular Exam: REGULAR RHYTHM - GI/Abdominal Exam GI & Abdominal Exam: Distended, Soft Assessment and Plan (1) CKD (chronic kidney disease) requiring chronic dialysis Status: Acute (2) Bradycardia Status: Acute (3) Cardiac arrest Status: Acute (4) Pneumonia Status: Acute (5) Respiratory failure requiring intubation Status: Acute - Assessment and Plan (Free Text) Assessment: for PPM cont iv rx
--- NOTE | 2017-12-14 22:07 | CP.PCM.PN ---
Subjective - Date & Time of Evaluation Date of Evaluation: 12/14/17 Time of Evaluation: 17:20 - Subjective Subjective: Patient seen and examined sitting up in chair. Patient has generalized aches and pains throughout her body. Patient has chest wall and shoulder pain from having had compressions and an IO. Patient denies any shortness of breath, abdominal pain, nausea, vomiting, constipation, or diarrhea. Physical Examination - Constitutional Appears: Non-toxic, No Acute Distress - Head Exam Head Exam: ATRAUMATIC, NORMAL INSPECTION, NORMOCEPHALIC - Eye Exam Eye Exam: EOMI - ENT Exam ENT Exam: Mucous Membranes Dry - Respiratory Exam Respiratory Exam: Decreased Breath Sounds, Clear to Ausculation Bilateral Additional comments: on nasal cannula - Cardiovascular Exam Cardiovascular Exam: REGULAR RHYTHM, RRR, +S1, +S2 Additional comments: chest wall tenderness to palpation - GI/Abdominal Exam GI & Abdominal Exam: Soft, Normal Bowel Sounds. absent: Tenderness - Extremities Exam Extremities Exam: Full ROM, Normal Inspection. absent: Pedal Edema, Tenderness - Neurological Exam Neurological Exam: Alert, Awake, Oriented x3 - Psychiatric Exam Psychiatric exam: Normal Affect, Normal Mood - Skin Skin Exam: Intact, Warm Additional comments: ecchymosis on chest wall Objective - Vital Signs/Intake and Output Vital Signs (last 24 hours): Temp Pulse Resp BP Pulse Ox 98.5 F 86 22 133/70 96 12/14/17 20:00 12/14/17 20:00 12/14/17 20:00 12/14/17 20:00 12/14/17 20:00 Intake and Output: 12/14/17 12/15/17 18:59 06:59 Intake Total 800 Output Total 2000 Balance -1200 - Medications Medications: Current Medications Acetaminophen (Tylenol 325mg Tab) 650 mg PO Q6 PRN PRN Reason: Fever >100.4 F Last Admin: 12/12/17 19:16 Dose: 650 mg Albuterol/Ipratropium (Duoneb 3 Mg/0.5 Mg (3 Ml) Ud) 3 ml INH RQ4 [facility] Last Admin: 12/14/17 20:42 Dose: 3 ml Amlodipine Besylate (Norvasc) 10 mg PO DAILY [facility] Last Admin: 12/14/17 09:41 Dose: 10 mg Aspirin (Aspirin Chewable) 81 mg PO DAILY [facility] Last Admin: 12/14/17 09:10 Dose: 81 mg Epoetin Kasi (Procrit) 4,000 unit IV TTS [facility] Last Admin: 12/14/17 15:38 Dose: 4,000 unit Heparin Sodium (Porcine) (Heparin) 5,000 units SC Q8 [facility] Last Admin: 12/14/17 13:08 Dose: 5,000 units Hydralazine HCl (Apresoline) 25 mg PO BID [facility] Vancomycin/Sodium Chloride (Vancomycin 1 Gm/Ns 200 Ml) 1 gm in 200 mls @ 133.333 mls/hr IVPB TTS [facility] PRN Reason: Protocol Stop: 12/17/17 14:01 Last Admin: 12/14/17 19:02 Dose: 133.333 mls/hr Insulin Glargine (Lantus) 13 unit SC DAILY [facility] Last Admin: 12/14/17 10:02 Dose: 13 units Insulin Human Regular (Novolin R) 0 unit SC ACHS [facility] PRN Reason: Protocol Last Admin: 12/14/17 22:00 Dose: Not Given Morphine Sulfate (Morphine) 1 mg IVP Q6H PRN PRN Reason: Pain, severe (8-10) Moxifloxacin HCl (Avelox) 400 mg PO Q24H [facility] Last Admin: 12/14/17 18:00 Dose: 400 mg Pantoprazole Sodium (Protonix Ec Tab) 40 mg PO DAILY [facility] Last Admin: 12/14/17 09:46 Dose: 40 mg Sevelamer Carbonate (Renvela) 1,600 mg PO TIDCC [facility] Last Admin: 12/14/17 18:00 Dose: 1,600 mg Vitamin B Complex/Vit C/Folic Acid (Nephro-Perry) 1 tab PO 0800 [facility] Last Admin: 12/14/17 08:50 Dose: 1 tab - Labs Labs: 12/14/17 06:24 12/14/17 06:22 PT 12.6 SECONDS (9.7-12.2) H 12/08/17 06:32 INR 1.2 12/08/17 06:32 APTT 30 SECONDS (21-34) 12/13/17 10:17 Assessment and Plan - Assessment and Plan (Free Text) Assessment: S/P Cardiac Arrest and Cardiac Cath Cardiac cath : normal coronaries and normal EF patient no longer being paced, in NSR will need pacemaker once more stable ASA 81mg po daily Respiratory Failure extubated on 12/11/17 on nasal cannula HTN Norvasc 10mg po daily Hydralazine 50mg po BID ESRD continue dialysis monitor electrolyte abnormalities Pneumonia sputum culture: enterobacter cloacae WBC: 13.1 Dr. Hernandez consulted Adelia Rodriguezo
[2017-12-15] MEDS: Albuterol-Ipratrop 3 mg / 0.5 (3 ml) UD INH SCH ×5 (04:35→20:02)
[2017-12-15 05:59] LABS: BASO # 0.1 K/uL (0.0-0.2); BASO % 0.8 % (0.0-2.0); EOS # 0.3 K/uL (0.0-0.7); EOS % 2.8 % (0.0-4.0); HEMOGLOBIN 11.1 g/dL (11.0-16.0); LYMPH # 1.8 K/uL (1.0-4.3); MEAN CELL VOLUME 90.6 fL (81.0-99.0); MEAN CORPUSCULAR HEMOGLOBIN 30.5 pg (27.0-31.0); MEAN CORPUSCULAR HGB CONC 33.7 g/dL (33.0-37.0); MEAN PLATELET VOLUME 7.9 fL (7.2-11.7); MONO # 1.2 K/uL (0.0-0.8); MONO % 11.4 % (0.0-10.0); NEUT # 7.6 K/uL (1.8-7.0); NRBC % 0.2 % (0.0-2.0); RBC 3.64 Mil/uL (3.80-5.20); RED CELL DISTRIBUTION WIDTH 14.3 % (11.5-14.5)
--- NOTE | 2017-12-15 06:26 | CP.PCM.PN ---
Subjective - Date & Time of Evaluation Date of Evaluation: 12/15/17 Time of Evaluation: 06:24 - Subjective Subjective: Ms. Fernandes was seen and examined at the bedside in ICU. She is awake, oriented but with episode of confusion and attention span is very short. She does maintain eye contact. She was able to followed simple commands like raising her upper extremities, finger to nose, and strength test. She does reposition herself in her bed independently. MRI of brain without contrast showed No acute intracranial abnormality. Mild chronic microangiopathic changes and mild age-related global parenchymal volume loss.There was no untoward events overnight. Objective - Vital Signs/Intake and Output Vital Signs (last 24 hours): Temp Pulse Resp BP Pulse Ox 97.6 F 86 19 157/71 H 98 12/15/17 04:00 12/15/17 04:00 12/15/17 04:00 12/15/17 04:00 12/15/17 04:00 Intake and Output: 12/14/17 12/15/17 18:59 06:59 Intake Total 800 360 Output Total 2000 10 Balance -1200 350 - Medications Medications: Current Medications Acetaminophen (Tylenol 325mg Tab) 650 mg PO Q6 PRN PRN Reason: Fever >100.4 F Last Admin: 12/12/17 19:16 Dose: 650 mg Albuterol/Ipratropium (Duoneb 3 Mg/0.5 Mg (3 Ml) Ud) 3 ml INH RQ4 [facility] Last Admin: 12/15/17 04:35 Dose: Not Given Amlodipine Besylate (Norvasc) 10 mg PO DAILY [facility] Last Admin: 12/14/17 09:41 Dose: 10 mg Aspirin (Aspirin Chewable) 81 mg PO DAILY [facility] Last Admin: 12/14/17 09:10 Dose: 81 mg Epoetin Kasi (Procrit) 4,000 unit IV TTS [facility] Last Admin: 12/14/17 15:38 Dose: 4,000 unit Heparin Sodium (Porcine) (Heparin) 5,000 units SC Q8 [facility] Last Admin: 12/15/17 06:00 Dose: 5,000 units Hydralazine HCl (Apresoline) 25 mg PO BID [facility] Vancomycin/Sodium Chloride (Vancomycin 1 Gm/Ns 200 Ml) 1 gm in 200 mls @ 133.333 mls/hr IVPB TTS [facility] PRN Reason: Protocol Stop: 12/17/17 14:01 Last Admin: 12/14/17 19:02 Dose: 133.333 mls/hr Insulin Glargine (Lantus) 13 unit SC DAILY [facility] Last Admin: 12/14/17 10:02 Dose: 13 units Insulin Human Regular (Novolin R) 0 unit SC ACHS [facility] PRN Reason: Protocol Last Admin: 12/14/17 22:00 Dose: Not Given Morphine Sulfate (Morphine) 1 mg IVP Q6H PRN PRN Reason: Pain, severe (8-10) Moxifloxacin HCl (Avelox) 400 mg PO Q24H [facility] Last Admin: 12/14/17 18:00 Dose: 400 mg Pantoprazole Sodium (Protonix Ec Tab) 40 mg PO DAILY [facility] Last Admin: 12/14/17 09:46 Dose: 40 mg Sevelamer Carbonate (Renvela) 1,600 mg PO TIDCC [facility] Last Admin: 12/14/17 18:00 Dose: 1,600 mg Vitamin B Complex/Vit C/Folic Acid (Nephro-Perry) 1 tab PO 0800 [facility] Last Admin: 12/14/17 08:50 Dose: 1 tab - Labs Labs: 12/15/17 05:51 12/14/17 06:22 PT 12.6 SECONDS (9.7-12.2) H 12/08/17 06:32 INR 1.2 12/08/17 06:32 APTT 30 SECONDS (21-34) 12/13/17 10:17 - Constitutional Appears: No Acute Distress - Head Exam Head Exam: NORMAL INSPECTION - Eye Exam Pupil Exam: PERRL - Neurological Exam Neurological Exam: Alert, Awake Neuro motor strength exam: Left Upper Extremity: 4, Right Upper Extremity: 4, Left Lower Extremity: 4, Right Lower Extremity: 4 Additional comments: alert, awake, follows simple commands, sensation is intact. Assessment and Plan (1) Anoxic brain injury Assessment & Plan: Case discussed with Dr. Rae, continue all current medical regimen. Recommend to treat any electrolyte abnormalities, blood pressure control, and follow any recommendations from cardiology and nephrology. Status: Acute
[2017-12-15 06:29] LABS: ALB/GLOB RATIO 1.1 (1.0-2.1); ALBUMIN 3.6 g/dL (3.5-5.0); CALCIUM 8.6 mg/dl (8.6-10.4)
--- NOTE | 2017-12-15 07:39 | CP.PCM.PN ---
Subjective - Date & Time of Evaluation Date of Evaluation: 12/15/17 Time of Evaluation: 07:34 - Subjective Subjective: PGY-[address] Stanley's service Pt seen and examined at bedside. Nursing reports pt afebrile overnight, with no acute events transpiring. She is found this morning resting comfortably in bed, awake, with increased orientation today. She is found oriented to person, place , but not time or context. Pt reports mild chest wall tenderness from compressions performed on admission. No palpiations, SOB, abd pain, N/V. Objective - Vital Signs/Intake and Output Vital Signs (last 24 hours): Temp Pulse Resp BP Pulse Ox 97.6 F 86 19 157/71 H 98 12/15/17 04:00 12/15/17 04:00 12/15/17 04:00 12/15/17 04:00 12/15/17 04:00 Intake and Output: 12/15/17 12/15/17 06:59 18:59 Intake Total 360 Output Total 10 Balance 350 - Medications Medications: Current Medications Acetaminophen (Tylenol 325mg Tab) 650 mg PO Q6 PRN PRN Reason: Fever >100.4 F Last Admin: 12/12/17 19:16 Dose: 650 mg Albuterol/Ipratropium (Duoneb 3 Mg/0.5 Mg (3 Ml) Ud) 3 ml INH RQ4 [facility] Last Admin: 12/15/17 04:35 Dose: Not Given Amlodipine Besylate (Norvasc) 10 mg PO DAILY [facility] Last Admin: 12/14/17 09:41 Dose: 10 mg Aspirin (Aspirin Chewable) 81 mg PO DAILY [facility] Last Admin: 12/14/17 09:10 Dose: 81 mg Epoetin Kasi (Procrit) 4,000 unit IV TTS [facility] Last Admin: 12/14/17 15:38 Dose: 4,000 unit Heparin Sodium (Porcine) (Heparin) 5,000 units SC Q8 [facility] Last Admin: 12/15/17 06:00 Dose: 5,000 units Hydralazine HCl (Apresoline) 25 mg PO BID [facility] Vancomycin/Sodium Chloride (Vancomycin 1 Gm/Ns 200 Ml) 1 gm in 200 mls @ 133.333 mls/hr IVPB TTS [facility] PRN Reason: Protocol Stop: 12/17/17 14:01 Last Admin: 12/14/17 19:02 Dose: 133.333 mls/hr Insulin Glargine (Lantus) 13 unit SC DAILY [facility] Last Admin: 12/14/17 10:02 Dose: 13 units Insulin Human Regular (Novolin R) 0 unit SC ACHS [facility] PRN Reason: Protocol Last Admin: 12/14/17 22:00 Dose: Not Given Morphine Sulfate (Morphine) 1 mg IVP Q6H PRN PRN Reason: Pain, severe (8-10) Moxifloxacin HCl (Avelox) 400 mg PO Q24H [facility] Last Admin: 12/14/17 18:00 Dose: 400 mg Pantoprazole Sodium (Protonix Ec Tab) 40 mg PO DAILY [facility] Last Admin: 12/14/17 09:46 Dose: 40 mg Sevelamer Carbonate (Renvela) 1,600 mg PO TIDCC [facility] Last Admin: 12/14/17 18:00 Dose: 1,600 mg Vitamin B Complex/Vit C/Folic Acid (Nephro-Perry) 1 tab PO 0800 [facility] Last Admin: 12/14/17 08:50 Dose: 1 tab - Labs Labs: 12/15/17 05:51 12/15/17 05:51 PT 12.6 SECONDS (9.7-12.2) H 12/08/17 06:32 INR 1.2 12/08/17 06:32 APTT 30 SECONDS (21-34) 12/13/17 10:17 - Additional Findings Additional findings: - Constitutional Appears: Non-toxic, No Acute Distress - Head Exam Head Exam: ATRAUMATIC, NORMAL INSPECTION - Eye Exam Eye Exam: EOMI Pupil Exam: PERRL - ENT Exam ENT Exam: Mucous Membranes Moist - Respiratory Exam Respiratory Exam: Clear to Ausculation Bilateral, NORMAL BREATHING PATTERN - Cardiovascular Exam Cardiovascular Exam: REGULAR RHYTHM, +S1, +S2. absent: Tachycardia - Chest well tenderness (worsts at xiphoid); bruising over sternum from compressions - GI/Abdominal Exam GI & Abdominal Exam: Soft, Normal Bowel Sounds. absent: Tenderness - Extremities Exam Extremities Exam: Normal Inspection, Pedal Edema - Back Exam Back Exam: absent: CVA tenderness (L), CVA tenderness (R) - Neurological Exam Neurological Exam: Alert, Awake, Oriented x3 - Psychiatric Exam Psychiatric exam: Normal Affect - Skin Skin Exam: Normal Color, Warm Assessment and Plan - Assessment and Plan (Free Text) Plan: 57 yo F admitted to ICU s/p cardiac arrest s/p cardiac arrest Cardiac cath : normal coronaries and normal EF TVP no longer needed cardio consult Dr. Ríos head CT neg for acute pathology EP consult Dr. Mcgrath hold home cardiac meds nifedipine ER 60mg BID and diltiazem ER 180mg likely cause of symptomatic bradycardia extubated (12/11) ASA 81mg PO Daily Morphine 1mg IV Q6H PRN Bradyarrythmia Dr. Mcgrath, EP, help appreciated - now that pt more stable, permanent pacemaker will be planned on this admission - f/u further reccs regarding timing Shock 2/2 sepsis vs cardiogenic Hospital acquired Pneumonia Afebrile since 12/10; WBC downtrending Trops neg pBNP 56,900 on admission CXR (12/10/17): Consolidative Changes in left mid to lower lung zone and right lung base. Right hilar prominence. Trace pleural effusion. CXR (12/13/17): NAD Dr. Hernandez, ID pre sales technical consultant, help appreciated -no need for PICC line -Vanco with HD and Avelox PO Sputum Culture (12/07/17): + enterobacter clocae Blood cultures (12/07/17): No growth Naris MRSA culture (): Not detected Tylenol 650mg PO Q6H PRN Moxifloxacin 400mg PO Daily (started 12/10/17, Day 6) Vancomycin 1gm IV TThS (started 12/12, 2 Doses) Transaminitis (Elevated ALT) 2/2 to shock; Downtrending - AST has normalized AMS Etiology: Likely anoxic brain injury Abnormal behavior since extubation Dr. Rae, Neuro pre sales technical consultant, help appreciated MRI brain w/o (12/14/17): No acute intracranial abnormality. Mild chronic angiopathic changes and mild age-related global parenchymal volume loss. EEG (wetread: normal; f/u official dictation ESRD on HD T//Mon Nephro consult Dr. Bunn Renheidi 1600 mg TID, hydralazine 50mg BID, procrit 4000U TTS per Dr. Bunn renal med dosing T2DM ISS moderate accuchecks Lantus increased to 16U ISS hypoglycemic protocol DM Neuropathy Monitor Anemia of Chronic Disease Hgb Stable procrit 4000U TTS HTN Labile over course Norvasc 10mg PO Daily Hydralazine decreased to 25mg PO BID per nephro reccs Hx of ovarian CA; s/p resection in remission for last 2 years Ppx Protonix 40mg PO Daily Heparin 5000u SC Q8H [facility] PT/OT Disposition: Pt more stable, f/u Dr. Mcgrath recommendations regarding pacemaker implantation. Hugo Crow PGY2 All management per Lizeth
[2017-12-15] MEDS: (Novolin R) Insulin Human Regular 100 units/ml vial SC SCH ×4 (08:24→22:07)
[2017-12-15] MEDS: Multivitamin Vitamin B Complex (Nephro-Vite) Tab PO SCH (08:24)
[2017-12-15] MEDS: Pantoprazole 40 mg EC Tab PO SCH (09:01)
[2017-12-15] MEDS: (Lantus) Insulin Glargine, Recombinant SC SCH (09:31)
--- NOTE | 2017-12-15 15:02 | CP.PCM.PN ---
Subjective - Date & Time of Evaluation Date of Evaluation: 12/15/17 Time of Evaluation: 15:01 - Subjective Subjective: Nephrology Consultation Note Assessment: stable Cardiac arrest, acute respi failure, pneumonia Hyperkalemia, lactic acidosis, hypokalemia Diabetic chronic Kidney Disease (E11.22) Hypertensive Chronic Kidney Disease (I12.0) End stage renal disease (N18.6) dependence on hemodialysis (Z99.2) (TTS) via AVF Anemia (D64.9), Hyperphosphatemia (E83.39), Secondary Hyperparathyroidism (E21.1 ), HTN (I12.0) Hypercalcemia likely due to IV given during ACLS (outpt Ca 9.1 PTH 453 recently) Hx of ovarian cancer s/p chemo, in remission for last 2 years RV pressure overload and moderate pulmonary HTN Plan: Had d/w family about need for strict low K diet. pt on veltassa daily at home. d /c losartan as pt has tendency for hyperkalemia as outpt Plan for next HD tomorrow per TTS schedule. Continue with Nephrovite 1 tab/day. PRBC as needed for anemia. lowered NEIDA weekly with HD last Hb 11 increased phos binders last phos level 6.3 BP control on norvasc. decreased hydralazine as BP low side. Glycemic control, Dialysis consistent diet Further work up/management as per primary team Dose meds/antibiotics (if needed) for ESRD status. Avoid fleets enema/magnesium based laxatives. cardiology and neuro following Thanks for allowing me to participate in care of your patient. will follow with you. Please call if any Qs. had d/w family and team Dr Shahab Bunn Office: [phone] reason for consult: ESRD HPI: Pt is a 57 F with hx of ESRD on hemodialysis (TTS) via AVF @ [facility] for last 7 years, chronic anemia, hyperphosphatemia, secondary hyperparathyroidism, Diabetes Mellitus, hypertension, ovarian cancer s/p chemo, in remission for last 2 years found to be unresponsive at home, pt s/p ACLS and intubated/sedated, now in ICU pt unable to provide much hx daughter bedside says pt was fine 1 day ago except mild cough. no other concerns or complaints reported. pt is non smoker/no etoh/no drugs. last HD monday ROS: extubated 12/11/17. pt feels better. denies CP/SOB. confusion appears better , unable to provide reliable hx. noted overnight events Physical Examination: General Appearance: comfortable, not in acute distress, confused Vitals reviewed and noted as below Head; Atraumatic, normocephalic ENT: normal EYES: left eye blind Neck; supple no lymphadenopathy, no thyromegaly or bruit Lungs: normal respiratory rate/effort. Breath sounds bilateral clear anteriorly Heart: Normal rate. s1s2 normal. No rub or gallop. Extremities: no edema. No varicose veins. Neurological: Patient is awake alert follows commands. confused but better Skin: Warm and dry. Normal turgor. No rash. Palpitation: Normal elasticity for age Abdomen: Abdomen is soft. Bowel sounds +. There is no abdominal tenderness, no guarding/rigidity or organomegaly Psych: deferred MSK: no joint tenderness or swelling. Digits and nails normal, no deformity : kidney or bladder not palpable Access: AVF Labs/imaging reviewed. Past medical history, past surgical history, family history, social history, allergy reviewed and noted as below Family Hx: no hx of CKD. Non contributory Objective - Vital Signs/Intake and Output Vital Signs (last 24 hours): Temp Pulse Resp BP Pulse Ox 97.6 F 80 19 157/71 H 98 12/15/17 04:00 12/15/17 07:47 12/15/17 04:00 12/15/17 04:00 12/15/17 04:00 Intake and Output: 12/15/17 12/15/17 06:59 18:59 Intake Total 360 Output Total 10 Balance 350 - Medications Medications: Current Medications Acetaminophen (Tylenol 325mg Tab) 650 mg PO Q6 PRN PRN Reason: Fever >100.4 F Last Admin: 12/12/17 19:16 Dose: 650 mg Albuterol/Ipratropium (Duoneb 3 Mg/0.5 Mg (3 Ml) Ud) 3 ml INH RQ4 [facility] Last Admin: 12/15/17 11:49 Dose: 3 ml Amlodipine Besylate (Norvasc) 10 mg PO DAILY [facility] Last Admin: 12/15/17 09:01 Dose: 10 mg Aspirin (Aspirin Chewable) 81 mg PO DAILY [facility] Last Admin: 12/15/17 09:00 Dose: 81 mg Epoetin Kasi (Procrit) 4,000 unit IV QWK [facility] Heparin Sodium (Porcine) (Heparin) 5,000 units SC Q8 [facility] Last Admin: 12/15/17 13:15 Dose: 5,000 units Hydralazine HCl (Apresoline) 25 mg PO BID [facility] Last Admin: 12/15/17 09:01 Dose: 25 mg Vancomycin/Sodium Chloride (Vancomycin 1 Gm/Ns 200 Ml) 1 gm in 200 mls @ 133.333 mls/hr IVPB TTS [facility] PRN Reason: Protocol Stop: 12/17/17 14:01 Last Admin: 12/14/17 19:02 Dose: 133.333 mls/hr Insulin Glargine (Lantus) 16 unit SC DAILY [facility] Insulin Human Regular (Novolin R) 0 unit SC ACHS [facility] PRN Reason: Protocol Last Admin: 12/15/17 12:22 Dose: 3 units Morphine Sulfate (Morphine) 1 mg IVP Q6H PRN PRN Reason: Pain, severe (8-10) Last Admin: 12/15/17 10:05 Dose: 1 mg Moxifloxacin HCl (Avelox) 400 mg PO Q24H [facility] Last Admin: 12/14/17 18:00 Dose: 400 mg Pantoprazole Sodium (Protonix Ec Tab) 40 mg PO DAILY [facility] Last Admin: 12/15/17 09:01 Dose: 40 mg Sevelamer Carbonate (Renvela) 2,400 mg PO TIDCC [facility] Last Admin: 12/15/17 12:24 Dose: 2,400 mg Vitamin B Complex/Vit C/Folic Acid (Nephro-Perry) 1 tab PO 0800 [facility] Last Admin: 12/15/17 08:24 Dose: 1 tab - Labs Labs: 12/15/17 05:51 12/15/17 05:51 PT 12.6 SECONDS (9.7-12.2) H 12/08/17 06:32 INR 1.2 12/08/17 06:32 APTT 30 SECONDS (21-34) 12/13/17 10:17
--- NOTE | 2017-12-15 17:13 | CP.PCM.PN ---
Subjective - Date & Time of Evaluation Date of Evaluation: 12/15/17 Time of Evaluation: 09:00 - Subjective Subjective: resting on rounds in [facility] Objective - Vital Signs/Intake and Output Vital Signs (last 24 hours): Temp Pulse Resp BP Pulse Ox 98.5 F 84 20 157/71 H 98 12/15/17 16:00 12/15/17 16:00 12/15/17 16:00 12/15/17 04:00 12/15/17 16:00 Intake and Output: 12/15/17 12/15/17 06:59 18:59 Intake Total 360 120 Output Total 10 0 Balance 350 120 - Medications Medications: Current Medications Acetaminophen (Tylenol 325mg Tab) 650 mg PO Q6 PRN PRN Reason: Fever >100.4 F Last Admin: 12/12/17 19:16 Dose: 650 mg Albuterol/Ipratropium (Duoneb 3 Mg/0.5 Mg (3 Ml) Ud) 3 ml INH RQ4 [facility] Last Admin: 12/15/17 16:03 Dose: 3 ml Amlodipine Besylate (Norvasc) 10 mg PO DAILY [facility] Last Admin: 12/15/17 09:01 Dose: 10 mg Aspirin (Aspirin Chewable) 81 mg PO DAILY [facility] Last Admin: 12/15/17 09:00 Dose: 81 mg Epoetin Kasi (Procrit) 4,000 unit IV QWK [facility] Heparin Sodium (Porcine) (Heparin) 5,000 units SC Q8 [facility] Last Admin: 12/15/17 13:15 Dose: 5,000 units Hydralazine HCl (Apresoline) 25 mg PO BID [facility] Last Admin: 12/15/17 09:01 Dose: 25 mg Vancomycin/Sodium Chloride (Vancomycin 1 Gm/Ns 200 Ml) 1 gm in 200 mls @ 133.333 mls/hr IVPB TTS [facility]ACC PRN Reason: Protocol Stop: 12/17/17 14:01 Last Admin: 12/14/17 19:02 Dose: 133.333 mls/hr Insulin Glargine (Lantus) 16 unit SC DAILY [facility] Insulin Human Regular (Novolin R) 0 unit SC ACHS [facility] PRN Reason: Protocol Last Admin: 12/15/17 12:22 Dose: 3 units Morphine Sulfate (Morphine) 1 mg IVP Q6H PRN PRN Reason: Pain, severe (8-10) Last Admin: 12/15/17 10:05 Dose: 1 mg Moxifloxacin HCl (Avelox) 400 mg PO Q24H [facility] Last Admin: 12/14/17 18:00 Dose: 400 mg Pantoprazole Sodium (Protonix Ec Tab) 40 mg PO DAILY [facility] Last Admin: 12/15/17 09:01 Dose: 40 mg Sevelamer Carbonate (Renvela) 2,400 mg PO TIDCC [facility] Last Admin: 12/15/17 12:24 Dose: 2,400 mg Vitamin B Complex/Vit C/Folic Acid (Nephro-Perry) 1 tab PO 0800 [facility] Last Admin: 12/15/17 08:24 Dose: 1 tab - Labs Labs: 12/15/17 05:51 12/15/17 05:51 PT 12.6 SECONDS (9.7-12.2) H 12/08/17 06:32 INR 1.2 12/08/17 06:32 APTT 30 SECONDS (21-34) 12/13/17 10:17 - Constitutional Appears: Non-toxic, Chronically Ill - Head Exam Head Exam: NORMOCEPHALIC - Eye Exam Eye Exam: PERRL. absent: Scleral icterus - ENT Exam ENT Exam: Mucous Membranes Dry - Neck Exam Neck Exam: absent: Lymphadenopathy - Respiratory Exam Respiratory Exam: Decreased Breath Sounds - Cardiovascular Exam Cardiovascular Exam: REGULAR RHYTHM - GI/Abdominal Exam GI & Abdominal Exam: Distended, Soft - Rectal Exam Rectal Exam: Deferred Assessment and Plan (1) CKD (chronic kidney disease) requiring chronic dialysis Status: Acute (2) Bradycardia Status: Acute (3) Cardiac arrest Status: Acute (4) Pneumonia Status: Acute (5) Respiratory failure requiring intubation Status: Acute - Assessment and Plan (Free Text) Assessment: cont iv and po rx
--- NOTE | 2017-12-15 21:37 | CP.PCM.PN ---
Subjective - Date & Time of Evaluation Date of Evaluation: 12/15/17 Time of Evaluation: 10:15 - Subjective Subjective: Patient seen and examined sitting up in chair. Patient has generalized aches and pains throughout her body. Patient has chest wall and shoulder pain from having had compressions and an IO. Patient denies any shortness of breath, abdominal pain, nausea, vomiting, constipation, or diarrhea. Physical Examination - Constitutional Appears: Non-toxic, No Acute Distress - Head Exam Head Exam: ATRAUMATIC, NORMAL INSPECTION, NORMOCEPHALIC - Eye Exam Eye Exam: EOMI - ENT Exam ENT Exam: Mucous Membranes Dry - Respiratory Exam Respiratory Exam: Decreased Breath Sounds, Clear to Ausculation Bilateral Additional comments: on nasal cannula - Cardiovascular Exam Cardiovascular Exam: REGULAR RHYTHM, RRR, +S1, +S2 Additional comments: chest wall tenderness to palpation - GI/Abdominal Exam GI & Abdominal Exam: Soft, Normal Bowel Sounds. absent: Tenderness - Extremities Exam Extremities Exam: Full ROM, Normal Inspection. absent: Pedal Edema, Tenderness - Neurological Exam Neurological Exam: Alert, Awake, Oriented x3 - Psychiatric Exam Psychiatric exam: Normal Affect, Normal Mood - Skin Skin Exam: Intact, Warm Additional comments: ecchymosis on chest wall Objective - Vital Signs/Intake and Output Vital Signs (last 24 hours): Temp Pulse Resp BP Pulse Ox 97.7 F 94 H 17 136/73 98 12/15/17 20:00 12/15/17 20:00 12/15/17 20:00 12/15/17 20:00 12/15/17 20:00 Intake and Output: 12/15/17 12/16/17 18:59 06:59 Intake Total 620 Output Total 0 Balance 620 - Medications Medications: Current Medications Acetaminophen (Tylenol 325mg Tab) 650 mg PO Q6 PRN PRN Reason: Fever >100.4 F Last Admin: 12/12/17 19:16 Dose: 650 mg Albuterol/Ipratropium (Duoneb 3 Mg/0.5 Mg (3 Ml) Ud) 3 ml INH RQ4 [facility] Last Admin: 12/15/17 20:02 Dose: 3 ml Amlodipine Besylate (Norvasc) 10 mg PO DAILY [facility] Last Admin: 12/15/17 09:01 Dose: 10 mg Aspirin (Aspirin Chewable) 81 mg PO DAILY [facility] Last Admin: 12/15/17 09:00 Dose: 81 mg Epoetin Kasi (Procrit) 4,000 unit IV QWK [facility] Heparin Sodium (Porcine) (Heparin) 5,000 units SC Q8 [facility] Last Admin: 12/15/17 13:15 Dose: 5,000 units Hydralazine HCl (Apresoline) 25 mg PO BID [facility] Last Admin: 12/15/17 17:29 Dose: Not Given Vancomycin/Sodium Chloride (Vancomycin 1 Gm/Ns 200 Ml) 1 gm in 200 mls @ 133.333 mls/hr IVPB TTS ISACC PRN Reason: Protocol Stop: 12/17/17 14:01 Last Admin: 12/14/17 19:02 Dose: 133.333 mls/hr Insulin Glargine (Lantus) 16 unit SC DAILY [facility] Insulin Human Regular (Novolin R) 0 unit SC ACHS [facility] PRN Reason: Protocol Last Admin: 12/15/17 16:32 Dose: Not Given Morphine Sulfate (Morphine) 1 mg IVP Q6H PRN PRN Reason: Pain, severe (8-10) Last Admin: 12/15/17 10:05 Dose: 1 mg Moxifloxacin HCl (Avelox) 400 mg PO Q24H [facility] Last Admin: 12/15/17 16:28 Dose: 400 mg Pantoprazole Sodium (Protonix Ec Tab) 40 mg PO DAILY [facility] Last Admin: 12/15/17 09:01 Dose: 40 mg Sevelamer Carbonate (Renvela) 2,400 mg PO TIDCC [facility] Last Admin: 12/15/17 17:29 Dose: 2,400 mg Vitamin B Complex/Vit C/Folic Acid (Nephro-Perry) 1 tab PO 0800 [facility] Last Admin: 12/15/17 08:24 Dose: 1 tab - Labs Labs: 12/15/17 05:51 12/15/17 05:51 PT 12.6 SECONDS (9.7-12.2) H 12/08/17 06:32 INR 1.2 12/08/17 06:32 APTT 30 SECONDS (21-34) 12/13/17 10:17 Assessment and Plan - Assessment and Plan (Free Text) Assessment: S/P Cardiac Arrest and Cardiac Cath Cardiac cath : normal coronaries and normal EF patient no longer being paced, in NSR will need pacemaker once more stable ASA 81mg po daily Respiratory Failure extubated on 12/11/17 on nasal cannula HTN Norvasc 10mg po daily Hydralazine 50mg po BID ESRD continue dialysis monitor electrolyte abnormalities Pneumonia sputum culture: enterobacter cloacae WBC: 13.1 Dr. Hernandez consulted Adelia Rodriguezo
[2017-12-16] MEDS: Albuterol-Ipratrop 3 mg / 0.5 (3 ml) UD INH SCH ×6 (00:47→19:44)
[2017-12-16 06:18] LABS: BASO # 0.1 K/uL (0.0-0.2); BASO % 0.6 % (0.0-2.0); EOS # 0.3 K/uL (0.0-0.7); EOS % 3.4 % (0.0-4.0); HEMOGLOBIN 10.4 g/dL (11.0-16.0); LYMPH # 1.9 K/uL (1.0-4.3); LYMPH % 21.4 % (20.0-40.0); MEAN CELL VOLUME 90.8 fL (81.0-99.0); MEAN CORPUSCULAR HEMOGLOBIN 30.6 pg (27.0-31.0); MEAN CORPUSCULAR HGB CONC 33.7 g/dL (33.0-37.0); MEAN PLATELET VOLUME 7.6 fL (7.2-11.7); MONO # 1.2 K/uL (0.0-0.8); MONO % 12.9 % (0.0-10.0); NEUT # 5.5 K/uL (1.8-7.0); NEUT % 61.7 % (50.0-75.0); RBC 3.38 Mil/uL (3.80-5.20); RED CELL DISTRIBUTION WIDTH 14.4 % (11.5-14.5)
[2017-12-16 06:41] LABS: ALB/GLOB RATIO 1.3 (1.0-2.1); ALBUMIN 3.5 g/dL (3.5-5.0); CALCIUM 8.7 mg/dl (8.6-10.4)
[2017-12-16] MEDS: Multivitamin Vitamin B Complex (Nephro-Vite) Tab PO SCH (08:09)
[2017-12-16] MEDS: (Novolin R) Insulin Human Regular 100 units/ml vial SC SCH ×4 (08:10→22:00)
[2017-12-16] MEDS: Pantoprazole 40 mg EC Tab PO SCH (09:30)
[2017-12-16] MEDS: (Lantus) Insulin Glargine, Recombinant SC SCH (09:31)
[2017-12-16] MEDS: Vancomycin 1 gm/NS 200 ml 1 GM/200 ML BAG IVPB SCH (09:31)
--- NOTE | 2017-12-16 15:41 | CP.PCM.PN ---
Subjective - Date & Time of Evaluation Date of Evaluation: 12/16/17 Time of Evaluation: 15:40 - Subjective Subjective: Resting in bed and having dialysis. Objective - Vital Signs/Intake and Output Vital Signs (last 24 hours): Temp Pulse Resp BP Pulse Ox 97.7 F 84 21 112/94 H 100 12/16/17 14:30 12/16/17 14:30 12/16/17 14:30 12/16/17 15:15 12/16/17 14:30 Intake and Output: 12/16/17 12/16/17 06:59 18:59 Intake Total 550 Balance 550 - Medications Medications: Current Medications Acetaminophen (Tylenol 325mg Tab) 650 mg PO Q6 PRN PRN Reason: Fever >100.4 F Last Admin: 12/12/17 19:16 Dose: 650 mg Albuterol/Ipratropium (Duoneb 3 Mg/0.5 Mg (3 Ml) Ud) 3 ml INH RQ4 [facility] Last Admin: 12/16/17 11:05 Dose: 3 ml Amlodipine Besylate (Norvasc) 10 mg PO DAILY [facility] Last Admin: 12/16/17 09:31 Dose: 10 mg Aspirin (Aspirin Chewable) 81 mg PO DAILY [facility] Last Admin: 12/16/17 09:30 Dose: 81 mg Epoetin Kasi (Procrit) 4,000 unit IV QWK [facility] Heparin Sodium (Porcine) (Heparin) 5,000 units SC Q8 [facility] Last Admin: 12/16/17 14:10 Dose: 5,000 units Hydralazine HCl (Apresoline) 25 mg PO BID [facility] Last Admin: 12/16/17 09:31 Dose: 25 mg Vancomycin/Sodium Chloride (Vancomycin 1 Gm/Ns 200 Ml) 1 gm in 200 mls @ 133.333 mls/hr IVPB TTS ISACC PRN Reason: Protocol Stop: 12/17/17 14:01 Last Admin: 12/16/17 09:31 Dose: 133.333 mls/hr Insulin Glargine (Lantus) 16 unit SC DAILY [facility] Last Admin: 12/16/17 09:31 Dose: 16 units Insulin Human Regular (Novolin R) 0 unit SC ACHS [facility] PRN Reason: Protocol Last Admin: 12/16/17 12:25 Dose: 3 units Morphine Sulfate (Morphine) 1 mg IVP Q6H PRN PRN Reason: Pain, severe (8-10) Last Admin: 12/15/17 10:05 Dose: 1 mg Moxifloxacin HCl (Avelox) 400 mg PO Q24H [facility] Last Admin: 12/15/17 16:28 Dose: 400 mg Pantoprazole Sodium (Protonix Ec Tab) 40 mg PO DAILY [facility] Last Admin: 12/16/17 09:30 Dose: 40 mg Sevelamer Carbonate (Renvela) 2,400 mg PO TIDCC [facility] Last Admin: 12/16/17 12:24 Dose: 2,400 mg Vitamin B Complex/Vit C/Folic Acid (Nephro-Perry) 1 tab PO 0800 [facility] Last Admin: 12/16/17 08:09 Dose: 1 tab - Labs Labs: 12/16/17 04:00 12/16/17 06:05 PT 12.6 SECONDS (9.7-12.2) H 12/08/17 06:32 INR 1.2 12/08/17 06:32 APTT 30 SECONDS (21-34) 12/13/17 10:17 - Head Exam Head Exam: NORMOCEPHALIC - Neck Exam Neck Exam: Normal Inspection - Respiratory Exam Respiratory Exam: NORMAL BREATHING PATTERN - Cardiovascular Exam Cardiovascular Exam: REGULAR RHYTHM - Extremities Exam Extremities Exam: Normal Inspection - Neurological Exam Neurological Exam: Alert, Oriented x3 Assessment and Plan (1) Bradycardia Assessment & Plan: Resolved, in sinus rhythm now. Maintain electrolyte balance. Status: Acute (2) Cardiac arrest Assessment & Plan: Extubated and alert. May transfer to telemetry. Ambulate. Status: Acute
[2017-12-16] MEDS ORDERED: Albumin Human 25% (12.5 gm/50 ml) IV ONE (15:52)
--- NOTE | 2017-12-16 16:44 | CP.PCM.PN ---
Subjective - Date & Time of Evaluation Date of Evaluation: 12/16/17 Time of Evaluation: 16:41 - Subjective Subjective: Nephrology Consultation Note Assessment: stable Cardiac arrest, acute respi failure, pneumonia Hyperkalemia, lactic acidosis, hypokalemia Diabetic chronic Kidney Disease (E11.22) Hypertensive Chronic Kidney Disease (I12.0) End stage renal disease (N18.6) dependence on hemodialysis (Z99.2) (TTS) via AVF Anemia (D64.9), Hyperphosphatemia (E83.39), Secondary Hyperparathyroidism (E21.1 ), HTN (I12.0) Hypercalcemia likely due to IV given during ACLS (outpt Ca 9.1 PTH 453 recently) Hx of ovarian cancer s/p chemo, in remission for last 2 years RV pressure overload and moderate pulmonary HTN Plan: Plan for next HD today per TTS schedule. Continue with Nephrovite 1 tab/day. PRBC as needed for anemia. lowered NEIDA weekly with HD last Hb 11 increased phos binders last phos level 6.3 BP controlled monitor lytes Physical Examination: General Appearance: comfortable, not in acute distress, confused Vitals reviewed and noted as below Head; Atraumatic, normocephalic ENT: normal EYES: left eye blind Neck; supple Lungs: normal respiratory rate/effort. Breath sounds bilateral clear anteriorly Heart: Normal rate. s1s2 normal. No rub or gallop. Extremities: no edema. No varicose veins. Neurological: Patient is awake alert follows commands. confused but better Skin: Warm and dry. Normal turgor. No rash. Palpitation: Normal elasticity for age Abdomen: Abdomen is soft. Bowel sounds +. MSK: no joint tenderness or swelling. Objective - Vital Signs/Intake and Output Vital Signs (last 24 hours): Temp Pulse Resp BP Pulse Ox 97.7 F 84 21 79/56 L 100 12/16/17 14:30 12/16/17 14:30 12/16/17 14:30 12/16/17 15:45 12/16/17 14:30 Intake and Output: 12/16/17 12/16/17 06:59 18:59 Intake Total 550 Balance 550 - Medications Medications: Current Medications Acetaminophen (Tylenol 325mg Tab) 650 mg PO Q6 PRN PRN Reason: Fever >100.4 F Last Admin: 12/12/17 19:16 Dose: 650 mg Albuterol/Ipratropium (Duoneb 3 Mg/0.5 Mg (3 Ml) Ud) 3 ml INH RQ4 [facility] Last Admin: 12/16/17 15:57 Dose: 3 ml Amlodipine Besylate (Norvasc) 10 mg PO DAILY [facility] Last Admin: 12/16/17 09:31 Dose: 10 mg Aspirin (Aspirin Chewable) 81 mg PO DAILY [facility] Last Admin: 12/16/17 09:30 Dose: 81 mg Epoetin Kasi (Procrit) 4,000 unit IV QWK [facility] Heparin Sodium (Porcine) (Heparin) 5,000 units SC Q8 [facility] Last Admin: 12/16/17 14:10 Dose: 5,000 units Hydralazine HCl (Apresoline) 25 mg PO BID [facility] Last Admin: 12/16/17 09:31 Dose: 25 mg Vancomycin/Sodium Chloride (Vancomycin 1 Gm/Ns 200 Ml) 1 gm in 200 mls @ 133.333 mls/hr IVPB TTS [facility] PRN Reason: Protocol Stop: 12/17/17 14:01 Last Admin: 12/16/17 09:31 Dose: 133.333 mls/hr Insulin Glargine (Lantus) 16 unit SC DAILY [facility] Last Admin: 12/16/17 09:31 Dose: 16 units Insulin Human Regular (Novolin R) 0 unit SC ACHS [facility] PRN Reason: Protocol Last Admin: 12/16/17 12:25 Dose: 3 units Morphine Sulfate (Morphine) 1 mg IVP Q6H PRN PRN Reason: Pain, severe (8-10) Last Admin: 12/15/17 10:05 Dose: 1 mg Moxifloxacin HCl (Avelox) 400 mg PO Q24H [facility] Last Admin: 12/15/17 16:28 Dose: 400 mg Pantoprazole Sodium (Protonix Ec Tab) 40 mg PO DAILY [facility] Last Admin: 12/16/17 09:30 Dose: 40 mg Sevelamer Carbonate (Renvela) 2,400 mg PO TIDCC [facility] Last Admin: 12/16/17 12:24 Dose: 2,400 mg Vitamin B Complex/Vit C/Folic Acid (Nephro-Perry) 1 tab PO 0800 [facility] Last Admin: 12/16/17 08:09 Dose: 1 tab - Labs Labs: 12/16/17 04:00 12/16/17 06:05 PT 12.6 SECONDS (9.7-12.2) H 12/08/17 06:32 INR 1.2 12/08/17 06:32 APTT 30 SECONDS (21-34) 12/13/17 10:17
--- NOTE | 2017-12-16 22:37 | PN ---
DATE: 12/16/2017 The patient is on supportive care. For pacemaker insertion. Kobi Stanley MD
[2017-12-17] MEDS: Albuterol-Ipratrop 3 mg / 0.5 (3 ml) UD INH SCH ×3 (00:28→07:30)
[2017-12-17] MEDS: Aritificial Tears (15ml) OU SCH ×7 (00:31→23:51)
[2017-12-17 06:15] LABS: BASO % 0.3 % (0.0-2.0); EOS # 0.3 K/uL (0.0-0.7); EOS % 3.1 % (0.0-4.0); HEMOGLOBIN 10.8 g/dL (11.0-16.0); LYMPH % 23.5 % (20.0-40.0); MEAN CELL VOLUME 91.2 fL (81.0-99.0); MEAN CORPUSCULAR HEMOGLOBIN 29.8 pg (27.0-31.0); MEAN CORPUSCULAR HGB CONC 32.7 g/dL (33.0-37.0); MEAN PLATELET VOLUME 7.9 fL (7.2-11.7); MONO # 1.2 K/uL (0.0-0.8); MONO % 14.2 % (0.0-10.0); NEUT # 5.1 K/uL (1.8-7.0); NEUT % 58.9 % (50.0-75.0); NRBC % 0.1 % (0.0-2.0); RBC 3.64 Mil/uL (3.80-5.20); RED CELL DISTRIBUTION WIDTH 14.3 % (11.5-14.5); WHITE BLOOD COUNT 8.6 K/uL (4.8-10.8)
[2017-12-17 06:40] LABS: ALB/GLOB RATIO 1.3 (1.0-2.1); ALBUMIN 4.1 g/dL (3.5-5.0); CALCIUM 9.6 mg/dl (8.6-10.4)
[2017-12-17] MEDS: Multivitamin Vitamin B Complex (Nephro-Vite) Tab PO SCH (07:58)
[2017-12-17] MEDS: (Novolin R) Insulin Human Regular 100 units/ml vial SC SCH ×4 (07:59→22:00)
[2017-12-17] MEDS: (Lantus) Insulin Glargine, Recombinant SC SCH (09:25)
[2017-12-17] MEDS: Pantoprazole 40 mg EC Tab PO SCH (09:25)
--- NOTE | 2017-12-17 15:41 | CP.PCM.PN ---
Subjective - Date & Time of Evaluation Date of Evaluation: 12/17/17 Time of Evaluation: 08:00 - Subjective Subjective: seen in ICU awake alert nad Objective - Vital Signs/Intake and Output Vital Signs (last 24 hours): Temp Pulse Resp BP Pulse Ox 97.9 F 800 H 18 133/58 L 98 12/17/17 11:56 12/17/17 11:56 12/17/17 11:56 12/17/17 07:45 12/17/17 11:56 Intake and Output: 12/17/17 12/17/17 06:59 18:59 Intake Total 180 60 Output Total 0 Balance 180 60 - Medications Medications: Current Medications Acetaminophen (Tylenol 325mg Tab) 650 mg PO Q6 PRN PRN Reason: Fever >100.4 F Last Admin: 12/12/17 19:16 Dose: 650 mg Amlodipine Besylate (Norvasc) 10 mg PO DAILY [facility] Last Admin: 12/17/17 09:25 Dose: 10 mg Artificial Tears (Artificial Tears) 0 ml OU Q4 [facility] Last Admin: 12/17/17 11:50 Dose: 1 drop Aspirin (Aspirin Chewable) 81 mg PO DAILY [facility] Last Admin: 12/17/17 09:25 Dose: 81 mg Epoetin Kasi (Procrit) 4,000 unit IV QWK [facility] Heparin Sodium (Porcine) (Heparin) 5,000 units SC Q8 [facility] Last Admin: 12/17/17 14:13 Dose: 5,000 units Hydralazine HCl (Apresoline) 25 mg PO BID [facility] Last Admin: 12/17/17 09:25 Dose: 25 mg Insulin Glargine (Lantus) 16 unit SC DAILY [facility] Last Admin: 12/17/17 09:25 Dose: 16 units Insulin Human Regular (Novolin R) 0 unit SC ACHS [facility] PRN Reason: Protocol Last Admin: 12/17/17 11:48 Dose: Not Given Morphine Sulfate (Morphine) 1 mg IVP Q6H PRN PRN Reason: Pain, severe (8-10) Last Admin: 12/15/17 10:05 Dose: 1 mg Moxifloxacin HCl (Avelox) 400 mg PO Q24H [facility] Last Admin: 12/16/17 17:28 Dose: 400 mg Pantoprazole Sodium (Protonix Ec Tab) 40 mg PO DAILY [facility] Last Admin: 12/17/17 09:25 Dose: 40 mg Sevelamer Carbonate (Renvela) 2,400 mg PO TIDCC [facility] Last Admin: 12/17/17 11:50 Dose: 2,400 mg Vitamin B Complex/Vit C/Folic Acid (Nephro-Perry) 1 tab PO 0800 [facility] Last Admin: 12/17/17 07:58 Dose: 1 tab - Labs Labs: 12/17/17 06:07 12/17/17 06:07 PT 12.6 SECONDS (9.7-12.2) H 12/08/17 06:32 INR 1.2 12/08/17 06:32 APTT 30 SECONDS (21-34) 12/13/17 10:17 - Constitutional Appears: Non-toxic, Chronically Ill - Head Exam Head Exam: NORMOCEPHALIC - Eye Exam Eye Exam: PERRL - ENT Exam ENT Exam: Mucous Membranes Dry - Neck Exam Neck Exam: absent: Lymphadenopathy - Respiratory Exam Respiratory Exam: Decreased Breath Sounds - Cardiovascular Exam Cardiovascular Exam: REGULAR RHYTHM - GI/Abdominal Exam GI & Abdominal Exam: Distended - Rectal Exam Rectal Exam: Deferred - Exam Exam: NORMAL INSPECTION - Extremities Exam Extremities Exam: absent: Pedal Edema - Back Exam Back Exam: absent: CVA tenderness (L), CVA tenderness (R) - Neurological Exam Neurological Exam: Alert, Awake, Oriented x3 Assessment and Plan (1) CKD (chronic kidney disease) requiring chronic dialysis Status: Acute (2) Bradycardia Status: Acute (3) Cardiac arrest Status: Acute (4) Pneumonia Status: Acute (5) Respiratory failure requiring intubation Status: Acute - Assessment and Plan (Free Text) Assessment: IV rx renewed
--- NOTE | 2017-12-17 18:34 | CP.PCM.PN ---
Subjective - Date & Time of Evaluation Date of Evaluation: 12/17/17 Time of Evaluation: 18:32 - Subjective Subjective: Alert and oriented . sitting and talking with daughter. Objective - Vital Signs/Intake and Output Vital Signs (last 24 hours): Temp Pulse Resp BP Pulse Ox 98.5 F 80 20 124/60 99 12/17/17 16:00 12/17/17 16:00 12/17/17 16:00 12/17/17 16:00 12/17/17 16:00 Intake and Output: 12/17/17 12/17/17 06:59 18:59 Intake Total 180 60 Output Total 0 Balance 180 60 - Medications Medications: Current Medications Acetaminophen (Tylenol 325mg Tab) 650 mg PO Q6 PRN PRN Reason: Fever >100.4 F Last Admin: 12/12/17 19:16 Dose: 650 mg Amlodipine Besylate (Norvasc) 10 mg PO DAILY [facility] Last Admin: 12/17/17 09:25 Dose: 10 mg Artificial Tears (Artificial Tears) 0 ml OU Q4 [facility] Last Admin: 12/17/17 16:59 Dose: 1 drop Aspirin (Aspirin Chewable) 81 mg PO DAILY [facility] Last Admin: 12/17/17 09:25 Dose: 81 mg Epoetin Kasi (Procrit) 4,000 unit IV QWK [facility] Heparin Sodium (Porcine) (Heparin) 5,000 units SC Q8 [facility] Last Admin: 12/17/17 14:13 Dose: 5,000 units Hydralazine HCl (Apresoline) 25 mg PO BID [facility] Last Admin: 12/17/17 17:00 Dose: 25 mg Insulin Glargine (Lantus) 16 unit SC DAILY [facility] Last Admin: 12/17/17 09:25 Dose: 16 units Insulin Human Regular (Novolin R) 0 unit SC ACHS [facility] PRN Reason: Protocol Last Admin: 12/17/17 17:00 Dose: 3 units Morphine Sulfate (Morphine) 1 mg IVP Q6H PRN PRN Reason: Pain, severe (8-10) Last Admin: 12/15/17 10:05 Dose: 1 mg Moxifloxacin HCl (Avelox) 400 mg PO Q24H [facility] Last Admin: 12/17/17 17:00 Dose: 400 mg Pantoprazole Sodium (Protonix Ec Tab) 40 mg PO DAILY [facility] Last Admin: 12/17/17 09:25 Dose: 40 mg Sevelamer Carbonate (Renvela) 2,400 mg PO TIDCC [facility] Last Admin: 12/17/17 17:00 Dose: 2,400 mg Vitamin B Complex/Vit C/Folic Acid (Nephro-Perry) 1 tab PO 0800 [facility] Last Admin: 12/17/17 07:58 Dose: 1 tab - Labs Labs: 12/17/17 06:07 12/17/17 06:07 PT 12.6 SECONDS (9.7-12.2) H 12/08/17 06:32 INR 1.2 12/08/17 06:32 APTT 30 SECONDS (21-34) 12/13/17 10:17 - Head Exam Head Exam: NORMOCEPHALIC - Neck Exam Neck Exam: Normal Inspection - Respiratory Exam Respiratory Exam: NORMAL BREATHING PATTERN - Cardiovascular Exam Cardiovascular Exam: REGULAR RHYTHM - Back Exam Back Exam: NORMAL INSPECTION - Neurological Exam Neurological Exam: Alert, Oriented x3 Assessment and Plan (1) Bradycardia Assessment & Plan: In sinus rhythm. Ambulate on telemetry to assess chronotropic competence. Status: Acute (2) Cardiac arrest Assessment & Plan: Alert, Maintain electrolyte balance and dialysis. Status: Acute
[2017-12-18] MEDS: Aritificial Tears (15ml) OU SCH ×2 (03:47→09:00)
[2017-12-18 06:06] LABS: BASO # 0.1 K/uL (0.0-0.2); EOS # 0.4 K/uL (0.0-0.7); EOS % 3.9 % (0.0-4.0); HEMOGLOBIN 11.2 g/dL (11.0-16.0); LYMPH # 2.1 K/uL (1.0-4.3); LYMPH % 21.3 % (20.0-40.0); MEAN CELL VOLUME 91.7 fL (81.0-99.0); MEAN CORPUSCULAR HEMOGLOBIN 30.2 pg (27.0-31.0); MEAN PLATELET VOLUME 7.4 fL (7.2-11.7); MONO # 1.2 K/uL (0.0-0.8); MONO % 12.2 % (0.0-10.0); NEUT % 61.6 % (50.0-75.0); RBC 3.7 Mil/uL (3.80-5.20); RED CELL DISTRIBUTION WIDTH 14.2 % (11.5-14.5); WHITE BLOOD COUNT 9.7 K/uL (4.8-10.8)
[2017-12-18 06:19] LABS: ALB/GLOB RATIO 1.5 (1.0-2.1); ALBUMIN 4.2 g/dL (3.5-5.0); CALCIUM 9.9 mg/dl (8.6-10.4)
--- NOTE | 2017-12-18 06:51 | CP.PCM.PN ---
Subjective - Date & Time of Evaluation Date of Evaluation: 12/18/17 Time of Evaluation: 06:48 - Subjective Subjective: Ms. Fernandes was seen and examined at the bedside in ICU. She is awake, alert, but with episode of confusion. She can speak both turkmen and macedonian. She denies any headache, dizziness. She is able to follow simple commands, with episodes of being figety, she is able to to move all extremities spontaneously. There was no untoward events overnight. Objective - Vital Signs/Intake and Output Vital Signs (last 24 hours): Temp Pulse Resp BP Pulse Ox 98.5 F 79 21 121/97 H 97 12/18/17 00:00 12/18/17 00:00 12/18/17 00:00 12/18/17 00:00 12/18/17 00:00 Intake and Output: 12/17/17 12/18/17 18:59 06:59 Intake Total 60 Balance 60 - Medications Medications: Current Medications Acetaminophen (Tylenol 325mg Tab) 650 mg PO Q6 PRN PRN Reason: Fever >100.4 F Last Admin: 12/12/17 19:16 Dose: 650 mg Amlodipine Besylate (Norvasc) 10 mg PO DAILY [facility] Last Admin: 12/17/17 09:25 Dose: 10 mg Artificial Tears (Artificial Tears) 0 ml OU Q4 [facility] Last Admin: 12/18/17 03:47 Dose: 2 drop Aspirin (Aspirin Chewable) 81 mg PO DAILY [facility] Last Admin: 12/17/17 09:25 Dose: 81 mg Epoetin Kasi (Procrit) 4,000 unit IV QWK [facility] Heparin Sodium (Porcine) (Heparin) 5,000 units SC Q8 [facility] Last Admin: 12/18/17 06:16 Dose: 5,000 units Hydralazine HCl (Apresoline) 25 mg PO BID [facility] Last Admin: 12/17/17 17:00 Dose: 25 mg Insulin Glargine (Lantus) 16 unit SC DAILY [facility] Last Admin: 12/17/17 09:25 Dose: 16 units Insulin Human Regular (Novolin R) 0 unit SC ACHS [facility] PRN Reason: Protocol Last Admin: 12/17/17 22:00 Dose: Not Given Morphine Sulfate (Morphine) 1 mg IVP Q6H PRN PRN Reason: Pain, severe (8-10) Last Admin: 12/15/17 10:05 Dose: 1 mg Moxifloxacin HCl (Avelox) 400 mg PO Q24H [facility] Last Admin: 12/17/17 17:00 Dose: 400 mg Pantoprazole Sodium (Protonix Ec Tab) 40 mg PO DAILY [facility] Last Admin: 12/17/17 09:25 Dose: 40 mg Sevelamer Carbonate (Renvela) 2,400 mg PO TIDCC [facility] Last Admin: 12/17/17 17:00 Dose: 2,400 mg Vitamin B Complex/Vit C/Folic Acid (Nephro-Perry) 1 tab PO 0800 [facility] Last Admin: 12/17/17 07:58 Dose: 1 tab - Labs Labs: 12/18/17 05:50 12/18/17 05:50 PT 12.6 SECONDS (9.7-12.2) H 12/08/17 06:32 INR 1.2 12/08/17 06:32 APTT 30 SECONDS (21-34) 12/13/17 10:17 - Constitutional Appears: No Acute Distress - Head Exam Head Exam: NORMAL INSPECTION - Eye Exam Pupil Exam: Miosis Additional comments: right eye 2 mm - Neurological Exam Neurological Exam: Alert, Awake Neuro motor strength exam: Left Upper Extremity: 4, Right Upper Extremity: 4, Left Lower Extremity: 4, Right Lower Extremity: 4 Additional comments: awake, alert, with episode of confusion, follows simple commands Assessment and Plan (1) Anoxic brain injury Assessment & Plan: Continue all current medical regimen. Recommend blood pressure control, treat any electrolyte abnormalities Status: Acute
--- NOTE | 2017-12-18 07:10 | CP.PCM.PN ---
Subjective - Date & Time of Evaluation Date of Evaluation: 12/18/17 Time of Evaluation: 07:10 - Subjective Subjective: PGY2 Medicine Note for Dr. Stanley Patient seen and examined this morning at bed side. No acute events overnight. Patient is sitting up feeding herself breakfast. She states that she is feeling well and is currently without any pain. There are reported episodes of confusion but patient is AAOx3 at this time. She has no complaints. Denies fevers, chills, nausea, vomiting, diarrhea, constipation, chest pain, shortness of breath, palpitations, abdominal pain, numbness or tingling. Objective - Vital Signs/Intake and Output Vital Signs (last 24 hours): Temp Pulse Resp BP Pulse Ox 98.7 F 79 22 133/69 99 12/18/17 04:00 12/18/17 04:00 12/18/17 04:00 12/18/17 04:00 12/18/17 04:00 - Medications Medications: Current Medications Acetaminophen (Tylenol 325mg Tab) 650 mg PO Q6 PRN PRN Reason: Fever >100.4 F Last Admin: 12/12/17 19:16 Dose: 650 mg Amlodipine Besylate (Norvasc) 10 mg PO DAILY [facility] Last Admin: 12/17/17 09:25 Dose: 10 mg Artificial Tears (Artificial Tears) 0 ml OU Q4 [facility] Last Admin: 12/18/17 03:47 Dose: 2 drop Aspirin (Aspirin Chewable) 81 mg PO DAILY [facility] Last Admin: 12/17/17 09:25 Dose: 81 mg Epoetin Kasi (Procrit) 4,000 unit IV QWK [facility] Heparin Sodium (Porcine) (Heparin) 5,000 units SC Q8 [facility] Last Admin: 12/18/17 06:16 Dose: 5,000 units Hydralazine HCl (Apresoline) 25 mg PO BID [facility] Last Admin: 12/17/17 17:00 Dose: 25 mg Insulin Glargine (Lantus) 16 unit SC DAILY [facility] Last Admin: 12/17/17 09:25 Dose: 16 units Insulin Human Regular (Novolin R) 0 unit SC ACHS [facility] PRN Reason: Protocol Last Admin: 12/17/17 22:00 Dose: Not Given Morphine Sulfate (Morphine) 1 mg IVP Q6H PRN PRN Reason: Pain, severe (8-10) Last Admin: 12/15/17 10:05 Dose: 1 mg Moxifloxacin HCl (Avelox) 400 mg PO Q24H [facility] Last Admin: 12/17/17 17:00 Dose: 400 mg Pantoprazole Sodium (Protonix Ec Tab) 40 mg PO DAILY [facility] Last Admin: 12/17/17 09:25 Dose: 40 mg Sevelamer Carbonate (Renvela) 2,400 mg PO TIDCC [facility] Last Admin: 12/17/17 17:00 Dose: 2,400 mg Vitamin B Complex/Vit C/Folic Acid (Nephro-Perry) 1 tab PO 0800 [facility] Last Admin: 12/17/17 07:58 Dose: 1 tab - Labs Labs: 12/18/17 05:50 12/18/17 05:50 PT 12.6 SECONDS (9.7-12.2) H 12/08/17 06:32 INR 1.2 12/08/17 06:32 APTT 30 SECONDS (21-34) 12/13/17 10:17 - Constitutional Appears: Non-toxic, No Acute Distress - Head Exam Head Exam: ATRAUMATIC, NORMOCEPHALIC - Eye Exam Additional comments: right pupil reactive to light. - ENT Exam ENT Exam: Mucous Membranes Moist - Neck Exam Neck Exam: absent: Lymphadenopathy - Respiratory Exam Respiratory Exam: Chest Wall Tenderness (healing bruising over sternum from compressions. ), Clear to Ausculation Bilateral, NORMAL BREATHING PATTERN. absent: Accessory Muscle Use, Rales, Rhonchi, Wheezes, Respiratory Distress - Cardiovascular Exam Cardiovascular Exam: REGULAR RHYTHM, +S1, +S2 - GI/Abdominal Exam GI & Abdominal Exam: Soft. absent: Distended, Firm, Guarding, Rigid, Tenderness - Extremities Exam Extremities Exam: absent: Calf Tenderness, Pedal Edema - Neurological Exam Neurological Exam: Alert, Awake, Oriented x3 - Psychiatric Exam Psychiatric exam: Normal Affect - Skin Skin Exam: Dry, Warm Assessment and Plan - Assessment and Plan (Free Text) Plan: s/p cardiac arrest CODE Heart: Cardiology, Dr. Ríos consulted EP Cardiology consult, Dr. Mcgrath * Scheduled for cardiac pacemaker today. Cardiac cath: normal coronaries and normal EF head CT neg for acute pathology hold home cardiac meds nifedipine ER 60mg BID and diltiazem ER 180mg likely cause of symptomatic bradycardia extubated (12/11) Meds * Aspirin 81mg PO Daily * Morphine 1mg IV Q6H PRN Bradyarrythmia Dr. Mcgrath, EP, help appreciated * scheduled for pacemaker today. * f/u recs Shock 2/2 sepsis vs cardiogenic Hospital acquired Pneumonia Dr. Hernandez, ID [employer] consultant, help appreciated Afebrile since 12/10 no leukocytosis Trops neg pBNP 56,900 on admission CXR (12/10/17): Consolidative Changes in left mid to lower lung zone and right lung base. Right hilar prominence. Trace pleural effusion. CXR (12/13/17): NAD Sputum Culture (12/07/17): + enterobacter clocae Blood cultures (12/07/17): No growth at 5 days Naris MRSA culture (): Not detected Tylenol 650mg PO Q6H PRN Moxifloxacin 400mg PO Daily (started 12/10/17, Day 6) Transaminitis (Elevated ALT) 2/2 to shock; Downtrending - AST has normalized AMS Etiology: Likely anoxic brain injury Abnormal behavior since extubation Dr. Rae/Collins, Neuro [employer] consultant, help appreciated * cleared for discharge once medically stable MRI brain w/o (12/14/17): No acute intracranial abnormality. Mild chronic angiopathic changes and mild age-related global parenchymal volume loss. EEG normal ESRD on HD T//Mon Nephro consult Dr. Bunn Renheidi 1600 mg TID, hydralazine 50mg BID, procrit 4000U TTS per Dr. Bunn renal med dosing T2DM ISS moderate accuchecks Lantus 16 units SC daily hypoglycemic protocol DM Neuropathy Monitor Anemia of Chronic Disease Hgb Stable procrit 4000U QWK HTN Labile over course Norvasc 10mg PO Daily Hydralazine 25mg PO q4h prn Hx of ovarian CA; s/p resection in remission for last 2 years Ppx Protonix 40mg PO Daily Heparin 5000u SC Q8H [facility] PT/OT Case discussed and all management per Dr. Stanley
[2017-12-18] MEDS: (Novolin R) Insulin Human Regular 100 units/ml vial SC SCH ×4 (07:50→22:29)
[2017-12-18] MEDS: (Lantus) Insulin Glargine, Recombinant SC SCH (08:30)
[2017-12-18] MEDS: Multivitamin Vitamin B Complex (Nephro-Vite) Tab PO SCH (08:50)
[2017-12-18] MEDS: Pantoprazole 40 mg EC Tab PO SCH (09:09)
[2017-12-18] MEDS ORDERED: Carboxymethylcellulose 1% Ophth Soln OU PRN (10:30)
--- NOTE | 2017-12-18 11:53 | PN ---
DATE: 12/17/2017 The patient is on supportive care. Continue treatment for pacemaker insertion ordered on 12/18/2017. Kobi Stanley MD
--- NOTE | 2017-12-18 12:30 | CP.PCM.PN ---
Subjective - Date & Time of Evaluation Date of Evaluation: 12/18/17 Time of Evaluation: 09:00 - Subjective Subjective: DISCUSSED ON ROUNDS ON [facility] AWAITING PACEMEAKER Objective - Vital Signs/Intake and Output Vital Signs (last 24 hours): Temp Pulse Resp BP Pulse Ox 97.9 F 77 21 121/56 L 96 12/18/17 12:00 12/18/17 12:00 12/18/17 12:00 12/18/17 12:00 12/18/17 12:00 Intake and Output: 12/18/17 12/18/17 06:59 18:59 Intake Total 150 Output Total 0 Balance 150 - Medications Medications: Current Medications Acetaminophen (Tylenol 325mg Tab) 650 mg PO Q6 PRN PRN Reason: Fever >100.4 F Last Admin: 12/12/17 19:16 Dose: 650 mg Amlodipine Besylate (Norvasc) 10 mg PO DAILY [facility] Last Admin: 12/18/17 09:03 Dose: 10 mg Artificial Tears (Artificial Tears Refresh Celluvisc) 0 ml OU Q4 PRN PRN Reason: Dry eyes Aspirin (Aspirin Chewable) 81 mg PO DAILY [facility] Last Admin: 12/18/17 09:03 Dose: 81 mg Epoetin Kasi (Procrit) 4,000 unit IV QWK [facility] Heparin Sodium (Porcine) (Heparin) 5,000 units SC Q8 [facility] Last Admin: 12/18/17 06:16 Dose: 5,000 units Hydralazine HCl (Apresoline) 25 mg PO Q4 PRN PRN Reason: Other Insulin Glargine (Lantus) 16 unit SC DAILY [facility] Last Admin: 12/18/17 08:30 Dose: 16 units Insulin Human Regular (Novolin R) 0 unit SC ACHS [facility] PRN Reason: Protocol Last Admin: 12/18/17 12:23 Dose: 4 units Morphine Sulfate (Morphine) 1 mg IVP Q6H PRN PRN Reason: Pain, severe (8-10) Last Admin: 12/15/17 10:05 Dose: 1 mg Moxifloxacin HCl (Avelox) 400 mg PO Q24H [facility] Last Admin: 12/17/17 17:00 Dose: 400 mg Pantoprazole Sodium (Protonix Ec Tab) 40 mg PO DAILY [facility] Last Admin: 12/18/17 09:09 Dose: 40 mg Sevelamer Carbonate (Renvela) 2,400 mg PO TIDCC [facility] Last Admin: 12/18/17 12:25 Dose: Not Given Vitamin B Complex/Vit C/Folic Acid (Nephro-Perry) 1 tab PO 0800 [facility] Last Admin: 12/18/17 08:50 Dose: 1 tab - Labs Labs: 12/18/17 05:50 12/18/17 05:50 PT 12.6 SECONDS (9.7-12.2) H 12/08/17 06:32 INR 1.2 12/08/17 06:32 APTT 30 SECONDS (21-34) 12/13/17 10:17 - Constitutional Appears: Non-toxic, Chronically Ill - Head Exam Head Exam: NORMOCEPHALIC - Eye Exam Eye Exam: PERRL - ENT Exam ENT Exam: Mucous Membranes Dry - Neck Exam Neck Exam: absent: Lymphadenopathy - Respiratory Exam Respiratory Exam: Decreased Breath Sounds - Cardiovascular Exam Cardiovascular Exam: REGULAR RHYTHM - GI/Abdominal Exam GI & Abdominal Exam: Distended Assessment and Plan (1) CKD (chronic kidney disease) requiring chronic dialysis Status: Acute (2) Bradycardia Status: Acute (3) Cardiac arrest Status: Acute (4) Pneumonia Status: Acute (5) Respiratory failure requiring intubation Status: Acute
--- NOTE | 2017-12-18 13:36 | CP.PCM.PN ---
Subjective - Date & Time of Evaluation Date of Evaluation: 12/18/17 Time of Evaluation: 13:35 - Subjective Subjective: Nephrology Consultation Note Assessment: stable Cardiac arrest, acute respi failure, pneumonia Hyperkalemia, lactic acidosis, hypokalemia Diabetic chronic Kidney Disease (E11.22) Hypertensive Chronic Kidney Disease (I12.0) End stage renal disease (N18.6) dependence on hemodialysis (Z99.2) (TTS) via AVF Anemia (D64.9), Hyperphosphatemia (E83.39), Secondary Hyperparathyroidism (E21.1 ), HTN (I12.0) Hypercalcemia likely due to IV given during ACLS (outpt Ca 9.1 PTH 453 recently) Hx of ovarian cancer s/p chemo, in remission for last 2 years RV pressure overload and moderate pulmonary HTN Plan: Had d/w family about need for strict low K diet. pt on veltassa daily at home. d /c losartan as pt has tendency for hyperkalemia as outpt Plan for next HD tomorrow per TTS schedule. Continue with Nephrovite 1 tab/day. PRBC as needed for anemia. lowered NEIDA weekly with HD last Hb 11.3 increased phos binders last phos level 6.5 BP control on norvasc. changed hydralazine to prn as BP low side. Glycemic control, Dialysis consistent diet Further work up/management as per primary team Dose meds/antibiotics (if needed) for ESRD status. Avoid fleets enema/magnesium based laxatives. cardiology and neuro following Thanks for allowing me to participate in care of your patient. will follow with you. Please call if any Qs. had d/w family and team Dr Shahab Bunn Office: [phone] reason for consult: ESRD HPI: Pt is a 57 F with hx of ESRD on hemodialysis (TTS) via AVF @ [facility] for last 7 years, chronic anemia, hyperphosphatemia, secondary hyperparathyroidism, Diabetes Mellitus, hypertension, ovarian cancer s/p chemo, in remission for last 2 years found to be unresponsive at home, pt s/p ACLS and intubated/sedated, now in ICU pt unable to provide much hx daughter bedside says pt was fine 1 day ago except mild cough. no other concerns or complaints reported. pt is non smoker/no etoh/no drugs. last HD monday ROS: extubated 12/11/17. pt feels better. denies CP/SOB. confusion appears better , noted overnight events Physical Examination: General Appearance: comfortable, not in acute distress, Vitals reviewed and noted as below Head; Atraumatic, normocephalic ENT: normal EYES: left eye blind Neck; supple no lymphadenopathy, no thyromegaly or bruit Lungs: normal respiratory rate/effort. Breath sounds bilateral clear anteriorly Heart: Normal rate. s1s2 normal. No rub or gallop. Extremities: no edema. No varicose veins. Neurological: Patient is awake alert follows commands. confused but better Skin: Warm and dry. Normal turgor. No rash. Palpitation: Normal elasticity for age Abdomen: Abdomen is soft. Bowel sounds +. There is no abdominal tenderness, no guarding/rigidity or organomegaly Psych: deferred MSK: no joint tenderness or swelling. Digits and nails normal, no deformity : kidney or bladder not palpable Access: AVF Labs/imaging reviewed. Past medical history, past surgical history, family history, social history, allergy reviewed and noted as below Family Hx: no hx of CKD. Non contributory Objective - Vital Signs/Intake and Output Vital Signs (last 24 hours): Temp Pulse Resp BP Pulse Ox 97.9 F 77 21 121/56 L 96 12/18/17 12:00 12/18/17 12:00 12/18/17 12:00 12/18/17 12:00 12/18/17 12:00 Intake and Output: 12/18/17 12/18/17 06:59 18:59 Intake Total 150 Output Total 0 Balance 150 - Medications Medications: Current Medications Acetaminophen (Tylenol 325mg Tab) 650 mg PO Q6 PRN PRN Reason: Fever >100.4 F Last Admin: 12/12/17 19:16 Dose: 650 mg Amlodipine Besylate (Norvasc) 10 mg PO DAILY [facility] Last Admin: 12/18/17 09:03 Dose: 10 mg Artificial Tears (Artificial Tears Refresh Celluvisc) 0 ml OU Q4 PRN PRN Reason: Dry eyes Aspirin (Aspirin Chewable) 81 mg PO DAILY [facility] Last Admin: 12/18/17 09:03 Dose: 81 mg Epoetin Kasi (Procrit) 4,000 unit IV QWK [facility] Heparin Sodium (Porcine) (Heparin) 5,000 units SC Q8 [facility] Last Admin: 12/18/17 06:16 Dose: 5,000 units Hydralazine HCl (Apresoline) 25 mg PO Q4 PRN PRN Reason: Other Insulin Glargine (Lantus) 16 unit SC DAILY [facility] Last Admin: 12/18/17 08:30 Dose: 16 units Insulin Human Regular (Novolin R) 0 unit SC ACHS [facility] PRN Reason: Protocol Last Admin: 12/18/17 12:23 Dose: 4 units Morphine Sulfate (Morphine) 1 mg IVP Q6H PRN PRN Reason: Pain, severe (8-10) Last Admin: 12/15/17 10:05 Dose: 1 mg Moxifloxacin HCl (Avelox) 400 mg PO Q24H [facility] Last Admin: 12/17/17 17:00 Dose: 400 mg Pantoprazole Sodium (Protonix Ec Tab) 40 mg PO DAILY [facility] Last Admin: 12/18/17 09:09 Dose: 40 mg Sevelamer Carbonate (Renvela) 2,400 mg PO TIDCC [facility] Last Admin: 12/18/17 12:25 Dose: Not Given Vitamin B Complex/Vit C/Folic Acid (Nephro-Perry) 1 tab PO 0800 [facility] Last Admin: 12/18/17 08:50 Dose: 1 tab - Labs Labs: 12/18/17 05:50 12/18/17 05:50 PT 12.6 SECONDS (9.7-12.2) H 12/08/17 06:32 INR 1.2 12/08/17 06:32 APTT 30 SECONDS (21-34) 12/13/17 10:17
--- NOTE | 2017-12-18 19:01 | CP.PCM.PN ---
Subjective - Date & Time of Evaluation Date of Evaluation: 12/18/17 Time of Evaluation: 19:01 - Subjective Subjective: Denies any new complaints. Family bed side. Objective - Vital Signs/Intake and Output Vital Signs (last 24 hours): Temp Pulse Resp BP Pulse Ox 97.6 F 73 23 131/56 L 98 12/18/17 16:00 12/18/17 16:00 12/18/17 16:00 12/18/17 16:00 12/18/17 16:00 Intake and Output: 12/18/17 12/19/17 18:59 06:59 Intake Total 150 Output Total 0 Balance 150 - Medications Medications: Current Medications Acetaminophen (Tylenol 325mg Tab) 650 mg PO Q6 PRN PRN Reason: Fever >100.4 F Last Admin: 12/12/17 19:16 Dose: 650 mg Amlodipine Besylate (Norvasc) 10 mg PO DAILY [facility] Last Admin: 12/18/17 09:03 Dose: 10 mg Artificial Tears (Artificial Tears Refresh Celluvisc) 0 ml OU Q4 PRN PRN Reason: Dry eyes Aspirin (Aspirin Chewable) 81 mg PO DAILY [facility] Last Admin: 12/18/17 09:03 Dose: 81 mg Epoetin Kasi (Procrit) 4,000 unit IV QWK [facility] Heparin Sodium (Porcine) (Heparin) 5,000 units SC Q8 [facility] Last Admin: 12/18/17 14:00 Dose: Not Given Hydralazine HCl (Apresoline) 25 mg PO Q4 PRN PRN Reason: Other Insulin Glargine (Lantus) 16 unit SC DAILY [facility] Last Admin: 12/18/17 08:30 Dose: 16 units Insulin Human Regular (Novolin R) 0 unit SC ACHS [facility] PRN Reason: Protocol Last Admin: 12/18/17 16:28 Dose: Not Given Morphine Sulfate (Morphine) 1 mg IVP Q6H PRN PRN Reason: Pain, severe (8-10) Last Admin: 12/15/17 10:05 Dose: 1 mg Moxifloxacin HCl (Avelox) 400 mg PO Q24H [facility] Last Admin: 12/18/17 17:35 Dose: 400 mg Pantoprazole Sodium (Protonix Ec Tab) 40 mg PO DAILY [facility] Last Admin: 12/18/17 09:09 Dose: 40 mg Sevelamer Carbonate (Renvela) 2,400 mg PO TIDCC [facility] Last Admin: 12/18/17 17:35 Dose: 2,400 mg Vitamin B Complex/Vit C/Folic Acid (Nephro-Perry) 1 tab PO 0800 [facility] Last Admin: 12/18/17 08:50 Dose: 1 tab - Labs Labs: 12/18/17 05:50 12/18/17 05:50 PT 12.6 SECONDS (9.7-12.2) H 12/08/17 06:32 INR 1.2 12/08/17 06:32 APTT 30 SECONDS (21-34) 12/13/17 10:17 - Head Exam Head Exam: NORMOCEPHALIC - Neck Exam Neck Exam: Normal Inspection - Cardiovascular Exam Cardiovascular Exam: REGULAR RHYTHM - Back Exam Back Exam: NORMAL INSPECTION - Neurological Exam Neurological Exam: Alert, Oriented x3 Assessment and Plan (1) Bradycardia Assessment & Plan: Resolved, Plans as per EP. Status: Acute (2) Cardiac arrest Assessment & Plan: Stable, No new episodes. Status: Acute
[2017-12-19] MEDS: (Novolin R) Insulin Human Regular 100 units/ml vial SC SCH ×4 (08:00→21:41)
[2017-12-19] MEDS: Multivitamin Vitamin B Complex (Nephro-Vite) Tab PO SCH (08:45)
[2017-12-19] MEDS ORDERED: EPOETIN ALFA 4,000 UNIT/ML ML Dialysis IV SCH (10:00)
[2017-12-19] MEDS: (Lantus) Insulin Glargine, Recombinant SC SCH (10:20)
[2017-12-19] MEDS: Pantoprazole 40 mg EC Tab PO SCH (10:21)
--- NOTE | 2017-12-19 11:16 | CP.PCM.PN ---
Subjective - Date & Time of Evaluation Date of Evaluation: 12/19/17 Time of Evaluation: 11:13 - Subjective Subjective: Nephrology Consultation Note Assessment: stable Cardiac arrest, acute respi failure, pneumonia Hyperkalemia, lactic acidosis, hypokalemia Diabetic chronic Kidney Disease (E11.22) Hypertensive Chronic Kidney Disease (I12.0) End stage renal disease (N18.6) dependence on hemodialysis (Z99.2) (TTS) via AVF Anemia (D64.9), Hyperphosphatemia (E83.39), Secondary Hyperparathyroidism (E21.1 ), HTN (I12.0) Hypercalcemia likely due to IV given during ACLS (outpt Ca 9.1 PTH 453 recently) Hx of ovarian cancer s/p chemo, in remission for last 2 years RV pressure overload and moderate pulmonary HTN Plan: Had d/w family about need for strict low K diet. pt on veltassa daily at home. d /c losartan as pt has tendency for hyperkalemia as outpt Plan for next HD today per TTS schedule. Continue with Nephrovite 1 tab/day. PRBC as needed for anemia. lowered NEIDA weekly with HD last Hb 11.3 increased phos binders last phos level 6.5 BP control on norvasc. changed hydralazine to prn as BP low side. lowered norvasc to 5 mg Glycemic control, Dialysis consistent diet Further work up/management as per primary team Dose meds/antibiotics (if needed) for ESRD status. Avoid fleets enema/magnesium based laxatives. cardiology and neuro following Thanks for allowing me to participate in care of your patient. will follow with you. Please call if any Qs. had d/w family and team Dr Shahab Bunn Office: [phone] reason for consult: ESRD HPI: Pt is a 57 F with hx of ESRD on hemodialysis (TTS) via AVF @ [facility] for last 7 years, chronic anemia, hyperphosphatemia, secondary hyperparathyroidism, Diabetes Mellitus, hypertension, ovarian cancer s/p chemo, in remission for last 2 years found to be unresponsive at home, pt s/p ACLS and intubated/sedated, now in ICU pt unable to provide much hx daughter bedside says pt was fine 1 day ago except mild cough. no other concerns or complaints reported. pt is non smoker/no etoh/no drugs. last HD monday ROS: extubated 12/11/17. pt feels better. denies CP/SOB. confusion appears better , noted overnight events Physical Examination: seen on hd General Appearance: comfortable, not in acute distress, Vitals reviewed and noted as below Head; Atraumatic, normocephalic ENT: normal EYES: left eye blind Neck; supple no lymphadenopathy, no thyromegaly or bruit Lungs: normal respiratory rate/effort. Breath sounds bilateral clear anteriorly Heart: Normal rate. s1s2 normal. No rub or gallop. Extremities: no edema. No varicose veins. Neurological: Patient is awake alert follows commands. confused but better Skin: Warm and dry. Normal turgor. No rash. Palpitation: Normal elasticity for age Abdomen: Abdomen is soft. Bowel sounds +. There is no abdominal tenderness, no guarding/rigidity or organomegaly Psych: deferred MSK: no joint tenderness or swelling. Digits and nails normal, no deformity : kidney or bladder not palpable Access: AVF Labs/imaging reviewed. Past medical history, past surgical history, family history, social history, allergy reviewed and noted as below Family Hx: no hx of CKD. Non contributory Objective - Vital Signs/Intake and Output Vital Signs (last 24 hours): Temp Pulse Resp BP Pulse Ox 98.2 F 76 20 106/59 L 95 12/19/17 08:00 12/19/17 11:00 12/19/17 08:00 12/19/17 11:00 12/19/17 08:00 Intake and Output: 12/19/17 12/19/17 06:59 18:59 Intake Total 220 0 Output Total 0 Balance 220 0 - Medications Medications: Current Medications Acetaminophen (Tylenol 325mg Tab) 650 mg PO Q6 PRN PRN Reason: Fever >100.4 F Last Admin: 12/12/17 19:16 Dose: 650 mg Amlodipine Besylate (Norvasc) 10 mg PO DAILY [facility] Last Admin: 12/19/17 10:20 Dose: Not Given Artificial Tears (Artificial Tears Refresh Celluvisc) 0 ml OU Q4 PRN PRN Reason: Dry eyes Aspirin (Aspirin Chewable) 81 mg PO DAILY [facility] Last Admin: 12/19/17 10:20 Dose: Not Given Epoetin Kasi (Procrit) 4,000 unit IV QWK [facility] Heparin Sodium (Porcine) (Heparin) 5,000 units SC Q8 [facility] Last Admin: 12/19/17 06:00 Dose: Not Given Hydralazine HCl (Apresoline) 25 mg PO Q4 PRN PRN Reason: Other Insulin Glargine (Lantus) 16 unit SC DAILY [facility] Last Admin: 12/19/17 10:20 Dose: Not Given Insulin Human Regular (Novolin R) 0 unit SC ACHS [facility] PRN Reason: Protocol Last Admin: 12/19/17 08:00 Dose: Not Given Morphine Sulfate (Morphine) 1 mg IVP Q6H PRN PRN Reason: Pain, severe (8-10) Last Admin: 12/15/17 10:05 Dose: 1 mg Moxifloxacin HCl (Avelox) 400 mg PO Q24H [facility] Last Admin: 12/18/17 17:35 Dose: 400 mg Pantoprazole Sodium (Protonix Ec Tab) 40 mg PO DAILY [facility] Last Admin: 12/19/17 10:21 Dose: Not Given Sevelamer Carbonate (Renvela) 2,400 mg PO TIDCC [facility] Last Admin: 12/19/17 08:45 Dose: Not Given Vitamin B Complex/Vit C/Folic Acid (Nephro-Perry) 1 tab PO 0800 [facility] Last Admin: 12/19/17 08:45 Dose: Not Given - Labs Labs: 12/18/17 05:50 12/18/17 05:50 PT 12.6 SECONDS (9.7-12.2) H 12/08/17 06:32 INR 1.2 12/08/17 06:32 APTT 30 SECONDS (21-34) 12/13/17 10:17
--- NOTE | 2017-12-19 11:56 | CP.PCM.PN ---
Subjective - Date & Time of Evaluation Date of Evaluation: 12/19/17 Time of Evaluation: 08:00 - Subjective Subjective: s/p cardiac arrest all cultures neg except sputum enterobacter IV rx in progress cleared for PPM Objective - Vital Signs/Intake and Output Vital Signs (last 24 hours): Temp Pulse Resp BP Pulse Ox 98.2 F 84 20 118/62 95 12/19/17 08:00 12/19/17 11:45 12/19/17 08:00 12/19/17 11:45 12/19/17 08:00 Intake and Output: 12/19/17 12/19/17 06:59 18:59 Intake Total 220 0 Output Total 0 Balance 220 0 - Medications Medications: Current Medications Acetaminophen (Tylenol 325mg Tab) 650 mg PO Q6 PRN PRN Reason: Fever >100.4 F Last Admin: 12/12/17 19:16 Dose: 650 mg Amlodipine Besylate (Norvasc) 5 mg PO DAILY [facility] Artificial Tears (Artificial Tears Refresh Celluvisc) 0 ml OU Q4 PRN PRN Reason: Dry eyes Aspirin (Aspirin Chewable) 81 mg PO DAILY [facility] Last Admin: 12/19/17 10:20 Dose: Not Given Epoetin Kasi (Procrit) 4,000 unit IV QWK [facility] Heparin Sodium (Porcine) (Heparin) 5,000 units SC Q8 [facility] Last Admin: 12/19/17 06:00 Dose: Not Given Hydralazine HCl (Apresoline) 25 mg PO Q4 PRN PRN Reason: Other Insulin Glargine (Lantus) 16 unit SC DAILY [facility] Last Admin: 12/19/17 10:20 Dose: Not Given Insulin Human Regular (Novolin R) 0 unit SC ACHS [facility] PRN Reason: Protocol Last Admin: 12/19/17 08:00 Dose: Not Given Morphine Sulfate (Morphine) 1 mg IVP Q6H PRN PRN Reason: Pain, severe (8-10) Last Admin: 12/15/17 10:05 Dose: 1 mg Moxifloxacin HCl (Avelox) 400 mg PO Q24H [facility] Last Admin: 12/18/17 17:35 Dose: 400 mg Pantoprazole Sodium (Protonix Ec Tab) 40 mg PO DAILY [facility] Last Admin: 12/19/17 10:21 Dose: Not Given Sevelamer Carbonate (Renvela) 2,400 mg PO TIDCC [facility] Last Admin: 12/19/17 08:45 Dose: Not Given Vitamin B Complex/Vit C/Folic Acid (Nephro-Perry) 1 tab PO 0800 [facility] Last Admin: 12/19/17 08:45 Dose: Not Given - Labs Labs: 12/18/17 05:50 12/18/17 05:50 PT 12.6 SECONDS (9.7-12.2) H 12/08/17 06:32 INR 1.2 12/08/17 06:32 APTT 30 SECONDS (21-34) 12/13/17 10:17 Assessment and Plan (1) CKD (chronic kidney disease) requiring chronic dialysis Status: Acute (2) Bradycardia Status: Acute (3) Cardiac arrest Status: Acute (4) Pneumonia Status: Acute (5) Respiratory failure requiring intubation Status: Acute
--- NOTE | 2017-12-19 16:11 | CP.PCM.PN ---
Subjective - Date & Time of Evaluation Date of Evaluation: 12/19/17 Time of Evaluation: 09:15 - Subjective Subjective: PGY2 Medicine Note for Dr. Stanley Patient seen and examined at bedside this morning. Patient did not have pacemaker placed yesterday due to family members feeding patient cherries. Patient is currently resting comfortably in bed. She is NPO for pacemaker placement later this afternoon. She has no complaints at this time. ROS negative. Objective - Vital Signs/Intake and Output Vital Signs (last 24 hours): Temp Pulse Resp BP Pulse Ox 97.7 F 78 18 135/81 97 12/19/17 12:00 12/19/17 12:40 12/19/17 12:00 12/19/17 12:40 12/19/17 12:00 Intake and Output: 12/19/17 12/19/17 06:59 18:59 Intake Total 220 0 Output Total 0 1500 Balance 220 -1500 - Medications Medications: Current Medications Acetaminophen (Tylenol 325mg Tab) 650 mg PO Q6 PRN PRN Reason: Fever >100.4 F Last Admin: 12/12/17 19:16 Dose: 650 mg Amlodipine Besylate (Norvasc) 5 mg PO DAILY [facility] Artificial Tears (Artificial Tears Refresh Celluvisc) 0 ml OU Q4 PRN PRN Reason: Dry eyes Aspirin (Aspirin Chewable) 81 mg PO DAILY [facility] Last Admin: 12/19/17 10:20 Dose: Not Given Epoetin Kasi (Procrit) 4,000 unit IV QWK [facility] Last Admin: 12/19/17 13:42 Dose: Not Given Heparin Sodium (Porcine) (Heparin) 5,000 units SC Q8 [facility] Last Admin: 12/19/17 06:00 Dose: Not Given Hydralazine HCl (Apresoline) 25 mg PO Q4 PRN PRN Reason: Other Vancomycin HCl 500 mg/ Sodium (Chloride) 100 mls @ 100 mls/hr IVPB MWF [facility] PRN Reason: Protocol Insulin Glargine (Lantus) 16 unit SC DAILY [facility] Last Admin: 12/19/17 10:20 Dose: Not Given Insulin Human Regular (Novolin R) 0 unit SC ACHS [facility] PRN Reason: Protocol Last Admin: 12/19/17 15:49 Dose: Not Given Morphine Sulfate (Morphine) 1 mg IVP Q6H PRN PRN Reason: Pain, severe (8-10) Last Admin: 12/15/17 10:05 Dose: 1 mg Moxifloxacin HCl (Avelox) 400 mg PO Q24H [facility] Last Admin: 12/19/17 15:19 Dose: Not Given Pantoprazole Sodium (Protonix Ec Tab) 40 mg PO DAILY [facility] Last Admin: 12/19/17 10:21 Dose: Not Given Sevelamer Carbonate (Renvela) 2,400 mg PO TIDCC [facility] Last Admin: 12/19/17 12:10 Dose: Not Given Vitamin B Complex/Vit C/Folic Acid (Nephro-Perry) 1 tab PO 0800 [facility] Last Admin: 12/19/17 08:45 Dose: Not Given - Labs Labs: 12/18/17 05:50 12/18/17 05:50 PT 12.6 SECONDS (9.7-12.2) H 12/08/17 06:32 INR 1.2 12/08/17 06:32 APTT 30 SECONDS (21-34) 12/13/17 10:17 - Constitutional Appears: Non-toxic, No Acute Distress - Head Exam Head Exam: NORMOCEPHALIC - ENT Exam ENT Exam: Mucous Membranes Moist - Neck Exam Neck Exam: absent: Lymphadenopathy - Respiratory Exam Respiratory Exam: Chest Wall Tenderness, Clear to Ausculation Bilateral, NORMAL BREATHING PATTERN. absent: Accessory Muscle Use, Rales, Rhonchi, Wheezes, Respiratory Distress - Cardiovascular Exam Cardiovascular Exam: REGULAR RHYTHM, +S1, +S2 - GI/Abdominal Exam GI & Abdominal Exam: Soft. absent: Distended, Firm, Guarding, Rigid - Extremities Exam Extremities Exam: absent: Calf Tenderness, Pedal Edema - Neurological Exam Neurological Exam: Alert, Awake, Oriented x3 - Psychiatric Exam Psychiatric exam: Normal Affect, Normal Mood - Skin Skin Exam: Dry, Warm Assessment and Plan - Assessment and Plan (Free Text) Plan: s/p cardiac arrest CODE Heart: Cardiology, Dr. Ríos consulted EP Cardiology consult, Dr. Mcgrath * Patient did not have pacemaker placed yesterday due to family feeding patient. * Scheduled for cardiac pacemaker today. Cardiac cath: normal coronaries and normal EF head CT neg for acute pathology hold home cardiac meds nifedipine ER 60mg BID and diltiazem ER 180mg likely cause of symptomatic bradycardia extubated (12/11) Meds * Aspirin 81mg PO Daily * Morphine 1mg IV Q6H PRN Bradyarrythmia Dr. Mcgrath, EP, help appreciated * scheduled for pacemaker today. * f/u recs Shock 2/2 sepsis vs cardiogenic Hospital acquired Pneumonia Dr. Hernandez, ID middleware consultant, help appreciated Afebrile since 12/10 no leukocytosis Trops neg pBNP 56,900 on admission CXR (12/10/17): Consolidative Changes in left mid to lower lung zone and right lung base. Right hilar prominence. Trace pleural effusion. CXR (12/13/17): NAD Sputum Culture (12/07/17): + enterobacter clocae Blood cultures (12/07/17): No growth at 5 days Naris MRSA culture (): Not detected Tylenol 650mg PO Q6H PRN Moxifloxacin 400mg PO Daily (started 12/10/17, Day 6) Transaminitis (Elevated ALT) 2/2 to shock; Downtrending - AST has normalized AMS Etiology: Likely anoxic brain injury Abnormal behavior since extubation Dr. Rae/Collins, Neuro middleware consultant, help appreciated * cleared for discharge once medically stable MRI brain w/o (12/14/17): No acute intracranial abnormality. Mild chronic angiopathic changes and mild age-related global parenchymal volume loss. EEG normal ESRD on HD T//Mon Nephro consult Dr. Oni Bautista 1600 mg TID, hydralazine 50mg BID, procrit 4000U TTS per Dr. Bunn renal med dosing T2DM ISS moderate accuchecks Lantus 16 units SC daily hypoglycemic protocol DM Neuropathy Monitor Anemia of Chronic Disease Hgb Stable procrit 4000U QWK HTN Labile over course Norvasc 10mg PO Daily Hydralazine 25mg PO q4h prn Hx of ovarian CA; s/p resection in remission for last 2 years Ppx Protonix 40mg PO Daily Heparin 5000u SC Q8H [facility] PT/OT Case discussed and all management per Dr. Stanley
[2017-12-19 16:30] LABS: INR 1.2; PROTHROMBIN TIME 12.8 SECONDS (9.7-12.2)
[2017-12-19] MEDS ORDERED: Midazolam 2 MG/2 ML VIAL ONE (16:55)
[2017-12-19] MEDS ORDERED: Propofol 10 mg/ml Inj (20 ML) ONE (16:56)
[2017-12-19] MEDS ORDERED: Gentamicin 80 mg/2mL Inj. IM ONE (17:30)
[2017-12-19] MEDS ORDERED: ceFAZolin IV 2 gm in Dextrose 2 GM/50 ML BAG IVPB ONE (17:53)
[2017-12-19] MEDS ORDERED: Lidocaine Hydrochloride 20 ML INJ ONE (17:54)
[2017-12-19] MEDS ORDERED: Lidocaine Hydrochloride 5 ML INJ ONE ×2 (18:12→18:14)
[2017-12-19] MEDS ORDERED: Lidocaine 2% MPF (5 ml) Inj ONE (18:13)
[2017-12-19] MEDS ORDERED: Thrombin Topical 5,000 Int Units Spray Kit TOP ONE (19:15)
--- NOTE | 2017-12-19 20:05 | PCM.OP ---
Operative Report - Operative Report Date of Surgery/Procedure: 12/19/17 Time of Surgery/Procedure: 19:57 Surgeon: karen Drug Enforcement Administration Agent: none Anesthesia/Sedation: MAC Pre-Operative Diagnosis: cardiac arrest: bradyarrhythmic Post-Operative Diagnosis: Cardiac arrest bradyarrhythmic Indication for Surgery: Cardiac arrest: bradyarrhythmic Operative Findings: see operative report Procedure/Operation Description: She presented with a bradyarrhythmic cardiac arrest; the flores of the event remained elusive; there were no obvious reversible trigger (vagal/electrolytes/hypoxemia); given underlying conduction abnormalities would assume an intrinsic conduction abnormality; There was no documentation or a setting for a ventricular tachyarrhythmia; a permanent pacemaker was a reasonable consideration. Due to fevers and sepsis transvenous pacemaker was placed temperoraly and then removed. She was brought to the blood and plasma laboratory assistant for a possible dual lead permanent pacemaker implant. After informed consent in a non absorptive state the right pectoral region was cleansed and prepped in the usual fashion and the right axillary vein was accessed twice under fluoroscopy and two guide wires were placed. next a 3 cm incision was made inferior to the clavicle over the pectoral region an a pocket created. next the guide wires were internalized and two six turkmen sheaths placed. next 45 cm pacing leads were placed in the right atrium appendage and the right venricular apex. pace sense parameters were checked and found to be acceptable. next the sheaths were peeled and the leads secured to the muscle. next the pacemaker generator introduced in the field connected to the leads and placed in the pocket. the pocket was cleansed with antibiotics and the pocket sutured in layers. skin [place] were used in the final layer. she was transferred to the floor with orders for an xray and antibiotics Estimated Blood Loss: 3 cc Complications: none Discharge & Condition: stable
[2017-12-19] MEDS: ceFAZolin IV 1 gm in Dextrose 1 GM/50 ML BAG IVPB SCH (21:29)
[2017-12-19] MEDS ORDERED: Oxycodone/Acetaminophen 5/325 mg Tab PO STA (22:04)
--- NOTE | 2017-12-19 23:01 | CP.PCM.PN ---
Subjective - Date & Time of Evaluation Date of Evaluation: 12/19/17 Time of Evaluation: 14:20 - Subjective Subjective: Patient seen and evaluated today Denies chest pain and dyspnea For PPM today Objective - Vital Signs/Intake and Output Vital Signs (last 24 hours): Temp Pulse Resp BP Pulse Ox 98.4 F 82 20 117/72 98 12/19/17 16:00 12/19/17 16:00 12/19/17 16:00 12/19/17 16:00 12/19/17 16:00 Intake and Output: 12/19/17 12/20/17 18:59 06:59 Intake Total 0 Output Total 1500 Balance -1500 - Medications Medications: Current Medications Acetaminophen (Tylenol 325mg Tab) 650 mg PO Q6 PRN PRN Reason: Fever >100.4 F Last Admin: 12/19/17 21:28 Dose: 650 mg Amlodipine Besylate (Norvasc) 5 mg PO DAILY [facility] Artificial Tears (Artificial Tears Refresh Celluvisc) 0 ml OU Q4 PRN PRN Reason: Dry eyes Aspirin (Aspirin Chewable) 81 mg PO DAILY [facility] Last Admin: 12/19/17 10:20 Dose: Not Given Epoetin Kasi (Procrit) 4,000 unit IV QWK [facility] Last Admin: 12/19/17 13:42 Dose: Not Given Heparin Sodium (Porcine) (Heparin) 5,000 units SC Q8 [facility] Last Admin: 12/19/17 06:00 Dose: Not Given Hydralazine HCl (Apresoline) 25 mg PO Q4 PRN PRN Reason: Other Vancomycin HCl 500 mg/ Sodium (Chloride) 100 mls @ 100 mls/hr IVPB MWF [facility] PRN Reason: Protocol Cefazolin Sodium/Dextrose (Ancef Iv 1 Gm Duplex) 1 gm in 50 mls @ 100 mls/hr IVPB Q12 [facility] PRN Reason: Protocol Stop: 12/20/17 10:29 Last Admin: 12/19/17 21:29 Dose: 100 mls/hr Insulin Glargine (Lantus) 16 unit SC DAILY [facility] Last Admin: 12/19/17 10:20 Dose: Not Given Insulin Human Regular (Novolin R) 0 unit SC ACHS [facility] PRN Reason: Protocol Last Admin: 12/19/17 21:41 Dose: Not Given Morphine Sulfate (Morphine) 1 mg IVP Q6H PRN PRN Reason: Pain, severe (8-10) Last Admin: 12/15/17 10:05 Dose: 1 mg Moxifloxacin HCl (Avelox) 400 mg PO Q24H [facility] Last Admin: 12/19/17 15:19 Dose: Not Given Pantoprazole Sodium (Protonix Ec Tab) 40 mg PO DAILY [facility] Last Admin: 12/19/17 10:21 Dose: Not Given Sevelamer Carbonate (Renvela) 2,400 mg PO TIDCC [facility] Last Admin: 12/19/17 19:27 Dose: Not Given Vitamin B Complex/Vit C/Folic Acid (Nephro-Perry) 1 tab PO 0800 [facility] Last Admin: 12/19/17 08:45 Dose: Not Given - Labs Labs: 12/18/17 05:50 12/18/17 05:50 PT 12.8 SECONDS (9.7-12.2) H 12/19/17 16:16 INR 1.2 12/19/17 16:16 APTT 29 SECONDS (21-34) 12/19/17 16:16
[2017-12-20] MEDS ORDERED: Oxycodone/Acetaminophen 5/325 mg Tab PO STA ×2 (06:18→13:17)
[2017-12-20] MEDS: (Novolin R) Insulin Human Regular 100 units/ml vial SC SCH ×3 (07:35→16:42)
--- NOTE | 2017-12-20 08:03 | CP.PCM.PN ---
Subjective - Date & Time of Evaluation Date of Evaluation: 12/20/17 Time of Evaluation: 08:03 - Subjective Subjective: PGY2 Medicine Note for Dr. Stanley Patient seen and examined at bedside this morning. No acute events overnight. Patient had pacemaker placed last night. She states she is feeling well and has no complaints. Her pain is well controlled. She is tolerating her diet. She denies any lightheadedness, dizziness, chest pain, shortness of breath, Objective - Vital Signs/Intake and Output Vital Signs (last 24 hours): Temp Pulse Resp BP Pulse Ox 98.4 F 88 20 117/72 98 12/19/17 16:00 12/19/17 20:00 12/19/17 16:00 12/19/17 16:00 12/19/17 16:00 Intake and Output: 12/20/17 12/20/17 06:59 18:59 Intake Total 300 Balance 300 - Medications Medications: Current Medications Acetaminophen (Tylenol 325mg Tab) 650 mg PO Q6 PRN PRN Reason: Fever >100.4 F Last Admin: 12/19/17 21:28 Dose: 650 mg Amlodipine Besylate (Norvasc) 5 mg PO DAILY [facility] Artificial Tears (Artificial Tears Refresh Celluvisc) 0 ml OU Q4 PRN PRN Reason: Dry eyes Aspirin (Aspirin Chewable) 81 mg PO DAILY [facility] Last Admin: 12/19/17 10:20 Dose: Not Given Epoetin Kasi (Procrit) 4,000 unit IV QWK [facility] Last Admin: 12/19/17 13:42 Dose: Not Given Heparin Sodium (Porcine) (Heparin) 5,000 units SC Q8 [facility] Last Admin: 12/19/17 06:00 Dose: Not Given Hydralazine HCl (Apresoline) 25 mg PO Q4 PRN PRN Reason: Other Vancomycin HCl 500 mg/ Sodium (Chloride) 100 mls @ 100 mls/hr IVPB MWF [facility] PRN Reason: Protocol Cefazolin Sodium/Dextrose (Ancef Iv 1 Gm Duplex) 1 gm in 50 mls @ 100 mls/hr IVPB Q12 [facility] PRN Reason: Protocol Stop: 12/20/17 10:29 Last Admin: 12/19/17 21:29 Dose: 100 mls/hr Insulin Glargine (Lantus) 16 unit SC DAILY [facility] Last Admin: 12/19/17 10:20 Dose: Not Given Insulin Human Regular (Novolin R) 0 unit SC ACHS [facility] PRN Reason: Protocol Last Admin: 12/19/17 21:41 Dose: Not Given Morphine Sulfate (Morphine) 1 mg IVP Q6H PRN PRN Reason: Pain, severe (8-10) Last Admin: 12/15/17 10:05 Dose: 1 mg Moxifloxacin HCl (Avelox) 400 mg PO Q24H [facility] Last Admin: 12/19/17 15:19 Dose: Not Given Pantoprazole Sodium (Protonix Ec Tab) 40 mg PO DAILY [facility] Last Admin: 12/19/17 10:21 Dose: Not Given Sevelamer Carbonate (Renvela) 2,400 mg PO TIDCC [facility] Last Admin: 12/19/17 19:27 Dose: Not Given Vitamin B Complex/Vit C/Folic Acid (Nephro-Perry) 1 tab PO 0800 [facility] Last Admin: 12/19/17 08:45 Dose: Not Given - Labs Labs: 12/18/17 05:50 12/18/17 05:50 PT 12.8 SECONDS (9.7-12.2) H 12/19/17 16:16 INR 1.2 12/19/17 16:16 APTT 29 SECONDS (21-34) 12/19/17 16:16 - Constitutional Appears: Non-toxic, No Acute Distress - Head Exam Head Exam: ATRAUMATIC, NORMOCEPHALIC - Eye Exam Eye Exam: Normal appearance - ENT Exam ENT Exam: Mucous Membranes Moist - Respiratory Exam Respiratory Exam: Chest Wall Tenderness, Clear to Ausculation Bilateral, Rales, NORMAL BREATHING PATTERN. absent: Accessory Muscle Use, Rhonchi, Wheezes, Respiratory Distress - Cardiovascular Exam Cardiovascular Exam: +S1, +S2 Additional comments: Paced rhythm - GI/Abdominal Exam GI & Abdominal Exam: Soft. absent: Distended, Firm, Guarding, Rigid, Tenderness - Extremities Exam Extremities Exam: absent: Calf Tenderness, Pedal Edema - Neurological Exam Neurological Exam: Alert, Awake - Psychiatric Exam Psychiatric exam: Normal Affect, Normal Mood - Skin Skin Exam: Dry, Warm Assessment and Plan - Assessment and Plan (Free Text) Plan: s/p cardiac arrest CODE Heart: Cardiology, Dr. Ríos consulted EP Cardiology consult, Dr. Mcgrath * s/p pacemaker placed on 12/19 Cardiac cath: normal coronaries and normal EF head CT neg for acute pathology hold home cardiac meds nifedipine ER 60mg BID and diltiazem ER 180mg likely cause of symptomatic bradycardia extubated (12/11) Meds * Aspirin 81mg PO Daily * Morphine 1mg IV Q6H PRN Bradyarrythmia Dr. Mcgrath, EP, help appreciated * scheduled for pacemaker today. * f/u recs Shock 2/2 sepsis vs cardiogenic Hospital acquired Pneumonia Dr. Hernandez, ID custom decorating consultant, help appreciated Afebrile since 12/10 no leukocytosis Trops neg pBNP 56,900 on admission CXR (12/10/17): Consolidative Changes in left mid to lower lung zone and right lung base. Right hilar prominence. Trace pleural effusion. CXR (12/13/17): NAD Sputum Culture (12/07/17): + enterobacter clocae Blood cultures (12/07/17): No growth at 5 days Naris MRSA culture (): Not detected Tylenol 650mg PO Q6H PRN Moxifloxacin 400mg PO Daily (started 12/10/17, Day 6) Transaminitis (Elevated ALT) 2/2 to shock; Downtrending - AST has normalized AMS Etiology: Likely anoxic brain injury Abnormal behavior since extubation Dr. Rae/Collins, Neuro custom decorating consultant, help appreciated * cleared for discharge once medically stable MRI brain w/o (12/14/17): No acute intracranial abnormality. Mild chronic angiopathic changes and mild age-related global parenchymal volume loss. EEG normal ESRD on HD T//Mon Nephro consult Dr. Oni Bautista 1600 mg TID, hydralazine 50mg BID, procrit 4000U TTS per Dr. Bunn renal med dosing Diabetes type 2 ISS moderate accuchecks Lantus 16 units SC daily hypoglycemic protocol DM Neuropathy Monitor Anemia of Chronic Disease Hgb Stable procrit 4000U QWK HTN Labile over course Norvasc 10mg PO Daily Hydralazine 25mg PO q4h prn Hx of ovarian CA; s/p resection in remission for last 2 years Ppx Protonix 40mg PO Daily Heparin 5000u SC Q8H SCDs PT/OT DISPO: Patient discharged on 12/20 with the following instructions. Patient is to be discharged to [facility] for rehab per Dr. Stanley Patient is to follow up with her primary care physician within one week of discharge. Patient is to follow up with Dr. Kerline Mcgrath (Cardiology - Electro Physiology) on Monday, December 25, 2017 for staple removal. - Located at [address] [place] [address] - Please call to schedule the appointment, [phone] Patient is to follow up with Dr. Robert Ríos (Cardiology) within two weeks. Please call and schedule an appointment. Patient is to continue taking medications as directed. - Avalox 400mg PO q24h - take for 7 more days - Vancomycin 500mg IVPB q24h - take for 7 more days If patient experiences any new or worsening symptoms, please go directly to the nearest emergency department. Case discussed and all management per Dr. Stanley
--- NOTE | 2017-12-20 08:08 | RAD ---
Date of service: 12/19/2017 HISTORY: Post Pacemaker Insertion COMPARISON: Portable chest 12/13/2017. FINDINGS: LUNGS: No active pulmonary disease. PLEURA: No significant pleural effusion identified, no pneumothorax apparent. CARDIOVASCULAR: Cardiac silhouette remains prominent appearing. No pulmonary vascular congestion. There has been interval removal of left central venous line with interval placement of a bipolar permanent cardiac pacemaker with the generator the right pectoralis region and 2 leads identified extending into the right subclavian space and into the right heart. Skin [place] are identified at the right subclavian chest wall. OSSEOUS STRUCTURES: No significant abnormalities. VISUALIZED UPPER ABDOMEN: Normal. OTHER FINDINGS: None. IMPRESSION: Interval permanent cardiac pacemaker placement. No pneumothorax. Interval removal of left central venous line. Cardiac silhouette remains prominent appearing. No pulmonary vascular congestion or infiltrate bilaterally.
[2017-12-20] MEDS: Multivitamin Vitamin B Complex (Nephro-Vite) Tab PO SCH (08:45)
[2017-12-20] MEDS: (Lantus) Insulin Glargine, Recombinant SC SCH (09:43)
[2017-12-20] MEDS: Pantoprazole 40 mg EC Tab PO SCH (09:43)
[2017-12-20] MEDS: ceFAZolin IV 1 gm in Dextrose 1 GM/50 ML BAG IVPB SCH (09:43)
[2017-12-20 10:29] VITALS: RESP 16
--- NOTE | 2017-12-20 14:38 | CP.PCM.PN ---
Subjective - Date & Time of Evaluation Date of Evaluation: 12/20/17 Time of Evaluation: 14:37 - Subjective Subjective: Nephrology Consultation Note Assessment: stable Cardiac arrest, s/p PPM 12/19/2017 acute respi failure, pneumonia: resolved Hyperkalemia, lactic acidosis, hypokalemia: resolved Diabetic chronic Kidney Disease (E11.22) Hypertensive Chronic Kidney Disease (I12.0) End stage renal disease (N18.6) dependence on hemodialysis (Z99.2) (TTS) via AVF Anemia (D64.9), Hyperphosphatemia (E83.39), Secondary Hyperparathyroidism (E21.1 ), HTN (I12.0) Hypercalcemia likely due to IV given during ACLS (outpt Ca 9.1 PTH 453 recently ) resolved Hx of ovarian cancer s/p chemo, in remission for last 2 years RV pressure overload and moderate pulmonary HTN Plan: Had d/w family about need for strict low K diet. pt on veltassa daily at home. d /c losartan as pt has tendency for hyperkalemia as outpt Plan for next HD tomorrow per TTS schedule. Continue with Nephrovite 1 tab/day. PRBC as needed for anemia. lowered NEIDA weekly with HD last Hb 11.3 increased phos binders last phos level 6.5 BP control on norvasc. changed hydralazine to prn as BP low side. lowered norvasc to 5 mg Glycemic control, Dialysis consistent diet Further work up/management as per primary team Dose meds/antibiotics (if needed) for ESRD status. Avoid fleets enema/magnesium based laxatives. cardiology and neuro following Thanks for allowing me to participate in care of your patient. will follow with you. Please call if any Qs. had d/w family and team Dr Shahab Bunn Office: [phone] reason for consult: ESRD HPI: Pt is a 57 F with hx of ESRD on hemodialysis (TTS) via AVF @ [facility] for last 7 years, chronic anemia, hyperphosphatemia, secondary hyperparathyroidism, Diabetes Mellitus, hypertension, ovarian cancer s/p chemo, in remission for last 2 years found to be unresponsive at home, pt s/p ACLS and intubated/sedated, now in ICU pt unable to provide much hx daughter bedside says pt was fine 1 day ago except mild cough. no other concerns or complaints reported. pt is non smoker/no etoh/no drugs. last HD monday ROS: extubated 12/11/17. pt feels better. denies CP/SOB. confusion appears better , noted overnight events Physical Examination: General Appearance: comfortable, not in acute distress, Vitals reviewed and noted as below Head; Atraumatic, normocephalic ENT: normal EYES: left eye blind Neck; supple no lymphadenopathy, no thyromegaly or bruit Lungs: normal respiratory rate/effort. Breath sounds bilateral clear anteriorly Heart: Normal rate. s1s2 normal. No rub or gallop. s/p Rt side PPM Extremities: no edema. No varicose veins. Neurological: Patient is awake alert follows commands. confused but better Skin: Warm and dry. Normal turgor. No rash. Palpitation: Normal elasticity for age Abdomen: Abdomen is soft. Bowel sounds +. There is no abdominal tenderness, no guarding/rigidity or organomegaly Psych: deferred MSK: no joint tenderness or swelling. Digits and nails normal, no deformity : kidney or bladder not palpable Access: AVF Labs/imaging reviewed. Past medical history, past surgical history, family history, social history, allergy reviewed and noted as below Family Hx: no hx of CKD. Non contributory Objective - Vital Signs/Intake and Output Vital Signs (last 24 hours): Temp Pulse Resp BP Pulse Ox 98.4 F 85 16 158/71 H 94 L 12/20/17 12:00 12/20/17 12:00 12/20/17 12:00 12/20/17 12:00 12/20/17 12:00 Intake and Output: 12/20/17 12/20/17 06:59 18:59 Intake Total 500 550 Balance 500 550 - Medications Medications: Current Medications Acetaminophen (Tylenol 325mg Tab) 650 mg PO Q6 PRN PRN Reason: Fever >100.4 F Last Admin: 12/19/17 21:28 Dose: 650 mg Amlodipine Besylate (Norvasc) 5 mg PO DAILY [facility] Last Admin: 12/20/17 09:43 Dose: 5 mg Artificial Tears (Artificial Tears Refresh Celluvisc) 0 ml OU Q4 PRN PRN Reason: Dry eyes Aspirin (Aspirin Chewable) 81 mg PO DAILY [facility] Last Admin: 12/20/17 09:42 Dose: 81 mg Epoetin Kasi (Procrit) 4,000 unit IV QWK [facility] Last Admin: 12/19/17 13:42 Dose: Not Given Heparin Sodium (Porcine) (Heparin) 5,000 units SC Q8 [facility] Last Admin: 12/19/17 06:00 Dose: Not Given Hydralazine HCl (Apresoline) 25 mg PO Q4 PRN PRN Reason: Other Vancomycin HCl 500 mg/ Sodium (Chloride) 100 mls @ 100 mls/hr IVPB MWF [facility] PRN Reason: Protocol Last Admin: 12/20/17 08:46 Dose: 100 mls/hr Insulin Glargine (Lantus) 16 unit SC DAILY [facility] Last Admin: 12/20/17 09:43 Dose: 16 units Insulin Human Regular (Novolin R) 0 unit SC ACHS [facility] PRN Reason: Protocol Last Admin: 12/20/17 12:19 Dose: 3 units Morphine Sulfate (Morphine) 1 mg IVP Q6H PRN PRN Reason: Pain, severe (8-10) Last Admin: 12/15/17 10:05 Dose: 1 mg Moxifloxacin HCl (Avelox) 400 mg PO Q24H [facility] Last Admin: 12/19/17 15:19 Dose: Not Given Pantoprazole Sodium (Protonix Ec Tab) 40 mg PO DAILY [facility] Last Admin: 12/20/17 09:43 Dose: 40 mg Sevelamer Carbonate (Renvela) 2,400 mg PO TIDCC [facility] Last Admin: 12/20/17 12:21 Dose: 2,400 mg Vitamin B Complex/Vit C/Folic Acid (Nephro-Perry) 1 tab PO 0800 [facility] Last Admin: 12/20/17 08:45 Dose: 1 tab - Labs Labs: 12/18/17 05:50 12/18/17 05:50 PT 12.8 SECONDS (9.7-12.2) H 12/19/17 16:16 INR 1.2 12/19/17 16:16 APTT 29 SECONDS (21-34) 12/19/17 16:16
[2017-12-20 16:18] VITALS: BP 150/69; PULSE 83; TEMP 98.6; O2SAT 95
[2017-12-20] MEDS ORDERED: Dextrose 50% SYRINGE Inj (50 ml) IV PRN (16:37)
[2017-12-20] MEDS ORDERED: Glucagon Recombinant 1 mg Inj IM PRN (16:37)
--- NOTE | 2017-12-20 23:51 | CP.PCM.PN ---
Subjective - Date & Time of Evaluation Date of Evaluation: 12/20/17 Time of Evaluation: 08:40 - Subjective Subjective: Patient s/p PPM Stable Possible d/c today Objective - Vital Signs/Intake and Output Vital Signs (last 24 hours): Temp Pulse Resp BP Pulse Ox 98.6 F 83 16 150/69 95 12/20/17 16:00 12/20/17 16:00 12/20/17 16:00 12/20/17 16:00 12/20/17 16:00 Intake and Output: 12/20/17 12/21/17 18:59 06:59 Intake Total 850 Balance 850 - Labs Labs: 12/18/17 05:50 12/18/17 05:50 PT 12.8 SECONDS (9.7-12.2) H 12/19/17 16:16 INR 1.2 12/19/17 16:16 APTT 29 SECONDS (21-34) 12/19/17 16:16
--- NOTE | 2018-01-11 13:06 | DS ---
Copied To: Kobi Stanley MD Attending MD: Kobi Stanley MD This patient in the hospital complains of nausea, weakness, fatigue, tiredness. Came to the ER for admission. The patient needs supportive care. Discharged to be followed as an outpatient. Kobi Stanley MD
== END 2017-12-20 20:17 | DRG 871 ==
LOC: C.ER 10:01 → C.9I 11:25 → C.6T 12-16 15:01 → C.9I 12-16 15:07
PROVIDERS: ADMIT Internal Medicine Pulmonary Disease; ATTEND Internal Medicine Pulmonary Disease
PROC: 0BH17EZ Insertion of Endotracheal Airway into Trachea, Via Natural or Artificial Opening (ICD-10-PCS; principal; 2017-12-07)
PROC: 5A1945Z Respiratory Ventilation, 24-96 Consecutive Hours (ICD-10-PCS; 2017-12-07)
PROC: 3E033XZ Introduction of Vasopressor into Peripheral Vein, Percutaneous Approach (ICD-10-PCS; 2017-12-07)
PROC: 4A023N7 Measurement of Cardiac Sampling and Pressure, Left Heart, Percutaneous Approach (ICD-10-PCS; 2017-12-07)
PROC: B211YZZ Fluoroscopy of Multiple Coronary Arteries using Other Contrast (ICD-10-PCS; 2017-12-07)
PROC: B215YZZ Fluoroscopy of Left Heart using Other Contrast (ICD-10-PCS; 2017-12-07)
PROC: 5A1223Z Performance of Cardiac Pacing, Continuous (ICD-10-PCS; 2017-12-07)
PROC: 5A1D70Z Performance of Urinary Filtration, Intermittent, Less than 6 Hours Per Day (ICD-10-PCS; 2017-12-08)
PROC: 02HV33Z Insertion of Infusion Device into Superior Vena Cava, Percutaneous Approach (ICD-10-PCS; 2017-12-08)
PROC: 02HV33Z Insertion of Infusion Device into Superior Vena Cava, Percutaneous Approach (ICD-10-PCS; 2017-12-13)
PROC: 0JH606Z Insertion of Pacemaker, Dual Chamber into Chest Subcutaneous Tissue and Fascia, Open Approach (ICD-10-PCS; 2017-12-19)
PROC: 02H63JZ Insertion of Pacemaker Lead into Right Atrium, Percutaneous Approach (ICD-10-PCS; 2017-12-19)
PROC: 02HK3JZ Insertion of Pacemaker Lead into Right Ventricle, Percutaneous Approach (ICD-10-PCS; 2017-12-19)
DX: A41.4 Sepsis due to anaerobes (principal); J96.01 Acute respiratory failure with hypoxia; R65.21 Severe sepsis with septic shock; R57.0 Cardiogenic shock; N18.6 End stage renal disease; J96.91 Respiratory failure, unspecified with hypoxia; J18.9 Pneumonia, unspecified organism; N25.81 Secondary hyperparathyroidism of renal origin; I44.2 Atrioventricular block, complete; E87.2 Acidosis; G93.1 Anoxic brain damage, not elsewhere classified; I12.0 Hypertensive chronic kidney disease with stage 5 chronic kidney disease or end stage renal disease; Z99.2 Dependence on renal dialysis; I27.20 Pulmonary hypertension, unspecified; E87.5 Hyperkalemia; E83.52 Hypercalcemia; D64.9 Anemia, unspecified; E11.22 Type 2 diabetes mellitus with diabetic chronic kidney disease; E11.40 Type 2 diabetes mellitus with diabetic neuropathy, unspecified; Z79.4 Long term (current) use of insulin; R00.1 Bradycardia, unspecified; T46.1X5A Adverse effect of calcium-channel blockers, initial encounter